=== PATIENT | male | born 1950 | race Caucasian/White ===

== ENCOUNTER → 2020-01-30 10:18 | Outpatient (BNVA) | payer OTHER, SELFPAY | PROVIDERS: Family Provider Emergency Medicine Emergency Medical Services; PCP Emergency Medicine Emergency Medical Services; Referring Provider Emergency Medicine Emergency Medical Services; Visit Provider Specialist | DX: G56.03 Carpal tunnel syndrome, bilateral upper limbs (principal); Z87.891 Personal history of nicotine dependence | CPT/HCPCS: 99204 ==

== ENCOUNTER → 2020-02-13 10:13 | Outpatient (BNVA) | payer OTHER, SELFPAY | PROVIDERS: Family Provider Emergency Medicine Emergency Medical Services; PCP Emergency Medicine Emergency Medical Services; Referring Provider Specialist; Visit Provider Psychiatry & Neurology Neurology | DX: G62.89 Other specified polyneuropathies (principal); Z87.891 Personal history of nicotine dependence | CPT/HCPCS: 95886; 95910 ==

== ENCOUNTER → 2020-02-15 11:01 | Outpatient (BNVA) | payer OTHER, SELFPAY | PROVIDERS: Family Provider Emergency Medicine Emergency Medical Services; PCP Emergency Medicine Emergency Medical Services; Referring Provider Specialist; Visit Provider Psychiatry & Neurology Neurology | DX: G56.03 Carpal tunnel syndrome, bilateral upper limbs (principal); Z87.891 Personal history of nicotine dependence | CPT/HCPCS: 95886; 95911 ==

== ENCOUNTER 2020-05-06 10:08 | Emergency (ER) | payer OTHER, MEDICARE, SELFPAY ==
[2020-05-06] VITALS (7 sets, daily range): BP systolic 141–149; BP diastolic 60–86; PULSE 55–78; RESP 14–26; TEMP 36.8; O2SAT 87–98; BMI 44.4
--- NOTE | 2020-05-06 10:57 | ED_ITS ---
HPI - General Adult General: Chief complaint: General Medical Stated complaint: confusion/weakness Time Seen by Provider: 05/06/20 10:57 History of Present Illness: HPI narrative: 70-year-old male comes in with nausea and vomiting and some mild confusion. He and his both admit that he has some altered mental status and diarrhea for the last 10 days sometimes been dark is not noticed any bright red blood per stool he is also had a productive cough however he states that that really has not changed intermittently has a productive cough has some purulent aspect to it but it has not really changed from what he considers his baseline recently. He does admit his breathing is been a little bit more difficult he denies any chest pain. He can have reports of various abdominal pains including admit him mid abdomen left lower quadrant in the epigastric area the area that seems to bother him the most in talking to him his left lower quadrant. He is denying any hematochezia. Onset (ago): day(s) (10) Location: abdomen Radiation: non-radiation Severity: severe Quality: aching Pain Consistency: intermittent Relieving factors: none Exacerbating factors: eating Associated symptoms: Reports confusion, cough, dyspnea, short of breath and vomiting; Deny chest pain, malaise or rash Treatments prior to arrival: none Review of Systems Const: Reports: fever(s); Denies: chills, body aches, change in appetite, fatigue or malaise ENMT: Denies: throat pain, ear or mastoid pain, nasal discharge or nasal congestion Card: Reports: dyspnea on exertion; Denies: chest pain, edema or orthopnea Resp: Reports: dyspnea GI: Reports: vomiting : Denies: flank pain, dysuria, urinary frequency or urinary urgency Skin/Breast: Denies: rash or pruritus Neuro: Reports: confusion PFSH ED PFSH: Medical History Bilateral carpal tunnel syndrome Cervical disc disorder with myelopathy of mid-cervical region Diabetes mellitus Diverticulitis Dyslipidemia Esophagitis Gastritis Hypertension, benign Morbid obesity Peripheral neuropathy Surgical History Hx of cholecystectomy S/P hemilaminotomy (05/01/03) Left L4-L5 hemilaminotomy with microdiscectomy ;[place], [place] Family History Father Cancer Mother Diabetes CAD (coronary artery disease) Stroke Other Hypertension Social History Smoking and tobacco status: former smoker Alcohol intake: former Year of sobriety/quit date alcohol: 1977 Lives independently: Yes Household members: spouse Marital status: Current occupational status: retired History of recent travel: No Physical Exam Const: COMMON NORMALS: no acute distress GENERAL APPEARANCE: cooperative and comfortable ORIENTATION/CONSCIOUSNESS: Yes awake, Yes oriented to person, Yes oriented to place and Yes oriented to time HENMT: COMMON NORMALS: normocephalic, atraumatic, hearing grossly normal bilaterally, external ears normal, EAC's normal, TM's normal bilaterally, Normal nasal mucous membranes and turbinates present, moist oral mucous membranes and oropharynx normal HEAD & SCALP: normocephalic and atraumatic NOSE: Normal nasal mucous membranes and turbinates present EXTERNAL EAR: Yes external ears normal EXTERNAL AUDITORY CANAL: EAC's normal TYMPANIC MEMBRANE: TM's normal bilaterally Eye: COMMON NORMALS: Equal, round and reactive pupils present, EOMs intact bilaterally, conjunctivae normal and no scleral icterus CONJUNCTIVA: Yes conjunctivae normal PUPIL: Yes Equal, round and reactive pupils present Neck/C-Spine: COMMON NORMALS: full ROM, no lymphadenopathy, supple and no JVD Lymph: LYMPHATIC: no lymphadenopathy noted and no lymphedema noted Resp: COMMON NORMALS: normal respiratory effort, No retractions, No use of accessory muscles and clear to auscultation bilaterally AUSCULTATION: clear to auscultation bilaterally Cardio: COMMON NORMALS: no JVD, regular rate, regular rhythm and No murmurs present (Cardio) RATE: regular rate RHYTHM: regular rhythm GI: COMMON NORMALS: Soft to palpation and No hepatosplenomegaly present AUSCULTATION: Yes normoactive bowel sounds PALPATION: Yes Soft to palpation, Yes Tenderness to palpation present (GI) Details: LLQ, No Guarding due to palpation present (GI) and Yes No hepatosplenomegaly present PERCUSSION: Other (Abdominal pain moderate distention obvious large umbilical hernia partially reducible) Extremity: COMMON NORMALS: normal to inspection, capillary refill normal, no clubbing, cyanosis or edema, no calf tenderness and no pedal edema Neuro: SENSORIUM/ORIENTATION: Yes oriented to person, Yes oriented to place and Yes oriented to time Skin: COMMON NORMALS: no rashes or lesions noted GENERAL SKIN EXAM: no rashes or lesions noted Course Vital Signs: Vital signs: Vital Signs Temperature 98.3 F 05/06/20 10:21 Pulse Rate 70 05/06/20 15:49 Respiratory Rate 18 05/06/20 15:49 Blood Pressure 141/60 05/06/20 15:49 Pulse Oximetry 90 05/06/20 15:49 MDM - General Adult MDM Narrative: Medical decision making narrative: Recommend further evaluation and probable admission for chronic respiratory failure on BiPAP patient refuses and is quite adamant decides to leave AMA I did advise him that he could worsen and even he expresses understanding this does not wish to stay and decided to leave AMA Lab Data: Labs: Lab Results 05/06/20 05/06/20 05/06/20 Range/Units 11:08 11:08 13:10 WBC 7.7 (4.0-10.0) 10^3/ uL RBC 4.31 (4.1-5.3) 10^6/u L Hgb 12.3 (11.7-16.6) g/dL Hct 39.4 L (42.0-52.0) % MCV 91.4 (80-94) fL MCH 28.5 (28.0-34.0) pg MCHC 31.2 (30.0-36.0) g/dL RDW 11.9 L (12.1-15.1) % Plt Count 242 (130-400) 10^3/c mm MPV 10.6 H (7.4-10.4) fL Neut % (Auto) 71.0 % Lymph % (Auto) 19.1 % Burke % (Auto) 6.8 % Eos % (Auto) 2.3 % Baso % (Auto) 0.5 % Neut # (Auto) 5.5 (1.8-7.7) 10^3/u L Lymph # (Auto) 1.5 (0.8-4.8) 10^3/u L Burke # (Auto) 0.5 (0.2-0.9) 10^3/u L Eos # (Auto) 0.2 (0.0-0.8) 10^3/u L Baso # (Auto) 0.0 (0.0-0.1) 10^3/u L Nucleated RBC % (a uto) 0 % Nucleated RBCs # 0.0 /100WBC Specimen Type Arterial Sample Site Radial, left ABG pH 7.33 L (7.35-7.45) ABG pCO2 77.4 H* (35-45) mmHg ABG pO2 121.0 H (80.0-100.0) mmH g ABG HCO3 41.0 H (22-26) mmol/L ABG O2 Saturation 98.4 ABG Base Excess 11.9 H (-2.0-2.0) mmol/ L Mike Test Pos A-a O2 Gradient 68.2 H (5-10) mmHg Hematocrit 38.2 L (42-52) % Hgb O2 Saturation 96.6 (95-100) % Carboxyhemoglobin 0.8 (0.4-20.1) %THgb Methemoglobin 1.0 (0.4-1.5) % Total Hemoglobin 12.4 L (14-18) g/dL Ionized Calcium 1.2 (1.1-1.4) mmol/L O2 Delivery Device Nc O2 Liters/Min 5.0 % FiO2 40.0 % Senior Software Quality Engineer ID [id number] Sodium 142 141.0 (136-145) mmol/L Potassium 3.2 L 4.0 (3.5-5.1) mmol/L Chloride 91 L (98-107) mmol/L Carbon Dioxide 41 H (22-29) mmol/L Anion Gap 13.2 (5-19) BUN 15 (8-23) mg/dL Creatinine 0.8 (0.7-1.2) mg/dL Glucose 97 119.0 H (65-115) mg/dL Calculated Osmolal ity 290 (285-295) mOsm/k g Calcium 9.6 (8.5-10.5) mg/dL Total Bilirubin 0.4 (0.15-1.2) mg/dL AST 24 (0-40) U/L ALT 11 (0-41) U/L Alkaline Phosphata se 63 (40-130) IU/L Total Protein 7.1 (6.6-8.7) g/dL Albumin 4.0 (3.5-5.2) g/dL Globulin 3.1 (1.3-4.6) g/dL Urine Color (Yellow) Urine Appearance (CLEAR) Urine pH (5-7) Ur Specific Gravit y (1.005-1.030) Urine Protein (Negative) Urine Glucose (UA) (Normal) Urine Ketones (Negative) Urine Blood (Negative) Urine Nitrate (Negative) Urine Bilirubin (NEGATIVE) Urine Urobilinogen (Negative) mg/dL Ur Leukocyte Allie ase (Negative) 05/06/20 05/06/20 Range/Units 14:09 14:54 WBC (4.0-10.0) 10^3/ uL RBC (4.1-5.3) 10^6/u L Hgb (11.7-16.6) g/dL Hct (42.0-52.0) % MCV (80-94) fL MCH (28.0-34.0) pg MCHC (30.0-36.0) g/dL RDW (12.1-15.1) % Plt Count (130-400) 10^3/c mm MPV (7.4-10.4) fL Neut % (Auto) % Lymph % (Auto) % Burke % (Auto) % Eos % (Auto) % Baso % (Auto) % Neut # (Auto) (1.8-7.7) 10^3/u L Lymph # (Auto) (0.8-4.8) 10^3/u L Burke # (Auto) (0.2-0.9) 10^3/u L Eos # (Auto) (0.0-0.8) 10^3/u L Baso # (Auto) (0.0-0.1) 10^3/u L Nucleated RBC % (a uto) % Nucleated RBCs # /100WBC Specimen Type Arterial Sample Site Radial, right ABG pH 7.39 (7.35-7.45) ABG pCO2 70.0 H* (35-45) mmHg ABG pO2 92.8 (80.0-100.0) mmH g ABG HCO3 41.9 H (22-26) mmol/L ABG O2 Saturation 97.5 ABG Base Excess 13.9 H (-2.0-2.0) mmol/ L Mike Test Pos A-a O2 Gradient 69.6 H (5-10) mmHg Hematocrit 36.8 L (42-52) % Hgb O2 Saturation 95.7 (95-100) % Carboxyhemoglobin 0.9 (0.4-20.1) %THgb Methemoglobin 1.0 (0.4-1.5) % Total Hemoglobin 12.0 L (14-18) g/dL Ionized Calcium 1.2 (1.1-1.4) mmol/L O2 Delivery Device Bipap O2 Liters/Min 2.0 % FiO2 35.0 % Senior Software Quality Engineer ID [email or web address] Sodium 142.0 (136-145) mmol/L Potassium 3.8 (3.5-5.1) mmol/L Chloride (98-107) mmol/L Carbon Dioxide (22-29) mmol/L Anion Gap (5-19) BUN (8-23) mg/dL Creatinine (0.7-1.2) mg/dL Glucose 108.0 (65-115) mg/dL Calculated Osmolal ity (285-295) mOsm/k g Calcium (8.5-10.5) mg/dL Total Bilirubin (0.15-1.2) mg/dL AST (0-40) U/L ALT (0-41) U/L Alkaline Phosphata se (40-130) IU/L Total Protein (6.6-8.7) g/dL Albumin (3.5-5.2) g/dL Globulin (1.3-4.6) g/dL Urine Color Yellow (Yellow) Urine Appearance Clear (CLEAR) Urine pH 9 H (5-7) Ur Specific Gravit y 1.010 (1.005-1.030) Urine Protein Neg (Negative) Urine Glucose (UA) Norm (Normal) Urine Ketones Negative (Negative) Urine Blood Neg (Negative) Urine Nitrate Negative (Negative) Urine Bilirubin Neg (NEGATIVE) Urine Urobilinogen Norm (Negative) mg/dL Ur Leukocyte Allie ase Negative (Negative) Discharge Plan Discharge Patient Disposition: Left Against Medical Advice Clinical Impression: Acute and chronic respiratory failure with hypercapnia, COPD with acute exacerbation Condition: Stable Prescriptions: No Action sertraline 100 mg tablet 100 mg PO DAILY RF: 0 acetaminophen [Tylenol Extra Strength] 500 mg tablet 500 mg PO QID PRN (Reason: Pain) RF: 0 ferrous sulfate 325 mg (65 mg iron) tablet,delayed release (DR/EC) 325 mg PO DAILY RF: 0 aspirin [Adult Aspirin Regimen] 81 mg tablet,delayed release (DR/EC) 81 mg PO DAILY RF: 0 Complete Multivitamin Tablet 1 tab PO DAILY RF: 0 losartan 100 mg tablet 100 mg PO DAILY RF: 0 omeprazole 20 mg capsule,delayed release(DR/EC) 20 mg PO DAILY RF: 0 hydrochlorothiazide 25 mg tablet 50 mg PO DAILY RF: 0 gabapentin 600 mg tablet 600 mg PO TID RF: 0 simvastatin 40 mg tablet 40 mg PO DAILY RF: 0 metformin 500 mg tablet 500 mg PO BID RF: 0 sildenafil 100 mg tablet 100 mg PO DAILY PRN (Reason: Sexual Activity) RF: 0 prazosin 1 mg capsule 4 mg PO DAILY RF: 0 nadolol 40 mg tablet 40 mg PO DAILY RF: 0 Referrals: Ag Kong DO [Primary Care Provider] - Discharge Diet: Usual diet Discharge Activity: Limit activity as instructed Activity Restrictions/Additional Instructions: We recommend that you stay here in the hospital on BiPAP overnight to correct your respiratory issues. You have elected to leave AGAINST MEDICAL ADVICE. We also recommended to observe you since you reported rectal bleeding. Continue to use her CPAP regularly at home follow-up with her primary care doctor as soon as you are able. Have any worsening problems you are certainly welcome to return. Please note that the risks of leaving AGAINST MEDICAL ADVICE including becoming much sicker up to and including the possibility of dying due to your chronic illnesses that are exacerbated at this time. We have discussed this and you have elected to leave in spite of this advice. Discharge Date/Time: 05/06/20 15:53 Coding Level of Care Code ED Company Accountant for Nia Fwd Exam Comprehensive
--- NOTE | 2020-05-06 10:59 | ECG_ITS ---
[facility] Test Date: 2020-05-06 Pat Name: Khoa Fallon Department: Room: Gender: Male Sheriff: : 1950 Requested By: Timur Nolen Order Number: [id number] Laura MD: Herrera Fenton M.D. Measurements Intervals [place] Rate: 49 P: 128 NV: 179 QRS: -14 QRSD: 72 T: 18 QT: 418 QTc: 380 Interpretive Statements SINUS BRADYCARDIA LOW QRS VOLTAGE IN PRECORDIAL LEADS [QRS DEFLECTION < 1.0 mV IN CHEST LEADS] PROBABLE INFERIOR MYOCARDIAL INFARCTION , PROBABLY OLD [35 ms Q WAVE IN II/aVF] ANTEROSEPTAL MYOCARDIAL INFARCTION , OF INDETERMINATE AGE [40+ ms Q WAVE IN V1-V4] Compared to ECG 11/16/2018 11:38:00 Sinus rhythm no longer present Myocardial infarct finding still present Electronically Signed On 05-06-2020 16:54:03 CDT by Herrera Fenton M.D. [id number]
--- NOTE | 2020-05-06 11:12 | CT_ITS ---
WS: [id number] CT HEAD TECHNIQUE: Noncontrast CT of the head obtained from the skullbase to the vertex. CLINICAL INFORMATION: AMS COMPARISON: None. DLP: 1318.[address] scans at [facility] use at least one of these dose optimization techniques: automat ed exposure control; mA and/or kV adjustment per patient size (includes targeted exams where dose is matched to clinical indication); or iterative reconstruction. FINDINGS: No evidence of intracranial hemorrhage or mass effect. Ventricular system and basal cisterns are baker nt. Mild small vessel changes with moderate parenchymal volume loss. No extra-axial fluid collections . No evidence of mass or mass effect. Normal ferrer-white differentiation. Paranasal sinuses and mastoid air cells are well aerated. .Normal visualized soft tissues. Notified Timur Alvarado DO at 05/06/2020 1:[address]/CT head wo con* [id number] IMPRESSION: 1. No evidence of intracranial hemorrhage or mass effect. 2. Mild small vessel changes with mild parenchymal volume loss. 3. Mild mucosal thickening in the ethmoid air cells. 4. No acute intracranial findings.
--- NOTE | 2020-05-06 11:12 | CT_ITS ---
WS: [id number] CT ABDOMEN PELVIS TECHNIQUE: Contrast-enhanced CT of the abdomen and pelvis with coronal and sagittal reformatted image s. CLINICAL INFORMATION: abd pain COMPARISON: CT DLP: 1450.[address] scans at [facility] use at least one of these dose optimization techniques: automat ed exposure control; mA and/or kV adjustment per patient size (includes targeted exams where dose is matched to clinical indication); or iterative reconstruction. FINDINGS: Noncontrast liver is normal. Prior cholecystectomy. Normal GE junction. 5 mm noncalcified nodule righ t lower lobe is unchanged. Small right pleural effusion. Fatty atrophy of the pancreas. Spleen is normal. No hydronephrosis in either kidney. Small left renal cysts. Right adrenal low-attenuation nodule measuring 3.0x3.5 cm appears unchanged since 2017. Sigmoid colon is normal. Diverticulosis. No evidence of acute diverticulitis. Normal appendix. Fat-co ntaining umbilical hernia is unchanged. No herniated bowel. Slightly aneurysmal distal abdominal aorta measuring 2.7 x 2.9 cm distally. AP by transverse. Chronic anterior wedging in the lower thoracic spine. Disc space narrowing worse L4-L5 and L5-S1. Attempted notification Timur Alvarado DO at 05/06/2020 12:[address]/CT abdomen pelvis w con* [id number] IMPRESSION: 1. No acute abdominal findings. No significant changes from . 2. Prior cholecystectomy. 3. Low-attenuation right adrenal mass measuring 3.5 x 3.0 cm unchanged since . This can be followed up with CT adrenal protocol. Differential considerati ons are unchanged including benign and malignant adrenal lesions. 4. No hydronephrosis in either kidney. 5. Small right pleural effusion. 6. Stable 5 mm noncalcified nodule right lower lobe. 7. Fat-containing umbilical hernia unchanged.
[2020-05-06 11:26] LABS: Basophils % 0.5 %; Eosinophils # 0.2 10^3/uL (0.0-0.8); Eosinophils % 2.3 %; Hematocrit 39.4 % (42.0-52.0); Hemoglobin 12.3 g/dL (11.7-16.6); Lymphocytes # 1.5 10^3/uL (0.8-4.8); Lymphocytes % 19.1 %; Mean Corpuscular HGB Conc 31.2 g/dL (30.0-36.0); Mean Corpuscular Hemoglobin 28.5 pg (28.0-34.0); Mean Corpuscular Volume 91.4 fL (80-94); Mean Platelet Volume 10.6 fL (7.4-10.4); Monocytes # 0.5 10^3/uL (0.2-0.9); Monocytes % 6.8 %; Neutrophils # 5.5 10^3/uL (1.8-7.7); Nucleated Red Blood Cells % 0 %; Platelet Count 242 10^3/cmm (130-400); Red Blood Count 4.31 10^6/uL (4.1-5.3); Red Cell Distribution Width 11.9 % (12.1-15.1); White Blood Count 7.7 10^3/uL (4.0-10.0)
--- NOTE | 2020-05-06 11:30 | PC.NURSE ---
Read and agree with assessment.
[2020-05-06 11:40] LABS: Alanine Aminotransferase 11 U/L (0-41); Alkaline Phosphatase 63 IU/L (40-130); Anion Gap 13.2 (5-19); Aspartate Amino Transferase 24 U/L (0-40); Blood Urea Nitrogen 15 mg/dL (8-23); Calcium 9.6 mg/dL (8.5-10.5); Chloride 91 mmol/L (98-107); Globulin 3.1 g/dL (1.3-4.6); Glucose 97 mg/dL (65-115); Osmolality Calculated 290 mOsm/kg (285-295); Potassium 3.2 mmol/L (3.5-5.1); Sodium 142 mmol/L (136-145); Total Bilirubin 0.4 mg/dL (0.15-1.2); Total Protein 7.1 g/dL (6.6-8.7)
[2020-05-06 11:50] LABS: Carbon Dioxide 41 mmol/L (22-29)
[2020-05-06] MEDS: iohexol 300 mg/mL 100 mL Btl IV (12:08)
[2020-05-06] MEDS: potassium chloride oral liq 20 mEq/15 mL UDC 40 MEQ PO ×2 (12:35→14:37)
[2020-05-06] MEDS: sodium chloride 0.9% 1,000 ML 999 ML IV (12:35)
[2020-05-06 13:24] LABS: ABG PCO2 77.4 mmHg (35-45); ABG PH Result 7.33 (7.35-7.45); Alveolar-Arterial Oxygen Gradi 68.2 mmHg (5-10); Arterial Blood Gas Hematocrit 38.2 % (42-52); Base Excess ABG 11.9 mmol/L (-2.0-2.0); Blood Gas Allen Test Pos; Blood Gas Operator Identificat amh; Blood Gas Sample Site Radial, left; Blood Gas Sample Type Arterial; Carboxyhemoglobin 0.8 %THgb (0.4-20.1); HGB O2 Sat 96.6 % (95-100); Ionized Calcium Level - ABG 1.2 mmol/L (1.1-1.4); Oxygen Device NC; Oxygen Saturation ABG 98.4; Total Hemoglobin 12.4 g/dL (14-18)
--- NOTE | 2020-05-06 13:26 | XRR_ITS ---
PROCEDURE INFORMATION: Exam: XR Chest, 1 View Exam date and time: 05/06/2020 1:39 PM Age: 70 years old Clinical indication: Pain; Other: Chest discomfort; Additional info: Dyspnea/cough TECHNIQUE: Imaging protocol: XR of the chest Views: 1 view. COMPARISON: No relevant prior studies available. FINDINGS: Lungs: Unremarkable. No consolidation. Pleural space: Unremarkable. No pleural effusion. No pneumothorax. Heart/Mediastinum: Cardiomegaly is identified. Bones/joints: Unremarkable. XR/XR chest 1V portable [id number] IMPRESSION: There are no acute concerning abnormalities.
[2020-05-06 14:18] LABS: Add Urine Microscopic? NO
[2020-05-06 14:33] LABS: Bilirubin Urine Neg (NEGATIVE); Blood Urine Neg (Negative); Glucose Urine UA Norm (Normal); Ketones Urine Negative (Negative); Leukocyte Esterase Urine Negative (Negative); Nitrate Urine Negative (Negative); Protein Urine Neg (Negative); Urine Appearance Clear (CLEAR); Urine Color Yellow (Yellow); Urobilinogen Urine Norm (Negative); pH Urine 9 (5-7)
[2020-05-06] MEDS: sodium chlor 0.9% + KCl 20 mEq 20 MEQ/1,000 ML BAG 125 MEQ IV (14:53)
[2020-05-06 15:08] LABS: ABG PH Result 7.39 (7.35-7.45); Alveolar-Arterial Oxygen Gradi 69.6 mmHg (5-10); Arterial Blood Gas Hematocrit 36.8 % (42-52); Base Excess ABG 13.9 mmol/L (-2.0-2.0); Blood Gas Allen Test Pos; Blood Gas Sample Site Radial, right; Blood Gas Sample Type Arterial; Carboxyhemoglobin 0.9 %THgb (0.4-20.1); HCO3 ABG 41.9 mmol/L (22-26); HGB O2 Sat 95.7 % (95-100); Ionized Calcium Level - ABG 1.2 mmol/L (1.1-1.4); Oxygen Device BIPAP; Oxygen Saturation ABG 97.5; PO2 ABG 92.8 mmHg (80.0-100.0); Potassium Level - ABG 3.8 mmol/L (3.5-5.0)
== END 2020-05-06 15:53 | disposition left against medical advice (07) ==
PROVIDERS: Emergency Provider Family Medicine; PCP Emergency Medicine Emergency Medical Services
DX: J44.1 Chronic obstructive pulmonary disease with (acute) exacerbation (principal); J96.22 Acute and chronic respiratory failure with hypercapnia; Z79.82 Long term (current) use of aspirin; Z53.21 Procedure and treatment not carried out due to patient leaving prior to being seen by health care provider; E11.9 Type 2 diabetes mellitus without complications; E78.5 Hyperlipidemia, unspecified; I10 Essential (primary) hypertension; Z87.891 Personal history of nicotine dependence
CPT/HCPCS: 12345; 36600; 70450; 71045; 74177; 80051; 80053; 81003; 82810; 83986; 85025; 87070; 87205; 93005; 94660; 96365; 96366; 96375; 99283; 99284; J7030; Q9967

== ENCOUNTER → 2020-07-02 11:16 | Outpatient (BNVA) | payer OTHER, SELFPAY | PROVIDERS: PCP Emergency Medicine Emergency Medical Services; Visit Provider Specialist | DX: G56.22 Lesion of ulnar nerve, left upper limb (principal); E11.40 Type 2 diabetes mellitus with diabetic neuropathy, unspecified; M50.020 Cervical disc disorder with myelopathy, mid-cervical region, unspecified level; Z87.891 Personal history of nicotine dependence | CPT/HCPCS: 99214 ==

== ENCOUNTER → 2021-03-26 15:03 | Outpatient (BNVA) | payer OTHER, SELFPAY | PROVIDERS: PCP Emergency Medicine Emergency Medical Services; Visit Provider Internal Medicine | DX: Z01.812 Encounter for preprocedural laboratory examination (principal); K63.5 Polyp of colon; Z20.822 Contact with and (suspected) exposure to COVID-19 | CPT/HCPCS: 87635 ==

== ENCOUNTER 2021-03-31 07:36 | Day surgery (SDC) | payer OTHER, SELFPAY ==
--- NOTE | 2021-03-31 07:45 | ANES.PREANE2 ---
Pre-Anesthetic Assessment Pre-Anesthetic Assessment: Height/Weight: Height 1.78 m Weight 132.449 kg Preop Diagnosis: polyps Proposed Procedure: Operation Date: 03/31/21 09:15 Proposed Procedures p Colonoscopy g0105 k63.5(Not Applicable) - Mark Gandara MD Familial anesthetic complications: None Was Beta Darshan taken within 24 hours: Yes Was Clonidine taken within 24 hours: N/A Last intake: > 8 hrs Social: Social History: No alcohol and No tobacco Comment: forme smoker Exam: Pre-Anes Outpt Exam: alert, oriented x 3, clear to auscultation bilaterally and regular rate & rhythm Additional Exam Findings (including area of procedure): diminished b/l Airway: Cervical ROM: WNL (2 ruptured discs) MP: 3 Dentition: Chipped Additional comments: large tongue, has black tongue. States he had chewing tobacco at 0530. Upon being told he needs to wait 6 hrs, he says he lied to me and did it last night at 6 pm. Will need to wait six hrs from 0530 Pulmonary: Pulmonary: COPD and Sleep apnea Comments: 2 L NC continously CV/HEM: CV/HEM: HTN Comments: CONCLUSIONS Possibly normal LV size and ejection fraction of around 55%. Normal aortic annulus size. Possibly normal left atrial size Possibly normal RV size and ejection fraction Trivial pericardial effusion. Technically difficult study because of poor ultrasonic window. GI: GI: GERD Metabolic: Metabolic: DM, Hyperlipidemia and Morbid obesity Neuropsych: Neuropsych: Neuropathy Anesthetic Plan: ASA status: 4 Anesthesia: MAC Risk of > 500 ml blood loss (7ml/kg in children): No PFSH Anesthesia PFSH: Medical History (Updated 03/26/21 @ 14:57 by Mark Gandara MD) Bilateral carpal tunnel syndrome Cervical disc disorder with myelopathy of mid-cervical region Diabetes mellitus Diverticulitis Dyslipidemia Esophagitis Gastritis Hypertension, benign Morbid obesity Peripheral neuropathy Surgical History Hx of cholecystectomy S/P hemilaminotomy (05/01/03) Left L4-L5 hemilaminotomy with microdiscectomy ;[place], [place] Family History Father Cancer Mother Diabetes CAD (coronary artery disease) Stroke Other Hypertension Social History Smoking and tobacco status: former smoker Alcohol intake: former Year of sobriety/quit date alcohol: 1976 Lives independently: Yes Household members: spouse Marital status: Current occupational status: retired History of recent travel: No Data Anesthesia Cardiac Studies: No Data to Display
[2021-03-31 08:33] VITALS: BP 116/59; PULSE 48; RESP 18; TEMP 36.1; O2SAT 98
[2021-03-31 08:34] LABS: Glucose Point of Care 117 mg/dL (70-110)
[2021-03-31] MEDS: sodium chloride 0.9% 1,000 ML 30 ML IV (08:44)
--- NOTE | 2021-03-31 09:59 | P.HP_ITS ---
Same Day Surgery H&P Indication for Procedure/HPI DATE OF PROCEDURE: March 31, 2021 CHIEF COMPLAINT/INDICATIONFOR SURGICAL PROCEDURE: History of colon polyp PREOP DIAGNOSIS: polyps PLANNED PROCEDRUE: Operation Date: 03/31/21 09:15 Proposed Procedures p Colonoscopy g0105 k63.5(Not Applicable) - Mark Gandara MD Medications/Allergies* Home Medications Medication Instructions Recorded Confirmed Type acetaminophen 500 mg tablet 500 mg PO QID PRN 01/09/20 03/31/21 History aspirin 81 mg tablet,delayed 81 mg PO DAILY 01/09/20 03/31/21 History release ferrous sulfate 325 mg (65 mg 325 mg PO DAILY 01/09/20 03/31/21 History iron) tablet,delayed release gabapentin 600 mg tablet 600 mg PO TID 01/09/20 03/31/21 History hydrochlorothiazide 25 mg tablet 50 mg PO DAILY tab 01/09/20 03/31/21 History losartan 100 mg tablet 100 mg PO DAILY 01/09/20 03/31/21 History metformin 500 mg tablet 500 mg PO BID 01/09/20 03/31/21 History omeprazole 20 mg capsule,delayed 20 mg PO DAILY 01/09/20 03/31/21 History release sertraline 100 mg tablet 100 mg PO DAILY 01/09/20 03/31/21 History simvastatin 40 mg tablet 40 mg PO DAILY 01/09/20 03/31/21 History nadolol 40 mg tablet 40 mg PO DAILY 01/30/20 03/31/21 History prazosin 1 mg capsule 4 mg PO DAILY cap 01/30/20 03/31/21 History tamsulosin 0.4 mg PO DAILY 03/28/21 03/31/21 History Allergies/Adverse Reactions Allergy/AdvReac Type Severity Reaction Status Date / Time Sulfa (Sulfonamide Allergy Intermediate Unknown Verified 03/26/21 14:34 Antibiotics) pregabalin Allergy unknown Verified 03/26/21 14:34 Current Medications: Generic Name Dose Route Start Last Admin Trade Name Freq PRN Reason Stop Dose Admin Sodium Chloride 1,000 mls @ 30 mls/hr 03/31/21 08:15 03/31/21 08:44 Sodium Chloride 0.9% IV 04/01/21 08:14 30 mls/hr .Q24H LUKAS Administration Pertinent History/Comorbid Conditions* Medical History (Updated 03/26/21 @ 14:57 by Mark Gandara MD) Bilateral carpal tunnel syndrome Cervical disc disorder with myelopathy of mid-cervical region Diabetes mellitus Diverticulitis Dyslipidemia Esophagitis Gastritis Hypertension, benign Morbid obesity Peripheral neuropathy Surgical History (Updated 01/10/20 @ 10:36 by Jose Winters MD) Hx of cholecystectomy S/P hemilaminotomy (05/01/03) Left L4-L5 hemilaminotomy with microdiscectomy ;[place], [place] Family History (Updated 01/30/20 @ 11:05 by Kyara Herzog LPN) Diabetes Mother CAD (coronary artery disease) Mother Cancer Father Hypertension Stroke Mother Social History Smoking and tobacco status: former smoker Alcohol intake: former Year of sobriety/quit date alcohol: 1976 Lives independently: Yes Household members: spouse Marital status: Current occupational status: retired History of recent travel: No Pertinent Exam Findings alert, oriented x 3, clear to auscultation bilaterally, regular rate & rhythm, operative site marked and procedure specific exam findings Recommendations Surgery/Procedure today Coding Level of Care Code Acute Android Framework Developer for Nia Pinedo
[2021-03-31 11:56] VITALS: BP 104/57; PULSE 47; RESP 18; TEMP 36.4; O2SAT 99
[2021-03-31 12:20] VITALS: BP 114/56; PULSE 51; RESP 18; O2SAT 99
--- NOTE | 2021-03-31 17:50 | ANE.PACU2 ---
Inpatient post-anesthesia follow up: Airway intact: Yes Vital signs: Temperature 97.5 F Pulse Rate 51 Respiratory Rate 18 Blood Pressure 114/56 Pulse Oximetry 99 Oxygen Delivery Me thod Nasal Cannula Oxygen Flow Rate 2 Fraction of Inspir ed Oxygen Hydration adequate: Yes Nausea and vomiting: No Pain level: 3 Mental status: Baseline
== END 2021-03-31 12:35 | disposition home or self-care (01) ==
PROVIDERS: PCP Emergency Medicine Emergency Medical Services; Visit Provider Internal Medicine
PROC: 0DJD8ZZ Inspection of Lower Intestinal Tract, Via Natural or Artificial Opening Endoscopic (ICD-10-PCS; CPT 45378; principal; 2021-03-31 09:15)
DX: Z86.010 Personal history of colon polyps (principal); Z79.82 Long term (current) use of aspirin; Z79.84 Long term (current) use of oral hypoglycemic drugs; E78.5 Hyperlipidemia, unspecified; I10 Essential (primary) hypertension; E66.01 Morbid (severe) obesity due to excess calories; Z68.41 Body mass index [BMI] 40.0-44.9, adult; E11.42 Type 2 diabetes mellitus with diabetic polyneuropathy; Z82.49 Family history of ischemic heart disease and other diseases of the circulatory system; Z83.3 Family history of diabetes mellitus; F17.220 Nicotine dependence, chewing tobacco, uncomplicated; J44.9 Chronic obstructive pulmonary disease, unspecified; G47.30 Sleep apnea, unspecified; E11.9 Type 2 diabetes mellitus without complications
CPT/HCPCS: 36416; 45378; 82962; 96360; 96361; J2704; J7030

== ENCOUNTER 2021-08-25 08:14 | Outpatient (CLI) | payer OTHER, SELFPAY ==
--- NOTE | 2021-08-25 08:30 | XR_ITS ---
WS: [id number] LATERAL CERVICAL SPINE: 3 view. Lateral radiographs are performed in upright neutral, flexion and extension to the patient's toleranc e. HISTORY: NECK PAIN COMPARISON: 09/29/2019 Limited evaluation of the entire cervical spine due to patient's shoulders and body habitus. C6 and C 7 vertebral bodies are not visualized. 2 mm retrolisthesis on neutral imaging of C2. Does not change significantly with flexion or extension . Mild degenerative disc space narrowing at C5-6. XR/XR cervical spine fl/ex [id number] Impression: 1. Limited evaluation of the entire cervical spine due to body habitus. 2. 2 mm retrolisthesis of C2 without instability. Similar to the prior study o f 09/29/2019
--- NOTE | 2021-08-25 08:30 | MR_ITS ---
WS: [id number] MRI CERVICAL SPINE NONCONTRAST HISTORY: NECK PAIN COMPARISON: 05/10/2019 Technique: Multiplanar, multisequence noncontrast imaging of the cervical spine. Mild increase in the cervical lordosis. Less than 2 mm retrolisthesis of C3 and C5. No marrow edema o r fracture. Signal within the cord is normal. Moderate disc space narrowing and desiccation throughout the cervic al spine most significant at C5-6. Craniocervical junction, C1 and C2 relationship, odontoid process and soft tissues are normal. C2-C3: Normal. C3-C4: Moderate osteophytic ridging and annular disc bulging. Larger osteophyte extending into the RI GHT foramen with mild to moderate RIGHT foraminal stenosis. Mild progression since the prior study. C4-C5: Diffuse osteophytic ridging and annular disc bulging. Disc osteophyte complexes extend into th e foramen. Mild central with moderate bilateral foraminal stenosis. Central disc protrusion is small and unchanged. C5-C6: Moderate osteophytic ridging. Asymmetric osteophytosis and disc osteophyte complex in the LEFT foramen. Moderate central and bilateral foraminal stenosis. Slightly greater stenosis and encroachme nt on the LEFT. C6-C7: Diffuse osteophytic ridging and annular disc bulging. Moderate facet joint arthritis. Moderate central with moderate to severe foraminal stenosis. C7-T1: Mild foraminal stenosis due to osteophyte and facet disease. Mild progression since the prior study. Paraspinal soft tissue are normal. MR/MR cervical spin wo con* [id number] IMPRESSION: 1. Mild progression of degenerative spondylosis and facet arthritis since the prior study from 05/10/2019. 2. Moderate central with moderate to severe bilateral foraminal stenosis at C6 -7. 3. Moderate central and bilateral foraminal stenosis, LEFT greater than RIGHT at C5-6. 4. Mild central and moderate foraminal stenosis at C4-5. 5. RIGHT foraminal stenosis mild to moderate at C3-4.
== END 2021-08-25 08:15 | disposition home or self-care (01) ==
PROVIDERS: PCP Emergency Medicine Emergency Medical Services; Visit Provider Anesthesiology Pain Medicine
DX: M48.02 Spinal stenosis, cervical region (principal)
CPT/HCPCS: 72040; 72141

== ENCOUNTER → 2021-11-05 08:27 | Outpatient (BNVA) | payer OTHER, SELFPAY | PROVIDERS: PCP Emergency Medicine Emergency Medical Services; Referring Provider Emergency Medicine Emergency Medical Services; Visit Provider Specialist | DX: M25.512 Pain in left shoulder (principal); M19.012 Primary osteoarthritis, left shoulder | CPT/HCPCS: 73030 ==

== ENCOUNTER 2021-11-09 17:55 | Inpatient (IN) | payer OTHER, MEDICARE, SELFPAY ==
[2021-11-09] VITALS (7 sets, daily range): BP systolic 122–166; BP diastolic 74–90; PULSE 51–58; RESP 18–21; TEMP 36.2; O2SAT 94–97; BMI 43.7
--- NOTE | 2021-11-09 18:11 | ED_ITS ---
HPI - Abdominal Pain General: Chief Complaint: Abdominal Pain Stated Complaint: stomach ache Time Seen by Provider: 11/09/21 18:10 History of Present Illness: HPI narrative: Mr. Fallon is a 71-year-old gentleman with history of diabetes and obesity who presents to the emergency department due to abdominal pain. Symptom onset was acute approximately 3 to 4 hours ago. He does not recall specific inciting event. He has had episodic severe aching generalized abdominal pain. He has mild associated nausea and does report one episode of somewhat bilious emesis. He has had bowel movements since symptom onset though reports that they were harder and required more straining. He has a history of cholecystectomy and also has known hernias. His periumbilical hernia has not significantly changed per patient. Overall the intensity symptoms is severe when present. Course has been worsening. No other specific changes in health, signs of systemic illness, exacerbating, or alleviating factors identified. Review of Systems General: Reports: 10 or more systems reviewed and unremarkable except in HPI and below PFSH ED PFSH: Medical History Anemia Bilateral carpal tunnel syndrome Cervical disc disorder with myelopathy of mid-cervical region Diabetes mellitus Diverticulitis Dyslipidemia Esophagitis Gastritis Hiatal hernia Hypertension, benign Hypoxia, sleep related Morbid obesity Peripheral neuropathy Surgical History Hx of cholecystectomy S/P hemilaminotomy (05/01/03) Left L4-L5 hemilaminotomy with microdiscectomy ;[place], [place] Family History Father Cancer Mother Diabetes CAD (coronary artery disease) Stroke Other Hypertension Social History Smoking and tobacco status: former smoker Alcohol intake: former Year of sobriety/quit date alcohol: 1977 Lives independently: Yes Household members: spouse Marital status: Current occupational status: retired History of recent travel: No Physical Exam Narrative: EXAM NARRATIVE: GENERAL/CONSTITUTIONAL - uncomfortable appearing, distress due to pain. Eyes -no scleral icterus, no conjunctival injection ENMT - Atraumatic external nose and ears. NECK - supple. trachea midline CARDIOVASCULAR - regular rate and rhythm. Normal peripheral perfusion RESPIRATORY -clear to auscultation bilaterally. ABDOMEN/GI - distention with generalized tenderness palpation. Periumbilical hernia noted without specific worse pain to palpation, no overlying skin changes. MSK - Extremities without obvious deformity or tenderness to palpation SKIN - Warm, Dry NEURO - alert and appropriately oriented. Moves all extremities equally. Course ED course: - Patient was seen and evaluated by me at bedside - Patient placed on cardiac monitors, IV access obtained - Initial evaluation notable for exam as above - Analgesia given - Labs notable for leukocytosis. Metabolic panel with likely mild evidence of dehydration. Lactate normal. No evidence of UTI. - Imaging notable for bowel obstruction - Upon serial reexamination after treatment the patient was mildly improved with analgesia though patient requires repeat dosage. - Based on patient history, evaluation, labs, and imaging as interpreted the most likely cause of the patient's condition is small bowel obstruction - The results of ED evaluation were discussed with the patient including plan for admission due to requirement for NG tube, n.p.o. status, IV hydration, and IV analgesia. - General surgery contacted and will consult given medical comorbidities including hypertension with multiple oral agents as well as diabetes in the context of n.p.o. status. Hospitalist service contacted to admit the patient. - Patient was admitted without further deterioration or significant events. Vital Signs: Vital signs: Vital Signs Temperature 97.4 F L 11/10/21 12:00 Pulse Rate 71 11/10/21 12:00 Respiratory Rate 18 11/10/21 12:00 Blood Pressure 133/68 11/10/21 12:00 Pulse Oximetry 90 11/10/21 12:00 MDM - Abdominal Pain Medical Records: Attestation: I reviewed the patient's medical records. Lab Data: Attestation: I reviewed the patient's lab results. Labs: Lab Results 11/09/21 11/09/21 11/09/21 18:21 18:21 18:21 WBC 13.3 10^3/uL H 10 ^3/uL (4.0-10.0) RBC 5.13 10^6/uL 10^6 /uL (4.1-5.3) Hgb 14.8 g/dL g/dL (11.7-16.6) Hct 44.7 % % (42.0-52.0) MCV 87.1 fl fl (80-94) MCH 28.8 pg pg (28.0-34.0) MCHC 33.1 g/dL g/dL (30.0-36.0) RDW 13.2 % % (12.1-15.1) Plt Count 256 10^3/cmm 10^3 /cmm (130-400) MPV 11.1 fL H fL (7.4-10.4) Neut % (Auto) 79.1 % % Lymph % (Auto) 13.0 % % [place] % (Auto) 4.7 % % Eos % (Auto) 2.0 % % Baso % (Auto) 0.8 % % Neut # (Auto) 10.52 10^3/uL H 1 0^3/uL (1.8-7.7) Lymph # (Auto) 1.7 10^3/uL 10^3/ uL (0.8-4.8) [place] # (Auto) 0.6 10^3/uL 10^3/ uL (0.2-0.9) Eos # (Auto) 0.3 10^3/uL 10^3/ uL (0.0-0.8) Baso # (Auto) 0.1 10^3/uL 10^3/ uL (0.0-0.1) Nucleated RBC % (a uto) 0 % % Nucleated RBCs # 0.0 /100WBC /100W BC Sodium Cancelled Potassium Cancelled Chloride Cancelled Carbon Dioxide Cancelled Anion Gap Cancelled BUN Cancelled Creatinine Cancelled GFR Calculation Cancelled Glucose Cancelled Calculated Osmolal ity Cancelled Lactic Acid Calcium Cancelled Total Bilirubin Cancelled AST Cancelled ALT Cancelled Alkaline Phosphata se Cancelled Total Protein Cancelled Albumin Cancelled Globulin Cancelled Lipase Cancelled Urine Color Yellow (Yellow) Urine Appearance Clear (CLEAR) Urine pH 6 (5-7) Ur Specific [place]it [place] 1.015 (1.005-1.030) Urine Protein Neg (Negative) Urine Glucose (UA) Norm (Normal) Urine Ketones Negative (Negative) Urine Blood Neg (Negative) Urine Nitrate Negative (Negative) Urine Bilirubin Neg (Negative) Urine Urobilinogen Norm mg/dL mg/dL (Negative) Ur Leukocyte Allie ase Negative (Negative) 11/09/21 11/09/21 18:36 19:20 WBC RBC Hgb Hct MCV MCH MCHC RDW Plt Count MPV Neut % (Auto) Lymph % (Auto) [place] % (Auto) Eos % (Auto) Baso % (Auto) Neut # (Auto) Lymph # (Auto) [place] # (Auto) Eos # (Auto) Baso # (Auto) Nucleated RBC % (a uto) Nucleated RBCs # Sodium 143 mmol/L mmol/L (136-145) Potassium 3.8 mmol/L mmol/L (3.5-5.1) Chloride 100 mmol/L mmol/L (98-107) Carbon Dioxide 27 mmol/L mmol/L (22-29) Anion Gap 19.8 H (5-19) BUN 21 mg/dL mg/dL (8-23) Creatinine 0.9 mg/dL mg/dL (0.7-1.2) GFR Calculation Not Reportable Glucose 161 mg/dL H mg/dL (65-115) Calculated Osmolal ity 302 mOsm/kg H mOs m/kg (285-295) Lactic Acid 1.7 mmol/L mmol/L (0.5-2.2) Calcium 9.2 mg/dL mg/dL (8.5-10.5) Total Bilirubin 0.3 mg/dL mg/dL (0.15-1.2) AST 19 U/L U/L (0-40) ALT 17 U/L U/L (0-41) Alkaline Phosphata se 75 IU/L IU/L (40-130) Total Protein 6.8 g/dL g/dL (6.6-8.7) Albumin 4.1 g/dL g/dL (3.5-5.2) Globulin 2.7 g/dL g/dL (1.3-4.6) Lipase 22 U/L U/L (13-60) Urine Color Urine Appearance Urine pH Ur Specific Gravit y Urine Protein Urine Glucose (UA) Urine Ketones Urine Blood Urine Nitrate Urine Bilirubin Urine Urobilinogen Ur Leukocyte Allie ase EKG Data ^: EKG 1: Attestation: I personally reviewed and interpreted this EKG as follows: EKG interpretation date: 11/09/21 EKG interpretation time: 20:27 Interpretation: Twelve-lead EKG shows a regular rhythm at a rate of 49. MS interval 185, QRS duration 77, QTc 365. Left axis deviation. Interpretation: Sinus rhythm. Nonspecific ST segment abnormalities. Discharge Plan Discharge Admit Provider: Sergei Ball Condition: Stable Coding Level of Care Code ED Food Or Baggage Handling [place] for g Khris
--- NOTE | 2021-11-09 18:25 | CTR_ITS ---
PROCEDURE INFORMATION: Exam: CT Abdomen And Pelvis With Contrast Exam date and time: 11/09/2021 6:25 PM Age: 71 years old Clinical indication: Abdominal pain; Generalized; Prior surgery; Surgery type: Gb. L4-l5 laminotomy. ; Patient HX: Diffuse abd pain with nausea. History of gastritis, hiatal, and umbilical hernia. ; Additional info: Severe abd pain, ? obstruction TECHNIQUE: Imaging protocol: Computed tomography of the abdomen and pelvis with contrast. Radiation optimization: All CT scans at this facility use at least one of these dose optimization techniques: automated exposure control; mA and/or kV adjustment per patient size (includes targeted exams where dose is matched to clinical indication); or iterative reconstruction. Contrast material: VISI 320; Contrast volume: 95 ml; Contrast route: INTRAVENOUS (IV); COMPARISON: CT abdomen pelvis w con* [id number] 05/06/2020 11:57 AM RADIATION DOSE METRICS: Total DLP (mGy-cm): 1928.3 FINDINGS: Lungs: The lung bases appear unremarkable. Heart: Small pericardial effusion. Heart size is normal. Diaphragm: Moderate-sized hiatal hernia containing mostly fat. Liver: Unremarkable. No mass. Gallbladder and bile ducts: The gallbladder is surgically absent. Pancreas: Unremarkable. No ductal dilation. Spleen: The spleen is normal in size and appearance. Adrenal glands: Stable 3.3 cm right adrenal adenoma. No left adrenal mass. Kidneys and ureters: Less than 10 mm simple cyst left kidney. Nonobstructing 2 mm left renal calculus. Right kidney is unremarkable. No hydronephrosis on either side. Ureters appear normal. No obstructive uropathy. Stomach and bowel: Proximal small bowel demonstrates multiple dilated loops with air-fluid levels. Distal small bowel has a an empty, decompressed appearance. Findings are consistent with small bowel obstruction. Change in caliber of small bowel is seen in the left mid abdomen, series 2, images 50 through 74. There is no mass seen in this area. Appendix: No evidence of appendicitis. Normal appendix identified. Intraperitoneal space: No pneumoperitoneum. No significant fluid collection. Vasculature: Atherosclerosis of the abdominal aorta. Infrarenal aneurysm measuring 3.2 cm in diameter. Lymph nodes: No pathologically enlarged lymph nodes are demonstrated. Urinary bladder: The urinary bladder is unremarkable in appearance. Reproductive: Unremarkable as visualized. Bones/joints: Degenerative spine changes are present. No acute osseous abnormality. Soft tissues: The abdominal wall demonstrates a 5 cm umbilical hernia, containing only fat. CT/CT abdomen pelvis w con* [id number] IMPRESSION: 1. Findings consistent with small bowel obstruction noted. No ischemic change or perforation. 2. Atherosclerosis of the abdominal aorta. Infrarenal aneurysm measuring 3.2 cm in diameter. No leak or rupture. 3. Moderate-sized hiatal hernia containing mostly fat. 4. The abdominal wall demonstrates a 5 cm umbilical hernia, containing only fat. 5. Small pericardial effusion. Heart size is normal. 6. Stable 3.3 cm right adrenal adenoma. COMMENTS: Consistent with the [employer]'s Incidental Findings Committee white paper (J Am Ranjana Radiol 2018): Any incidental renal lesion less than 1 cm or classified as too small to characterize, or any incidental cystic renal lesion characterized as simple-appearing, is likely benign. No follow-up imaging is recommended for these lesions per consensus recommendations based on imaging criteria.
[2021-11-09 18:28] LABS: Basophils # 0.1 10^3/uL (0.0-0.1); Basophils % 0.8 %; Eosinophils # 0.3 10^3/uL (0.0-0.8); Hematocrit 44.7 % (42.0-52.0); Hemoglobin 14.8 g/dL (11.7-16.6); Lymphocytes # 1.7 10^3/uL (0.8-4.8); Mean Corpuscular HGB Conc 33.1 g/dL (30.0-36.0); Mean Corpuscular Hemoglobin 28.8 pg (28.0-34.0); Mean Corpuscular Volume 87.1 fl (80-94); Mean Platelet Volume 11.1 fL (7.4-10.4); Monocytes # 0.6 10^3/uL (0.2-0.9); Monocytes % 4.7 %; Neutrophils # 10.52 10^3/uL (1.8-7.7); Neutrophils % 79.1 %; Nucleated Red Blood Cells % 0 %; Platelet Count 256 10^3/cmm (130-400); Red Blood Count 5.13 10^6/uL (4.1-5.3); Red Cell Distribution Width 13.2 % (12.1-15.1); White Blood Count 13.3 10^3/uL (4.0-10.0)
[2021-11-09] MEDS: ondansetron 2 mg/ML SDV 2 mL 4 MG IVP ×2 (18:37→23:13)
[2021-11-09] MEDS: morphine 4 mg/mL SDV 1 mL IVP ×3 (18:37→22:53)
[2021-11-09 18:42] LABS: Add Urine Microscopic? NO; Charge for UA Resulting for Rev
--- NOTE | 2021-11-09 18:52 | ECG_ITS ---
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 Measurements Intervals [place] Rate: 49 P: 112 SC: 185 QRS: -39 QRSD: 77 T: 60 QT: 394 QTc: 358 Interpretive Statements SINUS BRADYCARDIA LOW QRS VOLTAGE IN PRECORDIAL LEADS [QRS DEFLECTION < 1.0 mV IN CHEST LEADS] POSSIBLE ANTERIOR MYOCARDIAL INFARCTION , PROBABLY OLD [30 ms Q WAVE IN V3/V4, OR R < 0.2 mV IN V4] INFERIOR MYOCARDIAL INFARCTION , PROBABLY OLD [40+ ms Q WAVE AND/OR ST/T ABNORMALITY IN II/aVF] Compared to ECG 05/06/2020 11:16:07 No significant changes Electronically Signed On 11-09-2021 20:25:49 RESIDENTIAL PEST CONTROL TECHNICIAN by Timothy Kirk M.D. [email or web address]
[2021-11-09 18:58] LABS: Bilirubin Urine Neg (Negative); Blood Urine Neg (Negative); Glucose Urine UA Norm (Normal); Ketones Urine Negative (Negative); Leukocyte Esterase Urine Negative (Negative); Nitrate Urine Negative (Negative); Protein Urine Neg (Negative); Specific Gravity, Urine 1.015 (1.005-1.030); Urine Appearance Clear (CLEAR); Urine Color Yellow (Yellow); Urobilinogen Urine Norm (Negative); pH Urine 6 (5-7)
[2021-11-09 19:15] LABS: Lactic Sepsis W/Reflex 1.7 mmol/L (0.5-2.2)
[2021-11-09 19:43] LABS: Alanine Aminotransferase 17 U/L (0-41); Albumin Level 4.1 g/dL (3.5-5.2); Alkaline Phosphatase 75 IU/L (40-130); Anion Gap 19.8 (5-19); Aspartate Amino Transferase 19 U/L (0-40); Blood Urea Nitrogen 21 mg/dL (8-23); Calcium 9.2 mg/dL (8.5-10.5); Carbon Dioxide 27 mmol/L (22-29); Chloride 100 mmol/L (98-107); Globulin 2.7 g/dL (1.3-4.6); Glucose 161 mg/dL (65-115); Lipase 22 U/L (13-60); Osmolality Calculated 302 mOsm/kg (285-295); Potassium 3.8 mmol/L (3.5-5.1); Sodium 143 mmol/L (136-145); Total Bilirubin 0.3 mg/dL (0.15-1.2); Total Protein 6.8 g/dL (6.6-8.7)
[2021-11-09] MEDS: iodixanol 320 mg/mL 100mL Btl IV (19:44)
[2021-11-09] MEDS: LORazepam 2 mg/mL INJ 1 mL 0.5 MG IVP (22:53)
[2021-11-09] MEDS: lidocaine 2% Urojet 20 mL TOPICAL (22:54)
--- NOTE | 2021-11-09 23:06 | PM.HP ---
Providers/Chief Complaint Admitting Physician: Sergei Ball MD Primary Care Provider: Ag Kong DO Chief Complaint: stomach ache History of Present Illness Khoa Fallon is a 71 year old male with history of diabetes mellitus, peripheral neuropathy, who presented to ER with c/o abdominal pain that started a few hrs prior to presentation. Reports diffuse generalized dull pain followed by nausea and one episode of vomiting. Reports being constipated over past few days. CT abdomen in the ER today shows SBO. No h/o recent illness otherwise. No fever. NGT placed. Review of Systems General: Reports: 10 or more systems reviewed and unremarkable except in HPI and below Const: Denies: fever(s), chills or body aches Eyes: Denies: change in vision, blurry vision or photophobia ENMT: Reports: hoarseness; Denies: throat pain, enlarged tonsils, odynophagia or nasal congestion Card: Denies: chest pain, palpitations, irregular heart rhythm, edema, swelling of feet/ankles, lightheadedness, pre-syncope, dyspnea on exertion or orthopnea Resp: Denies: dyspnea, productive cough, non-productive cough, wheezing, stridor, pain on inspiration, change in phlegm color, hemoptysis or chest congestion GI: Denies: abdominal pain, nausea, vomiting, hematemesis, coffee ground emesis, dysphagia, heartburn, diarrhea, constipation, GI cramping, change in stool character, hematochezia or melena : Denies: flank pain, dysuria, urinary frequency, urinary urgency, urinary hesitancy or hematuria Musc: Denies: neck pain, back pain, extremity pain, joint swelling, joint warmth or deformity Neuro: Denies: headache(s), numbness in extremities, weakness in extremities, sensory changes, difficulty walking, frequent falls, dizziness, vertigo, behavioral changes, Slurred speech present or seizure-like activity Psych: Denies: anxiety, depression, suicidal ideation or homicidal ideation Endo: Denies: polyuria, polydipsia, tired all the time, cold intolerance or hot flashes Marty/Lymph: Denies: easy bruising or easy bleeding Medications/Allergies Home Medications Medication Instructions Recorded Confirmed Last Taken Type acetaminophen 500 mg tablet 500 mg PO QID PRN 01/09/20 11/06/21 03/30/21 History aspirin 81 mg tablet,delayed 81 mg PO DAILY 01/09/20 11/06/21 03/28/21 History release ferrous sulfate 325 mg (65 mg 325 mg PO DAILY 01/09/20 11/06/21 03/30/21 History iron) tablet,delayed release gabapentin 600 mg tablet 600 mg PO TID 01/09/20 11/06/21 03/30/21 History hydrochlorothiazide 25 mg tablet 50 mg PO DAILY tab 01/09/20 11/06/21 03/30/21 History losartan 100 mg tablet 100 mg PO DAILY 01/09/20 11/06/21 03/31/21 History metformin 500 mg tablet 500 mg PO BID 01/09/20 11/06/21 03/30/21 History omeprazole 20 mg capsule,delayed 20 mg PO DAILY 01/09/20 11/06/21 03/31/21 History release sertraline 100 mg tablet 100 mg PO DAILY 01/09/20 11/06/21 03/31/21 History simvastatin 40 mg tablet 40 mg PO DAILY 01/09/20 11/06/21 03/30/21 History nadolol 40 mg tablet 40 mg PO DAILY 01/30/20 11/06/21 03/31/21 History prazosin 1 mg capsule 4 mg PO DAILY cap 01/30/20 11/06/21 03/30/21 History tamsulosin 0.4 mg PO DAILY 03/28/21 11/06/21 03/30/21 History dibucaine 1 % rectal ointment 1 applic MO TID PRN #56 g 04/08/21 11/06/21 Unknown Rx hydrocortisone 2.5 % topical cream 1 applic MO DAILY PRN #30 g 04/08/21 11/06/21 Unknown Rx with perineal applicator Allergies Allergy/AdvReac Type Severity Reaction Status Date / Time Sulfa (Sulfonamide Allergy Intermediate Unknown Verified 11/10/21 01:10 Antibiotics) pregabalin Allergy unknown Verified 11/10/21 01:10 PFSH Acute PFSH: Medical History (Updated 11/10/21 @ 06:35 by Marly Sanchez MD) Anemia Bilateral carpal tunnel syndrome Cervical disc disorder with myelopathy of mid-cervical region Diabetes mellitus Diverticulitis Dyslipidemia Esophagitis Gastritis Hiatal hernia Hypertension, benign Hypoxia, sleep related Morbid obesity Peripheral neuropathy Surgical History Hx of cholecystectomy S/P hemilaminotomy (05/01/03) Left L4-L5 hemilaminotomy with microdiscectomy ;[place] Family History Father Cancer Mother Diabetes CAD (coronary artery disease) Stroke Other Hypertension Social History Smoking and tobacco status: former smoker Alcohol intake: former Year of sobriety/quit date alcohol: 1976 Lives independently: Yes Household members: spouse Marital status: Current occupational status: retired History of recent travel: No Vitals/I&O/Wt Last Vital Signs Temp 97.2 F L 11/09/21 17:57 Pulse 51 L 11/09/21 21:01 Resp 21 H 11/09/21 22:53 BP 146/74 11/09/21 21:01 Pulse Ox 94 11/09/21 22:53 Weight last 48 hrs Weight 138.346 kg Physical Exam Narrative: EXAM NARRATIVE: General: No acute distress, AO x3 HEENT: PERRLA, pupils bilaterally equal and reactive, pallors not present Chest: Normal vesicular breath sounds, no added sounds, equal good air entry bilaterally CVS: S1-S2 regular, no murmurs, no tachycardia, no gallops, no rubs Abdomen: Soft, mild distension, disocmfort to palpation Neuro: No focal deficits, no facial deformity, AO x3, power 5/5 in all limbs Data : 11/09/21 18:21 11/09/21 19:20 Other Labs: Laboratory Results WBC 12.7 10^3/uL (4.0-10.0) H 11/10/21 05:28 RBC 4.92 10^6/uL (4.1-5.3) 11/10/21 05:28 Hgb 13.9 g/dL (11.7-16.6) 11/10/21 05:28 Hct 45.1 % (42.0-52.0) 11/10/21 05:28 MCV 91.7 fl (80-94) D 11/10/21 05:28 MCH 28.3 pg (28.0-34.0) 11/10/21 05:28 MCHC 30.8 g/dL (30.0-36.0) D 11/10/21 05:28 RDW 12.9 % (12.1-15.1) 11/10/21 05:28 Plt Count 235 10^3/cmm (130-400) 11/10/21 05:28 MPV 11.6 fL (7.4-10.4) H 11/10/21 05:28 Neut % (Auto) 86.3 % 11/10/21 05:28 Lymph % (Auto) 6.7 % 11/10/21 05:28 [place] % (Auto) 5.0 % 11/10/21 05:28 Eos % (Auto) 1.3 % 11/10/21 05:28 Baso % (Auto) 0.4 % 11/10/21 05:28 Neut # (Auto) 10.95 10^3/uL (1.8-7.7) H 11/10/21 05:28 Lymph # (Auto) 0.9 10^3/uL (0.8-4.8) 11/10/21 05:28 [place] # (Auto) 0.6 10^3/uL (0.2-0.9) 11/10/21 05:28 Eos # (Auto) 0.2 10^3/uL (0.0-0.8) 11/10/21 05:28 Baso # (Auto) 0.1 10^3/uL (0.0-0.1) 11/10/21 05:28 Nucleated RBC % (auto) 0 % 11/10/21 05:28 Nucleated RBCs # 0.0 /100WBC 11/10/21 05:28 Sodium 143 mmol/L (136-145) 11/09/21 19:20 Potassium 3.8 mmol/L (3.5-5.1) 11/09/21 19:20 Chloride 100 mmol/L (98-107) 11/09/21 19:20 Carbon Dioxide 27 mmol/L (22-29) 11/09/21 19:20 Anion Gap 19.8 (5-19) H 11/09/21 19:20 BUN 21 mg/dL (8-23) 11/09/21 19:20 Creatinine 0.9 mg/dL (0.7-1.2) 11/09/21 19:20 GFR Calculation Not Reportable 11/09/21 19:20 Glucose 161 mg/dL (65-115) H 11/09/21 19:20 Calculated Osmolality 302 mOsm/kg (285-295) H 11/09/21 19:20 Lactic Acid 1.7 mmol/L (0.5-2.2) 11/09/21 18:36 Calcium 9.2 mg/dL (8.5-10.5) 11/09/21 19:20 Total Bilirubin 0.3 mg/dL (0.15-1.2) 11/09/21 19:20 AST 19 U/L (0-40) 11/09/21 19:20 ALT 17 U/L (0-41) 11/09/21 19:20 Alkaline Phosphatase 75 IU/L (40-130) 11/09/21 19:20 Total Protein 6.8 g/dL (6.6-8.7) 11/09/21 19:20 Albumin 4.1 g/dL (3.5-5.2) 11/09/21 19:20 Globulin 2.7 g/dL (1.3-4.6) 11/09/21 19:20 Lipase 22 U/L (13-60) 11/09/21 19:20 Urine Color Yellow (Yellow) 11/09/21 18:21 Urine Appearance Clear (CLEAR) 11/09/21 18:21 Urine pH 6 (5-7) 11/09/21 18:21 Ur Specific [place] 1.015 (1.005-1.030) 11/09/21 18:21 Urine Protein Neg (Negative) 11/09/21 18:21 Urine Glucose (UA) Norm (Normal) 11/09/21 18:21 Urine Ketones Negative (Negative) 11/09/21 18:21 Urine Blood Neg (Negative) 11/09/21 18:21 Urine Nitrate Negative (Negative) 11/09/21 18:21 Urine Bilirubin Neg (Negative) 11/09/21 18:21 Urine Urobilinogen Norm mg/dL (Negative) 11/09/21 18:21 Ur Leukocyte Esterase Negative (Negative) 11/09/21 18:21 Impressions Abdomen/Pelvis CT 11/09/21 18:25 IMPRESSION: 1. Findings consistent with small bowel obstruction noted. No ischemic change or perforation. 2. Atherosclerosis of the abdominal aorta. Infrarenal aneurysm measuring 3.2 cm in diameter. No leak or rupture. 3. Moderate-sized hiatal hernia containing mostly fat. 4. The abdominal wall demonstrates a 5 cm umbilical hernia, containing only fat. 5. Small pericardial effusion. Heart size is normal. 6. Stable 3.3 cm right adrenal adenoma. COMMENTS: Consistent with the [employer]'s Incidental Findings Committee white paper (J Am Ranjana Radiol 2018): Any incidental renal lesion less than 1 cm or classified as too small to characterize, or any incidental cystic renal lesion characterized as simple-appearing, is likely benign. No follow-up imaging is recommended for these lesions per consensus recommendations based on imaging criteria. A&P Assessment and plan (1) Small bowel obstruction: NPO, bowel rest NGT inserted in ER- currently to low intermittent suction Gentle IVF hydration with NS prn morphine for pain control , zofran for nausea Gen/surg consulted from ER Home medication list needs to be verified Status: Acute Additional A&P Information Incidentally noted pericardial effusion on CT abdomen, echocardiogram to evalute same. Currently denies any c/o chest pain, dyspnea, hemidynamically stable Attestations Medical Necessity Statement*: Anticipate >2 midnight admission for management of SBO, NGT management, iv hydration Coding Level of Care Code Acute Telecommunications Administrator for Nia Pinedo Diagnoses Small bowel obstruction K56.609
[2021-11-09] MEDS: famotidine 20 mg/2 mL INJ IVP (23:15)
[2021-11-09] MEDS: enoxaparin 40 mg/0.4 mL Syringe SUBCUT (23:22)
--- NOTE | 2021-11-09 23:52 | XRR_ITS ---
PROCEDURE INFORMATION: Exam: XR Chest Exam date and time: 11/09/2021 11:52 PM Age: 71 years old Clinical indication: Device placement; Ng tube; Patient HX: Ng placement TECHNIQUE: Imaging protocol: XR of the chest. Views: 1 view. COMPARISON: CR XR chest 1V portable [id number] 05/06/2020 1:26 PM FINDINGS: Tubes, catheters and devices: There is an enteric tube present with distal tip in the stomach. Lungs: Mild atelectasis at the lung bases. No consolidative infiltrates. Pleural spaces: No pleural effusion. No pneumothorax. Heart/Mediastinum: No cardiomegaly. Diaphragm: Mild elevation of the left hemidiaphragm. Bones/joints: Unremarkable. XR/XR chest 1V portable [id number] IMPRESSION: 1. There is an enteric tube present with distal tip in the stomach. 2. Mild atelectasis at the lung bases. No consolidative infiltrates.
[2021-11-10] VITALS: BP 135/77; PULSE 56; RESP 17; TEMP 36.7; O2SAT 97
[2021-11-10] MEDS: sodium chloride 0.9% 1,000 ML 50 ML IV (01:03)
[2021-11-10 01:06] VITALS: BMI 43.7
[2021-11-10 04:00] VITALS: BP 119/76; PULSE 65; RESP 16; TEMP 36.4; O2SAT 92
[2021-11-10 04:28] VITALS: RESP 18
[2021-11-10] MEDS: morphine 4 mg/mL SDV 1 mL 2 MG IVP (04:28)
--- NOTE | 2021-11-10 04:43 | XRR_ITS ---
PROCEDURE INFORMATION: Exam: XR Chest Exam date and time: 11/10/2021 4:43 AM Age: 71 years old Clinical indication: Device placement; Patient HX: Patient accidentally pulled out ng tube. Check for placement of new ng tube. ; Additional info: Check ng placement TECHNIQUE: Imaging protocol: XR of the chest. Views: 1 view. COMPARISON: CR XR chest 1V portable [id number] 11/09/2021 11:47 PM FINDINGS: Tubes, catheters and devices: Endotracheal tube is in good position. Side port of the NG tube is in the distal esophagus and should be advanced approximately 8 cm. Lungs: There are low lung volumes. Otherwise, the lungs are clear. Pleural spaces: Unremarkable. No pleural effusion. No pneumothorax. Heart/Mediastinum: There is mild cardiomegaly. Bones/joints: Unremarkable. XR/XR chest 1V portable [id number] IMPRESSION: 1. Side port of the NG tube is in the distal esophagus and should be advanced approximately 8 cm. 2. Endotracheal tube is in good position. 3. There are low lung volumes. Otherwise, the lungs are clear. 4. Mild cardiomegaly.
[2021-11-10 06:25] LABS: Basophils # 0.1 10^3/uL (0.0-0.1); Basophils % 0.4 %; Eosinophils # 0.2 10^3/uL (0.0-0.8); Eosinophils % 1.3 %; Hematocrit 45.1 % (42.0-52.0); Hemoglobin 13.9 g/dL (11.7-16.6); Lymphocytes # 0.9 10^3/uL (0.8-4.8); Lymphocytes % 6.7 %; Mean Corpuscular HGB Conc 30.8 g/dL (30.0-36.0); Mean Corpuscular Hemoglobin 28.3 pg (28.0-34.0); Mean Corpuscular Volume 91.7 fl (80-94); Mean Platelet Volume 11.6 fL (7.4-10.4); Monocytes # 0.6 10^3/uL (0.2-0.9); Neutrophils # 10.95 10^3/uL (1.8-7.7); Neutrophils % 86.3 %; Nucleated Red Blood Cells % 0 %; Platelet Count 235 10^3/cmm (130-400); Red Blood Count 4.92 10^6/uL (4.1-5.3); Red Cell Distribution Width 12.9 % (12.1-15.1); White Blood Count 12.7 10^3/uL (4.0-10.0)
--- NOTE | 2021-11-10 06:36 | PC.NURSE ---
While making safety rounds at 415 found pt standing at side of bed with NG in hand. Pt stated It was hurting my nose so I took it out. Informed pt that tube was needed and I would have to replace it. He agreed. Tube was replaced. Pt tolerated well.
--- NOTE | 2021-11-10 06:39 | USCV_ITS ---
Khoa Fallon Age: 71 Gender: M : 1950 Exam Date: 11/10/2021 08:28 Ordering Phys: Marly Sanchez MD Technologist: GERARDO Exam Location: [facility] – [place] Indication: Pericardial effusion seen at CT. BP: 119 / 76 HR: 63 Rhythm: Sinus Technical Quality: Adequate MEASUREMENTS (Male / Female) Normal Values 2D ECHO LV Diastolic Diameter PLAX 4.9 cm 4.2 - 5.9 / 3.9 - 5.3 cm LV Systolic Diameter PLAX 3.2 cm IVS Diastolic Thickness 1.5 cm 0.6 - 1.0 / 0.6 - 0.9 cm IVS Systolic Thickness 1.9 cm LVPW Diastolic Thickness 2.1 cm 0.6 - 1.0 / 0.6 - 0.9 cm LVPW Systolic Thickness 2.0 cm LVOT Diameter 2.1 cm LV Ejection Fraction 2D Teich 63.2 % LV Ejection Fraction MOD 2C 47.2 % LV Ejection Fraction 2C AL 47.9 % LA Diameter 5.2 cm LA Width 5.3 cm LA Height 7.0 cm RA Width 4.8 cm RA Height 4.9 cm Aorta at Sinotubular Diameter 3.3 cm IVC Diameter 1.4 cm M-MODE Aortic Annulus Diameter 3.1 cm LA Ao Ratio MM 1.7 MV E Point Septal Separation 0.5 cm DOPPLER AV Peak Velocity 131.0 cm/s LVOT Peak Velocity 98.0 cm/s AV Area Cont Eq vti 3.1 cm squared AV Area Cont Eq pk 2.7 cm squared MV Peak Velocity 120.0 cm/s MV Area PHT 3.0 cm squared Mitral E to A Ratio 0.7 MV E' Velocity 40.0 cm/s Mitral E to MV E' Ratio 7.5 Mitral E to LV E' Lateral Ratio 7.4 Mitral E to LV E' Septal Ratio 7.8 TR Peak Velocity 255.0 cm/s TR Peak Gradient 26.0 mmHg Right Atrial Pressure 10.0 mmHg Pulmonary Artery Systolic Pressu 36.0 mmHg PV Peak Velocity 92.0 cm/s RV Acceleration Time 0.1 s RV Ejection Time 0.4 s RV AcT/ET 0.3 FINDINGS Left Ventricle Normal left ventricular size, systolic function with no diagnostic regional wall motion abnormalities. Left ventricular ejection fraction is estimated at 60 %. Grade I diastolic dysfunction (abnormal relaxation filling pattern), normal to mildly elevated filling pressures. Abnormal septal motion. Right Ventricle Normal right ventricular size and systolic function. Right ventricular systolic pressure 34 mmHg. Right Atrium Normal right atrial size. Left Atrium Mildly increased left atrial size. Mitral Valve Mild mitral annular calcification. Structurally normal mitral valve. No mitral valve stenosis. Trace mitral valve regurgitation. Aortic Valve Mildly thickened trileaflet aortic valve. Tricuspid Valve Structurally normal tricuspid valve. Trace tricuspid valve regurgitation. Pulmonic Valve Pulmonic valve not well visualized. No pulmonary valve stenosis. Trace pulmonary valve regurgitation. Pericardium Trivial pericardial effusion. Prominent epicardial fat. Aorta Normal size aortic root and proximal ascending aorta. IVC Inferior vena cava not visualized. CONCLUSIONS 1. This is a technically difficult study. 2. Normal left ventricular size and systolic function with no diagnostic regional wall motion abnormalities. Left ventricular ejection fraction is estimated at 60 %. Grade I diastolic dysfunction (abnormal relaxation filling pattern), normal to mildly elevated filling pressures. Abnormal septal motion. 3. Trivial pericardial effusion. Prominent epicardial fat. 4. When compared to previous echocardiogram report dated 02/06/2019, there may not have been any significant change. Sola Winter MD (Electronically Signed) Final Date: 10 November 2021 18:36 Amended: 26 Mar 2022 18:28 C
[2021-11-10 06:41] LABS: Glucose Point of Care 109 mg/dL (70-110)
[2021-11-10 06:47] LABS: Alanine Aminotransferase 29 U/L (0-41); Albumin Level 3.9 g/dL (3.5-5.2); Alkaline Phosphatase 78 IU/L (40-130); Anion Gap 15.8 (5-19); Aspartate Amino Transferase 53 U/L (0-40); Blood Urea Nitrogen 21 mg/dL (8-23); Calcium 8.9 mg/dL (8.5-10.5); Carbon Dioxide 32 mmol/L (22-29); Chloride 102 mmol/L (98-107); Globulin 2.6 g/dL (1.3-4.6); Glucose 125 mg/dL (65-115); Osmolality Calculated 306 mOsm/kg (285-295); Potassium 3.8 mmol/L (3.5-5.1); Sodium 146 mmol/L (136-145); Total Bilirubin 0.5 mg/dL (0.15-1.2); Total Protein 6.5 g/dL (6.6-8.7)
[2021-11-10 07:47] VITALS: BP 135/77; PULSE 64; RESP 18; TEMP 37; O2SAT 91
--- NOTE | 2021-11-10 08:29 | PC.PHAR ---
pt states he takes care of his own medications-pt states he takes flomax 0.4mg hs and prazosin 4mg hs [facility]- pt states he has only been taking losartan 50mg daily ext med history shows last filled 09/12/21 90d/s for 50mg bid pt states it was changed to 50mg daily and hasnt gotten a new rx -notes are made in the pharmacy comments-
--- NOTE | 2021-11-10 10:43 | PC.CHAP ---
Pastoral Care Encounter/Spiritual Assessment Type of Contact [] Declined calendar control clerk blood bank visit [] Patient/Family/Request visit [] Outpatient visit [] Follow-up visit [] Physician referral [] Code/Alert [x] Routine visit [] Staff referral [] Actively dying [] Patient sleeping [] Family support [] [] Out of room [] Palliative care [] [x] Receiving care in room [] Pre-surgical visit [] Trauma [] Long length of stay [] ICU visit [] Other: Relational/Emotional Strength [] Patient feels connected with others/family/visitors/staff [] Distress [] Loneliness/isolation [] Abandonment Spirituality of Patient [] Person of Carina [] Attends Anglican of their Carina [] Believes in Prayer [] Reads Bible or Roman Catholic materials [] There are Spiritual issues to be addressed Change Management Manager Interventions [] Prayer [] Active listening [] Non-anxious presence [] Spiritual/emotional support [] Crisis/trauma care [] Spiritual counseling [] Bereavement support [] Provided bereavement packet [] Provided Bible/devotional materials [] Provided toy/stuffed animal, coloring book to patient or family member [] Provided Communion [] Anointing/[place] [] Salvation [] Completed spiritual assessment [] Other: Impact on Illness or Injury [] Angry [] Fearful [] Anxious [] Often cries [] Exhaustion [] Unable to work [] Unable to attend zoroastrian [] Unable to walk/stand [] Unable to read [] Unable to drive [] Unable to eat/drink [] Unable to sleep [] Unable to be with family [] Patient intubated [] Other: Summary Time spent with patient
[2021-11-10] MEDS: simethicone 80 mg Chew PO (11:06)
[2021-11-10] MEDS: famotidine 20 mg/2 mL INJ IVP (11:06)
[2021-11-10] MEDS: acetaminophen 325 mg Tablet 650 MG PO (11:06)
[2021-11-10 11:13] LABS: Glucose Point of Care 109 mg/dL (70-110)
[2021-11-10 12:00] VITALS: BP 133/68; PULSE 71; RESP 18; TEMP 36.3; O2SAT 90
--- NOTE | 2021-11-10 14:37 | PC.NURSE ---
Patient ambulated to the nurses station desk and stated, I want that paper that says I am leaving because I am. I just can't do it. I do not want to be here. Patient pulled his IV out at the nurses station and refused to allow this nurse to place a bandage on it. Patient grabbed his things off the counter an walked to the elevator. This nurse tried to talk to patient about his risks of leaving against medical advice and patient would not allow this nurse to speak to him. Cathi FIELD called and notified Dr. Burden that patient left AMA.
--- NOTE | 2021-11-10 15:00 | PC.NURSE ---
THIS MORNING DURING ROUNDS AROUND 0900 PT STATED HE WAS TIRED OF THE NG TUBE. THIS NURSE EXPLAINED THE IMPORTANCE OF THE TUBE TO THE PT AND I WAS TALKING TO HIM HE SAID HOW ABOUT NO AND PULLED THE TUBE OUT. NOTIFIED.
--- NOTE | 2021-11-10 15:03 | PM.DCS ---
Discharge Providers Date of Admission: 11/09/21 21:21 Date of Discharge: November 10, 2021 Attending Provider at Admission: Sergei Ball MD Attending Provider at Discharge: Gee Torres Primary Care Provider: Ag Kong DO Diagnoses at Discharge Discharge Diagnosis (1) Small bowel obstruction: Status: Acute Reason for Visit Reason for Visit: stomach ache Hospital Course Hospital Course [id number] gentleman admitted overnight due to abdominal pain, generalized, dull, nausea, 1 episode of vomiting, not passing flatus, with CT abdomen pelvis noting small bowel obstruction, no ischemic change or perforation on contrast study, with noted atherosclerosis of abdominal aorta, infrarenal aneurysm measuring 3.2 cm in diameter, no leak or rupture, moderate size hiatal hernia containing mostly fat, abdominal wall with 5 cm umbilical hernia containing only fat, small pericardial effusion, stable 3.3 cm right adrenal adenoma. He was initiated on conservative measures, n.p.o., NGT was placed, but initially displaced several times, expressed by patient, subsequently also while receiving ultrasound. We had a long discussion regarding his condition with small bowel obstruction which so far has not been relieved, he has not been passing flatus, he has been having drainage from NGT, with 400 drain this morning, and subsequently additionally similar amount. Discussed with him given the condition persistent SBO is suspected, discussed utility of decompression, discussed concern for recurrence of vomiting, worsening of symptoms, possibly complications including dehydration, malnutrition, worsening bowel obstruction, discussed concern for life-threatening or disabling condition with premature discharge as she had requested that he wants to go home. Discussed with him discharge as soon as we are seeing signs of bowel transit. He verbalized understanding, and agreement to stay and continue treatment, continue NGT as long as the x-ray technicians would not be upset with him to image again for confirmation of NGT positioning. Discussed pending surgical consultation, discussed consideration of need for surgery in case of lack of resolution of symptoms. He verbalized understanding and agreement. Shortly after I left the room I was notified he pulled out the NG tube. We continued with conservative management, however, not long after that I was notified that he had left the hospital AMA. Please follow-up with him for resolution of bowel obstruction, as well as the incidental findings on CT. Discharge Data Data Completed and Pending: Completed Studies During Hospitalization Category Date Time Status CT abdomen pelvis w con* [id number] Stat Cat Scan 11/09/21 18:25 Completed XR chest 1V christopher ble [id number] Routine Exams 11/09/21 23:52 Completed XR chest 1V christopher ble [id number] Stat Exams 11/10/21 04:43 Completed Pending at discharge Category Date Time Status XR abdomen min 2V [id number] Routine Exams 11/11/21 06:00 Ordered XR chest 1V christopher ble [id number] Urgent Exams 11/10/21 09:26 Ordered CV. echo complete * [id number] Routine Ultrasound 11/10/21 06:39 Taken Labs from last 24 hours 11/10/21 11/10/21 11/10/21 10:59 06:32 05:28 WBC RBC Hgb Hct MCV MCH MCHC RDW Plt Count MPV Neut % (Auto) Lymph % (Auto) [place] % (Auto) Eos % (Auto) Baso % (Auto) Neut # (Auto) Lymph # (Auto) [place] # (Auto) Eos # (Auto) Baso # (Auto) Nucleated RBC % (a uto) Nucleated RBCs # Sodium 146 H Potassium 3.8 Chloride 102 Carbon Dioxide 32 H Anion Gap 15.8 BUN 21 Creatinine 1.0 GFR Calculation Not Reportable Glucose 125 H POC Glucose 109 109 Calculated Osmolal ity 306 H Lactic Acid Calcium 8.9 Total Bilirubin 0.5 AST 53 H ALT 29 Alkaline Phosphata se 78 Total Protein 6.5 L Albumin 3.9 Globulin 2.6 Lipase Urine Color Urine Appearance Urine pH Ur Specific Gravit y Urine Protein Urine Glucose (UA) Urine Ketones Urine Blood Urine Nitrate Urine Bilirubin Urine Urobilinogen Ur Leukocyte Allie ase 11/10/21 11/09/21 11/09/21 05:28 19:20 18:36 WBC 12.7 H RBC 4.92 Hgb 13.9 Hct 45.1 MCV 91.7 D MCH 28.3 MCHC 30.8 D RDW 12.9 Plt Count 235 MPV 11.6 H Neut % (Auto) 86.3 Lymph % (Auto) 6.7 [place] % (Auto) 5.0 Eos % (Auto) 1.3 Baso % (Auto) 0.4 Neut # (Auto) 10.95 H Lymph # (Auto) 0.9 [place] # (Auto) 0.6 Eos # (Auto) 0.2 Baso # (Auto) 0.1 Nucleated RBC % (a uto) 0 Nucleated RBCs # 0.0 Sodium 143 Potassium 3.8 Chloride 100 Carbon Dioxide 27 Anion Gap 19.8 H BUN 21 Creatinine 0.9 GFR Calculation Not Reportable Glucose 161 H POC Glucose Calculated Osmolal ity 302 H Lactic Acid 1.7 Calcium 9.2 Total Bilirubin 0.3 AST 19 ALT 17 Alkaline Phosphata se 75 Total Protein 6.8 Albumin 4.1 Globulin 2.7 Lipase 22 Urine Color Urine Appearance Urine pH Ur Specific Gravit y Urine Protein Urine Glucose (UA) Urine Ketones Urine Blood Urine Nitrate Urine Bilirubin Urine Urobilinogen Ur Leukocyte Allie ase 11/09/21 11/09/21 11/09/21 18:21 18:21 18:21 WBC 13.3 H RBC 5.13 Hgb 14.8 Hct 44.7 MCV 87.1 MCH 28.8 MCHC 33.1 RDW 13.2 Plt Count 256 MPV 11.1 H Neut % (Auto) 79.1 Lymph % (Auto) 13.0 [place] % (Auto) 4.7 Eos % (Auto) 2.0 Baso % (Auto) 0.8 Neut # (Auto) 10.52 H Lymph # (Auto) 1.7 [place] # (Auto) 0.6 Eos # (Auto) 0.3 Baso # (Auto) 0.1 Nucleated RBC % (a uto) 0 Nucleated RBCs # 0.0 Sodium Cancelled Potassium Cancelled Chloride Cancelled Carbon Dioxide Cancelled Anion Gap Cancelled BUN Cancelled Creatinine Cancelled GFR Calculation Cancelled Glucose Cancelled POC Glucose Calculated Osmolal ity Cancelled Lactic Acid Calcium Cancelled Total Bilirubin Cancelled AST Cancelled ALT Cancelled Alkaline Phosphata se Cancelled Total Protein Cancelled Albumin Cancelled Globulin Cancelled Lipase Cancelled Urine Color Yellow Urine Appearance Clear Urine pH 6 Ur Specific Gravit y 1.015 Urine Protein Neg Urine Glucose (UA) Norm Urine Ketones Negative Urine Blood Neg Urine Nitrate Negative Urine Bilirubin Neg Urine Urobilinogen Norm Ur Leukocyte Allie ase Negative Vitals: Last Vital Signs Temp 97.4 F L 11/10/21 12:00 Pulse 71 11/10/21 12:00 Resp 18 11/10/21 12:00 BP 133/68 11/10/21 12:00 Pulse Ox 90 11/10/21 12:00 Discharge Plan Discharge Patient Disposition: Left Against Medical Advice Condition: Stable Prescriptions: No Action sertraline 100 mg tablet 100 mg PO QAM RF: 0 acetaminophen [Tylenol Extra Strength] 500 mg tablet 500 - 1,000 mg PO QID PRN (Reason: Pain) RF: 0 ferrous sulfate 325 mg (65 mg iron) tablet,delayed release (DR/EC) 325 mg PO QAM RF: 0 aspirin [Adult Aspirin Regimen] 81 mg tablet,delayed release (DR/EC) 81 mg PO QAM RF: 0 omeprazole 20 mg capsule,delayed release(DR/EC) 20 mg PO QAM RF: 0 hydrochlorothiazide 25 mg tablet 50 mg PO QAM RF: 0 gabapentin 600 mg tablet 600 mg PO TID RF: 0 simvastatin 40 mg tablet 40 mg PO BEDTIME RF: 0 metformin 500 mg tablet 500 mg PO BID RF: 0 prazosin 1 mg capsule 4 mg PO BEDTIME RF: 0 dibucaine 1 % ointment 1 applic [place] TID PRN (Reason: rectal discomfort) Qty: 56 RF: 0 hydrocortisone 2.5 % cream with perineal applicator 1 applic [place] DAILY PRN (Reason: hemorrhoids) Qty: 30 RF: 0 nadolol 40 mg tablet 40 mg PO QAM RF: 0 multivitamin Tablet 1 tab PO QAM RF: 0 losartan 50 mg tablet 50 mg PO QAM RF: 0 alprazolam 0.5 mg tablet 0.25 - 0.5 mg PO TID PRN (Reason: Anxiety) RF: 0 tamsulosin 0.4 mg Capsule 0.4 mg PO BEDTIME RF: 0 ProAir HFA 90 mcg/actuation Hfa Aerosol Inhaler 2 puff INHALATION QID PRN (Reason: Shortness Of Breath) RF: 0 Vitamin D3 125 mcg (5,000 unit) Tablet 125 mcg PO QAM RF: 0 Referrals: Ag Kong DO [Primary Care Provider] - 1-3 days (Left AMA with SBO) Discharge Attestations Time Spent in Discharge Care*: less than 30 min Quality Metrics Clinical Quality Measures During this hospital stay, did patient experience: None Coding Level of Care Code Acute Chg FW DC note Diagnoses Small bowel obstruction K56.609
== END 2021-11-10 14:30 | disposition left against medical advice (07) | DRG 389 ==
LOC: ER 22:15 → MEDSURG 22:28
PROVIDERS: Emergency Medicine; Student in an Organized Health Care Education/Training Program; Admitting Provider Surgery; Emergency Provider Emergency Medicine; PCP Emergency Medicine Emergency Medical Services; Visit Provider Internal Medicine
DX: K56.609 Unspecified intestinal obstruction, unspecified as to partial versus complete obstruction (principal); Z68.41 Body mass index [BMI] 40.0-44.9, adult; E11.42 Type 2 diabetes mellitus with diabetic polyneuropathy; E78.5 Hyperlipidemia, unspecified; I10 Essential (primary) hypertension; E66.01 Morbid (severe) obesity due to excess calories; K42.9 Umbilical hernia without obstruction or gangrene; Z79.82 Long term (current) use of aspirin; Z79.84 Long term (current) use of oral hypoglycemic drugs; Z87.891 Personal history of nicotine dependence; Z90.49 Acquired absence of other specified parts of digestive tract; Z53.29 Procedure and treatment not carried out because of patient's decision for other reasons
CPT/HCPCS: 36415; 36416; 71045; 74177; 80053; 81003; 82962; 83605; 83690; 85025; 93005; 93306; 96361; 96372; 96374; 96375; 96376; 99285; J1650; J2060; J2270; J2405; J3490; J7030; Q9967

== ENCOUNTER 2021-11-12 15:36 | Emergency (ER) | payer OTHER, MEDICARE, SELFPAY ==
--- NOTE | 2021-11-12 15:56 | CTR_ITS ---
PROCEDURE INFORMATION: Exam: CT Abdomen And Pelvis With Contrast Exam date and time: 11/12/2021 3:56 PM Age: 71 years old Clinical indication: Bloating; Abdominal pain; Generalized; Prior surgery; Additional info: Recent sbo; Left hospital ama TECHNIQUE: Imaging protocol: Computed tomography of the abdomen and pelvis with contrast. Radiation optimization: All CT scans at this facility use at least one of these dose optimization techniques: automated exposure control; mA and/or kV adjustment per patient size (includes targeted exams where dose is matched to clinical indication); or iterative reconstruction. Contrast material: OMNI 300; Contrast volume: 95 ml; Contrast route: INTRAVENOUS (IV); COMPARISON: CT abdomen pelvis w con* [id number] 11/09/2021 7:28 PM RADIATION DOSE METRICS: Total DLP (mGy-cm): 1945.99 FINDINGS: Lungs: Two right lower lobe pulmonary nodules, similar to prior exam dating back to 05/06/2020 measuring up to approximately 6.1 mm. Heart: Small pericardial effusion measuring 15.5 mm. Liver: Normal. No mass. Gallbladder and bile ducts: Cholecystectomy. Pancreas: Normal. No ductal dilation. Spleen: Normal. No splenomegaly. Adrenal glands: Right adrenal 2.9 cm stable nodule appears somewhat low-density in may reflect a chronic benign adenoma. Kidneys and ureters: Normal. No hydronephrosis. Stomach and bowel: Minimal diverticulosis without diverticulitis. Appendix: No evidence of appendicitis. Intraperitoneal space: Unremarkable. No free air. No significant fluid collection. Vasculature: Unremarkable. No abdominal aortic aneurysm. Lymph nodes: Unremarkable. No enlarged lymph nodes. Urinary bladder: Unremarkable as visualized. Reproductive: Unremarkable as visualized. Bones/joints: Unremarkable. No acute fracture. Soft tissues: Moderate umbilical hernia containing omentum without bowel. CT/CT abdomen pelvis w con* [id number] IMPRESSION: 1. Negative for focal acute inflammatory process in the abdomen or pelvis. 2. Small pericardial effusion measuring 15.5 mm. 3. Two right lower lobe pulmonary nodules, similar to prior exam dating back to 05/06/2020 measuring up to approximately 6.1 mm. Consider follow-up 18-[address] 4. Cholecystectomy. 5. Right adrenal 2.9 cm stable nodule appears somewhat low-density in may reflect a chronic benign adenoma. 6. Minimal diverticulosis without diverticulitis. 7. Moderate umbilical hernia containing omentum without bowel.
[2021-11-12 16:21] VITALS: BP 144/80; PULSE 57; RESP 18; TEMP 37.4; O2SAT 94; BMI 43.7
[2021-11-12 16:36] LABS: Basophils % 0.5 %; Eosinophils # 0.2 10^3/uL (0.0-0.8); Eosinophils % 2.7 %; Hematocrit 39.1 % (42.0-52.0); Hemoglobin 12.7 g/dL (11.7-16.6); Lymphocytes # 1.5 10^3/uL (0.8-4.8); Mean Corpuscular HGB Conc 32.5 g/dL (30.0-36.0); Mean Corpuscular Hemoglobin 29.3 pg (28.0-34.0); Mean Corpuscular Volume 90.1 fl (80-94); Mean Platelet Volume 10.8 fL (7.4-10.4); Monocytes # 0.5 10^3/uL (0.2-0.9); Monocytes % 6.1 %; Neutrophils # 5.85 10^3/uL (1.8-7.7); Neutrophils % 72.5 %; Nucleated Red Blood Cells % 0 %; Platelet Count 213 10^3/cmm (130-400); Red Blood Count 4.34 10^6/uL (4.1-5.3); Red Cell Distribution Width 12.5 % (12.1-15.1); White Blood Count 8.1 10^3/uL (4.0-10.0)
[2021-11-12 17:04] LABS: Alanine Aminotransferase 16 U/L (0-41); Albumin Level 3.7 g/dL (3.5-5.2); Alkaline Phosphatase 68 IU/L (40-130); Anion Gap 17.4 (5-19); Aspartate Amino Transferase 15 U/L (0-40); Blood Urea Nitrogen 25 mg/dL (8-23); Calcium 9.2 mg/dL (8.5-10.5); Carbon Dioxide 28 mmol/L (22-29); Chloride 100 mmol/L (98-107); Globulin 2.7 g/dL (1.3-4.6); Glucose 127 mg/dL (65-115); Osmolality Calculated 300 mOsm/kg (285-295); Potassium 3.4 mmol/L (3.5-5.1); Sodium 142 mmol/L (136-145); Total Bilirubin 0.3 mg/dL (0.15-1.2); Total Protein 6.4 g/dL (6.6-8.7)
--- NOTE | 2021-11-12 20:04 | W.ED.ABDPA2 ---
HPI - Abdominal Pain General: Chief Complaint: Abdominal Pain Stated Complaint: abd pain Time Seen by Provider: 11/12/21 19:50 Source: patient Mode of arrival: ambulatory Limitations: no limitations History of Present Illness: HPI narrative: 71-year-old male who has a history of recent small bowel obstruction. He was admitted here on the second and became anxious on the floor and left AGAINST MEDICAL ADVICE. He states that since being home he is having some slight pain but states he is actually been improving and had a bowel movement today. States that he talk to [facility] Associated Symptoms: Denies chills, dysuria and fever(s) Review of Systems Const: Denies: fever(s), chills, body aches or change in appetite Eyes: Denies: blurry vision or eye discomfort ENMT: Denies: throat pain or dental pain Card: Denies: chest pain Resp: Denies: dyspnea GI: Reports: abdominal pain : Denies: dysuria Musc: Denies: neck pain or back pain Skin/Breast: Denies: rash Neuro: Denies: headache(s) Psych: Denies: depression Marty/Lymph: Denies: easy bruising All/Imm: Denies: urticaria PFSH ED PFSH: Medical History Anemia Bilateral carpal tunnel syndrome Cervical disc disorder with myelopathy of mid-cervical region Diabetes mellitus Diverticulitis Dyslipidemia Esophagitis Gastritis Hiatal hernia Hypertension, benign Hypoxia, sleep related Morbid obesity Peripheral neuropathy Surgical History Hx of cholecystectomy S/P hemilaminotomy (05/01/03) Left L4-L5 hemilaminotomy with microdiscectomy ;[place], [place] Family History Father Cancer Mother Diabetes CAD (coronary artery disease) Stroke Other Hypertension Social History Smoking and tobacco status: former smoker Alcohol intake: former Year of sobriety/quit date alcohol: 1977 Lives independently: Yes Household members: spouse Marital status: Current occupational status: retired History of recent travel: No Physical Exam Const: COMMON NORMALS: no acute distress, patient oriented x3 and healthy appearing HENMT: COMMON NORMALS: normocephalic and atraumatic HEAD & SCALP: normocephalic and atraumatic Eye: COMMON NORMALS: Equal, round and reactive pupils present and EOMs intact bilaterally PUPIL: Yes Equal, round and reactive pupils present Neck/C-Spine: COMMON NORMALS: full ROM and supple Chest: COMMONS NORMALS: normal inspection of the chest and normal palpation of entire chest wall Resp: COMMON NORMALS: normal respiratory effort, No retractions, No use of accessory muscles and clear to auscultation bilaterally AUSCULTATION: clear to auscultation bilaterally Cardio: COMMON NORMALS: regular rate, regular rhythm and No murmurs present (Cardio) RATE: regular rate RHYTHM: regular rhythm GI: COMMON NORMALS: Normal to inspection, nondistended, normoactive bowel sounds present, Soft to palpation, non-tender and no masses PALPATION: Yes Soft to palpation Extremity: COMMON NORMALS: normal to inspection and full ROM Neuro: COMMON NORMALS: patient oriented x3, moves all extremities and no focal motor deficits Psych: COMMON NORMALS: mental status grossly normal, Normal thought process present and cooperative THOUGHT PROCESS: Normal thought process present Skin: COMMON NORMALS: no rashes or lesions noted and no wounds GENERAL SKIN EXAM: no rashes or lesions noted Course Vital Signs: Vital signs: Vital Signs Temperature 99.4 F 11/12/21 16:21 Pulse Rate 57 L 11/12/21 16:21 Respiratory Rate 18 11/12/21 16:21 Blood Pressure 144/80 11/12/21 16:21 Pulse Oximetry 94 11/12/21 16:21 MDM - Abdominal Pain MDM Narrative: Medical decision making narrative: Patient presents here with abdominal pain CT today shows no small bowel obstruction CT is negative blood work here is normal as well he has been having bowel movements informed him to stay on a liquid diet he is stable for discharge he is to follow-up with PCP and return if worsening he understands agrees to plan. Lab Data: Labs: Lab Results 11/12/21 11/12/21 11/12/21 16:29 16:29 16:29 WBC 8.1 10^3/uL 10^3/ uL (4.0-10.0) RBC 4.34 10^6/uL 10^6 /uL (4.1-5.3) Hgb 12.7 g/dL g/dL (11.7-16.6) Hct 39.1 % L % (42.0-52.0) MCV 90.1 fl fl (80-94) MCH 29.3 pg pg (28.0-34.0) MCHC 32.5 g/dL g/dL (30.0-36.0) RDW 12.5 % % (12.1-15.1) Plt Count 213 10^3/cmm 10^3 /cmm (130-400) MPV 10.8 fL H fL (7.4-10.4) Neut % (Auto) 72.5 % % Lymph % (Auto) 18.0 % % [place] % (Auto) 6.1 % % Eos % (Auto) 2.7 % % Baso % (Auto) 0.5 % % Neut # (Auto) 5.85 10^3/uL 10^3 /uL (1.8-7.7) Lymph # (Auto) 1.5 10^3/uL 10^3/ uL (0.8-4.8) [place] # (Auto) 0.5 10^3/uL 10^3/ uL (0.2-0.9) Eos # (Auto) 0.2 10^3/uL 10^3/ uL (0.0-0.8) Baso # (Auto) 0.0 10^3/uL 10^3/ uL (0.0-0.1) Nucleated RBC % (a uto) 0 % % Nucleated RBCs # 0.0 /100WBC /100W BC Sodium 142 mmol/L mmol/L (136-145) Potassium 3.4 mmol/L L mmol /L (3.5-5.1) Chloride 100 mmol/L mmol/L (98-107) Carbon Dioxide 28 mmol/L mmol/L (22-29) Anion Gap 17.4 (5-19) BUN 25 mg/dL H mg/dL (8-23) Creatinine 0.8 mg/dL mg/dL (0.7-1.2) GFR Calculation Not Reportable Glucose 127 mg/dL H mg/dL (65-115) Calculated Osmolal ity 300 mOsm/kg H mOs m/kg (285-295) Lactic Acid 1.0 mmol/L mmol/L (0.5-2.2) Calcium 9.2 mg/dL mg/dL (8.5-10.5) Total Bilirubin 0.3 mg/dL mg/dL (0.15-1.2) AST 15 U/L U/L (0-40) ALT 16 U/L U/L (0-41) Alkaline Phosphata se 68 IU/L IU/L (40-130) Total Protein 6.4 g/dL L g/dL (6.6-8.7) Albumin 3.7 g/dL g/dL (3.5-5.2) Globulin 2.7 g/dL g/dL (1.3-4.6) Lipase 11/12/21 16:29 WBC RBC Hgb Hct MCV MCH MCHC RDW Plt Count MPV Neut % (Auto) Lymph % (Auto) [place] % (Auto) Eos % (Auto) Baso % (Auto) Neut # (Auto) Lymph # (Auto) [place] # (Auto) Eos # (Auto) Baso # (Auto) Nucleated RBC % (a uto) Nucleated RBCs # Sodium Potassium Chloride Carbon Dioxide Anion Gap BUN Creatinine GFR Calculation Glucose Calculated Osmolal ity Lactic Acid Calcium Total Bilirubin AST ALT Alkaline Phosphata se Total Protein Albumin Globulin Lipase 23 U/L U/L (13-60) Imaging Data ^: CT Abd/Pel: Attestation: I personally reviewed and interpreted this imaging study as follows: Radiologist's impression: recent SBO; left hospital AMA Impression: 1. Negative for focal acute inflammatory process in the abdomen or pelvis. 2. Small pericardial effusion measuring 15.5 mm. 3. Two right lower lobe pulmonary nodules, similar to prior exam dating back to 05/06/2020 measuring up to approximately 6.1 mm. Consider follow-up 18-[address] 4. Cholecystectomy. 5. Right adrenal 2.9 cm stable nodule appears somewhat low-density in may reflect a chronic benign adenoma. 6. Minimal diverticulosis without diverticulitis. 7. Moderate umbilical hernia containing omentum without bowel. Dictated By: Sascha Camarillo MD Signed By: Sascha Camarillo MD Signed Discharge Plan Discharge Patient Disposition: Home Clinical Impression: Abdominal pain Qualifiers: Abdominal location: generalized Qualified Code(s): R10.84 - Generalized abdominal pain Condition: Stable Prescriptions: No Action sertraline 100 mg tablet 100 mg PO QAM RF: 0 acetaminophen [Tylenol Extra Strength] 500 mg tablet 500 - 1,000 mg PO QID PRN (Reason: Pain) RF: 0 ferrous sulfate 325 mg (65 mg iron) tablet,delayed release (DR/EC) 325 mg PO QAM RF: 0 aspirin [Adult Aspirin Regimen] 81 mg tablet,delayed release (DR/EC) 81 mg PO QAM RF: 0 omeprazole 20 mg capsule,delayed release(DR/EC) 20 mg PO QAM RF: 0 hydrochlorothiazide 25 mg tablet 50 mg PO QAM RF: 0 gabapentin 600 mg tablet 600 mg PO TID RF: 0 simvastatin 40 mg tablet 40 mg PO BEDTIME RF: 0 metformin 500 mg tablet 500 mg PO BID RF: 0 prazosin 1 mg capsule 4 mg PO BEDTIME RF: 0 dibucaine 1 % ointment 1 applic AL TID PRN (Reason: rectal discomfort) Qty: 56 RF: 0 hydrocortisone 2.5 % cream with perineal applicator 1 applic AL DAILY PRN (Reason: hemorrhoids) Qty: 30 RF: 0 nadolol 40 mg tablet 40 mg PO QAM RF: 0 multivitamin Tablet 1 tab PO QAM RF: 0 losartan 50 mg tablet 50 mg PO QAM RF: 0 alprazolam 0.5 mg tablet 0.25 - 0.5 mg PO TID PRN (Reason: Anxiety) RF: 0 tamsulosin 0.4 mg Capsule 0.4 mg PO BEDTIME RF: 0 ProAir HFA 90 mcg/actuation Hfa Aerosol Inhaler 2 puff INHALATION QID PRN (Reason: Shortness Of Breath) RF: 0 Vitamin D3 125 mcg (5,000 unit) Tablet 125 mcg PO QAM RF: 0 Discharge Orders: Discharge ED (Routine); Ordered 11/12/21 Ordered By: Eunice Thornton Referrals: Ag Kong DO [Primary Care Provider] - Discharge Diet: Advance as tolerated Discharge Activity: Resume usual activity Patient Instructions: Abdominal Pain (ED) Coding Level of Care Code ED Inside Outside Sales Representative for Chg Fwd Exam Comprehensive
[2021-11-12] MEDS: ondansetron 2 mg/ML SDV 2 mL 4 MG IVP (20:30)
[2021-11-12 20:35] LABS: Lipase 23 U/L (13-60)
[2021-11-12] MEDS: iohexol 300 mg/mL 100 mL Btl IV (20:35)
[2021-11-12 20:55] VITALS: BP 145/79; O2SAT 98
[2021-11-12 21:00] VITALS: BP 125/73; O2SAT 100
[2021-11-12 21:41] VITALS: RESP 20; O2SAT 98
[2021-11-12] MEDS: morphine 4 mg/mL SDV 1 mL IVP (21:41)
[2021-11-12 21:45] VITALS: BP 135/78; PULSE 61; RESP 20; TEMP 36.6; O2SAT 96
[2021-11-12 21:46] VITALS: BP 135/78; PULSE 61; RESP 20; TEMP 36.6; O2SAT 96
== END 2021-11-12 21:52 | disposition home or self-care (01) ==
PROVIDERS: Physician Assistant; Emergency Provider Emergency Medicine; PCP Emergency Medicine Emergency Medical Services
DX: R10.84 Generalized abdominal pain (principal); Z87.891 Personal history of nicotine dependence; E11.9 Type 2 diabetes mellitus without complications; Z79.84 Long term (current) use of oral hypoglycemic drugs; E78.5 Hyperlipidemia, unspecified; I10 Essential (primary) hypertension; K29.70 Gastritis, unspecified, without bleeding; D64.9 Anemia, unspecified; K57.92 Diverticulitis of intestine, part unspecified, without perforation or abscess without bleeding
CPT/HCPCS: 74177; 80053; 83605; 83690; 85025; 96374; 96375; 99283; J2270; J2405; Q9967

== ENCOUNTER → 2022-01-07 08:42 | Outpatient (BNVA) | payer OTHER, SELFPAY | PROVIDERS: PCP Emergency Medicine Emergency Medical Services; Referring Provider Orthopaedic Surgery; Visit Provider Anesthesiology Pain Medicine | DX: G89.29 Other chronic pain (principal); M48.02 Spinal stenosis, cervical region; M79.601 Pain in right arm; M79.602 Pain in left arm; Z87.891 Personal history of nicotine dependence | CPT/HCPCS: 99204 ==

== ENCOUNTER → 2022-01-27 12:09 | Outpatient (BNVA) | payer OTHER, SELFPAY | PROVIDERS: PCP Emergency Medicine Emergency Medical Services; Visit Provider Anesthesiology Pain Medicine | DX: E11.40 Type 2 diabetes mellitus with diabetic neuropathy, unspecified (principal); Z79.84 Long term (current) use of oral hypoglycemic drugs; Z87.891 Personal history of nicotine dependence; G89.29 Other chronic pain; M54.12 Radiculopathy, cervical region | CPT/HCPCS: 36416; 62321; 82962; J1100 ==

== ENCOUNTER 2022-01-31 18:30 | Emergency (ER) | payer OTHER, MEDICARE, SELFPAY ==
[2022-01-31 19:09] VITALS: BP 172/100; PULSE 86; RESP 22; TEMP 37.9; O2SAT 93; BMI 43.0
--- NOTE | 2022-01-31 20:29 | XRR_ITS ---
PROCEDURE INFORMATION: Exam: XR Chest Exam date and time: 01/31/2022 8:53 PM Age: 71 years old Clinical indication: Dyspnea TECHNIQUE: Imaging protocol: XR of the chest. Views: 1 view. COMPARISON: CR (CHEST, ) 11/10/2021 4:53 AM FINDINGS: Lungs: Bilateral mid to lower lung field atelectasis versus minimal infiltrate. Pleural spaces: Small left pleural effusion suspected. Heart/Mediastinum: Cardiomegaly. Bones/joints: Unremarkable. XR/XR chest 1V portable [id number] IMPRESSION: 1. Small left pleural effusion suspected. 2. Bilateral mid to lower lung field atelectasis versus minimal infiltrate. 3. Cardiomegaly.
--- NOTE | 2022-01-31 20:29 | CTR_ITS ---
PROCEDURE INFORMATION: Exam: CT Abdomen And Pelvis With Contrast Exam date and time: 01/31/2022 9:21 PM Age: 71 years old Clinical indication: Constipation and nausea and vomiting; Prior surgery; Surgery date: 6+ months; Surgery type: Back/gb; Patient HX: C/O constipation w n/v; Additional info: Abd pain TECHNIQUE: Imaging protocol: Computed tomography of the abdomen and pelvis with contrast. Radiation optimization: All CT scans at this facility use at least one of these dose optimization techniques: automated exposure control; mA and/or kV adjustment per patient size (includes targeted exams where dose is matched to clinical indication); or iterative reconstruction. Contrast material: OMNI 300; Contrast volume: 95 ml; Contrast route: INTRAVENOUS (IV); COMPARISON: CT abdomen pelvis w con* [id number] 11/12/2021 8:32 PM RADIATION DOSE METRICS: Total DLP (mGy-cm): 1786.72 FINDINGS: Lungs: Two somewhat adjacent pulmonary nodules measuring up to 6.1 mm, similar to prior exam dating back to 05/06/2020. Heart: Small pericardial effusion measuring up to 16 mm in thickness. Liver: Normal. No mass. Gallbladder and bile ducts: Cholecystectomy. Pancreas: Normal. No ductal dilation. Spleen: Normal. No splenomegaly. Adrenal glands: Right adrenal 3.4 cm low-density nodule similar prior exam suggestive of a benign adenoma. Kidneys and ureters: Left kidney cyst, negative for follow-up advised Stomach and bowel: Mildly prominent fluid throughout the small bowel may reflect an enteritis, negative for bowel dilation to indicate obstruction. Diverticulosis without diverticulitis. Appendix: Appendiceal tip mildly prominent measuring up to 10 mm without surrounding fluid or inflammation, somewhat more prominent compared to prior exam, findings are not definitive for appendicitis by CT alone, please correlate clinically Intraperitoneal space: Unremarkable. No free air. No significant fluid collection. Vasculature: Small infrarenal fusiform abdominal aortic aneurysm measuring up to 2.9 cm without rupture. Lymph nodes: Unremarkable. No enlarged lymph nodes. Urinary bladder: Unremarkable as visualized. Reproductive: Unremarkable as visualized. Bones/joints: Unremarkable. No acute fracture. Soft tissues: Moderate umbilical hernia containing omentum without bowel. CT/CT abdomen pelvis w con* [id number] IMPRESSION: 1. Mildly prominent fluid throughout the small bowel may reflect an enteritis, negative for bowel dilation to indicate obstruction 2. Small pericardial effusion measuring up to 16 mm in thickness. 3. Right adrenal 3.4 cm low-density nodule similar prior exam suggestive of a benign adenoma. 4. Cholecystectomy. 5. Diverticulosis without diverticulitis. 6. Moderate umbilical hernia containing omentum without bowel. 7. Small infrarenal fusiform abdominal aortic aneurysm measuring up to 2.9 cm without rupture. 8. Two somewhat adjacent pulmonary nodules measuring up to 6.1 mm, similar to prior exam dating back to 05/06/2020. Consider follow-up exam in 18-24 months. 9. Left kidney cyst, negative for follow-up advised. 10. Appendiceal tip mildly prominent measuring up to 10 mm without surrounding fluid or inflammation, somewhat more prominent compared to prior exam, findings are not definitive for appendicitis by CT alone, please correlate clinically
--- NOTE | 2022-01-31 20:36 | ED_ITS ---
Documented by User: Jak Martinez MD 02/01/22 11:13 HPI - General Adult General: Chief complaint: General Medical Stated complaint: N/V Time Seen by Provider: 01/31/22 20:21 History of Present Illness: Patient is a 71-year-old male with a history of anemia, diverticulitis, esophagitis, hiatal hernia, diabetes who presents the emergency room with generalized abdominal pain x1 day and fever. Patient tells me that he thinks that he ate an sauce. However patient's daughter tells me that patient's family recently bought the sauce and is not . Patient tells me that today, he has had decreased stooling. Patient always has constipation but or significant pain in the abdomen since eating today. Patient denies any melena or hematochezia, or any urinary complaints. Reports subjective fever and chills, denies cough, sore throat, runny nose. Patient is chronically on 2 L of oxygen as needed for emphysema. Patient also reports 1 episodes of vomiting earlier today with his abdominal pain. Onset: earlier today Duration:ongoing Location:home Severity:moderate Associated symptoms: Reports nausea and vomiting; Deny chest pain, dyspnea, rash or palpitations Review of Systems Const: Reports: fever(s) and chills Eyes: Denies: change in vision ENMT: Denies: mouth pain Card: Denies: chest pain or palpitations Resp: Denies: dyspnea or non-productive cough GI: Reports: abdominal pain, nausea and vomiting; Denies: diarrhea : Denies: dysuria Musc: Denies: extremity pain Skin/Breast: Denies: rash or new lesions Neuro: Denies: weakness in extremities Psych: Reports: other (Normal mood) Marty/Lymph: Denies: easy bruising PFS ED PFSH: Medical History Anemia Bilateral carpal tunnel syndrome Cervical disc disorder with myelopathy of mid-cervical region Diabetes mellitus Diverticulitis Dyslipidemia Esophagitis Gastritis Hiatal hernia Hypertension, benign Hypoxia, sleep related Morbid obesity Peripheral neuropathy Surgical History Hx of cholecystectomy S/P hemilaminotomy (05/01/03) Left L4-L5 hemilaminotomy with microdiscectomy ;[place], [place] Family History Father Cancer Mother Diabetes CAD (coronary artery disease) Stroke Other Hypertension Social History Smoking and tobacco status: former smoker Alcohol intake: former Year of sobriety/quit date alcohol: 1976 Lives independently: Yes Household members: spouse Marital status: Current occupational status: retired History of recent travel: No Physical Exam Const: COMMON NORMALS: alert HENMT: COMMON NORMALS: atraumatic HEAD & SCALP: atraumatic MOUTH: moist mucous membranes not abnormal Eye: COMMON NORMALS: EOMs intact bilaterally and conjunctivae normal CONJUNCTIVA: Yes conjunctivae normal Neck/C-Spine: COMMON NORMALS: full ROM and supple Resp: COMMON NORMALS: normal respiratory effort and clear to auscultation bilaterally AUSCULTATION: clear to auscultation bilaterally Cardio: COMMON NORMALS: regular rate RATE: regular rate GI: COMMON NORMALS: Soft to palpation PALPATION: Yes Soft to palpation OTHER: +abdominal distension and generalized abd tenderness to palaption. NO guarding rebound, guarding, rigidity. No CVA tenderness to percussion. Neg Thomas/Neg McBurney's point tenderness, no suprabupic tenderness to palpation. Extremity: COMMON NORMALS: full ROM Neuro: SENSORIUM/ORIENTATION: Yes alert MOTOR EXAM: No Abnormal motor strength present and Other motor observations present (no focal motor deficits) Psych: COMMON NORMALS: speech normal SPEECH: Yes normal speech MOOD & AFFECT: Yes euthymic mood Course Vital Signs: Vital signs: Vital Signs Temperature 100.2 F H 01/31/22 19:09 Pulse Rate 77 01/31/22 22:04 Respiratory Rate 19 H 01/31/22 22:04 Blood Pressure 157/76 01/31/22 22:04 Pulse Oximetry 99 01/31/22 22:04 [facility] - General Adult Medical Decision Making 71-year-old male with history of diverticulitis, anemia, hyperlipidemia anemia, esophagitis presenting to the emergency room for evaluation of abdominal pain and subjective fever. On arrival, patient is febrile to 100.2. Patient is satting well on room air without any oxygen requirement. Patient has mild d iffuse abdominal tenderness worse in the upper quadrants. No guarding no rebound tenderness. Lab work-up showed a white count 9.5. UA is negative for UTI. CT abdomen pelvis showed enteritis with enlarged appendiceal tip. There is no surrounding inflammation/abscess or infection. Findings of new enlarged appendix in the setting of fever, have discussed case with Dr. Delaney at 10:25pm. Patient clinically does not have right lower quadrant abdominal tenderness. Dr. Delaney does not think the source of fever or today's presentation of abdominal pain is related to the enlarged appendiceal tip in the RLQ and is unlikely to be appendecitis. His chest showed bilateral small pleural effusion with ca rdiomegaly. Patient received Pepcid and Tylenol with improvement of fever. No suspicion for other acute intra-abdominal pathology including SBO, biliary pathology, appendicitis, diverticulitis, or other emergent condition requiring surgery. Trop x 2 delta < 5, EKG is non ischemic. I do not suspect that today source of abdominal pain nausea or vomiting is secondary to ACS or unstable angina since patient had no exertional chest pain/dyspnea, chest pain at rest, diaphoresis, back pain/arm pain/ or jaw pain. Patient is able to tolerate p.o. without any difficulty after trial GI cocktail. Fever improved with Tylenol. In addition, I have discussed the findings of pericardial effusion with the patient. Patient has a recent echo from 11/2021 which showed that he had mild to moderate pericardial effusion. On the CT scan performed patient was noted to have a 16mm small pericardial effusion. I discussed case with Dr. Sanchez who recommended close serial follow-up with cardiology. Patient does not exhibit any signs of cardiac tamponade currently. Given the fact that the pericardial effusion has been stable over the last 3-month, decision was made for close follow-up with cardiology. Incidental findings of pericardial effusion/pulmonary nodules/kidney cyst/small AAA/adrenal nodules discussed extensively with patient. Patient received a copy of the CT report with the documented findings. Patient is instructed to follow up urgently with specialists. I have given patient follow up with our client service manager to be seen by our outpatient general surgery for enlarged appendiceal tip. Patient aware of a call from our client service manager to schedule for appointment(s) and verbalizes under standing of the importance of following up. I have given patient follow up with our client service manager to be seen by our outpatient Cardiology for stable pericardial effusion. Patient aware of a call from our client service manager to schedule for appointment(s) and verbalizes understanding of the importance of following up. Rx tylenol PRN abd pain, maalox/pepcid PRN dyspepsia, and zofran PRN nausea/vomiting Disposition: Discharge. Patient counseled regarding diagnostic impression, treatment plan. Patient given ED strict return precautions to return for continuation, worsening, or development of new symptoms. Instructed to f/u w/ PCP regarding symptoms today. Patient verbalized understanding. Considered appendicitis however unlikely at this time given lack of signs and sx's to suggest appendicitis as etiology. Pt counseled that appendicitis may later develop and given appendicitis precautions and instructed to return if any development of RLQ tenderness, worsening or continued abdominal pain, or any fevers, chills, nausea, vomiting, or any other concerning signs or symptoms. 71-year-old male checked out to me by the previous physician at shift change. I was asked as checked the results of a second troponin, which is stable from the first. No significant change in delta. Discharge will proceed as previous physician planned. Patient and family were counseled by the previous physician. Lab Data : 01/31/22 20:45 01/31/22 20:45 Radiology Impressions Abdomen/Pelvis CT 01/31/22 20:29 IMPRESSION: 1. Mildly prominent fluid throughout the small bowel may reflect an enteritis, negative for bowel dilation to indicate obstruction 2. Small pericardial effusion measuring up to 16 mm in thickness. 3. Right adrenal 3.4 cm low-density nodule similar prior exam suggestive of a benign adenoma. 4. Cholecystectomy. 5. Diverticulosis without diverticulitis. 6. Moderate umbilical hernia containing omentum without bowel. 7. Small infrarenal fusiform abdominal aortic aneurysm measuring up to 2.9 cm without rupture. 8. Two somewhat adjacent pulmonary nodules measuring up to 6.1 mm, similar to prior exam dating back to 05/06/2020. Consider follow-up exam in 18-24 months. 9. Left kidney cyst, negative for follow-up advised. 10. Appendiceal tip mildly prominent measuring up to 10 mm without surrounding fluid or inflammation, somewhat more prominent compared to prior exam, findings are not definitive for appendicitis by CT alone, please correlate clinically Chest X-Ray 01/31/22 20:29 IMPRESSION: 1. Small left pleural effusion suspected. 2. Bilateral mid to lower lung field atelectasis versus minimal infiltrate. 3. Cardiomegaly. Laboratory Results WBC 9.5 10^3/uL (4.0-10.0) 01/31/22 20:45 RBC 5.26 10^6/uL (4.1-5.3) 01/31/22 20:45 Hgb 15.0 g/dL (11.7-16.6) 01/31/22 20:45 Hct 46.2 % (42.0-52.0) 01/31/22 20:45 MCV 87.8 fl (80-94) 01/31/22 20:45 MCH 28.5 pg (28.0-34.0) 01/31/22 20:45 MCHC 32.5 g/dL (30.0-36.0) 01/31/22:45 RDW 13.1 % (12.1-15.1) 01/31/22 20:45 Plt Count 230 10^3/cmm (130-400) 01/31/22 20:45 MPV 10.3 fL (7.4-10.4) 01/31/22 20:45 Neut % (Auto) 91.0 % 01/31/22 20:45 Lymph % (Auto) 3.4 % 01/31/22 20:45 [place] % (Auto) 2.6 % 01/31/22 20:45 Eos % (Auto) 2.4 % 01/31/22 20:45 Baso % (Auto) 0.3 % 01/31/22:45 Neut # (Auto) 8.66 10^3/uL (1.8-7.7) H 01/31/22 20:45 Lymph # (Auto) 0.3 10^3/uL (0.8-4.8) L 01/31/22 20:45 [place] # (Auto) 0.3 10^3/uL (0.2-0.9) 01/31/22 20:45 Eos # (Auto) 0.2 10^3/uL (0.0-0.8) 01/31/22 20:45 Baso # (Auto) 0.0 10^3/uL (0.0-0.1) 01/31/22 20:45 Nucleated RBC % (auto) 0 % 01/31/22:45 Nucleated RBCs # 0.0 /100WBC 01/31/22 20:45 Sodium 143 mmol/L (136-145) 01/31/22 20:45 Potassium 3.3 mmol/L (3.5-5.1) L 01/31/22 20:45 Chloride 101 mmol/L (98-107) 01/31/22 20:45 Carbon Dioxide 32 mmol/L (22-29) H 01/31/22 20:45 Anion Gap 13.3 (5-19) 01/31/22 20:45 BUN 17 mg/dL (8-23) 01/31/22 20:45 Creatinine 0.9 mg/dL (0.7-1.2) 01/31/22 20:45 GFR Calculation Not Reportable 01/31/22 20:45 Glucose 178 mg/dL (65-115) H 01/31/22 20:45 Calculated Osmolality 302 mOsm/kg (285-295) H 01/31/22 20:45 Lactate 2.0 mmol/L (0.5-2.2) 01/31/22 20:45 Calcium 9.2 mg/dL (8.5-10.5) 01/31/22 20:45 Total Bilirubin 0.3 mg/dL (0.15-1.2) 01/31/22 20:45 AST 16 U/L (0-40) 01/31/22 20:45 ALT 10 U/L (0-41) 01/31/22 20:45 Alkaline Phosphatase 87 IU/L (40-130) 01/31/22 20:45 Troponin T Baseline 16 ng/L (0-15) H 01/31/22 20:45 Troponin T 120 Minute 14.68 ng/L (0-15) 01/31/22 22:36 Delta Troponin T Not Reportable 01/31/22 22:36 Total Protein 7.4 g/dL (6.6-8.7) 01/31/22 20:45 Albumin 3.9 g/dL (3.5-5.2) 01/31/22 20:45 Globulin 3.5 g/dL (1.3-4.6) 01/31/22 20:45 Lipase 26 U/L (13-60) 01/31/22 20:45 Urine Color Yellow (Yellow) 01/31/22 20:45 Urine Appearance Clear (CLEAR) 01/31/22 20:45 Urine pH 5 (5-7) 01/31/22 20:45 Ur Specific [place] 1.015 (1.005-1.030) 01/31/22 20:45 Urine Protein Neg (Negative) 01/31/22 20:45 Urine Glucose (UA) Norm (Normal) 01/31/22 20:45 Urine Ketones Negative (Negative) 01/31/22 20:45 Urine Blood Neg (Negative) 01/31/22 20:45 Urine Nitrate Negative (Negative) 01/31/22 20:45 Urine Bilirubin Neg (Negative) 01/31/22 20:45 Urine Urobilinogen Norm mg/dL (Negative) 01/31/22 20:45 Ur Leukocyte Esterase Negative (Negative) 01/31/22 20:45 Imaging Data Other Imaging: Radiologist's impression: [place] [address] [address] Scan Report Signed Patient: Khoa Fallon Unit #: [id number] : 1950 Age/Sex: 71 / M ADM Date: 01/31/22 Loc: ER Room/Bed: Attending Dr: Ordering Provider/Ordering MD: Jak Martinez MD Date of Service: 01/31/22 Procedure(s): CT abdomen pelvis w con* [id number] Accession Number(s): [id number] Report Number: [id number] PROCEDURE INFORMATION: Exam: CT Abdomen And Pelvis With Contrast Exam date and time: 01/31/2022 9:21 PM Age: 71 years old Clinical indication: Constipation and nausea and vomiting; Prior surgery; Surgery date: 6+ months; Surgery type: Back/gb; Patient HX: C/O constipation w n/v; Additional info: Abd pain TECHNIQUE: Imaging protocol: Computed tomography of the abdomen and pelvis with contrast. Radiation optimization: All CT scans at this facility use at least one of these dose optimization techniques: automated exposure control; mA and/or kV adjustment per patient size (includes targeted exams where dose is matched to clinical indication); or iterative reconstruction. Contrast material: OMNI 300; Contrast volume: 95 ml; Contrast route: INTRAVENOUS (IV);? COMPARISON: CT abdomen pelvis w con* [id number] 11/12/2021 8:32 PM RADIATION DOSE METRICS: Total DLP (mGy-cm): 1786.72 FINDINGS: Lungs: Two somewhat adjacent pulmonary nodules measuring up to 6.1 mm, similar to prior exam dating back to 05/06/2020. Heart: Small pericardial effusion measuring up to 16 mm in thickness. Liver: Normal. No mass. Gallbladder and bile ducts: Cholecystectomy. Pancreas: Normal. No ductal dilation. Spleen: Normal. No splenomegaly. Adrenal glands: Right adrenal 3.4 cm low-density nodule similar prior exam suggestive of a benign adenoma. Kidneys and ureters: Left kidney cyst, negative for follow-up advised Stomach and bowel: Mildly prominent fluid throughout the small bowel may reflect an enteritis, negative for bowel dilation to indicate obstruction. Diverticulosis without diverticulitis. Appendix:? Appendiceal tip mildly prominent measuring up to 10 mm without surrounding fluid or inflammation, somewhat more prominent compared to prior exam, findings are not definitive for appendicitis by CT alone, please correlate clinically Intraperitoneal space: Unremarkable. No free air. No significant fluid collection. Vasculature: Small infrarenal fusiform abdominal aortic aneurysm measuring up to 2.9 cm without rupture. Lymph nodes: Unremarkable. No enlarged lymph nodes. Urinary bladder: Unremarkable as visualized. Reproductive: Unremarkable as visualized. Bones/joints: Unremarkable. No acute fracture. Soft tissues: Moderate umbilical hernia containing omentum without bowel. CT/CT abdomen pelvis w con* [id number] IMPRESSION: 1. Mildly prominent fluid throughout the small bowel may reflect an enteritis, negative for bowel dilation to indicate obstruction 2. Small pericardial effusion measuring up to 16 mm in thickness. 3. Right adrenal 3.4 cm low-density nodule similar prior exam suggestive of a benign adenoma. 4. Cholecystectomy. 5. Diverticulosis without diverticulitis. 6. Moderate umbilical hernia containing omentum without bowel. 7. Small infrarenal fusiform abdominal aortic aneurysm measuring up to 2.9 cm without rupture. 8. Two somewhat adjacent pulmonary nodules measuring up to 6.1 mm, similar to prior exam dating back to 05/06/2020.? Consider follow-up exam in 18-24 months. 9. Left kidney cyst, negative for follow-up advised. 10. Appendiceal tip mildly prominent measuring up to 10 mm without surrounding fluid or inflammation, somewhat more prominent compared to prior exam, findings are not definitive for appendicitis by CT alone, please correlate clinically ? Dictated By: Sascha Camarillo MD Signed By: Sascha Camarillo MD Signed Date/Time: 01/31/222217 DD/ 20 Discharge Plan Discharge Patient Disposition: Home Clinical Impression: Enteritis, Nausea & vomiting Condition: Stable Prescriptions: New Zofran 4 mg tablet 4 mg PO TID PRN (Reason: nausea and vomiting) 4 Days Qty: 12 0RF Pepcid 20 mg tablet 20 mg PO BID PRN (Reason: abdominal pain) 10 Days Qty: 20 0RF Maalox Advanced 1,000-60 mg tablet,chewable 1 tab PO TID PRN (Reason: abdominal pain) 7 Days Qty: 21 0RF No Action sertraline 100 mg tablet 100 mg PO QAM 0RF acetaminophen [Tylenol Extra Strength] 500 mg tablet 500 - 1,000 mg PO QID PRN (Reason: Pain) 0RF ferrous sulfate 325 mg (65 mg iron) tablet,delayed release (DR/EC) 325 mg PO QAM 0RF aspirin [Adult Aspirin Regimen] 81 mg tablet,delayed release (DR/EC) 81 mg PO QAM 0RF omeprazole 20 mg capsule,delayed release(DR/EC) 20 mg PO QAM 0RF hydrochlorothiazide 25 mg tablet 50 mg PO QAM 0RF gabapentin 600 mg tablet 600 mg PO TID 0RF simvastatin 40 mg tablet 40 mg PO BEDTIME 0RF metformin 500 mg tablet 500 mg PO BID 0RF prazosin 1 mg capsule 4 mg PO BEDTIME 0RF Rx Instructions: pt states he takes this medication-this medication was on a previous entered med list-[facility]ing [facility] dibucaine 1 % ointment 1 applic NC TID PRN (Reason: rectal discomfort) Qty: 56 0RF hydrocortisone 2.5 % cream with perineal applicator 1 applic NC DAILY PRN (Reason: hemorrhoids) Qty: 30 0RF nadolol 40 mg tablet 40 mg PO QAM 0RF multivitamin Tablet 1 tab PO QAM 0RF losartan 50 mg tablet 50 mg PO QAM 0RF alprazolam 0.5 mg tablet 0.25 - 0.5 mg PO TID PRN (Reason: Anxiety) 0RF tamsulosin 0.4 mg Capsule 0.4 mg PO BEDTIME 0RF Rx Instructions: pt states he takes this medication-this medication was on a previous entered med list-[facility] ProAir HFA 90 mcg/actuation Hfa Aerosol Inhaler 2 puff INHALATION QID PRN (Reason: Shortness Of Breath) 0RF Vitamin D3 125 mcg (5,000 unit) Tablet 125 mcg PO QAM 0RF Discharge Orders: Discharge ED (Routine); Ordered 01/31/22 Ordered By: Rodney Lua Referrals: Ag Kong, [Primary Care Provider] - 1-3 days Patient Instructions: Opioid Safety Activity Restrictions/Additional Instructions: Please return if you develop continued nausea, vomiting, or develop fevers, chills, abdominal pain, abdominal pain that is in the lower right side of your abdomen, or any other concerning signs or symptoms. Please come back if you have any worsening abdominal pain, fever or chills, nausea or vomiting, diarrhea, blood in the stool, inability hold down liquid or solids, or any new concerning complaints. Here's your CT report, please follow up for evaluation of your symptoms Our client service manager will have you follow-up with general surgery in the next few days for evaluation fo appendix enlargement. You would be expected to have a phone call with our client service manager who will put you on the schedule. You can expect a call from us in the next 2-3 days. If you don't hear from us, call us back in the emergency room at [phone]. [address] [place] [address] CT Scan Report Signed Patient: Khoa Fallon Unit #: [id number] : 1950 Age/Sex: 71 / M ADM Date: 01/31/22 Loc: ER Room/Bed: Attending Dr: Ordering Provider/Ordering MD: Jak Martinez MD Date of Service: 01/31/22 Procedure(s): CT abdomen pelvis w con* [id number] Accession Number(s): [id number] Report Number: [id number] PROCEDURE INFORMATION: Exam: CT Abdomen And Pelvis With Contrast Exam date and time: 01/31/2022 9:21 PM Age: 71 years old Clinical indication: Constipation and nausea and vomiting; Prior surgery; Surgery date: 6+ months; Surgery type: Back/gb; Patient HX: C/O constipation w n/v; Additional info: Abd pain TECHNIQUE: Imaging protocol: Computed tomography of the abdomen and pelvis with contrast. Radiation optimization: All CT scans at this facility use at least one of these dose optimization techniques: automated exposure control; mA and/or kV adjustment per patient size (includes targeted exams where dose is matched to clinical indication); or iterative reconstruction. Contrast material: OMNI 300; Contrast volume: 95 ml; Contrast route: INTRAVENOUS (IV);? COMPARISON: CT abdomen pelvis w con* [id number] 11/12/2021 8:32 PM RADIATION DOSE METRICS: Total DLP (mGy-cm): 1786.72 FINDINGS: Lungs: Two somewhat adjacent pulmonary nodules measuring up to 6.1 mm, similar to prior exam dating back to 05/06/2020. Heart: Small pericardial effusion measuring up to 16 mm in thickness. Liver: Normal. No mass. Gallbladder and bile ducts: Cholecystectomy. Pancreas: Normal. No ductal dilation. Spleen: Normal. No splenomegaly. Adrenal glands: Right adrenal 3.4 cm low-density nodule similar prior exam suggestive of a benign adenoma. Kidneys and ureters: Left kidney cyst, negative for follow-up advised Stomach and bowel: Mildly prominent fluid throughout the small bowel may reflect an enteritis, negative for bowel dilation to indicate obstruction. Diverticulosis without diverticulitis. Appendix:? Appendiceal tip mildly prominent measuring up to 10 mm without surrounding fluid or inflammation, somewhat more prominent compared to prior exam, findings are not definitive for appendicitis by CT alone, please correlate clinically Intraperitoneal space: Unremarkable. No free air. No significant fluid collection. Vasculature: Small infrarenal fusiform abdominal aortic aneurysm measuring up to 2.9 cm without rupture. Lymph nodes: Unremarkable. No enlarged lymph nodes. Urinary bladder: Unremarkable as visualized. Reproductive: Unremarkable as visualized. Bones/joints: Unremarkable. No acute fracture. Soft tissues: Moderate umbilical hernia containing omentum without bowel. CT/CT abdomen pelvis w con* [id number] IMPRESSION: 1. Mildly prominent fluid throughout the small bowel may reflect an enteritis, negative for bowel dilation to indicate obstruction 2. Small pericardial effusion measuring up to 16 mm in thickness. 3. Right adrenal 3.4 cm low-density nodule similar prior exam suggestive of a benign adenoma. 4. Cholecystectomy. 5. Diverticulosis without diverticulitis. 6. Moderate umbilical hernia containing omentum without bowel. 7. Small infrarenal fusiform abdominal aortic aneurysm measuring up to 2.9 cm without rupture. 8. Two somewhat adjacent pulmonary nodules measuring up to 6.1 mm, similar to prior exam dating back to 05/06/2020.? Consider follow-up exam in 18-24 months. 9. Left kidney cyst, negative for follow-up advised. 10. Appendiceal tip mildly prominent measuring up to 10 mm without surrounding fluid or inflammation, somewhat more prominent compared to prior exam, findings are not definitive for appendicitis by CT alone, please correlate clinically ? Dictated By: Sascha Camarillo MD Signed By: Sascha Camarillo MD Signed Date/Time: 01/31/222217 DD/ 20 Coding Level of Care Code ED Scouts for Chg Fwd Exam Comprehensive Documented by User: Rodney Lua DO 01/31/22 23:23 HPI - General Adult General: Chief complaint: General Medical Stated complaint: N/V Time Seen by Provider: 01/31/22 20:21 PFSH ED PFSH: Medical History Anemia Bilateral carpal tunnel syndrome Cervical disc disorder with myelopathy of mid-cervical region Diabetes mellitus Diverticulitis Dyslipidemia Esophagitis Gastritis Hiatal hernia Hypertension, benign Hypoxia, sleep related Morbid obesity Peripheral neuropathy Surgical History Hx of cholecystectomy S/P hemilaminotomy (05/01/03) Left L4-L5 hemilaminotomy with microdiscectomy ;[place], [place] Family History Father Cancer Mother Diabetes CAD (coronary artery disease) Stroke Other Hypertension Social History Smoking and tobacco status: former smoker Alcohol intake: former Year of sobriety/quit date alcohol: 1977 Lives independently: Yes Household members: spouse Marital status: Current occupational status: retired History of recent travel: No Course Vital Signs: Vital signs: Vital Signs Temperature 100.2 F H 01/31/22 19:09 Pulse Rate 77 01/31/22 22:04 Respiratory Rate 19 H 01/31/22 22:04 Blood Pressure 157/76 01/31/22 22:04 Pulse Oximetry 99 01/31/22 22:04 [facility] - General Adult Medical Decision Making 71-year-old male with history of diverticulitis, anemia, hyperlipidemia anemia, esophagitis presenting to the emergency room for evaluation of abdominal pain and subjective fever. On arrival, patient is febrile to 100.2. Patient is satting well on room air without any oxygen requirement. Patient has mild diffuse abdominal tenderness worse in the upper quadrants. No guarding no rebound tenderness. Lab work-up showed a white count 9.5. UA is negative for UTI. CT abdomen pelvis showed enteritis with enlarged appendiceal tip. There is no surrounding inflammation/abscess or infection. Findings of new enlarged appendix in the setting of fever, have discussed case with Dr. Delaney at 10:25pm. Patient clinically does not have right lower quadrant abdominal tenderness. Dr. Delaney does not think the source of fever or today's presentation of abdominal pain is related to the enlarged appendiceal tip in the RLQ and is unlikely to be appendecitis. His chest showed bilateral small pleural effusion with cardiomegaly. Patient received Pepcid and Tylenol with improvement of fever. No suspicion for other acute intra-abdominal pathology including SBO, biliary pathology, appendicitis, diverticulitis, or other emergent condition requiring surgery. Trop x 2 delta < 5, EKG is non ischemic. I do not suspect that today source of abdominal pain nausea or vomiting is secondary to ACS or unstable angina. Patient is able to tolerate p.o. without any difficulty after trial GI cocktail. Fever improved with Tylenol. In addition, I have discussed the findings of pericardial effusion with the patient. Patient has a recent echo from 11/2021 which showed that he had mild to moderate pericardial effusion. On the CT scan performed patient was noted to have a 16mm small pericardial effusion. I discussed case with Dr. Sanchez who recommended close serial follow-up with cardiology. Patient does not exhibit any signs of cardiac tamponade currently. Given the fact that the pericardial effusion has been stable over the last 3-month, decision was made for close follow-up with cardiology. Incidental findings of pericardial effusion/pulmonary nodules/kidney cyst/small AAA/adrenal nodules discussed extensively with patient. Patient received a copy of the CT report with the documented findings. Patient is instructed to follow up urgently with specialists. I have given patient follow up with our client service manager to be seen by our outpatient general surgery for enlarged appendiceal tip. Patient aware of a call from our client service manager to schedule for appointment(s) and verbalizes understanding of the importance of following up. I have given patient follow up with our client service manager to be seen by our outpatient Cardiology for stable pericardial effusion. Patient aware of a call from our client service manager to schedule for appointment(s) and verbalizes understanding of the importance of following up. Rx tylenol PRN abd pain, maalox/pepcid PRN dyspepsia, and zofran PRN nausea/vomiting Disposition: Discharge. Patient counseled regarding diagnostic impression, tr eatment plan. Patient given ED strict return precautions to return for continuation, worsening, or development of new symptoms. Instructed to f/u w/ PCP regarding symptoms today. Patient verbalized understanding. Considered appendicitis however unlikely at this time given lack of signs and sx's to s uggest appendicitis as etiology. Pt counseled that appendicitis may later develop and given appendicitis precautions and instructed to return if any development of RLQ tenderness, worsening or continued abdominal pain, or any fevers, chills, nausea, vomiting, or any other concerning signs or symptoms. 71-year-old male checked out to me by the previous physician at shift change. I was asked as checked the results of a second troponin, which is stable from the first. No significant change in delta. Discharge will proceed as previous physician planned. Patient and family were counseled by the previous physician. Lab Data : 01/31/22 20:45 01/31/22 20:45 Radiology Impressions Abdomen/Pelvis CT 01/31/22 20:29 IMPRESSION: 1. Mildly prominent fluid throughout the small bowel may reflect an enteritis, negative for bowel dilation to indicate obstruction 2. Small pericardial effusion measuring up to 16 mm in thickness. 3. Right adrenal 3.4 cm low-density nodule similar prior exam suggestive of a benign adenoma. 4. Cholecystectomy. 5. Diverticulosis without diverticulitis. 6. Moderate umbilical hernia containing omentum without bowel. 7. Small infrarenal fusiform abdominal aortic aneurysm measuring up to 2.9 cm without rupture. 8. Two somewhat adjacent pulmonary nodules measuring up to 6.1 mm, similar to prior exam dating back to 05/06/2020. Consider follow-up exam in 18-24 months. 9. Left kidney cyst, negative for follow-up advised. 10. Appendiceal tip mildly prominent measuring up to 10 mm without surrounding fluid or inflammation, somewhat more prominent compared to prior exam, findings are not definitive for appendicitis by CT alone, please correlate clinically Chest X-Ray 01/31/22 20:29 IMPRESSION: 1. Small left pleural effusion suspected. 2. Bilateral mid to lower lung field atelectasis versus minimal infiltrate. 3. Cardiomegaly. Laboratory Results WBC 9.5 10^3/uL (4.0-10.0) 01/31/22 20:45 RBC 5.26 10^6/uL (4.1-5.3) 01/31/22 20:45 Hgb 15.0 g/dL (11.7-16.6) 01/31/22 20:45 Hct 46.2 % (42.0-52.0) 01/31/22 20:45 MCV 87.8 fl (80-94) 01/31/22 20:45 MCH 28.5 pg (28.0-34.0) 01/31/22 20:45 MCHC 32.5 g/dL (30.0-36.0) 01/31/22 20:45 RDW 13.1 % (12.1-15.1) 01/31/22 20:45 Plt Count 230 10^3/cmm (130-400) 01/31/22 20:45 MPV 10.3 fL (7.4-10.4) 01/31/22 20:45 Neut % (Auto) 91.0 % 01/31/22 20:45 Lymph % (Auto) 3.4 % 01/31/22 20:45 [place] % (Auto) 2.6 % 01/31/22 20:45 Eos % (Auto) 2.4 % 01/31/22 20:45 Baso % (Auto) 0.3 % 01/31/22 20:45 Neut # (Auto) 8.66 10^3/uL (1.8-7.7) H 01/31/22 20:45 Lymph # (Auto) 0.3 10^3/uL (0.8-4.8) L 01/31/22 20:45 [place] # (Auto) 0.3 10^3/uL (0.2-0.9) 01/31/22 20:45 Eos # (Auto) 0.2 10^3/uL (0.0-0.8) 01/31/22 20:45 Baso # (Auto) 0.0 10^3/uL (0.0-0.1) 01/31/22 20:45 Nucleated RBC % (auto) 0 % 01/31/22 20:45 Nucleated RBCs # 0.0 /100WBC 01/31/22 20:45 Sodium 143 mmol/L (136-145) 01/31/22 20:45 Potassium 3.3 mmol/L (3.5-5.1) L 01/31/22 20:45 Chloride 101 mmol/L (98-107) 01/31/22 20:45 Carbon Dioxide 32 mmol/L (22-29) H 01/31/22 20:45 Anion Gap 13.3 (5-19) 01/31/22 20:45 BUN 17 mg/dL (8-23) 01/31/22 20:45 Creatinine 0.9 mg/dL (0.7-1.2) 01/31/22 20:45 GFR Calculation Not Reportable 01/31/22 20:45 Glucose 178 mg/dL (65-115) H 01/31/22 20:45 Calculated Osmolality 302 mOsm/kg (285-295) H 01/31/22 20:45 Lactate 2.0 mmol/L (0.5-2.2) 01/31/22 20:45 Calcium 9.2 mg/dL (8.5-10.5) 01/31/22 20:45 Total Bilirubin 0.3 mg/dL (0.15-1.2) 01/31/22 20:45 AST 16 U/L (0-40) 01/31/22 20:45 ALT 10 U/L (0-41) 01/31/22 20:45 Alkaline Phosphatase 87 IU/L (40-130) 01/31/22 20:45 Troponin T Baseline 16 ng/L (0-15) H 01/31/22 20:45 Troponin T 120 Minute 14.68 ng/L (0-15) 01/31/22 22:36 Delta Troponin T Not Reportable 01/31/22 22:36 Total Protein 7.4 g/dL (6.6-8.7) 01/31/22 20:45 Albumin 3.9 g/dL (3.5-5.2) 01/31/22 20:45 Globulin 3.5 g/dL (1.3-4.6) 01/31/22 20:45 Lipase 26 U/L (13-60) 01/31/22 20:45 Urine Color Yellow (Yellow) 01/31/22 20:45 Urine Appearance Clear (CLEAR) 01/31/22 20:45 Urine pH 5 (5-7) 01/31/22 20:45 Ur Specific [place] 1.015 (1.005-1.030) 01/31/22 20:45 Urine Protein Neg (Negative) 01/31/22 20:45 Urine Glucose (UA) Norm (Normal) 01/31/22 20:45 Urine Ketones Negative (Negative) 01/31/22 20:45 Urine Blood Neg (Negative) 01/31/22 20:45 Urine Nitrate Negative (Negative) 01/31/22 20:45 Urine Bilirubin Neg (Negative) 01/31/22 20:45 Urine Urobilinogen Norm mg/dL (Negative) 01/31/22 20:45 Ur Leukocyte Esterase Negative (Negative) 01/31/22 20:45 Discharge Plan Discharge Patient Disposition: Home Clinical Impression: Enteritis, Nausea & vomiting Condition: Stable Prescriptions: New Zofran 4 mg tablet 4 mg PO TID PRN (Reason: nausea and vomiting) 4 Days Qty: 12 0RF Pepcid 20 mg tablet 20 mg PO BID PRN (Reason: abdominal pain) 10 Days Qty: 20 0RF Maalox Advanced 1,000-60 mg tablet,chewable 1 tab PO TID PRN (Reason: abdominal pain) 7 Days Qty: 21 0RF No Action sertraline 100 mg tablet 100 mg PO QAM 0RF acetaminophen [Tylenol Extra Strength] 500 mg tablet 500 - 1,000 mg PO QID PRN (Reason: Pain) 0RF ferrous sulfate 325 mg (65 mg iron) tablet,delayed release (DR/EC) 325 mg PO QAM 0RF aspirin [Adult Aspirin Regimen] 81 mg tablet,delayed release (DR/EC) 81 mg PO QAM 0RF omeprazole 20 mg capsule,delayed release(DR/EC) 20 mg PO QAM 0RF hydrochlorothiazide 25 mg tablet 50 mg PO QAM 0RF gabapentin 600 mg tablet 600 mg PO TID 0RF simvastatin 40 mg tablet 40 mg PO BEDTIME 0RF metformin 500 mg tablet 500 mg PO BID 0RF prazosin 1 mg capsule 4 mg PO BEDTIME 0RF Rx Instructions: pt states he takes this medication-this medication was on a previous entered med list-[facility] dibucaine 1 % ointment 1 applic NC TID PRN (Reason: rectal discomfort) Qty: 56 0RF hydrocortisone 2.5 % cream with perineal applicator 1 applic NC DAILY PRN (Reason: hemorrhoids) Qty: 30 0RF nadolol 40 mg tablet 40 mg PO QAM 0RF multivitamin Tablet 1 tab PO QAM 0RF losartan 50 mg tablet 50 mg PO QAM 0RF alprazolam 0.5 mg tablet 0.25 - 0.5 mg PO TID PRN (Reason: Anxiety) 0RF tamsulosin 0.4 mg Capsule 0.4 mg PO BEDTIME 0RF Rx Instructions: pt states he takes this medication-this medication was on a previous entered med list-[facility] ProAir HFA 90 mcg/actuation Hfa Aerosol Inhaler 2 puff INHALATION QID PRN (Reason: Shortness Of Breath) 0RF Vitamin D3 125 mcg (5,000 unit) Tablet 125 mcg PO QAM 0RF Discharge Orders: Discharge ED (Routine); Ordered 01/31/22 Ordered By: Rodney Lua Referrals: Ag Kong, [Primary Care Provider] - 1-3 days Patient Instructions: Opioid Safety Activity Restrictions/Additional Instructions: Please return if you develop continued nausea, vomiting, or develop fevers, chills, abdominal pain, abdominal pain that is in the lower right side of your abdomen, or any other concerning signs or symptoms. Please come back if you have any worsening abdominal pain, fever or chills, n ausea or vomiting, diarrhea, blood in the stool, inability hold down liquid or solids, or any new concerning complaints. Here's your CT report, please follow up for evaluation of your symptoms Our client service manager will have you follow-up with general surgery in the next few days for evaluation fo appendix enlargement. You would be expected to have a phone call with our client service manager who will put you on the schedule. You can expect a call from us in the next 2-3 days. If you don't hear from us, call us back in the emergency room at [phone]. [address] [place] [address] CT Scan Report Signed Patient: Khoa Fallon Unit #: [id number] : 1950 Age/Sex: 71 / M ADM Date: 01/31/22 Loc: ER Room/Bed: Attending Dr: Ordering Provider/Ordering MD: Jak Martinez MD Date of Service: 01/31/22 Procedure(s): CT abdomen pelvis w con* [id number] Accession Number(s): [id number] Report Number: [id number] PROCEDURE INFORMATION: Exam: CT Abdomen And Pelvis With Contrast Exam date and time: 01/31/2022 9:21 PM Age: 71 years old Clinical indication: Constipation and nausea and vomiting; Prior surgery; Surgery date: 6+ months; Surgery type: Back/gb; Patient HX: C/O constipation w n/v; Additional info: Abd pain TECHNIQUE: Imaging protocol: Computed tomography of the abdomen and pelvis with contrast. Radiation optimization: All CT scans at this facility use at least one of these dose optimization techniques: automated exposure control; mA and/or kV adjustment per patient size (includes targeted exams where dose is matched to clinical indication); or iterative reconstruction. Contrast material: OMNI 300; Contrast volume: 95 ml; Contrast route: INTRAVENOUS (IV);? COMPARISON: CT abdomen pelvis w con* [id number] 11/12/2021 8:32 PM RADIATION DOSE METRICS: Total DLP (mGy-cm): 1786.72 FINDINGS: Lungs: Two somewhat adjacent pulmonary nodules measuring up to 6.1 mm, similar to prior exam dating back to 05/06/2020. Heart: Small pericardial effusion measuring up to 16 mm in thickness. Liver: Normal. No mass. Gallbladder and bile ducts: Cholecystectomy. Pancreas: Normal. No ductal dilation. Spleen: Normal. No splenomegaly. Adrenal glands: Right adrenal 3.4 cm low-density nodule similar prior exam suggestive of a benign adenoma. Kidneys and ureters: Left kidney cyst, negative for follow-up advised Stomach and bowel: Mildly prominent fluid throughout the small bowel may reflect an enteritis, negative for bowel dilation to indicate obstruction. Diverticulosis without diverticulitis. Appendix:? Appendiceal tip mildly prominent measuring up to 10 mm without surrounding fluid or inflammation, somewhat more prominent compared to prior exam, findings are not definitive for appendicitis by CT alone, please correlate clinically Intraperitoneal space: Unremarkable. No free air. No significant fluid collection. Vasculature: Small infrarenal fusiform abdominal aortic aneurysm measuring up to 2.9 cm without rupture. Lymph nodes: Unremarkable. No enlarged lymph nodes. Urinary bladder: Unremarkable as visualized. Reproductive: Unremarkable as visualized. Bones/joints: Unremarkable. No acute fracture. Soft tissues: Moderate umbilical hernia containing omentum without bowel. CT/CT abdomen pelvis w con* [id number]
[2022-01-31 20:52] LABS: Basophils % 0.3 %; Eosinophils # 0.2 10^3/uL (0.0-0.8); Eosinophils % 2.4 %; Hematocrit 46.2 % (42.0-52.0); Lymphocytes # 0.3 10^3/uL (0.8-4.8); Lymphocytes % 3.4 %; Mean Corpuscular HGB Conc 32.5 g/dL (30.0-36.0); Mean Corpuscular Hemoglobin 28.5 pg (28.0-34.0); Mean Corpuscular Volume 87.8 fl (80-94); Mean Platelet Volume 10.3 fL (7.4-10.4); Monocytes # 0.3 10^3/uL (0.2-0.9); Monocytes % 2.6 %; Neutrophils # 8.66 10^3/uL (1.8-7.7); Nucleated Red Blood Cells % 0 %; Platelet Count 230 10^3/cmm (130-400); Red Blood Count 5.26 10^6/uL (4.1-5.3); Red Cell Distribution Width 13.1 % (12.1-15.1); White Blood Count 9.5 10^3/uL (4.0-10.0)
[2022-01-31 20:56] VITALS: BP 147/81; PULSE 79; RESP 22; O2SAT 95
[2022-01-31] MEDS: acetaminophen 500 mg Tablet PO ×2 (21:01→22:32)
[2022-01-31 21:02] VITALS: RESP 22
[2022-01-31] MEDS: morphine 4 mg/mL SDV 1 mL 2 MG IVP (21:02)
[2022-01-31] MEDS: famotidine 20 mg/2 mL INJ IVP (21:02)
[2022-01-31 21:07] LABS: Alanine Aminotransferase 10 U/L (0-41); Albumin Level 3.9 g/dL (3.5-5.2); Alkaline Phosphatase 87 IU/L (40-130); Anion Gap 13.3 (5-19); Aspartate Amino Transferase 16 U/L (0-40); Blood Urea Nitrogen 17 mg/dL (8-23); Calcium 9.2 mg/dL (8.5-10.5); Carbon Dioxide 32 mmol/L (22-29); Chloride 101 mmol/L (98-107); Globulin 3.5 g/dL (1.3-4.6); Glucose 178 mg/dL (65-115); Lipase 26 U/L (13-60); Osmolality Calculated 302 mOsm/kg (285-295); Potassium 3.3 mmol/L (3.5-5.1); Sodium 143 mmol/L (136-145); Total Bilirubin 0.3 mg/dL (0.15-1.2); Total Protein 7.4 g/dL (6.6-8.7)
[2022-01-31] MEDS: iohexol 300 mg/mL 100 mL Btl IV (21:21)
[2022-01-31 21:27] LABS: Add Urine Microscopic? NO; Charge for UA Resulting for Rev
[2022-01-31 21:35] LABS: Bilirubin Urine Neg (Negative); Blood Urine Neg (Negative); Glucose Urine UA Norm (Normal); Ketones Urine Negative (Negative); Leukocyte Esterase Urine Negative (Negative); Nitrate Urine Negative (Negative); Protein Urine Neg (Negative); Specific Gravity, Urine 1.015 (1.005-1.030); Urine Appearance Clear (CLEAR); Urine Color Yellow (Yellow); Urobilinogen Urine Norm (Negative); pH Urine 5 (5-7)
[2022-01-31 22:04] VITALS: BP 157/76; PULSE 77; RESP 19; O2SAT 99
--- NOTE | 2022-01-31 22:26 | ECG_ITS ---
[facility] Test Date: 2022-01-31 Pat Name: Khoa Fallon Department: Room: Gender: Male Powder Operator: : 1950 Requested By: Jak Martinez Order Number: [id number] Laura MD: Juice Garcia M.D. Measurements Intervals [place] Rate: 72 P: 16 RI: 177 QRS: -37 QRSD: 77 T: 33 QT: 349 QTc: 382 Interpretive Statements SINUS RHYTHM LOW QRS VOLTAGE IN PRECORDIAL LEADS [QRS DEFLECTION < 1.0 mV IN CHEST LEADS] ANTERIOR MYOCARDIAL INFARCTION , PROBABLY OLD [40+ ms Q WAVE AND/OR ST/T ABNORMALITY IN V3/V4] INFERIOR MYOCARDIAL INFARCTION , PROBABLY OLD [40+ ms Q WAVE AND/OR ST/T ABNORMALITY IN II/aVF] Compared to ECG 11/09/2021 20:23:53 Sinus bradycardia no longer present Myocardial infarct finding still present Electronically Signed On 02-02-2022 9:01:33 CDT by Juice Garcia M.D. [id number]
[2022-01-31 22:47] LABS: Troponin(5th) Baseline 16 ng/L (0-15)
[2022-01-31] MEDS: lidocaine 2% viscous 15 ML, aluminum-mag hydrox-simethicon 30 ML, sucralfate oral liq 1 GM PO (23:02)
[2022-01-31 23:11] LABS: Troponin 5 2HR 14.68 ng/L (0-15)
--- NOTE | 2022-02-02 10:07 | DCPLANNER ---
Addendum entered by Corine Voss 02/03/22 14:38: Patient has a follow up appointment scheduled for Thursday, March 24, 2022 at 10:[address] Winter. affiliate marketing manager called and gave patient the appointment information. Original Note: affiliate marketing manager had message to schedule a follow up appointment for patient with [facility]. affiliate marketing manager sent patients information to [facility] front staff, [facility] task[facility]message system. Patients information will be printed and reviewed. Clinic will notify caser in of patients appointment information.
--- NOTE | 2022-02-02 13:43 | DCPLANNER ---
train operations manager had message to schedule a follow up appointment for patient with general surgery. train operations manager sent patients information to the front staff at [facility] General Surgery thru [employer] task/message system. Patients information will be printed and reviewed. Clinic will call patient with appointment information.
--- NOTE | 2022-02-02 13:50 | DCPLANNER ---
Addendum entered by Corine Voss 03/26/22 10:18: Patient had a follow up appointment scheduled for 03.24.22 with [facility] - patient did attend appointment. Addendum entered by Corine Voss 02/25/22 15:43: Patient had a follow up appointment scheduled for 02.13.22 with general surgery - patient did attend appointment. Addendum entered by Corine Voss 02/05/22 07:19: Patient has a follow up appointment scheduled for Sunday, February 13, 2022 at 10:[address] Ball at General Surgery. Clinic will call patient with appointment information. Original Note: cardroom manager had message to schedule a followup appointment for patient with [facility] General Surgery. cardroom manager sent patients information to the front staff at [facility] General Surgery. Patients information will be printed and reviewed. Clinic will call patient with appointment information. Patient has [facility] insurance, case resource manager emailed patients information to Sarah with [facility], so that the authorization process could be started.
== END 2022-02-01 00:37 | disposition home or self-care (01) ==
PROVIDERS: Emergency Provider Emergency Medicine; PCP Emergency Medicine Emergency Medical Services
DX: K52.9 Noninfective gastroenteritis and colitis, unspecified (principal); Z79.82 Long term (current) use of aspirin; Z79.84 Long term (current) use of oral hypoglycemic drugs; E11.9 Type 2 diabetes mellitus without complications; E78.5 Hyperlipidemia, unspecified; I10 Essential (primary) hypertension; Z87.891 Personal history of nicotine dependence
CPT/HCPCS: 71045; 74177; 80053; 81003; 83605; 83690; 84484; 85025; 87040; 93005; 96374; 96375; 99284; J2270; J3490; Q9967

== ENCOUNTER 2022-02-09 13:51 | Emergency (ER) | payer OTHER, MEDICARE, SELFPAY ==
[2022-02-09 14:06] VITALS: BP 133/77; PULSE 61; RESP 16; TEMP 36.8; O2SAT 97; BMI 43.0
--- NOTE | 2022-02-09 14:25 | CT_ITS ---
WS: [id number] CT ABDOMEN PELVIS TECHNIQUE: Contrast-enhanced CT of the abdomen and pelvis with coronal and sagittal reformatted image s. CLINICAL INFORMATION: abd pain COMPARISON: January 31, 2022 DLP: 1857.[address] scans at [facility] use at least one of these dose optimization techniques: automated e xposure control; mA and/or kV adjustment per patient size (includes targeted exams where dose is matc hed to clinical indication); or iterative reconstruction. FINDINGS:Mild thickening with enhancement involving the cecum suspicious for mild colitis. This also involves the ascending colon and hepatic flexure. Remainder of the colon is normal and decompressed. Mild diffuse fatty infiltration of the liver. Prior cholecystectomy. Small noncalcified pulmonary nod ules RIGHT lower lobe measuring 4 to 5 mm. Normal GE junction. Normal spleen. Normal pancreas. Normal portal vein and splenic vein. Normal LEFT adrenal gland. RIGHT adrenal lesion likely adenoma is unch anged. Slightly aneurysmal infrarenal abdominal aorta. Celiac and SMA are patent. No hydronephrosis in either kidney. Normal renal parenchymal enhancement. Normal sigmoid colon. Colon is decompressed. Normal appendix in the RIGHT lower quadrant. No evidence of acute appendicitis. Disc space narrowing worse L4-L5 and L5-S1. Fat-containing umbilical hernia. CT/CT abdomen pelvis w con* [id number] IMPRESSION: 1. Normal appendix in the RIGHT lower quadrant. No evidence of acute appendici tis. 2. Mild thickening with enhancement involving the cecum suspicious for mild co litis. This also involves the ascending colon and hepatic flexure. Remainder of the colon is normal and decompressed. 3. No other acute findings and no other significant changes compared to previo us. 4. Fat-containing umbilical hernia. 5. Stable RIGHT adrenal lesion. 6. Stable slightly aneurysmal infrarenal abdominal aorta measuring 2.6 x 2.9 c m AP by transverse. Attempted notification Timur Alvarado DO at 02/09/2022 3:40 PM.
--- NOTE | 2022-02-09 14:25 | XR_ITS ---
WS: [id number] XR chest 1V portable [id number] REASON FOR EXAM: dyspnea/cough FINDINGS: The heart and mediastinum are within normal limits. Degenerative spondylosis in the mid and lower thoracic spine. Degenerative arthropathy in the right g lenohumeral joint. Increased opacity in the left lower hemithorax with obscuration of the left heart border. This is unc hanged compared to 01/31/2022. The abnormality appears more significant than on the previous examinati on of 11/10/2021. No acute pulmonary parenchymal or pleural abnormality is is identified however the abnormality in the left chest is not completely evaluated by the portable chest exam. XR/XR chest 1V portable [id number] IMPRESSION: Stable abnormal chest. Appearance of the left hemithorax is least in part due to herniation of abdomin al fat through an anterolateral defect in the left hemidiaphragm adjacent to th e apex of the left ventricle as was shown on CT scan of the abdomen and pelvis 11/12/2021 and 01/31/2022. A small amount of left pleural fluid had developed betw een the 2 CT scans. Patient is scheduled for CT scan of the abdomen and pelvis later today. May need to consider a CT scan of the chest as clinically warrante d.
[2022-02-09 14:31] VITALS: BP 124/81; PULSE 56; RESP 18; TEMP 37.4; O2SAT 95
[2022-02-09 14:42] LABS: Basophils # 0.1 10^3/uL (0.0-0.1); Basophils % 0.7 %; Eosinophils # 0.3 10^3/uL (0.0-0.8); Eosinophils % 3.4 %; Hematocrit 40.4 % (42.0-52.0); Hemoglobin 13.2 g/dL (11.7-16.6); Lymphocytes # 1.6 10^3/uL (0.8-4.8); Lymphocytes % 17.5 %; Mean Corpuscular HGB Conc 32.7 g/dL (30.0-36.0); Mean Corpuscular Hemoglobin 28.9 pg (28.0-34.0); Mean Corpuscular Volume 88.6 fl (80-94); Mean Platelet Volume 11.2 fL (7.4-10.4); Monocytes # 0.6 10^3/uL (0.2-0.9); Monocytes % 6.6 %; Neutrophils # 6.51 10^3/uL (1.8-7.7); Neutrophils % 71.5 %; Nucleated Red Blood Cells % 0 %; Platelet Count 297 10^3/cmm (130-400); Red Blood Count 4.56 10^6/uL (4.1-5.3); Red Cell Distribution Width 12.7 % (12.1-15.1); White Blood Count 9.1 10^3/uL (4.0-10.0)
[2022-02-09] MEDS: ondansetron 2 mg/ML SDV 2 mL 4 MG IVP (14:45)
--- NOTE | 2022-02-09 14:50 | ED_ITS ---
HPI - Abdominal Pain General: Chief Complaint: Abdominal Pain Stated Complaint: severe abdominal pain Time Seen by Provider: 02/09/22 14:06 Source: patient Mode of arrival: ambulatory Limitations: no limitations History of Present Illness: 71-year-old male who presents to the emergency room with complaint of right lower quadrant abdominal pain.Seen here on [address] of his abdomen done. Since the beginning of the year he has had 3 CTs abdomen done for abdominal pain. He had been referred to general surgery.He is complaining of increased discomfort in the right lower quadrant. The previous CT the appendix was enlarged there is no sign of acute appendicitis. On November 09 CT of the abdomen showed bowel obstruction. Patient states he has been able to eat today without difficulty had 4 cookies this morning without throwing up he still feels like he could eat but he states he does not have much of an appetite he has been passing gas and having bowel movements regularly. He denies any medication on hematemesis or coffee-ground emesis denies any dysuria urgency or frequency. MD elicited complaint: abdominal pain Pertinent past history: none Onset (ago): minute(s) Pain Consistency: constant Location: None Severity: moderate Quality: cramping Radiation: none Exacerbating factors: nothing Relieving factors: nothing Associated Symptoms: Denies anorexia, belching, bloating, change in bowel habits, change in stool character, chills, coffee ground emesis, constipation, GI cramping, diarrhea, dyspepsia, dysuria, excessive flatus, fever(s), heartburn, hematochezia, hematuria, hematemesis, fecal incontinence, loose stools, melena, nausea, poor appetite, syncope and vomiting Review of Systems Const: Denies: fever(s) or chills ENMT: Denies: throat pain, ear or mastoid pain, nasal discharge or nasal congestion Card: Denies: syncope Resp: Denies: dyspnea, productive cough or non-productive cough GI: Denies: nausea, vomiting, hematemesis, coffee ground emesis, heartburn, diarrhea, constipation, bloating, GI cramping, belching, excessive flatus, fecal incontinence, change in bowel habits, change in stool character, hematochezia or melena : Denies: dysuria or hematuria Skin/Breast: Denies: rash or pruritus PFS ED PFSH: Medical History Anemia Bilateral carpal tunnel syndrome Cervical disc disorder with myelopathy of mid-cervical region Diabetes mellitus Diverticulitis Dyslipidemia Esophagitis Gastritis Hiatal hernia Hypertension, benign Hypoxia, sleep related Morbid obesity Peripheral neuropathy Surgical History Hx of cholecystectomy S/P hemilaminotomy (05/01/03) Left L4-L5 hemilaminotomy with microdiscectomy ;[place], [place] Family History Father Cancer Mother Diabetes CAD (coronary artery disease) Stroke Other Hypertension Social History Smoking and tobacco status: former smoker Alcohol intake: former Year of sobriety/quit date alcohol: 1976 Lives independently: Yes Household members: spouse Marital status: Current occupational status: retired History of recent travel: No Course Vital Signs: Vital signs: Vital Signs Temperature 99.4 F 02/09/22 14:31 Pulse Rate 55 L 02/09/22 16:31 Respiratory Rate 16 02/09/22 16:31 Blood Pressure 139/84 02/09/22 16:31 Pulse Oximetry 96 02/09/22 16:31 MDM - Abdominal Pain Medical Decision Making CT shows colitis appendix normal discharged home on Cipro and Flagyl. Reviewing the records patient has had 4 CTs of the abdomen for abdominal pain since the beginning of the year he has referral to Dr. Ball for further evaluation possible endoscopy encouraged him to keep that appointment Medical Records I reviewed the patient's medical records. Lab Data I reviewed the patient's lab results. : 02/09/22 14:30 02/09/22 14:30 Labs/Radiology: Radiology Impressions Abdomen/Pelvis CT 02/09/22 14:25 IMPRESSION: 1. Normal appendix in the RIGHT lower quadrant. No evidence of acute appendicitis. 2. Mild thickening with enhancement involving the cecum suspicious for mild colitis. This also involves the ascending colon and hepatic flexure. Remainder of the colon is normal and decompressed. 3. No other acute findings and no other significant changes compared to previous. 4. Fat-containing umbilical hernia. 5. Stable RIGHT adrenal lesion. 6. Stable slightly aneurysmal infrarenal abdominal aorta measuring 2.6 x 2.9 cm AP by transverse. Attempted notification Timur L JoshuarashaadDO michael at 02/09/2022 3:40 PM. Chest X-Ray 02/09/22 14:25 IMPRESSION: Stable abnormal chest. Appearance of the left hemithorax is least in part due to herniation of abdominal fat through an anterolateral defect in the left hemidiaphragm adjacent to the apex of the left ventricle as was shown on CT scan of the abdomen and pelvis 11/12/2021 and 01/31/2022. A small amount of left pleural fluid had developed between the 2 CT scans. Patient is scheduled for CT scan of the abdomen and pelvis later today. May need to consider a CT scan of the chest as clinically warranted. Laboratory Results WBC 9.1 10^3/uL (4.0-10.0) 02/09/22 14:30 RBC 4.56 10^6/uL (4.1-5.3) 02/09/22 14:30 Hgb 13.2 g/dL (11.7-16.6) 02/09/22 14:30 Hct 40.4 % (42.0-52.0) L 02/09/22 14:30 MCV 88.6 fl (80-94) 02/09/22 14:30 MCH 28.9 pg (28.0-34.0) 02/09/22 14:30 MCHC 32.7 g/dL (30.0-36.0) 02/09/22 14:30 RDW 12.7 % (12.1-15.1) 02/09/22 14:30 Plt Count 297 10^3/cmm (130-400) 02/09/22 14:30 MPV 11.2 fL (7.4-10.4) H 02/09/22 14:30 Neut % (Auto) 71.5 % 02/09/22 14:30 Lymph % (Auto) 17.5 % 02/09/22 14:30 [place] % (Auto) 6.6 % 02/09/22 14:30 Eos % (Auto) 3.4 % 02/09/22 14:30 Baso % (Auto) 0.7 % 02/09/22 14:30 Neut # (Auto) 6.51 10^3/uL (1.8-7.7) 02/09/22 14:30 Lymph # (Auto) 1.6 10^3/uL (0.8-4.8) 02/09/22 14:30 [place] # (Auto) 0.6 10^3/uL (0.2-0.9) 02/09/22 14:30 Eos # (Auto) 0.3 10^3/uL (0.0-0.8) 02/09/22 14:30 Baso # (Auto) 0.1 10^3/uL (0.0-0.1) 02/09/22 14:30 Nucleated RBC % (auto) 0 % 02/09/22 14:30 Nucleated RBCs # 0.0 /100WBC 02/09/22 14:30 Sodium 141 mmol/L (136-145) 02/09/22 14:30 Potassium 3.5 mmol/L (3.5-5.1) 02/09/22 14:30 Chloride 100 mmol/L (98-107) 02/09/22 14:30 Carbon Dioxide 29 mmol/L (22-29) 02/09/22 14:30 Anion Gap 15.5 (5-19) 02/09/22 14:30 BUN 13 mg/dL (8-23) 02/09/22 14:30 Creatinine 1.1 mg/dL (0.7-1.2) 02/09/22 14:30 GFR Calculation Not Reportable 02/09/22 14:30 Glucose 108 mg/dL (65-115) 02/09/22 14:30 Calculated Osmolality 293 mOsm/kg (285-295) 02/09/22 14:30 Lactic Acid 1.5 mmol/L (0.5-2.2) 02/09/22 14:30 Calcium 9.2 mg/dL (8.5-10.5) 02/09/22 14:30 Total Bilirubin 0.3 mg/dL (0.15-1.2) 02/09/22 14:30 AST 15 U/L (0-40) 02/09/22 14:30 ALT 10 U/L (0-41) 02/09/22 14:30 Alkaline Phosphatase 76 IU/L (40-130) 02/09/22 14:30 Creatine Kinase 48 U/L (39-308) 02/09/22 14:30 Total Protein 6.2 g/dL (6.6-8.7) L 02/09/22 14:30 Albumin 4.0 g/dL (3.5-5.2) 02/09/22 14:30 Globulin 2.2 g/dL (1.3-4.6) 02/09/22 14:30 Lipase 23 U/L (13-60) 02/09/22 14:30 Discharge Plan Discharge Patient Disposition: Home Clinical Impression: Colitis, Chronic abdominal pain Condition: Stable Prescriptions: New Cipro 500 mg tablet 500 mg PO BID Qty: 14 0RF metronidazole 500 mg tablet 500 mg PO Q8H 7 Days Qty: 21 0RF ondansetron HCl 4 mg tablet 4 mg PO Q6H PRN (Reason: nausea and vomiting) Qty: 20 0RF No Action sertraline 100 mg tablet 100 mg PO QAM 0RF acetaminophen [Tylenol Extra Strength] 500 mg tablet 500 - 1,000 mg PO QID PRN (Reason: Pain) 0RF ferrous sulfate 325 mg (65 mg iron) tablet,delayed release (DR/EC) 325 mg PO QAM 0RF aspirin [Adult Aspirin Regimen] 81 mg tablet,delayed release (DR/EC) 81 mg PO QAM 0RF omeprazole 20 mg capsule,delayed release(DR/EC) 20 mg PO QAM 0RF hydrochlorothiazide 25 mg tablet 50 mg PO QAM 0RF gabapentin 600 mg tablet 900 mg PO BID 0RF simvastatin 40 mg tablet 40 mg PO BEDTIME 0RF metformin 500 mg tablet 500 mg PO BID 0RF dibucaine 1 % ointment 1 applic NC TID PRN (Reason: rectal discomfort) Qty: 56 0RF hydrocortisone 2.5 % cream with perineal applicator 1 applic NC DAILY PRN (Reason: hemorrhoids) Qty: 30 0RF nadolol 40 mg tablet 40 mg PO QAM 0RF multivitamin Tablet 1 tab PO QAM 0RF losartan 50 mg tablet 50 mg PO QAM 0RF alprazolam 0.5 mg tablet 0.25 - 0.5 mg PO TID PRN (Reason: Anxiety) 0RF tamsulosin 0.4 mg Capsule 0.4 mg PO BEDTIME 0RF albuterol sulfate [ProAir HFA] 90 mcg/actuation Hfa Aerosol Inhaler 2 puff INHALATION QID PRN (Reason: Shortness Of Breath) 0RF cholecalciferol (vitamin D3) [Vitamin D3] 125 mcg (5,000 unit) Tablet 125 mcg PO QAM 0RF albuterol sulfate 2.5 mg /3 mL (0.083 %) Solution For Nebulization 2.5 mg INHALATION QID PRN (Reason: Shortness Of Breath) 0RF ondansetron HCl 4 mg tablet 4 mg PO TID PRN (Reason: Nausea And Vomiting) 0RF sildenafil 100 mg Tablet 50 mg PO DAILY PRN (Reason: Erectile Dysfunction) 0RF prazosin 2 mg Capsule 4 mg PO BEDTIME 0RF Maalox Advanced 1,000-60 mg Tablet,Chewable 1 tab PO TID PRN (Reason: unknown) 0RF lidocaine 5 % Ointment See Rx Instructions .ROUTE .COMPLEX 0RF Rx Instructions: apply to feet and legs at bedtime Pepcid 20 mg tablet 20 mg PO BID 0RF Discharge Orders: Discharge ED (Routine); Ordered 02/09/22 Ordered By: Timur Alvarado Referrals: Ag Kong, DO [Primary Care Provider] - Discharge Diet: Clear Liquid Discharge Activity: Increase activity as tolerated Patient Instructions: Opioid Safety Activity Restrictions/Additional Instructions: Follow-up with Dr. Ball is currently planned. Coding Level of Care Code ED Senior Customer Service Representative for Nia Pinedo
[2022-02-09 15:02] LABS: Lactic Sepsis W/Reflex 1.5 mmol/L (0.5-2.2)
[2022-02-09] MEDS: iohexol 350 mg/mL 100 mL Btl IV (15:16)
[2022-02-09 15:20] LABS: Alanine Aminotransferase 10 U/L (0-41); Alkaline Phosphatase 76 IU/L (40-130); Anion Gap 15.5 (5-19); Aspartate Amino Transferase 15 U/L (0-40); Blood Urea Nitrogen 13 mg/dL (8-23); Calcium 9.2 mg/dL (8.5-10.5); Carbon Dioxide 29 mmol/L (22-29); Chloride 100 mmol/L (98-107); Creatine Phosphokinase 48 U/L (39-308); Globulin 2.2 g/dL (1.3-4.6); Glucose 108 mg/dL (65-115); Lipase 23 U/L (13-60); Osmolality Calculated 293 mOsm/kg (285-295); Potassium 3.5 mmol/L (3.5-5.1); Sodium 141 mmol/L (136-145); Total Bilirubin 0.3 mg/dL (0.15-1.2); Total Protein 6.2 g/dL (6.6-8.7)
[2022-02-09 16:31] VITALS: BP 139/84; PULSE 55; RESP 16; O2SAT 96
== END 2022-02-09 16:33 | disposition home or self-care (01) ==
PROVIDERS: Emergency Provider Family Medicine; PCP Emergency Medicine Emergency Medical Services
DX: K52.9 Noninfective gastroenteritis and colitis, unspecified (principal); Z87.891 Personal history of nicotine dependence; F10.21 Alcohol dependence, in remission
CPT/HCPCS: 71045; 74177; 80053; 82550; 83605; 83690; 85025; 87040; 96374; 99283; J2405; Q9967

== ENCOUNTER → 2022-02-13 09:47 | Outpatient (BNVA) | payer OTHER, SELFPAY | PROVIDERS: PCP Emergency Medicine Emergency Medical Services; Visit Provider Surgery | DX: R10.9 Unspecified abdominal pain (principal); G89.29 Other chronic pain | CPT/HCPCS: 99204 ==

== ENCOUNTER → 2022-02-17 12:56 | Outpatient (BNVA) | payer OTHER, SELFPAY | PROVIDERS: PCP Emergency Medicine Emergency Medical Services; Visit Provider Anesthesiology Pain Medicine | DX: M54.12 Radiculopathy, cervical region (principal) | CPT/HCPCS: 62321 ==

== ENCOUNTER → 2022-03-02 08:24 | Outpatient (BNVA) | payer OTHER, SELFPAY | PROVIDERS: PCP Emergency Medicine Emergency Medical Services; Visit Provider Anesthesiology Pain Medicine | DX: M54.12 Radiculopathy, cervical region (principal); Z87.891 Personal history of nicotine dependence | CPT/HCPCS: 62321; J1100 ==

== ENCOUNTER → 2022-03-05 08:18 | Outpatient (BNVA) | payer OTHER, SELFPAY | PROVIDERS: PCP Emergency Medicine Emergency Medical Services; Visit Provider Specialist | DX: M19.012 Primary osteoarthritis, left shoulder (principal); M75.82 Other shoulder lesions, left shoulder; Z87.891 Personal history of nicotine dependence | CPT/HCPCS: 20610; J1100; J2795; J3301 ==

== ENCOUNTER → 2022-03-17 09:09 | Outpatient (BNVA) | payer OTHER, SELFPAY | PROVIDERS: PCP Emergency Medicine Emergency Medical Services; Visit Provider Anesthesiology Pain Medicine | DX: M54.2 Cervicalgia (principal); M79.601 Pain in right arm; M79.602 Pain in left arm; Z87.891 Personal history of nicotine dependence | CPT/HCPCS: 99213 ==

== ENCOUNTER → 2022-03-24 09:40 | Outpatient (BNVA) | payer OTHER, SELFPAY | PROVIDERS: PCP Emergency Medicine Emergency Medical Services; Visit Provider Internal Medicine Cardiovascular Disease | DX: Z01.810 Encounter for preprocedural cardiovascular examination (principal); I31.3 Pericardial effusion (noninflammatory); I10 Essential (primary) hypertension; E78.5 Hyperlipidemia, unspecified; E11.9 Type 2 diabetes mellitus without complications; G62.9 Polyneuropathy, unspecified; Z87.891 Personal history of nicotine dependence; Z79.84 Long term (current) use of oral hypoglycemic drugs | CPT/HCPCS: 99204 ==

== ENCOUNTER 2022-03-25 05:38 | Day surgery (SDC) | payer OTHER, SELFPAY ==
[2022-03-23 09:24] VITALS: BMI 40.6
[2022-03-25 06:29] VITALS: BP 125/91; PULSE 47; RESP 20; TEMP 36.5; O2SAT 95
[2022-03-25] MEDS: sodium chloride 0.9% 1,000 ML 30 ML IV (06:39)
--- NOTE | 2022-03-25 06:56 | ANES.PREANE2 ---
Pre-Anesthetic Assessment Height/Weight: Height 1.78 m Weight 128.367 kg Temp Pulse Resp BP Pulse Ox 97.7 F 47 L 20 H 125/91 95 03/25/22 06:29 03/25/22 06:29 03/25/22 06:29 03/25/22 06:29 03/25/22 06:29 Preop Diagnosis: diagnostic Operation Date: 03/25/22 07:30 Proposed Procedures p Colonoscopy [id number](Not Applicable) - Sergei Ball MD s EGD(Not Applicable) - Sergei Ball MD Familial anesthetic complications: none Was Beta Darshan taken within 24 hours: Yes Was Clonidine taken within 24 hours: N/A Last intake: Intake Last Liquid Date 03/24/22 Last Liquid Time 20:00 Last Solid Date 03/23/22 Last Solid Time 18:30 Last Intake: 20:00 Social Tobacco (chew) and No alcohol Exam alert, oriented x 3, clear to auscultation bilaterally and regular rate & rhythm Airway Submandibular: within normal limits Cervical ROM: within normal limits Mallampati: Class II Dentition: full (poor) Pulmonary Asthma, Chronic Obstructive Pulmonary Disease (o2 PRN), Sleep Apnea and Shortness of Breath CV/HEM Hypertension None reported Hepatic None reported GI Gastroesophageal Reflux Disease Metabolic Diabetes Mellitus and Morbid Obesity Musc/skel Lower Back Pain and Osteoarthritis/DJD Neuropsych Anxiety and Depression Anesthetic Plan ASA status: 3 Anesthesia: MAC Medications/Allergies Home Medications Medication Instructions Recorded Confirmed Last Taken Type acetaminophen 500 mg tablet 500 - 1,000 mg PO QID PRN 01/09/20 03/24/22 03/23/22 History (Tylenol Extra Strength) aspirin 81 mg tablet,delayed 81 mg PO QAM 01/09/20 03/24/22 03/23/22 History release (Adult Aspirin Regimen) ferrous sulfate 325 mg (65 mg 325 mg PO QAM 01/09/20 03/24/22 03/23/22 History iron) tablet,delayed release gabapentin 600 mg tablet 600 mg PO TID 01/09/20 03/24/22 03/23/22 History hydrochlorothiazide 25 mg tablet 50 mg PO QAM tab 01/09/20 03/24/22 03/25/22 History metformin 500 mg tablet 500 mg PO BID 01/09/20 03/24/22 03/23/22 History omeprazole 20 mg capsule,delayed 20 mg PO QAM 01/09/20 03/24/22 03/23/22 History release sertraline 100 mg tablet 100 mg PO QAM 01/09/20 03/24/22 03/23/22 History simvastatin 40 mg tablet 40 mg PO BEDTIME 01/09/20 03/24/22 03/23/22 History nadolol 40 mg tablet 40 mg PO QAM 01/30/20 03/24/22 03/25/22 History albuterol sulfate 90 mcg/actuation 2 puff INHALATION QID PRN 11/10/21 03/24/22 Unknown History aerosol inhaler (ProAir HFA) alprazolam 0.5 mg tablet (Xanax) 0.25 - 0.5 mg PO TID PRN 11/10/21 03/24/22 03/23/22 History cholecalciferol (vitamin D3) 125 125 mcg PO QAM 11/10/21 03/24/22 03/23/22 History mcg (5,000 unit) tablet (Vitamin D3) losartan 50 mg tablet 50 mg PO QAM 11/10/21 03/24/22 03/23/22 History multivitamin 1 tab PO QAM 11/10/21 03/24/22 03/23/22 History tamsulosin 0.4 mg capsule 0.4 mg PO BEDTIME 11/10/21 03/24/22 03/23/22 History albuterol sulfate 2.5 mg INHALATION QID PRN 02/09/22 03/24/22 Unknown History calcium carbonate 1,000 1 tab PO TID PRN 02/09/22 03/24/22 03/23/22 History mg-simethicone 60 mg chewable tablet (Maalox Advanced) lidocaine 5 % topical ointment 1 applic TOPICAL BEDTIME 02/09/22 03/25/22 03/24/22 History prazosin 2 mg capsule 4 mg PO BEDTIME 02/09/22 03/24/22 03/23/22 History sildenafil 100 mg tablet 50 mg PO DAILY PRN 02/09/22 03/24/22 Unknown History Allergies Allergy/AdvReac Type Severity Reaction Status Date / Time Sulfa (Sulfonamide Allergy Intermediate Unknown Verified 03/23/22 09:18 Antibiotics) pregabalin Allergy unknown Verified 03/23/22 09:18 Current Medications Generic Name Dose Route Start Last Admin Trade Name Erikq PRN Reason Stop Dose Admin Sodium Chloride 1,000 mls @ 30 mls/hr 03/25/22 06:00 03/25/22 06:39 Sodium Chloride 0.9% IV 03/26/22 05:59 30 mls/hr .Q24H LUKAS Administration PFSH Anesthesia Medical History Anemia Bilateral carpal tunnel syndrome Cervical disc disorder with myelopathy of mid-cervical region Diabetes mellitus Diverticulitis Dyslipidemia Esophagitis Gastritis Hiatal hernia Hypertension, benign Hypoxia, sleep related Peripheral neuropathy Surgical History H/O esophagogastroduodenoscopy Hx of cholecystectomy S/P hemilaminotomy (05/01/03) Left L4-L5 hemilaminotomy with microdiscectomy ;[place] Status post colonoscopy Status post laparoscopic cholecystectomy Family History Father Cancer Mother Diabetes CAD (coronary artery disease) Stroke CHF (congestive heart failure) Other Hypertension Social History Smoking and tobacco status: former smoker Alcohol intake: former Year of sobriety/quit date alcohol: 1976 Lives independently: Yes Household members: spouse Marital status: Current occupational status: retired History of recent travel: No Data Anesthesia Cardiac Studies: Echocardiogram 11/10/21
--- NOTE | 2022-03-25 07:02 | W.PM.OPSFHP ---
Same Day Surgery H&P Indication for Procedure/HPI DATE OF PROCEDURE: March 25, 2022 CHIEF COMPLAINT/INDICATIONFOR SURGICAL PROCEDURE: egd/colon PREOP DIAGNOSIS: diagnostic PLANNED PROCEDURE: Operation Date: 03/25/22 07:30 Proposed Procedures p Colonoscopy [id number](Not Applicable) - Sergei Ball MD s EGD(Not Applicable) - Sergei Ball MD Medications/Allergies* Home Medications Medication Instructions Recorded Confirmed Type acetaminophen 500 mg tablet 500 - 1,000 mg PO QID PRN 01/09/20 03/24/22 History (Tylenol Extra Strength) aspirin 81 mg tablet,delayed 81 mg PO QAM 01/09/20 03/24/22 History release (Adult Aspirin Regimen) ferrous sulfate 325 mg (65 mg 325 mg PO QAM 01/09/20 03/24/22 History iron) tablet,delayed release gabapentin 600 mg tablet 600 mg PO TID 01/09/20 03/24/22 History hydrochlorothiazide 25 mg tablet 50 mg PO QAM tab 01/09/20 03/24/22 History metformin 500 mg tablet 500 mg PO BID 01/09/20 03/24/22 History omeprazole 20 mg capsule,delayed 20 mg PO QAM 01/09/20 03/24/22 History release sertraline 100 mg tablet 100 mg PO QAM 01/09/20 03/24/22 History simvastatin 40 mg tablet 40 mg PO BEDTIME 01/09/20 03/24/22 History nadolol 40 mg tablet 40 mg PO QAM 01/30/20 03/24/22 History albuterol sulfate 90 mcg/actuation 2 puff INHALATION QID PRN 11/10/21 03/24/22 History aerosol inhaler (ProAir HFA) alprazolam 0.5 mg tablet (Xanax) 0.25 - 0.5 mg PO TID PRN 11/10/21 03/24/22 History cholecalciferol (vitamin D3) 125 125 mcg PO QAM 11/10/21 03/24/22 History mcg (5,000 unit) tablet (Vitamin D3) losartan 50 mg tablet 50 mg PO QAM 11/10/21 03/24/22 History multivitamin 1 tab PO QAM 11/10/21 03/24/22 History tamsulosin 0.4 mg capsule 0.4 mg PO BEDTIME 11/10/21 03/24/22 History albuterol sulfate 2.5 mg INHALATION QID PRN 02/09/22 03/24/22 History calcium carbonate 1,000 1 tab PO TID PRN 02/09/22 03/24/22 History mg-simethicone 60 mg chewable tablet (Maalox Advanced) lidocaine 5 % topical ointment 1 applic TOPICAL BEDTIME 02/09/22 03/25/22 History prazosin 2 mg capsule 4 mg PO BEDTIME 02/09/22 03/24/22 History sildenafil 100 mg tablet 50 mg PO DAILY PRN 02/09/22 03/24/22 History Allergies/Adverse Reactions Allergy/AdvReac Type Severity Reaction Status Date / Time Sulfa (Sulfonamide Allergy Intermediate Unknown Verified 03/23/22 09:18 Antibiotics) pregabalin Allergy unknown Verified 03/23/22 09:18 Current Medications: Generic Name Dose Route Start Last Admin Trade Name Freq PRN Reason Stop Dose Admin Sodium Chloride 1,000 mls @ 30 mls/hr 03/25/22 06:00 03/25/22 06:39 Sodium Chloride 0.9% IV 03/26/22 05:59 30 mls/hr .Q24H LUKAS Administration Pertinent History/Comorbid Conditions* Medical History (Updated 02/17/22 @ 00:00 by ) Anemia Bilateral carpal tunnel syndrome Cervical disc disorder with myelopathy of mid-cervical region Diabetes mellitus Diverticulitis Dyslipidemia Esophagitis Gastritis Hiatal hernia Hypertension, benign Hypoxia, sleep related Peripheral neuropathy Surgical History (Updated 02/13/22 @ 10:21 by Sergei Ball MD) H/O esophagogastroduodenoscopy Hx of cholecystectomy S/P hemilaminotomy (05/01/03) Left L4-L5 hemilaminotomy with microdiscectomy ;[place], [place] Status post colonoscopy Status post laparoscopic cholecystectomy Family History (Updated 03/24/22 @ 10:01 by Caroline Smith RN) Diabetes Mother CAD (coronary artery disease) Mother CHF (congestive heart failure) Mother Cancer Father Hypertension Stroke Mother Social History Smoking and tobacco status: former smoker Alcohol intake: former Year of sobriety/quit date alcohol: 1976 Lives independently: Yes Household members: spouse Marital status: Current occupational status: retired History of recent travel: No Pertinent Exam Findings alert, oriented x 3 and regular rate & rhythm Recommendations Surgery/Procedure today Coding Level of Care Code Acute Block And Case Maker for g Khris
[2022-03-25 08:19] VITALS: BP 106/85; PULSE 51; RESP 16; TEMP 36.4; O2SAT 94
[2022-03-25 08:31] VITALS: BP 141/88; PULSE 49; RESP 18; O2SAT 97
--- NOTE | 2022-03-25 09:25 | ANE.PACU2 ---
Inpatient post-anesthesia follow up: Airway intact: Yes Vital signs: Temperature 97.6 F Pulse Rate 49 Respiratory Rate 18 Blood Pressure 141/88 Pulse Oximetry 97 Oxygen Delivery Me thod Room Air Oxygen Flow Rate 3 Fraction of Inspir ed Oxygen Hydration adequate: No Nausea and vomiting: No Pain level: 1 Mental status: Baseline
== END 2022-03-25 08:48 | disposition home or self-care (01) ==
PROVIDERS: PCP Emergency Medicine Emergency Medical Services; Visit Provider Surgery
PROC: 0DJD8ZZ Inspection of Lower Intestinal Tract, Via Natural or Artificial Opening Endoscopic (ICD-10-PCS; CPT 45378; principal; 2022-03-25 07:30)
PROC: 0DJ08ZZ Inspection of Upper Intestinal Tract, Via Natural or Artificial Opening Endoscopic (ICD-10-PCS; CPT 43235; 2022-03-25 07:30)
DX: R10.9 Unspecified abdominal pain (principal); E11.42 Type 2 diabetes mellitus with diabetic polyneuropathy; Z79.84 Long term (current) use of oral hypoglycemic drugs; E78.5 Hyperlipidemia, unspecified; I10 Essential (primary) hypertension; Z82.49 Family history of ischemic heart disease and other diseases of the circulatory system; Z83.3 Family history of diabetes mellitus; K29.70 Gastritis, unspecified, without bleeding; D12.2 Benign neoplasm of ascending colon; K57.30 Diverticulosis of large intestine without perforation or abscess without bleeding; K64.8 Other hemorrhoids; F17.220 Nicotine dependence, chewing tobacco, uncomplicated; K21.9 Gastro-esophageal reflux disease without esophagitis
CPT/HCPCS: 43235; 45380; 88305; J2704; J7030

== ENCOUNTER → 2022-04-02 08:10 | Outpatient (BNVA) | payer OTHER, SELFPAY | PROVIDERS: PCP Emergency Medicine Emergency Medical Services; Visit Provider Orthopaedic Surgery | DX: M47.12 Other spondylosis with myelopathy, cervical region (principal) | CPT/HCPCS: 99214 ==

== ENCOUNTER → 2022-04-07 10:13 | Outpatient (BNVA) | payer OTHER, SELFPAY | PROVIDERS: PCP Emergency Medicine Emergency Medical Services; Visit Provider Surgery | DX: Z09 Encounter for follow-up examination after completed treatment for conditions other than malignant neoplasm (principal) | CPT/HCPCS: 99212 ==

== ENCOUNTER 2022-04-13 06:33 | Day surgery (SDC) | payer OTHER, SELFPAY ==
[2022-04-09 09:53] VITALS: BMI 40.7
[2022-04-09 10:50] LABS: Basophils # 0.1 10^3/uL (0.0-0.1); Basophils % 0.8 %; Eosinophils # 0.1 10^3/uL (0.0-0.8); Eosinophils % 1.8 %; Hematocrit 41.7 % (42.0-52.0); Hemoglobin 13.1 g/dL (11.7-16.6); Lymphocytes # 1.5 10^3/uL (0.8-4.8); Lymphocytes % 19.8 %; Mean Corpuscular HGB Conc 31.4 g/dL (30.0-36.0); Mean Corpuscular Hemoglobin 28.4 pg (28.0-34.0); Mean Corpuscular Volume 90.5 fl (80-94); Mean Platelet Volume 11.4 fL (7.4-10.4); Monocytes # 0.4 10^3/uL (0.2-0.9); Monocytes % 5.9 %; Neutrophils # 5.23 10^3/uL (1.8-7.7); Neutrophils % 71.4 %; Nucleated Red Blood Cells % 0 %; Platelet Count 217 10^3/cmm (130-400); Red Blood Count 4.61 10^6/uL (4.1-5.3); Red Cell Distribution Width 13.7 % (12.1-15.1); White Blood Count 7.3 10^3/uL (4.0-10.0)
[2022-04-09 11:02] LABS: Anion Gap 13.9 (5-19); Blood Urea Nitrogen 15 mg/dL (8-23); Calcium 8.9 mg/dL (8.5-10.5); Carbon Dioxide 29 mmol/L (22-29); Chloride 104 mmol/L (98-107); Glucose 97 mg/dL (65-115); Osmolality Calculated 297 mOsm/kg (285-295); Potassium 3.9 mmol/L (3.5-5.1); Sodium 143 mmol/L (136-145)
--- NOTE | 2022-04-09 11:14 | ANES.PREANE2 ---
Pre-Anesthetic Assessment Height/Weight: Height 1.78 m Weight 128.82 kg Preop Diagnosis: diagnostic Operation Date: 04/13/22 08:30 Proposed Procedures p Anterior Cervical Discectomy & Fusion C5/6 6/7 [id number](Not Applicable) - Daniel Rojas DO Familial anesthetic complications: None Was Beta Darshan taken within 24 hours: N/A Was Clonidine taken within 24 hours: N/A Social No alcohol and No tobacco Exam alert, oriented x 3 and regular rate & rhythm Airway Submandibular: within normal limits Cervical ROM: within normal limits Mallampati: Class II Dentition: chipped Pulmonary Chronic Obstructive Pulmonary Disease Home O2 2L prn CV/HEM Hypertension CONCLUSIONS ?1. This is a technically difficult study. ?2. Normal left ventricular size and systolic function with no ?diagnostic regional wall motion abnormalities. Left ventricular ?ejection fraction is estimated at 60 %. Grade I diastolic ?dysfunction (abnormal relaxation filling pattern), normal to ?mildly elevated filling pressures. Abnormal septal motion. ?3. Trivial pericardial effusion.? Prominent epicardial fat.? ?4. When compared to previous echocardiogram report dated ?02/06/2019, there may not have been any significant change. Chronic Renal Insufficiency Metabolic Diabetes Mellitus, Hyperlipidemia and Morbid Obesity [facility] [place] Lower Back Pain chronic pain Neuropsych Neuropathy Anesthetic Plan ASA status: 3 Anesthesia: General Medications/Allergies Home Medications Medication Instructions Recorded Confirmed Last Taken Type acetaminophen 500 mg tablet 500 - 1,000 mg PO QID PRN 01/09/20 04/09/22 03/23/22 History (Tylenol Extra Strength) aspirin 81 mg tablet,delayed 81 mg PO QAM 01/09/20 04/09/22 03/23/22 History release (Adult Aspirin Regimen) ferrous sulfate 325 mg (65 mg 325 mg PO QAM 01/09/20 04/09/22 03/23/22 History iron) tablet,delayed release gabapentin 600 mg tablet 600 mg PO TID 01/09/20 04/09/22 03/23/22 History hydrochlorothiazide 25 mg tablet 50 mg PO QAM tab 01/09/20 04/09/22 03/25/22 History metformin 500 mg tablet 500 mg PO BID 01/09/20 04/09/22 03/23/22 History omeprazole 20 mg capsule,delayed 20 mg PO QAM 01/09/20 04/09/22 03/23/22 History release sertraline 100 mg tablet 100 mg PO QAM 01/09/20 04/09/22 03/23/22 History simvastatin 40 mg tablet 40 mg PO BEDTIME 01/09/20 04/09/22 03/23/22 History nadolol 40 mg tablet 40 mg PO QAM 01/30/20 04/09/22 03/25/22 History albuterol sulfate 90 mcg/actuation 2 puff INHALATION QID PRN 11/10/21 04/09/22 Unknown History aerosol inhaler (ProAir HFA) alprazolam 0.5 mg tablet (Xanax) 0.25 - 0.5 mg PO TID PRN 11/10/21 04/09/22 03/23/22 History cholecalciferol (vitamin D3) 125 125 mcg PO QAM 11/10/21 04/09/22 03/23/22 History mcg (5,000 unit) tablet (Vitamin D3) losartan 50 mg tablet 50 mg PO QAM 11/10/21 04/09/22 03/23/22 History multivitamin 1 tab PO QAM 11/10/21 04/09/22 03/23/22 History tamsulosin 0.4 mg capsule 0.4 mg PO BEDTIME 11/10/21 04/09/22 03/23/22 History albuterol sulfate 2.5 mg INHALATION QID PRN 02/09/22 04/09/22 Unknown History calcium carbonate 1,000 1 tab PO TID PRN 02/09/22 04/09/22 03/23/22 History mg-simethicone 60 mg chewable tablet (Maalox Advanced) lidocaine 5 % topical ointment 1 applic TOPICAL BEDTIME 02/09/22 04/09/22 03/24/22 History prazosin 2 mg capsule 4 mg PO BEDTIME 02/09/22 04/09/22 03/23/22 History sildenafil 100 mg tablet 50 mg PO DAILY PRN 02/09/22 04/09/22 Unknown History Allergies Allergy/AdvReac Type Severity Reaction Status Date / Time Sulfa (Sulfonamide Allergy Intermediate Unknown Verified 04/09/22 09:46 Antibiotics) pregabalin Allergy unknown Verified 04/09/22 09:46 [facility] Anesthesia Medical History Anemia Bilateral carpal tunnel syndrome Cervical disc disorder with myelopathy of mid-cervical region Diabetes mellitus Diverticulitis Dyslipidemia Esophagitis Gastritis Hiatal hernia Hypertension, benign Hypoxia, sleep related Peripheral neuropathy Surgical History H/O esophagogastroduodenoscopy H/O esophagogastroduodenoscopy (03/25/22) Hx of cholecystectomy S/P hemilaminotomy (05/01/03) Left L4-L5 hemilaminotomy with microdiscectomy ;[place], [place] Status post colonoscopy (03/25/22) Status post laparoscopic cholecystectomy Family History Father Cancer Mother Diabetes CAD (coronary artery disease) Stroke CHF (congestive heart failure) Other Hypertension Social History Smoking and tobacco status: former smoker Alcohol intake: former Year of sobriety/quit date alcohol: 1976 Lives independently: Yes Household members: spouse Marital status: Current occupational status: retired History of recent travel: No Data Anesthesia : 04/09/22 10:11 04/09/22 10:11 Short CBC 04/09/22 Range/Units 10:11 WBC 7.3 (4.0-10.0) 10^3/uL Hgb 13.1 (11.7-16.6) g/dL Hct 41.7 L (42.0-52.0) % MCV 90.5 (80-94) fl Plt Count 217 (130-400) 10^3/cmm Neut % (Auto) 71.4 % Neut # (Auto) 5.23 (1.8-7.7) 10^3/uL BMP 04/09/22 10:11 Sodium 143 Potassium 3.9 Chloride 104 Carbon Dioxide 29 BUN 15 Creatinine 0.8 Glucose 97 Calcium 8.9 Cardiac Studies: Echocardiogram 11/10/21
[2022-04-13] VITALS (13 sets, daily range): BP systolic 124–148; BP diastolic 72–91; PULSE 46–71; RESP 16–18; TEMP 36.1–36.8; O2SAT 92–100
--- NOTE | 2022-04-13 | SCC_ITS ---
Procedure done: 1. Anterior diskectomy C5/6 2. Anterior discectomy C6/7 3. Insertion of cage C5/6 4. Insertion of Cage C6/7 5. Instrumentation with anterior plate from C5-C7 6. Use of allograft 16.2 seconds of fluoroscopic guidance, for a cumulative dose of 2.70 mGy, was provided to Dr. Fallon by the radiology department. C-arm images of the cervical spine were saved for the patient's permanent record. DEIRDRED
--- NOTE | 2022-04-13 | XR_ITS ---
WS: [id number] INTRAOPERATIVE TECHNIQUE: 6 Spot fluoroscopic images for intraoperative purposes. FLUOROSCOPY TIME: 16.2 seconds CLINICAL INFORMATION: acdf COMPARISON: None. FINDINGS: Intraoperative changes ACDF C5-C7 with interbody fusion grafts. Hardware appears in good position. En dotracheal tube. XR/XR cervical spine 3V* [id number] IMPRESSION: Images obtained for intraoperative purposes.
--- NOTE | 2022-04-13 06:50 | PC.NURSE ---
Small abrasion noted to R lower leg. Pt stated he hit his leg on something earlier last week and it hasnt been healing. Area covered with bandaids. No bleeding noted.
--- NOTE | 2022-04-13 07:14 | P.ANESUD_ITS ---
Pre-Anesthetic Update Pre-Anesthetic Assessment: Date of Surgery/Procedure: 04/13/22 Preop Ashly gnosis: cervical spondylosis with radiculopathy Proposed Procedure: Operation Date: 04/13/22 08:30 Proposed Procedures p Anterior Cervical Discectomy & Fusion C5/6 6/7 [id number]/M47.12(Not Applicable) - Daniel Rojas, DO Any changes to Pre-Anesthetic Assessment?: No Last Intake: > 8 hrs Exam: Pre-Anes Outpt Exam: alert, oriented x 3, clear to auscultation bilaterally and regular rate & rhythm Cardiac Studies: Echocardiogram 11/10/21
[2022-04-13 07:32] LABS: Glucose Point of Care 114 mg/dL (70-110)
[2022-04-13] MEDS: sodium chloride 0.9% 1,000 ML 30 ML IV (07:38)
--- NOTE | 2022-04-13 07:55 | W.PM.OPSUD ---
Surgery/Procedure H&P Update DATE OF PROCEDURE: April 13, 2022 DATE H&P PERFORMED: 04/02/22 H&P UPDATE INFORMATION: I have reviewed H&P completed within last 30 days, I have examined patient prior to procedure and No changes to prior documentation PREOP DIAGNOSIS: cervical spondylosis with radiculopathy PLANNED PROCEDURE: Operation Date: 04/13/22 08:30 Proposed Procedures p Anterior Cervical Discectomy & Fusion C5/6 6/7 [id number](Not Applicable) - Daniel Rojas DO
[2022-04-13] MEDS: ceFAZolin 3,000 MG in sodium chloride 0.9% (plus) 50 ML 100 MG IV (08:32)
[2022-04-13 10:50] LABS: Glucose Point of Care 111 mg/dL (70-110)
[2022-04-13] MEDS: fentaNYL 50 mcg/mL INJ 2mL IVP ×2 (10:56→11:07)
--- NOTE | 2022-04-13 11:07 | P.OP_ITS ---
Operative Report Date of procedure: April 13, 2022 Pre-op diagnosis: Preop Diagnosis cervical spondylosis with radiculopathy Post-op diagnosis: same Procedure done: 1. Anterior diskectomy C5/6 2. Anterior discectomy C6/7 3. Insertion of cage C5/6 4. Insertion of Cage C6/7 5. Instrumentation with anterior plate from C5-C7 6. Use of allograft Surgeon: Daniel Rojas Reformatory Attendant: Jeff Pisano Reformatory Attendant: The neurosurgical physician assistant, Jeff Pisano, ADEEL was needed for his expertise under the microscope. He was important and necessary throughout the procedure to complete in a safe and timely manner. He assisted with patient positioning prepping and draping tissue retraction suctioning of the operative field protection of the dural sac and tissue closure Estimated blood loss (mL): 10 Procedure: 1. Anterior diskectomy C5/6 2. Anterior discectomy C6/7 3. Insertion of cage C5/6 4. Insertion of Cage C6/7 5. Instrumentation with anterior plate from C5-C7 6. Use of allograft The patient was taken to the operating room, where he underwent general endotracheal anesthesia without complications. He was then positioned supine on the operating table, and all areas of impingement were well padded. The arms were carefully padded and tucked at his sides. A roll was placed between the shoulder blades.. An x-ray was done to determine the appropriate level for the skin incision. The entire neck was then sterilely prepped and draped in the usual fashion. Neuromonitoring was attached prior to prepping. A transverse skin incision was made and carried down to the platysma muscle. This was then split in line with its fibers. Blunt dissection was carried down medial to the carotid sheath and lateral to the trachea and esophagus until the anterior cervical spine was visualized. A needle was placed into a disc and an x-ray was done to determine its location. The longus colli muscles were then elevated bilaterally with the electrocautery unit. Self-retaining retractors were placed deep to the longus colli muscle. Attention was brought to the C5-6 level that was confirmed on x-ray. A caspar pin was placed into the C 5 vertebrae and the C 6 vertebrae. The disk space was then distracted. The microscope was then brought in. A radical anterior discectomies were performed at C 5/6. This included complete removal of the anterior annulus, nucleus, and posterior annulus. The posterior longitudinal ligament was removed as were the posterior osteophytes. Foraminotomies were then accomplished bilaterally. This was done using a high speed sylvia, kerrison rongeurs and curretes Once all of this was accomplished, the curved currette was used to check for any residual compression. The central canal was wide open as were the foramen. A high-speed bur was used to remove the cartilaginous endplates above and below the interspace. Bleeding cancellous bone was exposed. The disc space were measured and appropriate size cage were placed sterilely onto the field. Allograft graft was packed into the cages. The cage was then placed and there was good juxtaposition against the bleeding decorticated surfaces and good distraction of each interspace. Attention was brought to the next interspace. The [place] pins were removed. Bone wax was used to prevent any bleeding from occurring at the pin sites. Attention was brought to the C6/7 level that was confirmed on x-ray. A caspar pin was placed into the C6 vertebrae and the C7 vertebrae. The disk space was then distracted. The microscope was then brought in. A radical anterior discectomies were performed at C6/7. This included complete removal of the anterior annulus, nucleus, and posterior annulus. The posterior longitudinal ligament was removed as were the posterior osteophytes. Foraminotomies were then accomplished bilaterally. This was done using a high speed sylvia, kerrison rongeurs and curretes Once all of this was accomplished, the curved currette was used to check for any residual compression. The central canal was wide open as were the foramen. A high-speed bur was used to remove the cartilaginous endplates above and below the interspace. Bleeding cancellous bone was exposed. The disc space were measured and appropriate size cage were placed sterilely onto the field. Allograft graft was packed into the cages. The cage was then placed and there was good juxtaposition against the bleeding decorticated surfaces and good distraction of each interspace. Attention was brought to the next interspace. The [place] pins were removed. Bone wax was used to prevent any bleeding from occurring at the pin sites. The appropriate size anterior cervical locking plate was chosen and bent into gentle lordosis. Two screws were then placed into each of the vertebral bodies at C, C6, and C7. There was excellent purchase. A final x-ray was done confirming good position of the hardware and Cages. The locking screws were then applied, also with excellent purchase. Following a final copious irrigation, there was good hemostasis and no dural leaks. The carotid pulse was strong. The wounds were then closed in layers using 2-0 Vicryl suture for the platysma muscle, 2-0 Vicryl suture for the subcutaneous tissue, and 4-0 monocryl suture in a subcuticular skin closure. Glue was placed followed by application of a sterile dressing. The drain was hooked to bulb suction. A soft collar was applied. The patient was then carefully returned to the supine position on his hospital bed where he was reversed and extubated and taken to the recovery room having tolerated the procedure well.
[2022-04-13] MEDS: HYDROcodone-acetaminophen 5-325 mg Tablet 2 TAB PO (11:56)
--- NOTE | 2022-04-13 13:22 | PC.NURSE ---
1310-Pt still having pain. Instructed him and daughter for him to take pain meds every 4 hours for the next 24 hours to get the meds in his system. If they still aren't helping, call Dr Rojas's office.
--- NOTE | 2022-04-13 14:10 | ANE.PACU2 ---
Inpatient post-anesthesia follow up: Airway intact: Yes Vital signs: Temperature 97.0 F Pulse Rate 53 Respiratory Rate 18 Blood Pressure 135/79 Pulse Oximetry 96 Oxygen Delivery Me thod Nasal Cannula Oxygen Flow Rate 2 Fraction of Inspir ed Oxygen Hydration adequate: Yes Nausea and vomiting: No Pain level: 2 Mental status: Baseline
== END 2022-04-13 13:10 | disposition home or self-care (01) ==
PROVIDERS: Anesthesiology; PCP Emergency Medicine Emergency Medical Services; Visit Provider Orthopaedic Surgery
PROC: 0RB30ZZ Excision of Cervical Vertebral Disc, Open Approach (ICD-10-PCS; CPT 22551; principal; 2022-04-13 08:20)
DX: M54.12 Radiculopathy, cervical region (principal); J44.9 Chronic obstructive pulmonary disease, unspecified; Z99.81 Dependence on supplemental oxygen; E78.5 Hyperlipidemia, unspecified; E66.01 Morbid (severe) obesity due to excess calories; Z68.41 Body mass index [BMI] 40.0-44.9, adult; E11.40 Type 2 diabetes mellitus with diabetic neuropathy, unspecified; Z79.82 Long term (current) use of aspirin; E11.42 Type 2 diabetes mellitus with diabetic polyneuropathy; Z87.891 Personal history of nicotine dependence; Z79.84 Long term (current) use of oral hypoglycemic drugs
CPT/HCPCS: 20930; 22551; 22552; 22845; 22853 ×2; 36416; 72040; 76000; 80048; 82962; 85025; C1713; C9359; J0690; J1100; J1170; J1200; J2370; J2405; J2704; J2710; J3010; J3490; J7030

== ENCOUNTER → 2022-04-21 08:49 | Outpatient (BNVA) | payer OTHER, MEDICARE, SELFPAY | PROVIDERS: PCP Emergency Medicine Emergency Medical Services; Visit Provider Orthopaedic Surgery | DX: Z47.89 Encounter for other orthopedic aftercare (principal); Z98.1 Arthrodesis status | CPT/HCPCS: 99024 ==

== ENCOUNTER → 2022-04-28 08:29 | Outpatient (BNVA) | payer OTHER, MEDICARE, SELFPAY | PROVIDERS: PCP Emergency Medicine Emergency Medical Services; Visit Provider Orthopaedic Surgery | DX: Z47.89 Encounter for other orthopedic aftercare (principal); Z98.890 Other specified postprocedural states; Z98.1 Arthrodesis status | CPT/HCPCS: 99024 ==

== ENCOUNTER → 2022-05-26 08:41 | Outpatient (BNVA) | payer OTHER, MEDICARE, SELFPAY | PROVIDERS: PCP Emergency Medicine Emergency Medical Services; Visit Provider Orthopaedic Surgery | DX: Z47.89 Encounter for other orthopedic aftercare (principal); Z98.890 Other specified postprocedural states; Z98.1 Arthrodesis status | CPT/HCPCS: 72040; 99024 ==

== ENCOUNTER → 2022-07-07 07:50 | Outpatient (BNVA) | payer OTHER, MEDICARE, SELFPAY | PROVIDERS: PCP Emergency Medicine Emergency Medical Services; Visit Provider Orthopaedic Surgery | DX: Z47.89 Encounter for other orthopedic aftercare (principal); Z98.1 Arthrodesis status | CPT/HCPCS: 72040; 99024 ==

== ENCOUNTER → 2022-10-08 08:08 | Outpatient (BNVA) | payer OTHER, SELFPAY | PROVIDERS: PCP Emergency Medicine Emergency Medical Services; Visit Provider Orthopaedic Surgery | DX: Z47.89 Encounter for other orthopedic aftercare (principal); Z98.1 Arthrodesis status | CPT/HCPCS: 72040; 99213 ==

== ENCOUNTER → 2022-10-28 09:19 | Outpatient (BNVA) | payer OTHER, SELFPAY | PROVIDERS: PCP Emergency Medicine Emergency Medical Services; Referring Provider Emergency Medicine Emergency Medical Services; Visit Provider Specialist | DX: M75.82 Other shoulder lesions, left shoulder (principal); M19.012 Primary osteoarthritis, left shoulder | CPT/HCPCS: 20610; 73030; 99213; J1100; J2795; J3301 ==

== ENCOUNTER 2023-03-10 07:56 | Emergency (ER) | payer OTHER, SELFPAY ==
[2023-03-10 08:32] VITALS: BP 116/69; PULSE 55; RESP 15; O2SAT 96
--- NOTE | 2023-03-10 08:49 | CTR_ITS ---
PROCEDURE INFORMATION: Exam: CT Abdomen And Pelvis With Contrast Exam date and time: 03/10/2023 9:58 AM Age: 72 years old Clinical indication: Abdominal pain; Prior surgery; Surgery type: Gb, back; Additional info: Abdominal pain/trauma/fall TECHNIQUE: Imaging protocol: Computed tomography of the abdomen and pelvis with contrast. Radiation optimization: All CT scans at this facility use at least one of these dose optimization techniques: automated exposure control; mA and/or kV adjustment per patient size (includes targeted exams where dose is matched to clinical indication); or iterative reconstruction. Contrast material: OMNI 350; Contrast volume: 100 ml; Contrast route: INTRAVENOUS (IV); REPORTING DATA: Count of CT and Cardiac NM exams in prior 12 months: This patient has received 0 known CTs and 0 known cardiac nuclear medicine studies in the 12 months prior to the current study. COMPARISON: 1. CT abdomen pelvis w con* [id number] 02/09/2022 3:[address] abdomen pelvis w con* [id number] 11/09/2021 7:28 PM RADIATION DOSE METRICS: Total DLP (mGy-cm): 1241.59 FINDINGS: Lungs: Stable 5-6 mm noncalcified right lower lobe pulmonary nodule since 01/31/2022. Liver: The liver is normal. Gallbladder and bile ducts: The gallbladder is absent. There is no intrahepatic or extrahepatic bile duct dilation. Pancreas: The pancreas is unremarkable. Spleen: The spleen is unremarkable. Adrenal glands: 15 x 10 mm intermediate density left adrenal nodule. 3.8 x 3.5 cm 5.5 x 3.6 x 2.5 cm intermediate density right adrenal mass. The adrenal lesions are unchanged since 11/09/2021. Kidneys and ureters: The kidneys are unremarkable. No hydronephrosis or stones. No ureteral dilation. Stomach and bowel: The stomach is decompressed, preventing meaningful evaluation of wall thickness. The small bowel is nondilated. There is mild submucosal fat infiltration in the ascending colon. The lumen is decompressed, limiting assessment of wall thickness. There is no pericolonic edema. The colon is unremarkable more distally. Appendix: The appendix is mildly enlarged measuring 9 mm diameter. There is no sign of appendiceal inflammation. This finding is stable since 11/09/2021. Acute appendicitis is not suspected. Intraperitoneal space: There is no free air or significant intraperitoneal free fluid. Vasculature: There is moderate aortic atherosclerotic disease. The IVC and renal veins are unremarkable. The portal, splenic and superior mesenteric veins are patent. Lymph nodes: There is no lymphadenopathy in the retroperitoneum, mesentery, pelvis or inguinal regions. Urinary bladder: The urinary bladder is unremarkable. Reproductive: The prostate and seminal vesicles are unremarkable. Bones/joints: There is moderate degenerative disease in the lumbar spine. The pelvis and hips are unremarkable. No acute fracture. Soft tissues: There is a moderate-sized fat containing umbilical hernia. CT/CT abdomen pelvis w con* [id number] IMPRESSION: 1. No sign of significant traumatic injury in the abdomen or pelvis. 2. 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 In a patient with no cancer history, consider resection. In a patient with cancer history, consider biopsy or PET-CT. (Reference: Moira) 3. Stable 1.5 cm left adrenal nodule since 11/09/2021. No follow-up of this lesion is necessary. (Reference: Moira) 4. Stable 5-6 mm noncalcified right lower lobe pulmonary nodules since 11/09/2021. No further follow-up is recommended. (Reference: Nya) 5. Incidental findings above. REFERENCES: 1. MacMahon H, et al. Guidelines for Management of Incidental Pulmonary Nodules Detected on CT Images: From the Fleischner Society 2017. Radiology. 2017;284(1):228-243. 2. Moira RUEDA et al. Management of Incidental Adrenal Masses: A White Paper of the ACR Incidental Findings Committee. J Am Ranjana Radiol. 2017;14(8):3975-0873.
--- NOTE | 2023-03-10 08:53 | W.ED.FALL ---
HPI - Fall General: Chief Complaint: Abdominal Pain Stated Complaint: Fall, Lower abd pain Time Seen by Provider: 03/10/23 08:35 Source: patient Mode of arrival: wheelchair Limitations: no limitations History of Present Illness: Patient is a 72-year-old male who presents to ED today with a complaint of abdominal pain. Patient states yesterday he was mowing the lawn on a riding lawnmower when it bucked him off . He states he landed directly onto his abdomen and states since then has had discomfort. He states sitting he rates his discomfort at a 5/10 but states when he gets up to walk it elevates to a 7/10. He states he is urinating and defecating normally. He reports chronic urinary dribbling secondary to BPH. Has not noticed any hematuria. He denies penile or scrotal/testicular pain or swelling. Denies any other injuries at this time. Has no complaints of neck pain, back pain, or pain to his extremities. 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) Fall witnessed: no Place fall occurred: home Loss of consciousness: None Prolonged down time: no Symptoms prior to fall: none Context: other (fell from electronic funds transfer coordinator) Location of injury: abdomen Associated symptoms-after fall: Reports abdominal pain; Denies chest pain, headache(s), hematuria or neck pain Review of Systems Card: Denies: chest pain Resp: Denies: dyspnea GI: Reports: abdominal pain; Denies: nausea, vomiting, hematemesis, change in bowel habits, rectal pain or hematochezia : Denies: flank pain, dysuria, hematuria, genital pain, testicular pain or scrotal swelling Musc: Denies: neck pain, back pain, extremity pain or joint pain Neuro: Denies: headache(s) or dizziness PFS ED PFSH: Medical History Anemia Bilateral carpal tunnel syndrome Cervical disc disorder with myelopathy of mid-cervical region Diabetes mellitus Diverticulitis Dyslipidemia Esophagitis Gastritis Hiatal hernia Hypertension, benign Hypoxia, sleep related Peripheral neuropathy Surgical History H/O esophagogastroduodenoscopy H/O esophagogastroduodenoscopy (03/25/22) Hx of cholecystectomy S/P hemilaminotomy (05/01/03) Left L4-L5 hemilaminotomy with microdiscectomy ;[place], [place] Status post colonoscopy (03/25/22) Status post laparoscopic cholecystectomy Family History Father Cancer Mother Diabetes CAD (coronary artery disease) Stroke CHF (congestive heart failure) Other Hypertension Social History Smoking and tobacco status: former smoker Alcohol intake: former Year of sobriety/quit date alcohol: 1976 Substance/Drug Use: never Lives independently: Yes Household members: spouse Marital status: Current occupational status: retired Physical Exam Const: COMMON NORMALS: no acute distress, patient oriented x3, no limitations and alert GENERAL APPEARANCE: cooperative NUTRITIONAL APPEARANCE: obese morbidly obese ORIENTATION/CONSCIOUSNESS: Yes awake, Yes oriented to person, Yes oriented to place and Yes oriented to time HENMT: COMMON NORMALS: normocephalic and atraumatic HEAD & SCALP: normal to inspection, normocephalic and atraumatic Eye: GENERAL EYE: appearance normal, both eyes and all related structures Neck/C-Spine: COMMON NORMALS: full ROM GENERAL: Yes normal visual inspection CERVICAL SPINE: No pain with cervical ROM and No Cervical spine tenderness Chest: COMMONS NORMALS: normal inspection of the chest and normal palpation of entire chest wall Resp: COMMON NORMALS: normal respiratory effort and clear to auscultation bilaterally AUSCULTATION: clear to auscultation bilaterally Cardio: COMMON NORMALS: regular rate and regular rhythm RATE: regular rate RHYTHM: regular rhythm GI: COMMON NORMALS: Soft to palpation INSPECTION: Yes central obesity and Yes other (ventral hernia-chronic; not incarcerated/strangulated) AUSCULTATION: Yes normoactive bowel sounds PALPATION: Yes Soft to palpation, Yes Tenderness to palpation present (GI) (across lower abdomen), No Guarding due to palpation present (GI) and No Rigid due to palpation OTHER: exam somewhat limited secondary to morbid obesity : COMMON NORMALS: Yes no CVA tenderness, Yes normal external exam, Yes Testes normal, Yes scrotum normal and Yes no scrotal swelling BLADDER/KIDNEY EXAM: Yes no CVA tenderness MALE GROIN/PERINEUM EXAM: No ecchymosis and No edema TESTES: Yes testicular lie normal Back/Pelvis: COMMON NORMALS: no CVA tenderness, thoracic and lumbar spine normal to inspection, no thoracic nor lumbar tenderness and thoraco-lumbar ROM normal Extremity: COMMON NORMALS: normal to inspection and full ROM GENERAL: Yes normal exam except as noted Neuro: NAT COMA SCALE: document GCS findings Nat coma scale eye opening: Spontaneous [place] coma scale verbal response: Orientated Nat coma scale motor response: Obey commands Nat coma scale total score: 15 COMMON NORMALS: patient oriented x3, moves all extremities, no focal motor deficits, no sensory deficits noted and gait normal SENSORIUM/ORIENTATION: Yes alert, Yes oriented to person, Yes oriented to place and Yes oriented to time Skin: TRAUMA: no lacerations or abrasions Course Vital Signs: Vital signs: Vital Signs Pulse Rate 55 L 03/10/23 08:32 Respiratory Rate 15 03/10/23 08:32 Blood Pressure 116/69 03/10/23 08:32 Pulse Oximetry 96 03/10/23 08:32 Oxygen Delivery Me thod Nasal Cannula 03/10/23 08:32 Oxygen Flow Rate 2 03/10/23 08:32 MDM - Fall Medical Decision Making Patient here with abdominal pain following a fall to his abdomen. CT scan showing no significant traumatic injury in his abdomen or pelvis. No signs are stable. Blood work is unremarkable. Patient recently urinated and unfortunately sample was not collected. He states he is not going to be able to give us another sample. Return to ED precautions were verbally discussed with patient who voiced understanding. Lab Data 03/10/23 09:09 03/10/23 09:09 Radiology Impressions Abdomen/Pelvis CT 03/10/23 08:49 IMPRESSION: 1. No sign of significant traumatic injury in the abdomen or pelvis. 2. 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 In a patient with no cancer history, consider resection. In a patient with cancer history, consider biopsy or PET-CT. (Reference: Moira) 3. Stable 1.5 cm left adrenal nodule since 11/09/2021. No follow-up of this lesion is necessary. (Reference: Moira) 4. Stable 5-6 mm noncalcified right lower lobe pulmonary nodules since 11/09/2021. No further follow-up is recommended. (Reference: Nya) 5. Incidental findings above. REFERENCES: 1. Nya Mazariegos, et al. Guidelines for Management of Incidental Pulmonary Nodules Detected on CT Images: From the Fleischner Society 2017. Radiology. 2017;284(1):228-243. 2. oMira RUEDA, et al. Management of Incidental Adrenal Masses: A White Paper of the ACR Incidental Findings Committee. J Am Ranjana Radiol. 2017;14(8):3405-2875. Laboratory Results WBC 7.0 10^3/uL (4.0-10.0) 03/10/23 09:09 RBC 4.33 10^6/uL (4.1-5.3) 03/10/23 09:09 Hgb 12.7 g/dL (11.7-16.6) 03/10/23 09:09 Hct 38.5 % (42.0-52.0) L 03/10/23 09:09 MCV 88.9 fl (80-94) 03/10/23 09:09 MCH 29.3 pg (28.0-34.0) 03/10/23 09:09 MCHC 33.0 g/dL (30.0-36.0) 03/10/23 09:09 RDW 12.4 % (12.1-15.1) 03/10/23 09:09 Plt Count 213 10^3/cmm (130-400) 03/10/23 09:09 MPV 10.4 fL (7.4-10.4) 03/10/23 09:09 Neut % (Auto) 72.8 % 03/10/23 09:09 Lymph % (Auto) 15.1 % 03/10/23 09:09 [place]ie % (Auto) 8.5 % 03/10/23 09:09 Eos % (Auto) 2.8 % 03/10/23 09:09 Baso % (Auto) 0.7 % 03/10/23 09:09 Neut # (Auto) 5.10 10^3/uL (1.8-7.7) 03/10/23 09:09 Lymph # (Auto) 1.1 10^3/uL (0.8-4.8) 03/10/23 09:09 Davie # (Auto) 0.6 10^3/uL (0.2-0.9) 03/10/23 09:09 Eos # (Auto) 0.2 10^3/uL (0.0-0.8) 03/10/23 09:09 Baso # (Auto) 0.1 10^3/uL (0.0-0.1) 03/10/23 09:09 Nucleated RBC % (auto) 0 % 03/10/23 09:09 Nucleated RBCs # 0.0 /100WBC 03/10/23 09:09 Sodium 139 mmol/L (136-145) 03/10/23 09:09 Potassium 3.2 mmol/L (3.5-5.1) L 03/10/23 09:09 Chloride 101 mmol/L (98-107) 03/10/23 09:09 Carbon Dioxide 28 mmol/L (22-29) 03/10/23 09:09 Anion Gap 13.2 (5-19) 03/10/23 09:09 BUN 20 mg/dL (8-23) 03/10/23 09:09 Creatinine 1.0 mg/dL (0.7-1.2) 03/10/23 09:09 GFR Calculation Not Reportable 03/10/23 09:09 Glucose 121 mg/dL (65-115) H 03/10/23 09:09 Calculated Osmolality 292 mOsm/kg (285-295) 03/10/23 09:09 Calcium 8.7 mg/dL (8.5-10.5) 03/10/23 09:09 Total Bilirubin 0.3 mg/dL (0.15-1.2) 03/10/23 09:09 AST 37 U/L (0-40) 03/10/23 09:09 ALT 16 U/L (0-41) 03/10/23 09:09 Alkaline Phosphatase 75 U/L (40-130) 03/10/23 09:09 Total Protein 6.5 g/dL (6.6-8.7) L 03/10/23 09:09 Albumin 3.9 g/dL (3.5-5.2) 03/10/23 09:09 Globulin 2.6 g/dL (1.3-4.6) 03/10/23 09:09 Discharge Plan Discharge Patient Disposition: Home Clinical Impression: Abdominal contusion Qualifiers: Encounter type: initial encounter Qualified Code(s): S30.1XXA - Contusion of abdominal wall, initial encounter Condition: Stable Prescriptions: No Action sertraline 100 mg tablet 100 mg PO QAM acetaminophen [Tylenol Extra Strength] 500 mg tablet 500 - 1,000 mg PO QID PRN (Reason: Pain) ferrous sulfate 325 mg (65 mg iron) tablet,delayed release (DR/EC) 325 mg PO QAM aspirin [Adult Aspirin Regimen] 81 mg tablet,delayed release (DR/EC) 81 mg PO QAM omeprazole 20 mg capsule,delayed release(DR/EC) 20 mg PO QAM hydrochlorothiazide 25 mg tablet 50 mg PO QAM gabapentin 600 mg tablet 600 mg PO TID simvastatin 40 mg tablet 40 mg PO BEDTIME metformin 500 mg tablet 500 mg PO BID nadolol 40 mg tablet 40 mg PO QAM hydrocodone-acetaminophen 7.5-325 mg/15 mL solution 15 ml PO Q4H PRN (Reason: pain) 7 Days Qty: 250 0RF dicyclomine 10 mg capsule 20 mg PO TID hydrocodone-acetaminophen 5-325 mg tablet 1 - 2 tab PO .Q4-6H 5 Days Qty: 40 0RF multivitamin Tablet 1 tab PO QAM losartan 50 mg tablet 50 mg PO QAM alprazolam [Xanax] 0.5 mg tablet 0.25 - 0.5 mg PO TID PRN (Reason: Anxiety) tamsulosin 0.4 mg Capsule 0.4 mg PO BEDTIME cholecalciferol (vitamin D3) [Vitamin D3] 125 mcg (5,000 unit) Tablet 125 mcg PO QAM prazosin 2 mg Capsule 4 mg PO BEDTIME Maalox Advanced 1,000-60 mg Tablet,Chewable 1 tab PO TID PRN (Reason: unknown) lidocaine 5 % Ointment 1 applic topical BEDTIME Rx Instructions: apply to feet and legs at bedtime Discharge Orders: Discharge ED (Routine); Ordered 03/10/23 Ordered By: Dara May Referrals: Ag Kong DO [Primary Care Provider] - Coding Level of Care Code ED Hospice Home Care Coordinator for Nia Pinedo
[2023-03-10 09:20] LABS: Basophils # 0.1 10^3/uL (0.0-0.1); Basophils % 0.7 %; Eosinophils # 0.2 10^3/uL (0.0-0.8); Eosinophils % 2.8 %; Hematocrit 38.5 % (42.0-52.0); Hemoglobin 12.7 g/dL (11.7-16.6); Lymphocytes # 1.1 10^3/uL (0.8-4.8); Lymphocytes % 15.1 %; Mean Corpuscular Hemoglobin 29.3 pg (28.0-34.0); Mean Corpuscular Volume 88.9 fl (80-94); Mean Platelet Volume 10.4 fL (7.4-10.4); Monocytes # 0.6 10^3/uL (0.2-0.9); Monocytes % 8.5 %; Neutrophils % 72.8 %; Nucleated Red Blood Cells % 0 %; Platelet Count 213 10^3/cmm (130-400); Red Blood Count 4.33 10^6/uL (4.1-5.3); Red Cell Distribution Width 12.4 % (12.1-15.1)
[2023-03-10 09:46] LABS: Alanine Aminotransferase 16 U/L (0-41); Albumin Level 3.9 g/dL (3.5-5.2); Alkaline Phosphatase 75 U/L (40-130); Anion Gap 13.2 (5-19); Aspartate Amino Transferase 37 U/L (0-40); Blood Urea Nitrogen 20 mg/dL (8-23); Calcium 8.7 mg/dL (8.5-10.5); Carbon Dioxide 28 mmol/L (22-29); Chloride 101 mmol/L (98-107); Globulin 2.6 g/dL (1.3-4.6); Glucose 121 mg/dL (65-115); Osmolality Calculated 292 mOsm/kg (285-295); Potassium 3.2 mmol/L (3.5-5.1); Sodium 139 mmol/L (136-145); Total Bilirubin 0.3 mg/dL (0.15-1.2); Total Protein 6.5 g/dL (6.6-8.7)
== END 2023-03-10 11:18 | disposition home or self-care (01) ==
PROVIDERS: Emergency Provider Physician Assistant; PCP Emergency Medicine Emergency Medical Services
DX: S30.1XXA Contusion of abdominal wall, initial encounter (principal); Z79.82 Long term (current) use of aspirin; Z87.891 Personal history of nicotine dependence; E11.9 Type 2 diabetes mellitus without complications; E78.5 Hyperlipidemia, unspecified; I10 Essential (primary) hypertension; V84.5XXA Driver of special agricultural vehicle injured in nontraffic accident, initial encounter
CPT/HCPCS: 74177; 80053; 85025; 99285; Q9967

== ENCOUNTER → 2023-04-07 08:53 | Outpatient (BNVA) | payer OTHER, SELFPAY | PROVIDERS: PCP Emergency Medicine Emergency Medical Services; Referring Provider Emergency Medicine Emergency Medical Services; Visit Provider Specialist | DX: G56.02 Carpal tunnel syndrome, left upper limb (principal); G56.22 Lesion of ulnar nerve, left upper limb; M25.522 Pain in left elbow | CPT/HCPCS: 20605; 73080; 99214; J1100; J2795; J3301 ==

== ENCOUNTER 2023-04-14 06:03 | Outpatient (CLI) | payer OTHER, SELFPAY ==
--- NOTE | 2023-04-14 | USCV_ITS ---
Khoa Fallon Age: 73 Gender: M : 1950 Exam Date: 04/14/2023 06:24 Ordering Phys: Ag Kong DO Technologist: KATRINA Exam Location: [facility] [place] Indication: Possible AAA seen on Xray HISTORY: Diameter (cm) AP x Transverse x Length Velocity (cm/s) Waveform Prox Aorta: 2.42 x 2.72 x 26.40 Biphasic Mid Aorta: 2.35 x 2.52 x 52.10 Biphasic Distal Aorta: 2.92 x 2.97 x 61.80 Biphasic Right Iliac Prox: 1.12 x 1.64 x 77.70 Biphasic Left Iliac Prox: 1.60 x 1.60 x 83.50 Biphasic Stent Prox Landing x x Aneurysmal Sac Max x x Lt Lat Sac Dim Rt Lat Sac Dim Stent Dist Landing x x Right Iliac Stent x x Left Iliac Stent x x Right Renal Art Left Renal Art FINDINGS: CONCLUSIONS Slightly aneurysmal Distal abdominal aorta measures 2.9 x 2.9cm AP x trans Ectatic Left iliac artery Normal Right iliac artery Maximilian De Oliveira MD (Electronically Signed) Final Date: 14 April 2023 10:23 S
--- NOTE | 2023-04-14 06:52 | MR_ITS ---
WS: [id number] MRI THORACIC SPINE noncontrast. HISTORY: CHRONIC PAIN, COMPRESSION FRACTURES COMPARISON: None available. TECHNIQUE: Multiplanar sequences are performed in sagittal and axial planes. Prior anterior cervical fusion C5-C7. Moderate increase in thoracic kyphosis. Disc spaces are narrowed. Endplate osteophytes. Mild anterior wedging of T8. T1-2: RIGHT paracentral disc protrusion contacts the thecal sac and deforms the cord. T2-3: Annular disc bulging flattening the ventral thecal sac with effacement of CSF. Mild central an d foraminal stenosis. T3-4: Osteophytic ridging and annular disc bulging. Mild facet arthritis. T4-5: Diffuse annular disc bulging contacting the ventral thecal sac. Mild facet arthritis. T5-6: Mild facet arthritis. T6-7: Mild annular disc bulging and osteophytic ridging. T7-8: Diffuse annular disc bulging and facet arthritis. T8-9: Diffuse annular disc bulging and shallow central disc protrusion contacts the thoracic cord wi th slight deformity and displacement. Mild central and moderate foraminal stenosis. Moderate facet ar thritis. T9-10: Diffuse annular disc bulging with ligamentum flavum and facet arthritis. Mild central and radha ateral foraminal stenosis. T10-11: Diffuse annular disc bulging with moderate ligamentum flavum and facet arthritis. Mild to mo derate central with bilateral foraminal stenosis. T11-12: Severe RIGHT and mild LEFT facet arthritis. Moderate RIGHT foraminal stenosis. RIGHT adrenal well-circumscribed mass 2.6 x 2.6 cm. Previously described on prior imaging studies. MR/MR thoracic spin wo con* [id number] IMPRESSION: 1. Advanced degenerative spondylitic changes throughout the thoracic spine wit h increase in kyphosis. 2. RIGHT paracentral disc protrusion at T1-2 contacting the thecal sac. 3. Mild central with moderate bilateral foraminal stenosis at T8-9. Moderate f acet joint arthritis and a central disc protrusion. 4. Mild central and bilateral foraminal stenosis at T9-10. 5. Mild to moderate central with bilateral foraminal stenosis at T10-11. 6. Severe RIGHT facet joint arthritis at T11-12 encroaching upon the foramina and causing a moderate RIGHT foraminal stenosis. 7. Additional multi levels of foraminal stenoses and degenerative facet diseas e as above.
--- NOTE | 2023-04-14 06:52 | MR_ITS ---
WS: [id number] MRI LUMBAR SPINE NONCONTRAST HISTORY: CHRONIC LOW BACK PAIN COMPARISON: None available. TECHNIQUE: Sagittal and axial multisequence imaging is submitted. Normal posterior lumbar alignment. Benign hemangioma at L1. Severe disc space narrowing at L4-5 and L 5-S1. No marrow edema or acute fracture. Conus terminates normally at L1-2 disc level. L1-L2: Mild bilateral facet arthritis. No stenosis. There is very mild narrowing of the RIGHT subarti cular recess. L2-L3: Diffuse annular disc bulging with moderate ligamentum flavum and facet arthritis. Moderate asa tral, bilateral subarticular recess and mild foraminal stenosis. Most significant encroachment upon t he traversing L3 nerve roots. L3-L4: Mild annular disc bulging with mild ligamentum flavum and facet arthritis. Mild central, bilat eral subarticular recess and foraminal stenosis. L4-L5: Moderate annular disc bulging. LEFT subarticular recess disc protrusion contacts the traversin g LEFT L5 nerve root. Marked ligamentum flavum and facet arthritis. There does appear to be a small L EFT hemilaminectomy defect at this level also. Complete effacement of fat in the LEFT foramen. Mild R IGHT foraminal stenosis. L5-S1: Osteophytic ridging and annular disc bulging. Moderate to severe bilateral facet joint arthrit is encroaching upon the foramina. Severe LEFT and moderate RIGHT foraminal stenosis. There is mild co ntact on the S1 nerve roots, slightly greater on the RIGHT than the LEFT. MR/MR lumbar spine wo con* [id number] IMPRESSION: 1. Moderate central, bilateral subarticular recess and mild foraminal stenosis at L2-3. Significant encroachment upon the traversing L3 nerve roots. 2. Mild central, bilateral subarticular recess and foraminal stenosis at L3-4. 3. LEFT subarticular recess disc protrusion at L4-5 contacting and displacing the traversing LEFT L5 nerve root. Additional facet joint arthritis. Severe LEF T foraminal stenosis. 4. Moderate to severe bilateral facet joint arthritis at L5-S1. 5. Severe LEFT and moderate RIGHT foraminal stenosis at L5-S1. There is also v dipika mild disc contact on the RIGHT S1 nerve root. 6. Small LEFT hemilaminectomy defect at L4-5.
== END 2023-04-14 06:04 | disposition home or self-care (01) ==
LOC: RAD 06:04
PROVIDERS: PCP Emergency Medicine Emergency Medical Services; Visit Provider Emergency Medicine Emergency Medical Services
DX: G89.29 Other chronic pain (principal); M54.50 Low back pain, unspecified; M48.04 Spinal stenosis, thoracic region; M51.26 Other intervertebral disc displacement, lumbar region; M48.061 Spinal stenosis, lumbar region without neurogenic claudication; M47.817 Spondylosis without myelopathy or radiculopathy, lumbosacral region; I71.40 Abdominal aortic aneurysm, without rupture, unspecified
CPT/HCPCS: 72146; 72148; 76706

== ENCOUNTER → 2023-05-04 08:03 | Outpatient (BNVA) | payer OTHER, SELFPAY | PROVIDERS: PCP Emergency Medicine Emergency Medical Services; Referring Provider Emergency Medicine Emergency Medical Services; Visit Provider Orthopaedic Surgery | DX: M48.062 Spinal stenosis, lumbar region with neurogenic claudication (principal); M54.9 Dorsalgia, unspecified | CPT/HCPCS: 72110; 99214 ==

== ENCOUNTER → 2023-05-05 08:48 | Outpatient (BNVA) | payer OTHER, SELFPAY | PROVIDERS: PCP Emergency Medicine Emergency Medical Services; Referring Provider Emergency Medicine Emergency Medical Services; Visit Provider Internal Medicine | DX: E27.9 Disorder of adrenal gland, unspecified (principal); E27.8 Other specified disorders of adrenal gland; I10 Essential (primary) hypertension; Z79.84 Long term (current) use of oral hypoglycemic drugs | CPT/HCPCS: 99204 ==

== ENCOUNTER → 2023-05-27 08:30 | Outpatient (BNVA) | payer OTHER, SELFPAY | PROVIDERS: PCP Emergency Medicine Emergency Medical Services; Visit Provider Anesthesiology Pain Medicine | DX: M48.062 Spinal stenosis, lumbar region with neurogenic claudication (principal); M47.816 Spondylosis without myelopathy or radiculopathy, lumbar region; M50.020 Cervical disc disorder with myelopathy, mid-cervical region, unspecified level; M48.02 Spinal stenosis, cervical region | CPT/HCPCS: 99215 ==

== ENCOUNTER 2023-05-31 07:51 | Outpatient (CLI) | payer OTHER, SELFPAY ==
--- NOTE | 2023-05-31 08:30 | CT_ITS ---
WS: [id number] CT ABDOMEN NON-CONTRAST PLUS CONTRAST TECHNIQUE: Noncontrast CT of the abdomen and contrast-enhanced CT of the abdomen with coronal and sag ittal reformatted images. CLINICAL INFORMATION: adrenal nodule COMPARISON: CT March 10, 2023 DLP: 2350.[address] scans at [facility] use at least one of these dose optimization techniques: automated e xposure control; mA and/or kV adjustment per patient size (includes targeted exams where dose is matc hed to clinical indication); or iterative reconstruction. FINDINGS: Adrenal CT protocol. RIGHT adrenal lesion compatible with adenoma on the precontrast imaging. RIGHT a drenal lesion measures 3.6 cm. Small LEFT adrenal nodule measures 1.4 cm also with imaging characteristics compatible with adenoma. Diffuse fatty infiltration liver. Moderate fat-containing esophageal hiatal hernia. Portal vein and s plenic vein are patent. Cholecystectomy clips. Normal spleen. Fatty atrophy of the pancreas. Celiac a nd SMA are patent. Slightly aneurysmal infrarenal abdominal aorta measuring 2.8 x 2.8 cm AP by transv erse. Mild bilateral cortical atrophy. Normal renal parenchymal enhancement. Small RIGHT renal cyst.A few s mall noncalcified nodules RIGHT lower lobe laterally. These are unchanged in appearance the largest m easuring [address]/CT abdomen wo/w con [id number] IMPRESSION: 1. Stable RIGHT adrenal lesion with imaging characteristics compatible with ad renal adenoma. 2. Small LEFT adrenal nodule compatible with adrenal adenoma. 3. Moderate fat-containing esophageal hiatal hernia 4. Diffuse fatty infiltration liver. 5. Prior cholecystectomy. 6. A few small noncalcified nodules RIGHT lower lobe laterally. These are unch anged in appearance the largest measuring 5 mm.
[2023-05-31] MEDS: iohexol 350 mg/mL 500 mL Btl (per mL) IV (09:09)
== END 2023-05-31 07:52 | disposition home or self-care (01) ==
PROVIDERS: PCP Emergency Medicine Emergency Medical Services; Visit Provider Internal Medicine
DX: E27.8 Other specified disorders of adrenal gland (principal); K44.9 Diaphragmatic hernia without obstruction or gangrene; K76.0 Fatty (change of) liver, not elsewhere classified; Z90.49 Acquired absence of other specified parts of digestive tract; R91.8 Other nonspecific abnormal finding of lung field
CPT/HCPCS: 74170; Q9967

== ENCOUNTER → 2023-06-21 14:22 | Outpatient (BNVA) | payer OTHER, SELFPAY | PROVIDERS: PCP Emergency Medicine Emergency Medical Services; Visit Provider Anesthesiology Pain Medicine | DX: M47.816 Spondylosis without myelopathy or radiculopathy, lumbar region (principal); M48.062 Spinal stenosis, lumbar region with neurogenic claudication | CPT/HCPCS: 64493; 64494; 64495; J3490 ==

== ENCOUNTER → 2023-07-05 12:27 | Outpatient (BNVA) | payer OTHER, SELFPAY | PROVIDERS: PCP Emergency Medicine Emergency Medical Services; Visit Provider Anesthesiology Pain Medicine | DX: M47.816 Spondylosis without myelopathy or radiculopathy, lumbar region (principal); M48.062 Spinal stenosis, lumbar region with neurogenic claudication | CPT/HCPCS: 64493; 64494; 64495; J3490 ==

== ENCOUNTER → 2023-07-19 09:04 | Outpatient (BNVA) | payer OTHER, SELFPAY | PROVIDERS: PCP Emergency Medicine Emergency Medical Services; Visit Provider Anesthesiology Pain Medicine | DX: M48.062 Spinal stenosis, lumbar region with neurogenic claudication (principal); M54.2 Cervicalgia; M47.816 Spondylosis without myelopathy or radiculopathy, lumbar region | CPT/HCPCS: 99214 ==

== ENCOUNTER → 2023-08-06 08:47 | Outpatient (BNVA) | payer OTHER, SELFPAY | PROVIDERS: PCP Emergency Medicine Emergency Medical Services; Referring Provider Internal Medicine; Visit Provider Internal Medicine | DX: E27.8 Other specified disorders of adrenal gland (principal); I10 Essential (primary) hypertension | CPT/HCPCS: 99214 ==

== ENCOUNTER 2023-09-13 09:31 | Emergency (ER) | payer OTHER, SELFPAY ==
[2023-09-13 09:40] VITALS: BP 133/80; PULSE 56; RESP 18; TEMP 36.9; O2SAT 91; BMI 43.4
[2023-09-13 10:12] LABS: Basophils # 0.1 10^3/uL (0.0-0.1); Eosinophils # 0.4 10^3/uL (0.0-0.8); Eosinophils % 4.4 %; Hematocrit 41.9 % (37-53); Lymphocytes # 1.7 10^3/uL (0.8-4.8); Mean Corpuscular HGB Conc 32.7 g/dL (30-55); Mean Corpuscular Hemoglobin 29.1 pg (27-33); Mean Corpuscular Volume 89.1 fl (82-101); Mean Platelet Volume 10.8 fL (7.4-10.4); Monocytes # 0.5 10^3/uL (0.2-0.9); Monocytes % 5.7 %; Neutrophils # 5.47 10^3/uL (1.8-7.7); Neutrophils % 67.5 %; Nucleated Red Blood Cells % 0 %; Platelet Count 223 10^3/cmm (157-399); Red Cell Distribution Width 12.5 % (12.1-15.1)
[2023-09-13 10:21] LABS: INR 0.96 (0.8-1.2)
[2023-09-13 10:22] LABS: Partial Thromboplastin Time 29.1 SECONDS (23.9-36.7)
[2023-09-13 10:29] LABS: Alanine Aminotransferase 9 U/L (0-41); Albumin Level 4.4 g/dL (3.5-5.2); Alkaline Phosphatase 65 U/L (40-130); Anion Gap 15.9 (5-19); Aspartate Amino Transferase 17 U/L (0-40); Blood Urea Nitrogen 19 mg/dL (8-23); Carbon Dioxide 31 mmol/L (22-29); Chloride 101 mmol/L (98-107); Globulin 2.5 g/dL (1.3-4.6); Glucose 128 mg/dL (65-115); Osmolality Calculated 302 mOsm/kg (285-295); Potassium 3.9 mmol/L (3.5-5.1); Sodium 144 mmol/L (136-145); Total Bilirubin 0.4 mg/dL (0.15-1.2); Total Protein 6.9 g/dL (6.6-8.7)
--- NOTE | 2023-09-13 11:14 | CT_ITS ---
WS: [id number] CT ABDOMEN AND PELVIS WITH CONTRAST HISTORY: abd pain, RIGHT sided pain. TECHNIQUE: Imaging performed of the abdomen and pelvis with IV contrast. Single phase imaging of the abdomen. Coronal and sagittal reformats are submitted. All CT scans at [facility] use at [facility] st one of these dose optimization techniques: automated exposure control; mA and/or kV adjustment per patient size (includes targeted exams where dose is matched to clinical indication); or iterative re construction. IV CONTRAST: Omnipaque 350; 100 mL IV. Oral contrast: No DLP: 1257.57 mGy.cm COMPARISON: 05/31/2023 Lower thorax: Subcentimeter nodules are reidentified at the RIGHT lung base. Stable since 05/06/2020. Heart is normal size. Small hiatal hernia. Liver/biliary system: Normal size liver. No mass. Area of decreased attenuation in the inferior RIGHT lobe the liver may be hepatic steatosis. No bile duct dilatation. Gallbladder: Prior cholecystectomy. Pancreas: Normal size pancreas and pancreatic duct. No adjacent inflammation. Spleen: Normal size spleen. No mass or infarct. Adrenal glands: Long-term stability of a solid mass RIGHT adrenal gland measuring 3.4 x 3.2 cm. Cora l RIGHT adrenal gland. Right kidney: Mild diffuse cortical atrophy. Very mild perinephric stranding. Left kidney: Mild atrophy and perinephric stranding. No obstruction. Aorta: Mild atherosclerosis with no aneurysm. Mild ectasia thoracic aorta. Lymphadenopathy: None. Free fluid: None. GI tract: No GI tract obstruction. No evidence for colitis. The appendix is visualized and normal. Abdominal wall: Fat containing umbilical hernia. Pelvis: No free fluid or adenopathy within the pelvis. Bones: Degenerative disc disease and spondylitic changes in the lumbar spine. No destructive bone les ions. IMPRESSION: 1. No renal obstruction or hydronephrosis. 2. Normal appendix. 3. Prior cholecystectomy. 4. No ascites or adenopathy. 5. Moderate umbilical abdominal wall hernia containing fat only.
--- NOTE | 2023-09-13 11:15 | ED_ITS ---
HPI - Abdominal Pain General: Chief Complaint: Abdominal Pain Stated Complaint: abd pain, tar stool Time Seen by Provider: 09/13/23 09:38 Source: patient Mode of arrival: ambulatory Limitations: no limitations History of Present Illness: 73-year-old male states he been having right lower quadrant pain over the last week. He states its been a sharp pain and rates the pain a 4 out of 10 he denies any vomiting or diarrhea he states he is stools have been darker in nature. Denies any weakness denies any lightheadedness. He denies any worsening improving factors. Associated Symptoms: Reports melena; Denies chills, diarrhea, dysuria, fever(s), nausea and vomiting Review of Systems Const: Denies: fever(s), chills, body aches or change in appetite ENMT: Denies: throat pain or dental pain Card: Denies: chest pain Resp: Denies: dyspnea GI: Reports: abdominal pain and melena; Denies: nausea, vomiting or diarrhea : Denies: dysuria Musc: Denies: neck pain or back pain Skin/Breast: Denies: rash Neuro: Denies: headache(s) PFSH ED PFSH: Medical History Anemia Bilateral carpal tunnel syndrome Cervical disc disorder with myelopathy of mid-cervical region Diabetes mellitus Diverticulitis Dyslipidemia Esophagitis Gastritis Hiatal hernia Hypertension, benign Hypoxia, sleep related Peripheral neuropathy Surgical History H/O esophagogastroduodenoscopy H/O esophagogastroduodenoscopy (03/25/22) Hx of cholecystectomy S/P hemilaminotomy (05/01/03) Left L4-L5 hemilaminotomy with microdiscectomy ;[place], [place] Status post colonoscopy (03/25/22) Status post laparoscopic cholecystectomy Family History Father Cancer Mother Diabetes CAD (coronary artery disease) Stroke CHF (congestive heart failure) Other Hypertension Social History Smoking and tobacco/nicotine status: former use of tobacco/nicotine Alcohol intake: former Year of sobriety/quit date alcohol: 1976 Substance/Drug Use: never Lives independently: Yes Household members: spouse Marital status: Current occupational status: retired Physical Exam Const: COMMON NORMALS: no acute distress, patient oriented x3 and healthy appearing HENMT: COMMON NORMALS: normocephalic and atraumatic HEAD & SCALP: normocephalic and atraumatic Neck/C-Spine: COMMON NORMALS: full ROM and supple Chest: COMMONS NORMALS: normal inspection of the chest Resp: COMMON NORMALS: normal respiratory effort Cardio: COMMON NORMALS: regular rate RATE: regular rate GI: COMMON NORMALS: Normal to inspection, nondistended, normoactive bowel sounds present, Soft to palpation and no masses PALPATION: Yes Soft to palpation OTHER: rlq tenderness Extremity: COMMON NORMALS: normal to inspection and full ROM Neuro: COMMON NORMALS: patient oriented x3, moves all extremities and no focal motor deficits Psych: COMMON NORMALS: mental status grossly normal, Normal thought process present and cooperative THOUGHT PROCESS: Normal thought process present Skin: COMMON NORMALS: no rashes or lesions noted and no wounds GENERAL SKIN EXAM: no rashes or lesions noted Course Vital Signs: Vital signs: Vital Signs Temperature 98.5 F 09/13/23 12:25 Pulse Rate 52 L 09/13/23 12:25 Respiratory Rate 16 09/13/23 12:25 Blood Pressure 120/83 09/13/23 12:25 Pulse Oximetry 95 09/13/23 12:25 Oxygen Delivery Me thod Nasal Cannula 09/13/23 09:40 Oxygen Flow Rate 2 09/13/23 09:40 MDM - Abdominal Pain Medical Decision Making Patient presents here with abdominal pain CT blood work here is normal I did a rectal exam on him as well his stool is brown Hemoccult negative. Patient stable for discharge we will get him follow-up with surgery he is return if worsening. Medical Records I reviewed the patient's medical records. Lab Data I reviewed the patient's lab results. 09/13/23 09:57 09/13/23 09:57 Labs/Radiology: Laboratory Results WBC 8.10 10^3/uL (3.29-11.43) 09/13/23 09:57 RBC 4.70 10^6/uL (3.85-5.65) 09/13/23 09:57 Hgb 13.70 g/dL (11.27-16.99) 09/13/23 09:57 Hct 41.9 % (37-53) 09/13/23 09:57 MCV 89.1 fl (82-101) 09/13/23 09:57 MCH 29.1 pg (27-33) 09/13/23 09:57 MCHC 32.7 g/dL (30-55) 09/13/23 09:57 RDW 12.5 % (12.1-15.1) 09/13/23 09:57 Plt Count 223 10^3/cmm (157-399) 09/13/23 09:57 MPV 10.8 fL (7.4-10.4) H 09/13/23 09:57 Neut % (Auto) 67.5 % 09/13/23 09:57 Lymph % (Auto) 21.0 % 09/13/23 09:57 [place] % (Auto) 5.7 % 09/13/23 09:57 Eos % (Auto) 4.4 % 09/13/23 09:57 Baso % (Auto) 1.0 % 09/13/23 09:57 Neut # (Auto) 5.47 10^3/uL (1.8-7.7) 09/13/23 09:57 Lymph # (Auto) 1.7 10^3/uL (0.8-4.8) 09/13/23 09:57 [place] # (Auto) 0.5 10^3/uL (0.2-0.9) 09/13/23 09:57 Eos # (Auto) 0.4 10^3/uL (0.0-0.8) 09/13/23 09:57 Baso # (Auto) 0.1 10^3/uL (0.0-0.1) 09/13/23 09:57 Nucleated RBC % (auto) 0 % 09/13/23 09:57 Nucleated RBCs # 0.0 /100WBC 09/13/23 09:57 PT 13.10 SECONDS (12.1-14.9) 09/13/23 09:57 INR 0.96 (0.8-1.2) 09/13/23 09:57 APTT 29.1 SECONDS (23.9-36.7) 09/13/23 09:57 Sodium 144 mmol/L (136-145) 09/13/23 09:57 Potassium 3.9 mmol/L (3.5-5.1) 09/13/23 09:57 Chloride 101 mmol/L (98-107) 09/13/23 09:57 Carbon Dioxide 31 mmol/L (22-29) H 09/13/23 09:57 Anion Gap 15.9 (5-19) 09/13/23 09:57 BUN 19 mg/dL (8-23) 09/13/23 09:57 Creatinine 1.2 mg/dL (0.7-1.2) 11 09:57 GFR Calculation Not Reportable 09/13/23 09:57 Glucose 128 mg/dL (65-115) H 09/13/23 09:57 Calculated Osmolality 302 mOsm/kg (285-295) H 09/13/23 09:57 Calcium 10.0 mg/dL (8.5-10.5) 09/13/23 09:57 Total Bilirubin 0.4 mg/dL (0.15-1.2) 09/13/23 09:57 AST 17 U/L (0-40) 09/13/23 09:57 ALT 9 U/L (0-41) 09/13/23 09:57 Alkaline Phosphatase 65 U/L (40-130) 09/13/23 09:57 Total Protein 6.9 g/dL (6.6-8.7) 09/13/23 09:57 Albumin 4.4 g/dL (3.5-5.2) 09/13/23 09:57 Globulin 2.5 g/dL (1.3-4.6) 09/13/23 09:57 All radiology interpretation(s) finalized by discharge Discharge Plan Discharge Patient Disposition: Home Clinical Impression: Abdominal pain Condition: Stable Prescriptions: New hydrocodone-acetaminophen 5-325 mg tablet 1 tab PO Q6H PRN (Reason: pain) Qty: 14 0RF ondansetron 4 mg tablet,disintegrating 4 mg PO Q6H PRN (Reason: nausea and vomiting) Qty: 14 0RF No Action sertraline 100 mg tablet 100 mg PO QAM acetaminophen [Tylenol Extra Strength] 500 mg tablet 500 - 1,000 mg PO QID PRN (Reason: Pain) ferrous sulfate 325 mg (65 mg iron) tablet,delayed release (DR/EC) 325 mg PO QAM aspirin [Adult Aspirin Regimen] 81 mg tablet,delayed release (DR/EC) 81 mg PO QAM omeprazole 20 mg capsule,delayed release(DR/EC) 20 mg PO QAM hydrochlorothiazide 25 mg tablet 50 mg PO QAM gabapentin 600 mg tablet 600 mg PO TID simvastatin 40 mg tablet 40 mg PO BEDTIME metformin 500 mg tablet 500 mg PO BID nadolol 40 mg tablet 40 mg PO QAM dicyclomine 10 mg capsule 20 mg PO TID methylprednisolone 4 mg tablets,dose pack See Rx Instructions PO PER PKG DIR Qty: 21 0RF Rx Instructions: PO PER PKG DIR dexamethasone 1 mg tablet 1 mg PO DAILY Qty: 1 0RF multivitamin Tablet 1 tab PO QAM losartan 50 mg tablet 50 mg PO QAM alprazolam [Xanax] 0.5 mg tablet 0.25 - 0.5 mg PO TID PRN (Reason: Anxiety) cholecalciferol (vitamin D3) [Vitamin D3] 125 mcg (5,000 unit) Tablet 125 mcg PO QAM prazosin 2 mg Capsule 4 mg PO BEDTIME Maalox Advanced 1,000-60 mg Tablet,Chewable 1 tab PO TID PRN (Reason: unknown) lidocaine 5 % Ointment 1 applic topical BEDTIME Rx Instructions: apply to feet and legs at bedtime Discharge Orders: Discharge ED (Routine); Ordered 09/13/23 Ordered By: Eunice Thornton Referrals: Alex Conley DO [Physician] - 1-3 days Ag Kong DO [Primary Care Provider] - Discharge Diet: Advance as tolerated Discharge Activity: Resume usual activity Patient Instructions: Abdominal Pain (ED), Opioid Safety Coding Level of Care Code ED Senior Sourcing Manager for Nia Pinedo
[2023-09-13] MEDS: iohexol 350 mg/mL 500 mL Btl (per mL) IV (11:37)
[2023-09-13 12:24] VITALS: BP 120/83; PULSE 52; RESP 16; O2SAT 95
[2023-09-13 12:25] VITALS: BP 120/83; PULSE 52; RESP 16; TEMP 36.9; O2SAT 95
--- NOTE | 2023-09-13 15:02 | DCPLANNER ---
Referral was sent to general surgery on 09/13/23 at 1504. Clinic to contact patient.
--- NOTE | 2023-09-15 09:00 | PC.SOCIAL ---
RFS Records sent to [place] for general surgery f/u.
== END 2023-09-13 12:26 | disposition home or self-care (01) ==
PROVIDERS: Physician Assistant; Emergency Provider Emergency Medicine; PCP Emergency Medicine Emergency Medical Services
DX: R10.31 Right lower quadrant pain (principal); Z79.82 Long term (current) use of aspirin; Z79.84 Long term (current) use of oral hypoglycemic drugs; Z87.891 Personal history of nicotine dependence; E78.5 Hyperlipidemia, unspecified; I10 Essential (primary) hypertension; E11.42 Type 2 diabetes mellitus with diabetic polyneuropathy
CPT/HCPCS: 36415; 74177; 80053; 85025; 85610; 85730; 99285; Q9967

== ENCOUNTER → 2023-09-20 10:09 | Outpatient (BNVA) | payer OTHER, SELFPAY | PROVIDERS: PCP Emergency Medicine Emergency Medical Services; Referring Provider Emergency Medicine; Visit Provider Surgery | DX: R10.9 Unspecified abdominal pain (principal); K42.9 Umbilical hernia without obstruction or gangrene | CPT/HCPCS: 99203; 99213 ==

== ENCOUNTER → 2023-10-18 07:51 | Outpatient (BNVA) | payer MEDICARE, SELFPAY | PROVIDERS: PCP Emergency Medicine Emergency Medical Services; Visit Provider Internal Medicine | DX: I10 Essential (primary) hypertension (principal); E27.8 Other specified disorders of adrenal gland; C61 Malignant neoplasm of prostate; M48.062 Spinal stenosis, lumbar region with neurogenic claudication; M47.816 Spondylosis without myelopathy or radiculopathy, lumbar region; M54.2 Cervicalgia | CPT/HCPCS: 99214 ==

== ENCOUNTER 2023-11-03 08:05 | Oncology outpatient (recurring) (ONCR) | payer OTHER, SELFPAY ==
--- OUTSIDE RECORDS SUMMARY | 2023-10-27 09:03 | XMS_ITS | Patient Health Record ---
Author Name Unknown Organization [facility] Address [address] [place], [place] [id number] Care Team Providers Care Hat Sizer Name Role Phone Graham RAT TRAPPER, Eleanor Primary Care Provider Hailee Wray MD, Ag Unavailable [phone] [place], [place] Unavailable Unavailable ALLERGIES Allergen (clinical drug ingredient) Drug/Non Drug Allergy documented on EMR Reaction Allergy Type Onset Date Status sulfa drugs (uncoded) Unknown Allergy Active REASON FOR REFERRAL No Information MEDICATIONS Medication SIG (Take, Route, Frequency, Duration) Notes Start Date End Date Status metFORMIN 500 mg 1 tab orally 2 times a day Active losartan 100 mg 1 tab orally once a day Active aspirin 81 mg 1 tab orally once a day Active omeprazole 20 mg 1 cap orally once a day Active ALPRAZolam 0.5 mg 1 tab orally as directed Active nadolol 40 mg 1 tab orally once a day Active lidocaine topical 5% 1 rehan applied topically 3 times a day for 14 day(s) Active hydroCHLOROthiazide 25 mg 1 tab orally o nce a day Active gabapentin 600 mg 1 tab po orally TID Active Vitamin D3 2000 intl units as directed o rally once a day Active cephalexin 500 mg 1 tab orally 4 times a day 03/25/2021 Active sertraline 100 mg 1 tab orally once a day Active Centrum Silver Men's as directed Active prazosin 2 mg orally as directed Active fluticasone nasal 50 mcg/inh 1 spray int ranasally 2 times a day Active Tylenol Extra Strength 500 mg 2 tabs ora lly every 6 hours Active ferrous sulfate 325 mg orally as directed Active simvastatin 40 mg 1 tab orally once a day (at bedtime) Active SOCIAL HISTORY Tobacco Use: Social History Observation Description Date Details (start date - stop date) Former Smoker NA - NA Sex Assigned At : Social History Observation Description Sex Assigned At Unknown alcohol Question Answer Notes Did you have a drink containing alcohol in the p ast year? No Points 0 Interpretation Negative Tobacco use: Question Answer Notes Additional Findings: Tobacco User Chews tobacco 1 can per day : former smoker How long has it been since you last smoked? 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) Active confirmed Anxiety disorde r (440443845) Problem Obstructive sleep apnea (adult) (pediatric) (G47.33) Active confirmed Obstructive sle ep apnea syndrome (30336070) Problem Spinal stenosis, cervical region (M48.02) Active confirmed Spinal stenosis in cervical region (28046279) Problem Cervical disc disorder with radiculopathy, 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) Active confirmed Cervical radiculopathy (63540727) Problem Cervicalgia (M54.2) Active confirmed Cervicalgia (61949623) Problem Other senior care (current) drug therapy (Z79.899) Active confirmed Long-term curre nt use of drug therapy (087950841) PLAN OF TREATMENT No Information Insurance Providers Payer Name Payer Address Payer Phone Subscriber Number Group Number Insured Name Patient Relationship to Insured Coverage Start Date Coverage End Date [employer] [address] [place] [address] [id number] Khoa Fallon Self - patient is the insured MEDICAL (GENERAL) HISTORY Medical History History ICD Code Neck pain Cervical disc disorder Paralysis of median nerve as per medical records review Adrenal mass Chronic obstructive pulmonary disease CVA Dizziness and giddiness GERD Hyperlipidemia Post traumatic stress disorder Social phobia Solitary pulmonary nodule 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
--- OUTSIDE RECORDS SUMMARY | 2023-10-28 08:33 | XMS_ITS | Patient Health Record ---
Author Name Unknown Organization [facility] Address [address] [place] [address] Care Team Providers Care All Around Presser Name Role Phone [facility] gA MCFADDEN Primary Care Provider Un available Paul Razo Unavailable [phone] [place], [place] Unavailable Unavailable ALLERGIES Allergen (clinical drug ingredient) Drug/Non Drug Allergy documented on EMR Reaction Allergy Type Onset Date Status Substance with sulfonamide structure and antibacterial mechanism of action (substance) Sulfa Antibiotics Unknown Drug Allergy Active REASON FOR REFERRAL Reason Unspecified Abdomina l Pain/Eval for IBS Appointment on 01/12/2023 Referring Provider First Name Alon Mayau Referring Provider Last Name [place] Referring Provider [facility] Referred Organization [facility] Referred Provider Paul Razo Referred Address [address] [facility] [place],[address] Referred Provider Specialty Gastroentero logy Referral Priority Routine MEDICATIONS Medication SIG (Take, Route, Frequency, Duration) Notes Start Date End Date Status Losartan Potassium 50 MG 1 tablet Orally Once a day Active ALPRAZolam 0.5 MG 1 tablet Orally Thre e times a day Active Multi Complete - as directed Orally KEVIN Active Nadolol 40 MG 1 tablet Orally Once a day Active metFORMIN HCl 500 MG 1 tablet with a consuelo l Orally Twice a day Active Lidocaine 5 % 1 application as nee ded Externally Twice a day Active Gabapentin 300 MG 1 capsule Orally Thr ee times a day Active Docusate Sodium 100 MG 1 capsule as need ed Orally Three times a day Active Simvastatin 40 MG 1 tablet in the even ing Orally Once a day Active Tamsulosin HCl 0.4 MG 1 capsule Orally O nce a day Active Prazosin HCl 2 MG 2 capsules at bedtim e Orally Once a day Active Dicyclomine HCl 10 MG 2 capsules Orally Four times a day Active Aspir-81 Active Omeprazole 20 MG 1 capsule 30 minutes before morning meal Orally Once a day Active Calcium Polycarbophil 625 MG 2 tablets a s needed Orally PRN Active hydroCHLOROthiazide 25 MG 1 tablet in th e morning Orally Twice a day Active Iron 325 (65 Fe) MG 1 tablet Orally Once a day Active Sertraline HCl 100 MG 1 tablet Orally On a day Active SOCIAL HISTORY Sex Assigned At : Social History Observation Description Sex Assigned At Unknown PROBLEMS Problem Type ICD Code Onset Dates Problem Status W/U Status Risk SNOMED Code Notes Problem Constipation, unspecified constipation type (K59.00) Active confirmed 83636810 Problem Chronic obstructive pulmonary disease, unspecified COPD type (J44.9) Active confirmed 09394727 Problem Obesity, Class III, BMI 40-49.9 (morbid obesity) (E66.01) Active confirmed 795150522 VITAL SIGNS Heart Rate 61 /min 01/12/2023 Temperature 97.1 degrees Fahrenheit 01/12/2023 Respiratory Rate 18 /min 01/12/2023 Height-cm 177.8 cm 01/12/2023 Oximetry 94 % 01/12/2023 Blood pressure diastolic 80 mm Hg 01/12/2023 Weight-kg 134.26 kg 01/12/2023 Height 70 in 01/12/2023 Blood pressure systolic 142 mm Hg 01/12/2023 Weight 296 lbs 01/12/2023 BMI 42.47 kg/m2 01/12/2023 Encounters Encounter Location Date Provider Diagnosis [facility] [address], [place] [address] 02/10/2023 Paul Razo [facility] [address], [place] [address] 02/22/2023 Paul Razo [facility] [address] [place] [address] 01/12/2023 Paul Razo Abdominal pain, LLQ R10.32 ; Constipation, unspecified constipation type K59.00 ; History of small bowel obstruction Z87.19 ; Obesity, Class III, BMI 40-49.9 (morbid obesity) E66.01 ; BMI 40.0-44.9, adult Z68.41 and Chronic obstructive pulmonary disease, unspecified COPD type J44.9 ASSESSMENTS Encounter Date Diagnosis Assessment Notes Treatment Notes Treatment Clinical Notes 01/12/2023 Constipation, unspecified constipation type (ICD-10 - K59.00) 01/12/2023 Abdominal pain, LLQ (ICD-10 - R10.32) 01/12/2023 History of small bowel obstruction (ICD-10 - Z87.19) 01/12/2023 Obesity, Class III, BMI 40-49.9 (morbid obesity) (ICD-10 - E66.01) 01/12/2023 BMI 40.0-44.9, adult (ICD-10 - Z68.41) 01/12/2023 Chronic obstructive pulmonary disease, unspecified COPD type (ICD-10 - J44.9) PLAN OF TREATMENT No Information Insurance Providers Payer Name Payer Address Payer Phone Subscriber Number Group Number Insured Name Patient Relationship to Insured Coverage Start Date Coverage End Date [employer] [address] [place] [address] [id number] Khoa Fallon Self - patient is the insured MEDICAL (GENERAL) HISTORY Medical History History ICD Code diabetes mellitus hernia hypertension hypotension hemorrhoids anxiety colonic polyps COPD GERD chronic pancreatitis sleep apnea depression Adrenal mass Small bowel obstruction Surgical History Surgery Date(Month/Year) neck fusion back surgery cholecystectomy Hospitalization History Reason Date(Month/Year) Constricted bowel [facility] [place]
--- OUTSIDE RECORDS SUMMARY | 2023-10-28 08:33 | XMS_ITS | Patient Health Record ---
Author Name Unknown Organization [facility] Address [address] [place], [place] [id number] Care Team Providers Care Hyperbaric Technologist Name Role Phone Graham BOAT PATCHER PLASTIC, Eleanor Primary Care Provider Hailee Wray MD, Ag Unavailable [phone] [place], [place] Unavailable Unavailable ALLERGIES Allergen (clinical drug ingredient) [...] disorders (F41.8) Active confirmed Anxiety disorde r (747020726) Problem Obstructive sleep apnea (adult) (pediatric) (G47.33) Active confirmed Obstructive sle ep apnea syndrome (51765541) Problem Spinal stenosis, cervical region (M48.02) Active confirmed Spinal stenosis in cervical region (86912784) Problem Cervical disc disorder with radiculopathy, 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) Active confirmed Cervical radiculopathy (91144419) Problem Cervicalgia (M54.2) Active confirmed Cervicalgia (37195797) Problem Other correction (current) drug therapy (Z79.899) Active confirmed Long-term curre nt use of drug therapy (621541835) PLAN OF TREATMENT No Information Insurance Providers Payer Name Payer Address Payer Phone Subscriber Number Group Number Insured Name Patient Relationship to Insured Coverage Start Date Coverage End Date [employer] [address] [place] [address] [id number] Khoa Fallon Self - patient is the [...] Surgical History Surgery Date(Month/Year) Cholecystectomy, performed at [facility], 1999 Lumbar surgery, performed at [facility] in [place], [place], 2002 Removal of right 1st toenail, performed by ANDRIY Ayala, 03/14/21
--- NOTE | 2023-10-28 13:32 | N.ONRAD NP_ITS ---
Radiation Oncology New Patient Visit Patient: Khoa Fallon MR#: [id number] : 1950> Age: 73> Sex: Male> Dictated by: Ron Ocampo Date of Service: 10/28/2023 Referring Physician(s) : Ricky Krishnan MD Diagnosis: C61 - malignant neoplasm of prostate, Diagnosed 09/21/2023 (active). St IIC (T1c, N0 M0) G 3 G.S. 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 PSA at dx 6.1. Radiotherapy to date: Summary > No prior radiation therapy. Chief Complaint / History of Present Illness: He noted that he had a PSA a year ago which was elevated to 7. He had a course of antibiotics and PSA did decline to 6.8 by his report. Repeat PSA this year as 6.1. At his request he was then seen by urology and underwent TRNBx by Dr. Krishnan on 09/21/2023. 6 biopsies obtained. Rt apex G.S. 3 + 4, Rt mid G.S. 4 + 3, Lt apex G.S. 3 + 4 other bxs benign thus 3 of 6 biopsy regions were involved. Staging bone scan 10/07/2023 revealed no metastatic disease. CT abd-pelvis 10/07/2023 1.5 cm right adrenal mass diffusely fatty and thus likely benign. No adenopathy noted. Imaging not year for independent review. He is vary sedentary at home. He has an excessively good appetite and has gained weight. He has chronic urinary frequency, urgency and straining. He has 1 x nocturia. I=PSS score is 25. He was on a flow medication in the past with no symptomatic improvement and has stopped this medication. He lives independently with his . He is not interested in any additional interventions outside of just pursuing radiation treatment. LABS 05/12/2023 Hb 13.8, WBC 7.2, Plat 243,000, Chem 08/04/2023 Cr 1.13. Current Medications: acetaminophen (Tylenol Extra Strength) 500 - 1,000 mg PO QID PRN alprazolam (Xanax) 0.25 - 0.5 mg PO TID PRN aspirin (Adult Aspirin Regimen) 81 mg PO QAM calcium carbonate-simethicone 1,000-60 mg (Maalox Advanced) 1 tab PO TID PRN cholecalciferol (vitamin D3) (Vitamin D3) 125 mcg PO QAM dexamethasone 1 mg PO DAILY dicyclomine 20 mg PO TID ferrous sulfate 325 mg PO QAM gabapentin 600 mg PO TID hydrochlorothiazide 50 mg PO QAM hydrocodone-acetaminophen 5-325 mg 1 tab PO Q6H PRN lidocaine 5% 1 applic topical BEDTIME losartan 50 mg PO QAM metformin 500 mg PO BID methylprednisolone PO PER PKG DIR multivitamin 1 tab PO QAM nadolol 40 mg PO QAM omeprazole 20 mg PO QAM ondansetron 4 mg PO Q6H PRN prazosin 4 mg PO BEDTIME sertraline 100 mg PO QAM simvastatin 40 mg PO BEDTIME Allergies: Sulfa (Sulfonamide Antibiotics) Allergy pregabalin Allergy Medical History: No history of collagen vascular disease. No previous radiation therapy. He has HTN, COPD, morbid obesity, GERD, sleep apnea, depression, DM with neuropathy, hyperlipidemia. Surgical History: H/O esophagogastroduodenoscopy (03/25/22) Status post laparoscopic cholecystectomy Status post colonoscopy (03/25/22) Hx of cholecystectomy S/P hemilaminotomy (05/01/03) Left L4-L5 hemilaminotomy with microdiscectomy ;[place], [place] Family History: Father Cancer Mother Diabetes CAD (coronary artery disease) Stroke CHF (congestive heart failure) Other Hypertension Social History: x 49 years. 49 and 46 yo daughters. 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 Distant smoker quit 10 years ago. Smoking and tobacco/nicotine status: current every day tobacco/nicotine user smokeless tobacco Smokeless tobacco user: chewing tobacco Alcohol intake: former Year of sobriety/quit date alcohol: 1976 Substance/Drug Use: never Lives independently: Yes Household members: spouse Marital status: Current occupational status: retired Current Complaints / Review of Systems: . Vital Signs: Performed on 10/28/2023 8:42 AM BMI - 45.767 kg/m2 (high), Height - 68 in, Weight - 301 lbs, Temperature - 97.1 f, Pulse - 46 /min (low), Respiration - 18 /min, O2 Sat - 93 % (low), Pain - 6, Fatigue - 0 and BP - 129/ 71 mm(hg). Physical Exam: Pleasant in NAD. Morbidly obese. No palpable adenopathy. No pedal edema. Rectal exam smooth firm symmetric no nodularity, granularity or ridging. Performance Status: 1 Pathology: See HPI. Lab: See HPI Imaging: See HPI Impression: STIIC (T1C, N0, M0) G 3 G.S. 4 + 3 intermediate risk prostate cancer. PSA level is favorable and unchanged at 6. Only one of three involved biopsies had G.S. 4 + 3, the rest had 3 + 4. He has significant co-morbidities and is not interested in adding further interventions that may add to side effects. Therefore it is reasonable to omit adjuvant ADT. As we have cone beam CT daily localization verification on the accelerator, there is no need to add fiducials in the prostate for IGRT localization. He is also not interested in Space OAR placement which has some benefit in reducing acute and chronic treatment related rectal toxicity. We will schedule simulation for treatment. Plan on 70 Gy to prostate and proximal seminal vesicles in 28 treatment fractions. Signed by: 10/28/2023 1:31:48 PM <<Signature on File>> Time spent with patient: CPT Code: CPT Code:
== END 2023-11-07 23:59 | disposition home or self-care (01) ==
PROVIDERS: PCP Emergency Medicine Emergency Medical Services; Visit Provider Radiology Radiation Oncology
DX: Z51.0 Encounter for antineoplastic radiation therapy (principal); C61 Malignant neoplasm of prostate
CPT/HCPCS: 77300; 77301; 77334; 77338; 99205

== ENCOUNTER 2023-11-26 07:42 | Oncology outpatient (recurring) (ONCR) | payer OTHER, SELFPAY ==
--- OUTSIDE RECORDS SUMMARY | 2023-11-09 08:14 | XMS_ITS | Patient Health Record ---
Author Name Unknown Organization [facility] Address [address] [place] [address] Care Team Providers Care Splunk Dashboard Developer Name Role Phone [facility] Ag MCFADDEN Primary Care Provider Un available Paul Razo Unavailable [phone] [place], [place] Unavailable Unavailable ALLERGIES Allergen (clinical drug ingredient) Drug/Non Drug Allergy documented on EMR Reaction Allergy Type Onset Date Status Substance with sulfonamide structure and antibacterial mechanism of action (substance) Sulfa Antibiotics Unknown Drug Allergy Active REASON FOR REFERRAL Reason Unspecified Abdomina l Pain/Eval for IBS Appointment on 01/12/2023 Referring Provider First Name Alon Mayau Referring Provider Last Name [place] Referring Provider [facility]ity [facility] Referred Organization [facility] Referred Provider Paul Razo Referred Address [address] [facility] [place],[address] Referred Provider Specialty Gastroentero logy Referral Priority [...] W/U Status Risk SNOMED Code Notes Problem Obesity, Class III, BMI 40-49.9 (morbid obesity) (E66.01) Active confirmed 271385814 Problem Chronic obstructive pulmonary disease, unspecified COPD type (J44.9) Active confirmed 56475451 Problem Constipation, unspecified constipation type (K59.00) Active confirmed 27962391 VITAL SIGNS Heart Rate 61 /min 01/12/2023 Temperature 97.1 degrees Fahrenheit 01/12/2023 Respiratory Rate 18 /min 01/12/2023 Height-cm 177.8 cm 01/12/2023 Oximetry 94 % 01/12/2023 Blood pressure diastolic 80 mm Hg 01/12/2023 Weight-kg 134.26 kg 01/12/2023 Height 70 in 01/12/2023 Blood pressure systolic 142 mm Hg 01/12/2023 Weight 296 lbs 01/12/2023 BMI 42.47 kg/m2 01/12/2023 Encounters Encounter Location Date Provider Diagnosis [facility] [address], [place] [address] 02/10/2023 Paul Razo [facility] [address] [place] [address] 02/22/2023 Paul Razo [facility] [address] [place] [address] 01/12/2023 Paul Razo Abdominal pain, LLQ R10.32 [...] End Date [employer] [address] [place] [address] [id number] Khoa Fallon Self - patient is the insured MEDICAL (GENERAL) HISTORY Medical History History ICD Code diabetes mellitus hernia hypertension hypotension hemorrhoids anxiety colonic polyps COPD GERD chronic pancreatitis sleep apnea depression Adrenal mass Small bowel obstruction Surgical History Surgery Date(Month/Year) cholecystectomy back surgery neck fusion Hospitalization History Reason Date(Month/Year) Constricted bowel [facility] [place]
--- OUTSIDE RECORDS SUMMARY | 2023-11-09 08:14 | XMS_ITS | Patient Health Record ---
Author Name Unknown Organization [facility] Address [address] [place], [place] [address] Care Team Providers Care Physics Technical Officer Name Role Phone Graham DORR OPERATOR, Eleanor Primary Care Provider Hailee Wray MD, Ag Unavailable [phone] [place], [place] Unavailable Unavailable ALLERGIES Allergen (clinical drug ingredient) [...] disorders (F41.8) Active confirmed Anxiety disorde r (308925923) Problem Obstructive sleep apnea (adult) (pediatric) (G47.33) Active confirmed Obstructive sle ep apnea syndrome (83536784) Problem Spinal stenosis, cervical region (M48.02) Active confirmed Spinal stenosis in cervical region (83974506) Problem Cervical disc disorder with radiculopathy, 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) Active confirmed Cervical radiculopathy (81600679) Problem Cervicalgia (M54.2) Active confirmed Cervicalgia (03355268) Problem Other nursing home (current) drug therapy (Z79.899) Active confirmed Long-term curre nt use of drug therapy (138511913) PLAN OF TREATMENT No Information Insurance Providers Payer Name Payer Address Payer Phone Subscriber Number Group Number Insured Name Patient Relationship to Insured Coverage Start Date Coverage End Date [employer] [address] [place] [address] [id number] Khoa Fallon Self - patient is the [...] Surgical History Surgery Date(Month/Year) Cholecystectomy, performed at [facility], 1999 Lumbar surgery, performed at [facility] in [place], [place], 2002 Removal of right 1st toenail, performed by ANDRIY Ayala, 03/14/21
--- NOTE | 2023-11-09 12:30 | ONCRAD TMN_ITS ---
Radiation Oncology Weekly Treatment Management Patient: Vasyl Meeks MR#: [id number] : 1950> Attending Physician: Ron Ocampo Date of Service: 11/09/2023 Referring Physician(s) : Diagnosis: C61 - Malignant neoplasm of prostate, Diagnosed 09/21/2023 (Active) Radiotherapy to date: Course: Prostate 23n24, Treatment Site: Prostate 70Gy, Ref. ID: [id number], Energy: 15X, Dose/Fx (cGy): 250, #Fx: , Dose Correction (cGy): 0, Total Dose (cGy): 250, Start Date: 11/09/2023, End Date: 11/09/2023, Elapsed Days: 0 Reason for visit: The patient is being seen today as part of their regularly scheduled weekly on treatment visits to assess for acute toxicities from radiotherapy. Review of Systems: He had zero nocturia last PM. He feels bloated from eating over last week. No other sxs. Vital Signs: Performed on 11/09/2023 8:30 AM BMI - 46.74 kg/m2 (high), Height - 68 in, Weight - 307.4 lbs, Temperature - 97.8 f, Pulse - 50 /min (low), Respiration - 18 /min, O2 Sat - 95 % (low), Pain - 10, Fatigue - 0 and BP - 145/ 88 mm(hg)(high/). Physical Exam: omitted Imaging: Radiation therapy imaging related to accurate target localization (i.e. KV, MV and CBCT) was reviewed. Appropriate changes, if any, were made to ensure treatment accuracy. Plan: Good tolerance of treatment. Continue as planned. Signed by: Ron Ocampo 11/09/2023 1:18:09 PM Telemedicine Consent Patient seen today via Telemedicine by agreement and consent of patient. Telemedicine technology used during the visit include audio and, as available, review of images. This patient encounter is appropriate and reasonable under the circumstances given the patient???s particular presentation at this time. The patient has been advised of the potential risks and limitations of this mode of treatment (including but not limited to the absence of in-person examination) and has agreed to be treated in a remote fashion in spite of them. Any and all of the patient???s/patient???s family???s questions on this issue have been answered and I have made no promises or guarantees to the patient. The patient has also been advised to contact this office for worsening conditions or problems, and seek emergency medical treatment and/or call 911 if the patient deems either necessary.
--- NOTE | 2023-11-16 09:19 | ONCRAD TMN_ITS ---
Radiation Oncology Weekly Treatment Management Patient: Khoa Fallon MR#: [id number] : 1950 Attending Physician: Dr. Alberta Garcia Date of Service: 11/16/2023 Fractions: 6 out of 28 Referring Physician(s) : Diagnosis: C61 - Malignant neoplasm of prostate, Diagnosed 09/21/2023 (Active) Radiotherapy to date: Course: Prostate 23n24, Treatment Site: Prostate 70Gy, Ref. ID: [id number], Energy: 15X, Dose/Fx (cGy): 250, #Fx: , Dose Correction (cGy): 0, Total Dose (cGy): 1,500, Start Date: 11/09/2023, Elapsed Days: 7 Reason for visit: The patient is being seen today as part of their regularly scheduled weekly on treatment visits to assess for acute toxicities from radiotherapy. Review of Systems: Patient has chronic long-term back pain Vital Signs: Performed on 11/16/2023 8:34 AM BMI - 46.223 kg/m2 (high), Height - 68 in, Weight - 304 lbs, Temperature - 97.2 f, Pulse - 55 /min (low), Respiration - 16 /min, O2 Sat - 97 %, Pain - 0, Fatigue - 6 and BP - 124/ 66 mm(hg). Physical Exam: No changes on examination, no skin changes noted Imaging: Radiation therapy imaging related to accurate target localization (i.e. KV, MV and CBCT) was reviewed. Appropriate changes, if any, were made to ensure treatment accuracy. Plan: His back pain is a little worse since he is having to lay on the table. He did get injections in the low back prior to starting treatment. He asked today whether he can get injections in the upper back and I told him to definitely get those done. He will call his doctor's office to get that scheduled. He otherwise will continue the Flomax that he started on Wednesday as he noticed that his stream had decreased last week. Will otherwise continue with his treatments as planned Signed by: Dr. Alberta Garcia 11/16/2023 9:18:02 AM
--- NOTE | 2023-11-23 09:21 | ONCRAD TMN_ITS ---
Radiation Oncology Weekly Treatment Management Patient: Vasyl Couch MR#: [id number] : 1950 Attending Physician: Dr. Alberta Garcia Date of Service: 11/23/2023 Fractions: 10/05 Referring Physician(s) : Diagnosis: C61 - Malignant neoplasm of prostate, Diagnosed 09/21/2023 (Active) Radiotherapy to date: Course: Prostate 23n24, Treatment Site: Prostate 70Gy, Ref. ID: [id number], Energy: 15X, Dose/Fx (cGy): 250, #Fx: , Dose Correction (cGy): 0, Total Dose (cGy): 2,750, Start Date: 11/09/2023, Elapsed Days: 14 Reason for visit: The patient is being seen today as part of their regularly scheduled weekly on treatment visits to assess for acute toxicities from radiotherapy. Review of Systems: Fatigue, mild dysuria, mild hesitancy, chronic fatigue from long-term sleep issues Vital Signs: Performed on 11/23/2023 8:40 AM BMI - 46.071 kg/m2 (high), Height - 68 in, Weight - 303 lbs, Temperature - 97.3 f, Pulse - 50 /min (low), Respiration - 16 /min, O2 Sat - 96 %, Pain - 5, Fatigue - 7 and BP - 138/ 78 mm(hg). Physical Exam: No skin changes noted Imaging: Radiation therapy imaging related to accurate target localization (i.e. KV, MV and CBCT) was reviewed. Appropriate changes, if any, were made to ensure treatment accuracy. Plan: At this time we talked about maybe restarting his Flomax on a regular basis. He was somewhat concerned about when he is on the Flomax he has issues with not being able to hold his urine at night. I encouraged him to maybe try taking it in the morning and see if it can help him urinate during the day. I also encouraged him to drink more water. He declined any UA evaluation. Signed by: Dr. Alberta Garcia 11/23/2023 9:20:21 AM
== END 2023-11-26 23:59 | disposition home or self-care (01) ==
PROVIDERS: PCP Emergency Medicine Emergency Medical Services; Visit Provider Radiology Radiation Oncology
DX: Z51.0 Encounter for antineoplastic radiation therapy (principal); C61 Malignant neoplasm of prostate
CPT/HCPCS: 77336; 77385; 99024

== ENCOUNTER 2023-12-08 07:41 | Oncology outpatient (recurring) (ONCR) | payer OTHER, SELFPAY ==
--- OUTSIDE RECORDS SUMMARY | 2023-12-01 08:11 | XMS_ITS | Patient Health Record ---
Author Name Unknown Organization [facility] Address [address] [place], [place] [address] Care Team Providers Care Lumber Chain Offbearer Name Role Phone Graham SUPERVISOR SMOKE CONTROL, Eleanor Primary Care Provider Hailee Wray MD, Ag Unavailable [phone] [place], [place] Unavailable Unavailable ALLERGIES Allergen (clinical drug ingredient) [...] disorders (F41.8) Active confirmed Anxiety disorde r (039813038) Problem Obstructive sleep apnea (adult) (pediatric) (G47.33) Active confirmed Obstructive sle ep apnea syndrome (79566909) Problem Spinal stenosis, cervical region (M48.02) Active confirmed Spinal stenosis in cervical region (77953081) Problem Cervical disc disorder with radiculopathy, 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) Active confirmed Cervical radiculopathy (55762508) Problem Cervicalgia (M54.2) Active confirmed Cervicalgia (03121774) Problem Other terminal worker (current) drug therapy (Z79.899) Active confirmed Long-term curre nt use of drug therapy (162625733) PLAN OF TREATMENT No Information Insurance Providers Payer Name Payer Address Payer Phone Subscriber Number Group Number Insured Name Patient Relationship to Insured Coverage Start Date Coverage End Date [employer] [address] [place] [address] [id number] Khoa Fallon Self - patient is the [...] Surgical History Surgery Date(Month/Year) Cholecystectomy, performed at [facility], 1999 Lumbar surgery, performed at [facility] in [place], [place], 2002 Removal of right 1st toenail, performed by ANDRIY Ayala, 03/14/21
--- OUTSIDE RECORDS SUMMARY | 2023-12-01 08:11 | XMS_ITS | Patient Health Record ---
Author Name Unknown Organization [facility] Address [address] [place] [address] Care Team Providers Care Hunting And Fishing Guide Name Role Phone [facility] Ag MCFADDEN Primary Care Provider Un available Paul Razo Unavailable [phone] [place], [place] Unavailable Unavailable ALLERGIES Allergen (clinical drug ingredient) Drug/Non Drug Allergy documented on EMR Reaction Allergy Type Onset Date Status Substance with sulfonamide structure and antibacterial mechanism of action (substance) Sulfa Antibiotics Unknown Drug Allergy Active REASON FOR REFERRAL Reason Unspecified Abdomina l Pain/Eval for IBS Appointment on 01/12/2023 Referring Provider First Name Alon Mayau Referring Provider Last Name [place] Referring Provider [facility] Referred Organization [facility] Referred Provider Paul Razo Referred Address [address] [facility] [place],[address] Referred Provider Specialty Gastroentero logy Referral Priority [...] Constipation, unspecified constipation type (K59.00) Active confirmed 92289031 Problem Chronic obstructive pulmonary disease, unspecified COPD type (J44.9) Active confirmed 55232012 Problem Obesity, Class III, BMI 40-49.9 (morbid obesity) (E66.01) Active confirmed [id number] VITAL SIGNS Heart Rate 61 /min 01/12/2023 Temperature 97.1 degrees Fahrenheit 01/12/2023 Respiratory Rate 18 /min 01/12/2023 Height-cm 177.8 cm 01/12/2023 Oximetry 94 % 01/12/2023 Blood pressure diastolic 80 mm Hg 01/12/2023 Weight-kg 134.26 kg 01/12/2023 Height 70 in 01/12/2023 Blood pressure systolic 142 mm Hg 01/12/2023 Weight 296 lbs 01/12/2023 BMI 42.47 kg/m2 01/12/2023 Encounters Encounter Location Date Provider Diagnosis [facility] [address] [place] [address] 01/12/2023 Paul Razo Abdominal pain, LLQ R10.32 ; Constipation, unspecified constipation type K59.00 ; History of small bowel obstruction Z87.19 ; Obesity, Class III, BMI 40-49.9 (morbid obesity) E66.01 ; BMI 40.0-44.9, adult Z68.41 and Chronic obstructive pulmonary disease, unspecified COPD type J44.9 [facility] [address] [place] [address] 02/10/2023 Paul Razo [facility] [address] [place] [address] 02/22/2023 Paul Razo ASSESSMENTS Encounter Date Diagnosis Assessment Notes Treatment [...] End Date [employer] [address] [place] [address] [id number] Khoa Fallon Self - patient is the insured MEDICAL (GENERAL) HISTORY Medical History History ICD Code diabetes mellitus hernia hypertension hypotension hemorrhoids anxiety colonic polyps COPD GERD chronic pancreatitis sleep apnea depression Adrenal mass Small bowel obstruction Surgical History Surgery Date(Month/Year) cholecystectomy back surgery neck fusion Hospitalization History Reason Date(Month/Year) Constricted [place] [facility] [place]
--- NOTE | 2023-12-01 09:01 | ONCRAD TMN_ITS ---
Radiation Oncology Weekly Treatment Management Patient: Vasyl Meeks MR#: [id number] : 1950> Attending Physician: Dr. Alberta Garcia Date of Service: 12/01/2023 Fractions: 15 out of 28 Referring Physician(s) : Diagnosis: C61 - Malignant neoplasm of prostate, Diagnosed 09/21/2023 (Active) Radiotherapy to date: Course: Prostate 23n24, Treatment Site: Prostate 70Gy, Ref. ID: [id number], Energy: 15X, Dose/Fx (cGy): 250, #Fx: 15 / , Dose Correction (cGy): 0, Total Dose (cGy): 3,750, Start Date: 11/09/2023, Elapsed Days: 22 Reason for visit: The patient is being seen today as part of their regularly scheduled weekly on treatment visits to assess for acute toxicities from radiotherapy. Review of Systems: Patient is having dysuria prior to starting his stream. This is in the shaft of the penis. He has not been taking his Flomax. Vital Signs: Performed on 12/01/2023 8:19 AM BMI - 45.615 kg/m2 (high), Height - 68 in, Weight - 300 lbs, Temperature - 97.4 f, Pulse - 54 /min (low), Respiration - 18 /min, O2 Sat - 93 % (low), Pain - 4, Fatigue - 0 and BP - 134/ 76 mm(hg). Physical Exam: No changes on exam Imaging: Radiation therapy imaging related to accurate target localization (i.e. KV, MV and CBCT) was reviewed. Appropriate changes, if any, were made to ensure treatment accuracy. Plan: We talked today about going ahead and getting a UA with C&S if needed. He was in agreement with this. I also asked him to try starting his Flomax again. His daughter will give him some Azo once he is given his UA sample to help with the dysuria Signed by: Dr. Alberta Garcia 12/01/2023 9:00:30 AM
[2023-12-01 09:24] LABS: Add Urine Microscopic? NO; Charge for UA Resulting for Rev
[2023-12-01 09:42] LABS: Bilirubin Urine Neg (Negative); Blood Urine Neg (Negative); Glucose Urine UA Norm (Normal); Ketones Urine Negative (Negative); Leukocyte Esterase Urine Negative (Negative); Nitrate Urine Negative (Negative); Protein Urine Neg (Negative); Specific Gravity, Urine 1.015 (1.005-1.030); Urine Appearance Clear (CLEAR); Urine Color Yellow (Yellow); Urobilinogen Urine Norm (Negative); pH Urine 5 (5-7)
--- NOTE | 2023-12-07 08:42 | ONCRAD TMN_ITS ---
Radiation Oncology Weekly Treatment Management Patient: Khoa Fallon MR#: [id number] : 1950 Attending Physician: Gopal Henderson Date of Service: 12/07/2023 Referring Physician(s) : Diagnosis: C61 - Malignant neoplasm of prostate, Diagnosed 09/21/2023 (Active) Radiotherapy to date: Course: Prostate 23n24, Treatment Site: Prostate 70Gy, Ref. ID: [id number], Energy: 15X, Dose/Fx (cGy): 250, #Fx: , Dose Correction (cGy): 0, Total Dose (cGy): 4,750, Start Date: 11/09/2023, Elapsed Days: 28 Reason for visit: The patient is being seen today as part of their regularly scheduled weekly on treatment visits to assess for acute toxicities from radiotherapy. Review of Systems: Patient complains only of slight burning on urination. He reports that the burning is improved with the use of Azo. He notes mild fatigue and is on continuous oxygen by nasal cannula. Patient and his celebrated their 50th wedding anniversary last Wednesday. 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 Vital Signs: Performed on 12/07/2023 8:07 AM BMI - 45.706 kg/m2 (high), Height - 68 in, Weight - 300.6 lbs, Temperature - 97.7 f, Pulse - 62 /min, Respiration - 16 /min, O2 Sat - 92 % (low), Pain - 4, Fatigue - 6 and BP - 142/ 70 mm(hg)(high/). Physical Exam: Alert and oriented male. He is grossly obese. Patient is on continuous oxygen by nasal cannula. Patient ambulatory without assistance. Imaging: Radiation therapy imaging related to accurate target localization (i.e. KV, MV and CBCT) was reviewed. Appropriate changes, if any, were made to ensure treatment accuracy. Plan: Patient is tolerating radiation therapy well. Plan to continue prescribed treatment. I have recommended that he continue with the use of Azo and report any changes to our staff. Signed by: Gopal Henderson 12/07/2023 8:40:12 AM
== END 2023-12-08 23:59 | disposition home or self-care (01) ==
PROVIDERS: Radiology Radiation Oncology; PCP Emergency Medicine Emergency Medical Services; Visit Provider Radiology Radiation Oncology
DX: Z51.0 Encounter for antineoplastic radiation therapy (principal); C61 Malignant neoplasm of prostate
CPT/HCPCS: 77336; 77385; 81003; 99024

== ENCOUNTER 2023-12-20 07:35 | Oncology outpatient (recurring) (ONCR) | payer OTHER, SELFPAY ==
--- OUTSIDE RECORDS SUMMARY | 2023-12-09 07:37 | XMS_ITS | Patient Health Record ---
Author Name Unknown Organization [facility] Address [address] [place], [place] [id number] Care Team Providers Care Manager Bakery Name Role Phone Graham WAGON PERSON, Eleanor Primary Care Provider Hailee Wray MD, Ag Unavailable [phone] [place], [place] Unavailable Unavailable ALLERGIES Allergen (clinical drug ingredient) [...] disorders (F41.8) Active confirmed Anxiety disorde r ([id number]) Problem Obstructive sleep apnea (adult) (pediatric) (G47.33) Active confirmed Obstructive sle ep apnea syndrome (34428277) Problem Spinal stenosis, cervical region (M48.02) Active confirmed Spinal stenosis in cervical region (70257401) Problem Cervical disc disorder with radiculopathy, 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) Active confirmed Cervical radiculopathy (66975352) Problem Cervicalgia (M54.2) Active confirmed Cervicalgia (40849505) Problem 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) Active confirmed Long-term curre nt use of drug therapy (742151070) PLAN OF TREATMENT No Information Insurance Providers Payer Name Payer Address Payer Phone Subscriber Number Group Number Insured Name Patient Relationship to Insured Coverage Start Date Coverage End Date [employer] [address] [place] [address] [id number] Khoa Fallon Self - patient is the [...] Surgical History Surgery Date(Month/Year) Cholecystectomy, performed at [facility], 1999 Lumbar surgery, performed at [facility] in [place], [place], 2002 Removal of right 1st toenail, performed by ANDRIY Ayala, 03/14/21
--- OUTSIDE RECORDS SUMMARY | 2023-12-09 07:37 | XMS_ITS | Patient Health Record ---
Author Name Unknown Organization [facility] Address [address] [place] [address] Care Team Providers Care Brake Repairer Bus Name Role Phone [facility] Ag MCFADDEN Primary Care Provider Un available Paul Razo Unavailable [phone] [place], [place] Unavailable Unavailable ALLERGIES Allergen (clinical drug ingredient) Drug/Non Drug Allergy documented on EMR Reaction Allergy Type Onset Date Status Substance with sulfonamide structure and antibacterial mechanism of action (substance) Sulfa Antibiotics Unknown Drug Allergy Active REASON FOR REFERRAL Reason Unspecified Abdomina l Pain/Eval for IBS Appointment on 01/12/2023 Referring Provider First Name Alon Mayau Referring Provider Last Name AL Referring Provider [facility] Referred Organization [facility] Referred Provider Paul Razo Referred Address [address] [facility] [place],[address] Referred Provider Specialty Gastroentero logy Referral Priority [...] Constipation, unspecified constipation type (K59.00) Active confirmed 30299035 Problem Chronic obstructive pulmonary disease, unspecified COPD type (J44.9) Active confirmed 82768320 Problem Obesity, Class III, BMI 40-49.9 (morbid obesity) (E66.01) Active confirmed 000532195 VITAL SIGNS Heart Rate 61 /min 01/12/2023 Temperature 97.1 degrees Fahrenheit 01/12/2023 Respiratory Rate 18 /min 01/12/2023 Blood pressure diastolic 80 mm Hg 01/12/2023 Oximetry 94 % 01/12/2023 Height-cm 177.8 cm 01/12/2023 Weight-kg 134.26 kg 01/12/2023 Height 70 in 01/12/2023 Blood pressure systolic 142 mm Hg 01/12/2023 Weight 296 lbs 01/12/2023 BMI 42.47 kg/m2 01/12/2023 Encounters Encounter Location Date Provider Diagnosis [facility] [address] [place], [place] [address] 02/10/2023 Paul Razo [facility] [address] [place], [place] [address] 02/22/2023 Paul Razo [facility] [address] [place] [address] 01/12/2023 Paul Razo Abdominal pain, LLQ R10.32 [...] End Date [employer] [address] [place] [address] [id number] Khoa Fallon Self - patient is the insured MEDICAL (GENERAL) HISTORY Medical History History ICD Code diabetes mellitus hernia hypertension hypotension hemorrhoids anxiety colonic polyps COPD GERD chronic pancreatitis sleep apnea depression Adrenal mass Small bowel obstruction Surgical History Surgery Date(Month/Year) cholecystectomy back surgery neck fusion Hospitalization History Reason Date(Month/Year) Constricted bowel [facility] [place]
--- NOTE | 2023-12-14 08:44 | ONCRAD TMN_ITS ---
Radiation Oncology Weekly Treatment Management Patient: Khoa Fallon MR#: [id number] : 1950 Attending Physician: Dr. Alberta Garcia Date of Service: 12/14/2023 Fractions: 24 out of 28 to the prostate Referring Physician(s) : Dr. Ricky Krishnan Diagnosis: C61 - Malignant neoplasm of prostate, Diagnosed 09/21/2023 (Active) Radiotherapy to date: Course: Prostate 23n24, Treatment Site: Prostate 70Gy, Ref. ID: [id number], Energy: 15X, Dose/Fx (cGy): 250, #Fx: , Dose Correction (cGy): 0, Total Dose (cGy): 6,000, Start Date: 11/09/2023, Elapsed Days: 35 Reason for visit: The patient is being seen today as part of their regularly scheduled weekly on treatment visits to assess for acute toxicities from radiotherapy. Review of Systems: He continues to have some mild burning with urination and is using Azo for this. His stools continue to be soft. He is only getting up once per night Vital Signs: Performed on 12/14/2023 8:16 AM BMI - 45.615 kg/m2 (high), Height - 68 in, Weight - 300.0 lbs, Temperature - 97.5 f, Pulse - 48 /min (low), Respiration - 18 /min, O2 Sat - 96 %, Pain - 0, Fatigue - 5 and BP - 159/ 86 mm(hg)(high/). Physical Exam: Patient is in no apparent distress. He is sitting comfortably in his wheelchair. Imaging: Radiation therapy imaging related to accurate target localization (i.e. KV, MV and CBCT) was reviewed. Appropriate changes, if any, were made to ensure treatment accuracy. Plan: Will continue with his treatments as planned. He has 4 treatments remaining. We did talk about a follow-up in a month with his PSA. I also reviewed with him that his PSA will take up to 1 to 2 years to reach its new normal. Signed by: Dr. Alberta Garcia 12/14/2023 8:43:28 AM
--- NOTE | 2023-12-20 10:30 | N.ONRD TS_ITS ---
Radiation Oncology Treatment Summary Patient: Vasyl>Khoa> MR#: [id number] : 1950> Age: 73> Sex: Male Dictated by: Dr. Alberta Garcia Date of Service: 12/20/2023 Referring Physician(s) : Diagnosis: C61 - Malignant neoplasm of prostate, Diagnosed 09/21/2023 (Active) Radiotherapy to Date: Course: Prostate 23n24, Treatment Site: Prostate 70Gy, Ref. ID: [id number], Energy: 15X, Dose/Fx (cGy): 250, #Fx: , Dose Correction (cGy): 0, Total Dose Delivered (cGy): 7,000, Start Date: 11/09/2023, End Date: 12/20/2023, Elapsed Days: 41 Clinical Summary: The patient tolerated RT well. He had mild dysuria and frequency Plan: End of treatment today. Continue on the above medication until the skin reaction resolves. Follow up in one month. Signed by: Dr. Alberta Garcia>12/20/2023 10:28:54 AM <<Signature on File>>
== END 2024-01-06 23:59 | disposition home or self-care (01) ==
PROVIDERS: PCP Emergency Medicine Emergency Medical Services; Visit Provider Radiology Radiation Oncology
DX: Z51.0 Encounter for antineoplastic radiation therapy (principal); C61 Malignant neoplasm of prostate; R30.0 Dysuria; R35.0 Frequency of micturition
CPT/HCPCS: 77014; 77336; 77385; 99024

== ENCOUNTER 2024-01-17 08:54 | Oncology outpatient (recurring) (ONCR) | payer OTHER, SELFPAY ==
--- NOTE | 2024-01-17 10:54 | ONCRAD EPV_ITS ---
Radiation Oncology Established Patient Visit Patient: Vasyl Couch [id number] : 1950> Age: 73> Sex: Male> Account #: Dictated by: Gopal Henderson Date of Service: 01/17/2024 Referring Physician(s) : Diagnosis: C61 - Malignant neoplasm of prostate, Diagnosed 09/21/2023 (Active) Radiotherapy to Date: Course: Prostate 23n24, Treatment Site: Prostate 70Gy, Ref. ID: [id number], Energy: 15X, Dose/Fx (cGy): 250, #Fx: , Dose Correction (cGy): 0, Total Dose Delivered (cGy): 7,000, Start Date: 11/09/2023, End Date: 12/20/2023, Elapsed Days: 41 Current History: Patient is seen in follow-up today approximately 1 month after completion of radiation therapy for prostate carcinoma. Patient indicates he has started tamsulosin for his urinary symptoms. He notes slight burning prior to urination but denies dysuria urgency, or frequency. He has nocturia several times per night but indicates he is usually able to get back to sleep without difficulty. His primary complaint today is of fatigue. He utilizes a BiPAP machine nightly and is on oxygen by nasal cannula. 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 Current Medications: Allergies: Current Complaints / Review of Systems: . Vital Signs: Performed on 01/17/2024 9:07 AM BMI - 47.212 kg/m2 (high), Height - 68 in, Weight - 310.5 lbs, Temperature - 97.4 f, Pulse - 50 /min (low), Respiration - 16 /min, O2 Sat - 96 %, Pain - 4, Fatigue - 0 and BP - 157/ 88 mm(hg)(high/). Physical Exam: General: Alert and oriented x 3. No acute distress. HEENT: Normocephalic, atraumatic. Extraocular Movements Intact: Pupils Equal, Round, Reactive to Light and Accommodation: Sclerae anicteric. Oral cavity is clear without lesions, masses or ulcers. NECK: Supple without supraclavicular or jugular lymphadenopathy. LUNGS: Clear to auscultation bilaterally without rales, rhonchi or wheeze. Oxygen by nasal cannula. HEART: Regular rate and rhythm, normal S1 and S2 without murmur, gallop or rub. MUSCULOSKELETAL: No tenderness or percussion pain over the axial skeleton, scapulae or pelvis. ABDOMEN: Soft, nontender, nondistended without masses or organomegaly. Bowell sounds are present. EXTREMITIES: No peripheral edema is identified. Limited motor and sensory examination are grossly intact and symmetric bilaterally. NEUROLOGIC: Cranial nerves II ???XII are grossly intact. Normal sensation, strength 5/5 in all extremities, normal gait, no ataxia. Performance Status: ECOG 2 Lab: None pending. Pathology: Primary, c61 - malignant neoplasm of prostate, Diagnosed 09/21/2023 (active) . Imaging: See HPI Impression: Khoa Fallon is recovering from the acute effects of his external beam radiation therapy. He has the usual and expected treatment related side effects. He will be undergoing PSA today and will be notified of the results by phone. He has been instructed to continue follow-up with his urologist and primary care physician. He has also been instructed to contact our office if he has questions or concerns regarding his radiation therapy. Signed by: 01/17/2024 10:52:34 AM <<Signature on File>> Time spent with patient: 30 minutes CPT Code: CPT Code:
== END 2024-02-06 23:59 | disposition home or self-care (01) ==
PROVIDERS: Radiology Radiation Oncology; PCP Emergency Medicine Emergency Medical Services; Visit Provider Radiology Radiation Oncology
DX: C61 Malignant neoplasm of prostate (principal); Z08 Encounter for follow-up examination after completed treatment for malignant neoplasm; Z92.3 Personal history of irradiation
CPT/HCPCS: 36415; 84153; 99024

== ENCOUNTER 2024-03-22 07:37 | Outpatient (CLI) | payer OTHER, SELFPAY ==
[2024-03-22 08:42] LABS: Cortisol Random 3.58 ug/dL (2.47-19.5)
== END 2024-03-22 07:38 | disposition home or self-care (01) ==
LOC: LAB 07:37
PROVIDERS: PCP Emergency Medicine Emergency Medical Services; Visit Provider Internal Medicine
DX: E11.40 Type 2 diabetes mellitus with diabetic neuropathy, unspecified (principal); E27.8 Other specified disorders of adrenal gland
CPT/HCPCS: 36415; 82533

== ENCOUNTER → 2024-03-31 08:44 | Outpatient (BNVA) | payer OTHER, SELFPAY | PROVIDERS: PCP Emergency Medicine Emergency Medical Services; Visit Provider Internal Medicine | DX: E27.9 Disorder of adrenal gland, unspecified (principal); E27.8 Other specified disorders of adrenal gland; I10 Essential (primary) hypertension; C61 Malignant neoplasm of prostate; Z92.3 Personal history of irradiation | CPT/HCPCS: 99214 ==

== ENCOUNTER → 2024-04-18 09:18 | Outpatient (BNVA) | payer OTHER, SELFPAY | PROVIDERS: PCP Emergency Medicine Emergency Medical Services; Visit Provider Anesthesiology Pain Medicine | DX: M79.18 Myalgia, other site (principal); C61 Malignant neoplasm of prostate; M48.062 Spinal stenosis, lumbar region with neurogenic claudication; M47.816 Spondylosis without myelopathy or radiculopathy, lumbar region; M48.02 Spinal stenosis, cervical region; M47.812 Spondylosis without myelopathy or radiculopathy, cervical region | CPT/HCPCS: 20553; 99215; J1010; J3490 ==

== ENCOUNTER 2024-06-30 00:08 | Emergency (ER) | payer OTHER, MEDICARE, SELFPAY ==
[2024-06-30 00:09] VITALS: BP 129/98; PULSE 78; RESP 18; TEMP 38; O2SAT 95; BMI 46.3
--- NOTE | 2024-06-30 00:11 | XRR_ITS ---
PROCEDURE INFORMATION: Exam: XR Chest Exam date and time: 06/30/2024 12:45 AM Age: 74 years old Clinical indication: Shortness of breath TECHNIQUE: Imaging protocol: Radiologic exam of the chest. Views: 1 view. COMPARISON: CR XR chest 1V portable [id number] 02/09/2022 3:09 PM FINDINGS: Lungs: Unremarkable. No consolidation. Pleural spaces: Unremarkable. No pleural effusion. No pneumothorax. Heart/Mediastinum: Cardiomegaly. Diaphragm: Likely eventration of the right hemidiaphragm. Bones/joints: Post ACDF of the lower cervical spine. Moderate degenerative disease of bilateral glenohumeral joints. XR/XR chest 1V portable [id number] IMPRESSION: No acute cardiopulmonary process.
--- NOTE | 2024-06-30 00:15 | ECG_ITS ---
[facility] Test Date: 2024-06-30 Pat Name: Khoa Fallon Department: Room: Gender: Male Conference Services Director: : 1950 Requested By: Michael Knapp Order Number: [id number] Laura MD: Juice Garcia M.D. Measurements Intervals [place] Rate: 72 P: 0 ND: 185 QRS: -47 QRSD: 80 T: 63 QT: 354 QTc: 389 Interpretive Statements SINUS RHYTHM LOW QRS VOLTAGE IN PRECORDIAL LEADS [QRS DEFLECTION < 1.0 mV IN CHEST LEADS] INFERIOR MYOCARDIAL INFARCTION , PROBABLY OLD [40+ ms Q WAVE AND/OR ST/T ABNORMALITY IN II/aVF] ANTEROSEPTAL MYOCARDIAL INFARCTION , OF INDETERMINATE AGE [40+ ms Q WAVE IN V1-V4] Compared to ECG 01/31/2022 22:31:58 No significant changes Electronically Signed On 06-30-2024 11:28:54 CDT by Juice Garcia M.D. [email or web address]
--- NOTE | 2024-06-30 00:22 | ED_ITS ---
HPI - SOB/Dyspnea 2 General: Chief Complaint: Shortness of Breath/Dyspnea Stated Complaint: Gen Weakness, SOB Time Seen by Provider: 06/30/24 00:10 History of Present Illness: HPI Narrative: Who presents to the ER via [facility] for shortness of breath. Patient is has COVID. Tonight he was trying to get up and go to the bathroom because he became short of breath. He began to fall and lowered himself down to the ground. And he had did not have the strength to get up. Patient is normally on oxygen. When EMS got there his saturations was in the high 80s, they think he kinked his hose when he sat down on the ground. They unkinked it now he is in the mid 90s. Related Data Home Medications Medication Instructions Recorded Confirmed acetaminophen 500 mg tablet 500 - 1,000 mg PO QID PRN Pain 01/09/20 04/18/24 (Tylenol Extra Strength) aspirin 81 mg tablet,delayed 81 mg PO QAM 01/09/20 04/18/24 release (Adult Aspirin Regimen) ferrous sulfate 325 mg (65 mg 325 mg PO QAM 01/09/20 04/18/24 iron) tablet,delayed release gabapentin 600 mg tablet 600 mg PO TID 01/09/20 04/18/24 hydrochlorothiazide 25 mg tablet 50 mg PO QAM 01/09/20 04/18/24 metformin 500 mg tablet 500 mg PO BID 01/09/20 04/18/24 omeprazole 20 mg capsule,delayed 20 mg PO QAM 01/09/20 04/18/24 release sertraline 100 mg tablet 100 mg PO QAM 01/09/20 04/18/24 simvastatin 40 mg tablet 40 mg PO BEDTIME 01/09/20 04/18/24 nadolol 40 mg tablet 40 mg PO QAM 01/30/20 04/18/24 alprazolam 0.5 mg tablet (Xanax) 0.25 - 0.5 mg PO TID PRN Anxiety 11/10/21 04/18/24 cholecalciferol (vitamin D3) 125 125 mcg PO QAM 11/10/21 04/18/24 mcg (5,000 unit) tablet (Vitamin D3) losartan 50 mg tablet 50 mg PO QAM 11/10/21 04/18/24 multivitamin 1 tab PO QAM 11/10/21 04/18/24 lidocaine 5 % topical ointment 1 applic topical BEDTIME 02/09/22 04/18/24 prazosin 2 mg capsule 4 mg PO BEDTIME 02/09/22 04/18/24 dicyclomine 10 mg capsule 20 mg PO TID 10/28/22 04/18/24 Previous Rx's Medication Instructions Recorded methylprednisolone 4 mg tablets in See Rx Instructions PO PER PKG DIR 07/19/23 a dose pack #21 ea ondansetron 4 mg disintegrating 4 mg PO Q6H PRN nausea and 09/13/23 tablet vomiting #14 tabs dexamethasone 1 mg tablet 1 mg PO DAILY #1 tab 03/20/24 oxycodone-acetaminophen 5 mg-325 1 tab PO TID PRN pain 7 days #21 04/18/24 mg tablet tabs Allergies Allergy/AdvReac Type Severity Reaction Status Date / Time Sulfa (Sulfonamide Allergy Intermediate Unknown Verified 03/31/24 09:11 Antibiotics) pregabalin Allergy unknown Verified 03/31/24 09:11 Review of Systems 2 General: Reports: 10 or more systems reviewed and unremarkable except in HPI and below PFSH ED 2 PFSH: Medical History Hypoxia, sleep related Anemia Hiatal hernia Diverticulitis Esophagitis Gastritis Dyslipidemia Hypertension, benign Bilateral carpal tunnel syndrome Peripheral neuropathy Diabetes mellitus Cervical disc disorder with myelopathy of mid-cervical region Surgical History H/O esophagogastroduodenoscopy (03/25/22) Status post laparoscopic cholecystectomy H/O esophagogastroduodenoscopy Status post colonoscopy (03/25/22) Hx of cholecystectomy S/P hemilaminotomy (05/01/03) Left L4-L5 hemilaminotomy with microdiscectomy ;[place], [place] Family History Father Cancer Mother Diabetes CAD (coronary artery disease) Stroke Congestive heart failure (CHF) Other Hypertension Social History Smoking and tobacco/nicotine status: never used tobacco/nicotine Alcohol intake: former Year of sobriety/quit date alcohol: 1976 Substance/Drug Use: never Lives independently: Yes Household members: spouse Marital status: Current occupational status: retired Physical Exam 2 Const: COMMON NORMALS: no acute distress, average body habitus, patient oriented x3, no limitations, healthy appearing, alert and well nourished HENMT: COMMON NORMALS: normocephalic, atraumatic, hearing grossly normal bilaterally, external ears normal, Normal external nose present and moist oral mucous membranes HEAD & SCALP: normocephalic and atraumatic NOSE: Normal external nose present EXTERNAL EAR: Yes external ears normal Neck/C-Spine: COMMON NORMALS: no JVD Chest: COMMONS NORMALS: normal inspection of the chest and normal palpation of entire chest wall Resp: COMMON NORMALS: normal respiratory effort, No retractions, No use of accessory muscles and clear to auscultation bilaterally AUSCULTATION: clear to auscultation bilaterally Cardio: COMMON NORMALS: no JVD, regular rate, regular rhythm, S1 normal heart sound present, S2 normal heart sound present, No gallops present (Cardio), No clicks present (Cardio), No murmurs present (Cardio) and No rub (Cardio) R ATE: regular rate RHYTHM: regular rhythm HEART SOUNDS: S1 normal heart sound present and S2 normal heart sound present GI: COMMON NORMALS: Normal to inspection, nondistended, normoactive bowel sounds present, Soft to palpation, non-tender, No hepatosplenomegaly present and no masses PALPATION: Yes Soft to palpation and Yes No hepatosplenomegaly present Neuro: COMMON NORMALS: patient oriented x3 SENSORIUM/ORIENTATION: Yes alert Course 2 Vital Signs: Vital signs: Vital Signs Temperature 100.4 F H 06/30/24 00:09 Pulse Rate 78 06/30/24 00:09 Respiratory Rate 18 06/30/24 00:09 Blood Pressure 129/98 06/30/24 00:09 Pulse Oximetry 95 06/30/24 00:09 Oxygen Delivery Me thod Nasal Cannula 06/30/24 00:09 Oxygen Flow Rate 4 06/30/24 00:09 MDM - SOB/Dyspnea Medical Decision Making Lab work was reviewed which is essentially unremarkable, lactic acid was mildly elevated at 2.7 patient had his oxygen titrated back down to his home dose at 2.5 L in the His saturation about 96% or above. All this was discussed with the patient and patient will be discharged home. Patient is aware that if he needs to he can turn his oxygen up to approximately 4 L/min. Medical Records I reviewed the patient's medical records. Lab Data I reviewed the patient's lab results. 06/30/24 00:32 06/30/24 00:32 Labs/Radiology: Radiology Impressions Chest X-Ray 06/30/24 00:11 IMPRESSION: No acute cardiopulmonary process. Laboratory Results WBC 8.12 10^3/uL (3.29-11.43) 06/30/24 00:32 RBC 4.40 10^6/uL (3.85-5.65) 06/30/24 00:32 Hgb 13.10 g/dL (11.27-16.99) 06/30/24 00:32 Hct 39.8 % (37-53) 06/30/24 00:32 MCV 90.5 fl (82-101) 06/30/24 00:32 MCH 29.8 pg (27-33) 06/30/24 00:32 MCHC 32.9 g/dL (30-55) 06/30/24 00:32 RDW 12.8 % (12.1-15.1) 06/30/24 00:32 Plt Count 163 10^3/cmm (157-399) 06/30/24 00:32 MPV 9.7 fL (7.4-10.4) 06/30/24 00:32 Neut % (Auto) 86.9 % 06/30/24 00:32 Lymph % (Auto) 5.2 % 06/30/24 00:32 [place] % (Auto) 4.6 % 06/30/24 00:32 Eos % (Auto) 2.3 % 06/30/24 00:32 Baso % (Auto) 0.5 % 06/30/24 00:32 Neut # (Auto) 7.06 10^3/uL (1.8-7.7) 06/30/24 00:32 Lymph # (Auto) 0.4 10^3/uL (0.8-4.8) L 06/30/24 00:32 [place] # (Auto) 0.4 10^3/uL (0.2-0.9) 06/30/24 00:32 Eos # (Auto) 0.2 10^3/uL (0.0-0.8) 06/30/24 00:32 Baso # (Auto) 0.0 10^3/uL (0.0-0.1) 06/30/24 00:32 Nucleated RBC % (auto) 0 % 06/30/24 00:32 Nucleated RBCs # 0.0 /100WBC 06/30/24 00:32 Sodium 141 mmol/L (136-145) 06/30/24 00:32 Potassium 4.6 mmol/L (3.5-5.1) 06/30/24 00:32 Chloride 99 mmol/L (98-107) 06/30/24 00:32 Anion Gap 15.6 (5-19) 06/30/24 00:32 BUN 14 mg/dL (8-23) 06/30/24 00:32 Creatinine 1.2 mg/dL (0.7-1.2) 06/30/24 00:32 GFR Calculation Not Reportable 06/30/24 00:32 Lactic Acid 2.7 mmol/L (0.5-2.2) H 06/30/24 00:32 Calcium 8.9 mg/dL (8.5-10.5) 06/30/24 00:32 Total Bilirubin 0.5 mg/dL (0.15-1.2) 06/30/24 00:32 AST 20 U/L (0-40) 06/30/24 00:32 ALT 12 U/L (0-41) 06/30/24 00:32 Alkaline Phosphatase 65 U/L (40-130) 06/30/24 00:32 Total Protein 6.7 g/dL (6.6-8.7) 06/30/24 00:32 Albumin 4.0 g/dL (3.5-5.2) 06/30/24 00:32 Globulin 2.7 g/dL (1.3-4.6) 06/30/24 00:32 Procalcitonin 0.15 ng/mL (0-0.5) 06/30/24 00:32 TSH 1.33 uIU/mL (0.27-4.20) 06/30/24 00:32 Influenza Type A Ag Negative (Negative) 06/30/24 00:22 Influenza Type B Ag Negative (Negative) 06/30/24 00:22 SARS-CoV-2 Ag (Rapid) positive (Negative) H 06/30/24 00:22 All radiology interpretation(s) finalized by discharge Discharge Plan Discharge Patient Disposition: Home Clinical Impression: COVID Fever Qualifiers: Fever type: unspecified Qualified Code(s): R50.9 - Fever, unspecified Condition: Stable Prescriptions: No Action sertraline 100 mg tablet 100 mg PO QAM acetaminophen [Tylenol Extra Strength] 500 mg tablet 500 - 1,000 mg PO QID PRN (Reason: Pain) ferrous sulfate 325 mg (65 mg iron) tablet,delayed release (DR/EC) 325 mg PO QAM aspirin [Adult Aspirin Regimen] 81 mg tablet,delayed release (DR/EC) 81 mg PO QAM omeprazole 20 mg capsule,delayed release(DR/EC) 20 mg PO QAM hydrochlorothiazide 25 mg tablet 50 mg PO QAM gabapentin 600 mg tablet 600 mg PO TID simvastatin 40 mg tablet 40 mg PO BEDTIME metformin 500 mg tablet 500 mg PO BID nadolol 40 mg tablet 40 mg PO QAM dicyclomine 10 mg capsule 20 mg PO TID methylprednisolone 4 mg tablets,dose pack See Rx Instructions PO PER PKG DIR Qty: 21 0RF Rx Instructions: PO PER PKG DIR oxycodone-acetaminophen 5-325 mg tablet 1 tab PO TID PRN (Reason: pain) 7 Days Qty: 21 0RF Rx Instructions: not to be taken with other opioids, benzodiazepines or alcohol. dexamethasone 1 mg tablet 1 mg PO DAILY Qty: 1 0RF Rx Instructions: take tab at 11:00pm multivitamin Tablet 1 tab PO QAM losartan 50 mg tablet 50 mg PO QAM alprazolam [Xanax] 0.5 mg tablet 0.25 - 0.5 mg PO TID PRN (Reason: Anxiety) cholecalciferol (vitamin D3) [Vitamin D3] 125 mcg (5,000 unit) Tablet 125 mcg PO QAM ondansetron 4 mg tablet,disintegrating 4 mg PO Q6H PRN (Reason: nausea and vomiting) Qty: 14 0RF prazosin 2 mg Capsule 4 mg PO BEDTIME lidocaine 5 % Ointment 1 applic topical BEDTIME Rx Instructions: apply to feet and legs at bedtime Discharge Orders: Discharge ED (Routine); Ordered 06/30/24 Ordered By: Michael Knapp Referrals: Barbara Lyon MD [Primary Care Provider] - 1 week Patient Instructions: COVID-19 (Coronavirus Disease 2019) (ED), Fever - Adult Activity Restrictions/Additional Instructions: You are diagnosed with COVID in the ER. Treatment of this is treatment of the symptoms. Please continue to take Tylenol [id number] as needed as directed for fever control. Please continue to use your home oxygen at your normal settings, please feel free to raise it up to 4 L/min if needed. If you need to go above 4 L/min you may need to be reevaluated in the ER. Otherwise follow-up with your family practice doctor in the next 7 to 10 days for further evaluation and treatment. Coding Level of Care Code ED Sand Screener for Nia Pinedo
[2024-06-30 00:40] LABS: Basophils % 0.5 %; Eosinophils # 0.2 10^3/uL (0.0-0.8); Eosinophils % 2.3 %; Hematocrit 39.8 % (37-53); Lymphocytes # 0.4 10^3/uL (0.8-4.8); Lymphocytes % 5.2 %; Mean Corpuscular HGB Conc 32.9 g/dL (30-55); Mean Corpuscular Hemoglobin 29.8 pg (27-33); Mean Corpuscular Volume 90.5 fl (82-101); Mean Platelet Volume 9.7 fL (7.4-10.4); Monocytes # 0.4 10^3/uL (0.2-0.9); Monocytes % 4.6 %; Neutrophils # 7.06 10^3/uL (1.8-7.7); Neutrophils % 86.9 %; Nucleated Red Blood Cells % 0 %; Platelet Count 163 10^3/cmm (157-399); Red Cell Distribution Width 12.8 % (12.1-15.1); White Blood Count 8.12 10^3/uL (3.29-11.43)
[2024-06-30 01:01] LABS: Lactic Sepsis W/Reflex 2.7 mmol/L (0.5-2.2)
[2024-06-30 01:09] LABS: Influenza A by IFA Negative (Negative)
[2024-06-30 01:10] LABS: Influenza B by IFA Negative (Negative)
[2024-06-30 01:11] LABS: SARS Covid-2 Antigen positive (Negative)
[2024-06-30 01:12] LABS: Procalcitonin 0.15 ng/mL (0-0.5); Thyroid Stimulating Hormone 1.33 uIU/mL (0.27-4.20)
[2024-06-30 01:23] LABS: Alanine Aminotransferase 12 U/L (0-41); Alkaline Phosphatase 65 U/L (40-130); Anion Gap 15.6 (5-19); Aspartate Amino Transferase 20 U/L (0-40); Blood Urea Nitrogen 14 mg/dL (8-23); Calcium 8.9 mg/dL (8.5-10.5); Carbon Dioxide 31 mmol/L (22-29); Chloride 99 mmol/L (98-107); Creatinine Clr Calc Pharmacy 71.3914; Globulin 2.7 g/dL (1.3-4.6); Glucose 158 mg/dL (65-115); Osmolality Calculated 296 mOsm/kg (285-295); Potassium 4.6 mmol/L (3.5-5.1); Sodium 141 mmol/L (136-145); Total Bilirubin 0.5 mg/dL (0.15-1.2); Total Protein 6.7 g/dL (6.6-8.7)
[2024-06-30] MEDS: acetaminophen 500 mg Tablet 1000 MG PO (01:31)
[2024-06-30 02:26] LABS: Reflex Lactate Order REFLEX LACTIC ORDERD
== END 2024-06-30 02:22 | disposition home or self-care (01) ==
PROVIDERS: Emergency Provider Emergency Medicine; PCP Family Medicine
DX: U07.1 COVID-19 (principal); R50.9 Fever, unspecified; Z79.82 Long term (current) use of aspirin; E78.5 Hyperlipidemia, unspecified; I10 Essential (primary) hypertension; E11.42 Type 2 diabetes mellitus with diabetic polyneuropathy
CPT/HCPCS: 36415; 71045; 80053; 83605; 84145; 84443; 85025; 87426; 87804; 93005; 99285

== ENCOUNTER 2024-08-04 09:27 | Outpatient (CLI) | payer OTHER, SELFPAY ==
[2024-08-04 10:15] LABS: Prostate Specific Antigen 0.625 ng/mL (0-4)
== END 2024-08-04 09:28 | disposition home or self-care (01) ==
LOC: LAB 09:29
PROVIDERS: PCP Family Medicine; Visit Provider Urology
DX: C61 Malignant neoplasm of prostate (principal)
CPT/HCPCS: 36415; 84153

== ENCOUNTER 2024-09-08 08:06 | Oncology outpatient (recurring) (ONCR) | payer OTHER, SELFPAY ==
--- OUTSIDE RECORDS SUMMARY | 2024-09-08 08:08 | XMS_ITS ---
Author Name Unknown Organization [facility] Address [address] [place] [address] Care Team Providers Care Vacuum Kettle Cook Name Role Phone [facility] Ag MCFADDEN Primary Care Provider Un available Ricky Krishnan Unavailable [phone] [place], [place] Unavailable Unavailable REASON FOR VISIT Appt needed Encounters Encounter Location Date Provider Diagnosis [facility] [address] [facility] [address] [place] [address] 07/27/2024 Ricky Krishnan Plan Of Treatment Next Appt Details Provider Name:Ghada Gunn, 09/11/2024 08:30:00 AM, [address], [facility] [address], [place], [address], Progress Notes * Khoa ROCK IDOB:1950 (74 yo M)Acc No.[id number]:07/27/2024 Patient:?Khoa ROCK I :1950???Age:74 Y???Sex:Male Address:[address] [place] [address] [place] [address] * true * Date:? Generated for Akilah avendano/Alcon/eTransmitting on:?09/08/2024 08:08 AM CDT
--- OUTSIDE RECORDS SUMMARY | 2024-09-08 08:08 | XMS_ITS ---
Author Name Unknown Organization [facility] Address [address] [place] [address] Care Team Providers Care Dialysis Social Worker Name Role Phone [facility] Ag MCFADDEN Primary Care Provider Un available Ricky Krishnan Unavailable [phone] [place], [place] Unavailable Unavailable Allergies Allergen (clinical drug ingredient) Drug/Non Drug Allergy documented on EMR Reaction Allergy Type Onset Date Status Substance with sulfonamide structure and antibacterial mechanism of action (substance) Sulfa Antibiotics Unknown Drug Allergy Active REASON FOR VISIT f/u for history of malignant neoplasm of prostate Medications Medication SIG (Take, Route, Frequency, Duration) Notes Start Date End Date Status Sertraline HCl 100 MG 1 tablet Orally Once a day Active Prazosin HCl 2 MG 2 capsules at bedtime Orally Once a day Active Omeprazole 20 MG 1 capsule 30 minutes before morning meal Orally Once a day Active Tamsulosin HCl 0.4 MG 1 capsule Orally Once a day Active Simvastatin 40 MG 1 tablet in the evening Orally Once a day Active Nadolol 40 MG 1 tablet Orally Once a day Active Multi Complete - as directed Orally KEVIN Active metFORMIN HCl 500 MG 1 tablet with a meal Orally Twice a day Active Losartan Potassium 50 MG 1 tablet Orally Once a day Active Lidocaine 5 % 1 application as needed Externally Twice a day Active Gabapentin 300 MG 1 capsule Orally Three times a day Active ferrous sulfate 325 MG Oral Tablet ORAL *Reorder from [facility] for eRx and Interaction Alerts* 08/18/2023 Active Docusate Sodium 100 MG 1 capsule as needed Orally Three times a day Active Iron 325 (65 Fe) MG 1 tablet Orally Once a day Active hydroCHLOROthiazide 25 MG 1 tablet in e morning Orally Twice a day Active Dicyclomine HCl 10 MG 2 capsules Orally Four times a day Active cholecalciferol 0.125 MG Oral Tablet ORAL *Reorder from [employer] for eRx and Interaction Alerts* 08/18/2023 Active Calcium Polycarbophil 625 MG 2 tablets as needed Orally PRN Active Aspirin 81 81 MG Oral 08/18/2023 Ac tive Aspir-81 Active ALPRAZolam 0.5 MG 1 tablet Orally Three times a day Active Problems Problem Type SNOMED Code ICD Code Onset Dates Problem Status W/U Status Risk Notes Problem Adenocarcinoma of prostate (872074122) Adenocarcinoma of prostate (C61) Active confirmed Problem Kidney stone (40095588) Left nephrolithiasis (N20.0) Active confirmed Vital Signs Temperature 97.6 degrees Fahrenheit 08/01/20 Blood pressure systolic 149 mm Hg 08/01/20 Blood pressure diastolic 96 mm Hg 024 Heart Rate 51 /min 08/01/2024 Height 60.00 in 08/01/2024 Weight 306.4 lbs 08/01/2024 BMI 59.83 kg/m2 08/01/2024 Height-cm 152.40 cm 08/01/2024 Weight-kg 138.98 kg 08/01/2024 Encounters Encounter Location Date Provider Diagnosis [facility] [address] [place] [address] [address] 08/01/2024 Ricky Krishnan Adenocarcinoma of prostate C61 ; Left nephrolithiasis N20.0 ; Adrenal neoplasm D49.7 and Pelvic pain R10.2 Assessments Encounter Date Diagnosis (ICD Code) Assessment Notes Treat ment Notes Treatment Clinical Notes 08/01/2024 Adenocarcinoma of prostate (ICD-10 - C61) 08/01/2024 Left nephrolithiasis (ICD-10 - N20.0) 08/01/2024 Adrenal neoplasm (ICD-10 - D49.7) 08/01/2024 Pelvic pain (ICD-10 - R10.2) 08/01/2024 Other Next available with nurse practitioner psa in 1-[address] abd/pelvis without iv contrast for pelvic pain and nephrolithiasis. endocrinology is following his right adrenal lesion. patient did not give us a urine sample. a cup was given but he brought it out of the bathroom empty per nursing. check UA next visit Plan Of Treatment Treatment Notes Assessment Notes Other Next available with nurse practitioner psa in 1-[address] abd/pelvis without iv contrast for pelvic pain and nephrolithiasis. endocrinology is following his right adrenal lesion. patient did not give us a urine sample. a cup was given but he brought it out of the bathroom empty per nursing. check UA next visit Next Appt Details Provider Name:Ghada Gunn, 09/11/2024 08:30:00 AM, [address] , [place] [address], [place], [address], Progress Notes * Khao ROCK IDOB:1950 (74 yo M)Acc No.[id number]:08/01/2024 Progress Notes Patient:?Khoa ROCK I Provider:?Ricky Krishnan MD :1950???Age:74 Y???Sex:Male Moises e:08/01/2024 Address:[address] [place], [place] [id number] [facility] Check In:03:24 PM CSTCheck O ut:04:05 PM MELON PACKER Subjective: * Chief Complaints: * ???1. F/u for history of mal ignant neoplasm of prostate. * HPI: ???::?Chief complaint is prostate cancer, left nephrolithiasis, and right adrenal nodule.. He was referred to radiation oncology in [place]. He has been followed by Endocrinology For adrenal nodule. He has an MRI scheduled in September at [facility] for this. ?Alin Chaparro endocrinology is following this. ?He completed EBRT 12/20/23. ?He has not seen anyone since then. ?He is having problems voiding. ?He is taking tamsulosin. ?He has pain in his scrotum. ?No swelling or redness. ?He has pelvic and bone pain per his daughter. ?This has been occurring for months. ?He is having lower back pain. . ? he is having multi complaints since having covid one month month. * ROS:?General - Multi System:?Constitutional?Denies, fever, chills,.? * Medical History:?Diabetes me llitus, Hernia, Hypertension, Hypotension, Hemorrhoids, Anxiety, Colonic polyps, COPD, GERD, Chronic pancreatitis, Sleep apnea, Depression, Adrenal mass, Small bowel obstruction, COVID. * Surgical History:?cholecyste ctomy , back surgery , neck fusion . * Hospitalization/Major Diagno stic Procedure:?Constricted bowel [facility] 2021. * Family History:?Father: dece ased 73 yrs, cancer.?Mother: 80 yrs, CHF.?Siblings: , 45, 73, 84, 78, 77.? * Social History:?Tobacco - Daily dipper Alcohol - none for 40 years Caffeine - daily coffee 2 cups. * Medications:?Taking ALPRAZol am 0.5 MG Tablet 1 tablet Orally Three times a day , Taking Aspir-81 , Taking Aspirin 81 81 MG Tablet Delayed Release Oral , Taking Calcium Polycarbophil 625 MG Tablet 2 tablets as needed Orally PRN , Taking cholecalciferol 0.125 MG Oral Tablet ORAL , Notes to Pharmacist: *Reorder from [facility] for eRx and Interaction Alerts*, Taking Dicyclomine HCl 10 MG Capsule 2 capsules Orally Four times a day , Taking Docusate Sodium 100 MG Capsule 1 capsule as needed Orally Three times a day , Taking ferrous sulfate 325 MG Oral Tablet ORAL , Notes to Pharmacist: *Reorder from [facility] for eRx and Interaction Alerts*, Taking Gabapentin 300 MG Capsule 1 capsule Orally Three times a day , Taking hydroCHLOROthiazide 25 MG Tablet 1 tablet in the morning Orally Twice a day , Taking Iron 325 (65 Fe) MG Tablet 1 tablet Orally Once a day , Taking Lidocaine 5 % Ointment 1 application as needed Externally Twice a day , Taking Losartan Potassium 50 MG Tablet 1 tablet Orally Once a day , Taking metFORMIN HCl 500 MG Tablet 1 tablet with a meal Orally Twice a day , Taking Multi Complete - Capsule as directed Orally KEVIN , Taking Nadolol 40 MG Tablet 1 tablet Orally Once a day , Taking Omeprazole 20 MG Capsule Delayed Release 1 capsule 30 minutes before morning meal Orally Once a day , Taking Prazosin HCl 2 MG Capsule 2 capsules at bedtime Orally Once a day , Taking Sertraline HCl 100 MG Tablet 1 tablet Orally Once a day , Taking Simvastatin 40 MG Tablet 1 tablet in the evening Orally Once a day , Taking Tamsulosin HCl 0.4 MG Capsule 1 capsule Orally Once a day , Medication List reviewed and reconciled with the patient * Allergies:?Sulfa Antibiotics . Objective: * Vitals:?Ht: 60.00 in, Wt:306 .4lbs, Wt-k.98 kg, BMI:59.83Index, Temp:97.6F, BP:149/96mm Hg, HR:51/min, Ht-cm: 152.40 cm. * Examination: ???General Examination: ?GENERAL APPEARANCE:?pleasant, in no acute distress.?HEAD:?normocephalic.?LUNGS:?normal respiratory effort..?PSYCH:?alert, oriented, affect normal..?Genitourinary - Male: ?GENERAL APPEARANCE:?Penis: Normal.? No lesions or plaques on glans or shaft.? Meatus is normal ?Scrotum: Skin is normal.Testes: Descended bilateral symmetric without masses.Epididymis: Normal bilaterally without masses..? Assessment: * Assessment: 1.?Adenocarcinoma of prostat e - C61 (Primary)???2.?Left nephrolithiasis - N20.0???3.?Adrenal neoplasm - D49.7???4.?Pelvic pain - R10.2??? Plan: * Treatment: * Billing Information: * Visit Code:? 60231 Office Visit, Est Pt., Level 4. * Procedure Codes:? * Sign off status: Completed true * Provider:?Ricky Krishnan MD Date:?07/10 Generated for Akilah avendano/Alcon/Alexisitting on:?09/08/2024 08:08 AM CDT History and Physical Notes * Examination Category Sub-Category Detail Notes Genitourinary - Male GENERAL APPEARANCE: Penis: Normal. No lesions or plaques on glans or shaft. Meatus is normal Scrotum: Skin is normal.Testes: Descended bilateral symmetric without masses.Epididymis: Normal bilaterally without masses. General Examination GENERAL APPEARANCE: pleasant , in no acute distress HEAD: normocephalic LUNGS: normal respiratory e ffort. PSYCH: alert, oriented, aff ect normal.
--- OUTSIDE RECORDS SUMMARY | 2024-09-08 08:08 | XMS_ITS ---
Author Name Unknown Organization [facility] Address [address] [place] [address] Care Team Providers Care Dictaphone Technician Name Role Phone [facility] Ag MCFADDEN Primary Care Provider Un available Ricky Krishnan Unavailable [phone] [place], [place] Unavailable Unavailable Results Component Value Reference Range Notes CT Abdomen, Pelvis w/o Contr [id number] Reviewed date:08/06/2024 09:36:00 AM Interpretation: Performing Lab: Notes/Report: [id number] [id number] &org=iSit e Encounters Encounter Location Date Provider Diagnosis [facility] [address] [facility] [address] [place] [address] 08/01/2024 Ricky Krishnan Left nephrolithiasis N20.0 ; Pelvic pain R10.2 and Malignant neoplasm of prostate C61 Assessments Encounter Date Diagnosis (ICD Code) Assessment Notes Treat ment Notes Treatment Clinical Notes 08/01/2024 Left nephrolithiasis (ICD-10 - N20.0) 08/01/2024 Pelvic pain (ICD-10 - R10.2) 08/01/2024 Malignant neoplasm o f prostate (ICD-10 - C61) Plan Of Treatment Pending Test Test Name Order Date PSA Diagnostic--[id number] 08/01/2024 Next Appt Details Provider Name:Ghada Gunn, 09/11/2024 08:30:00 AM, [address], [place], [address], Progress Notes * Khoa ROCK IDOB:1950 (74 yo M)Acc No.[id number]:08/01/2024 Patient:?Khoa ROCK I :1950???Age:74 Y???Sex:Male Address:[address] [place] [address] [place] [address] Subjective: * Chief Complaints: * ??? * Medical History:? * Surgical History:? * Hospitalization/Major Diagno stic Procedure:? * Medications:? Objective: * Vitals:? * Physical Examination:? Assessment: * Assessment: 1.?Left nephrolithiasis - N2 0.0???2.?Pelvic pain - R10.2???3.?Malignant neoplasm of prostate - C61??? Plan: * Treatment: 2.?Pelvic pain?Imaging: CT Abdomen, Pelvis w/o Contrast-[id number]* Malika Doe 08/01/2024 04 :04:12 PM CDT > To be completed no later than 10/05/2024. Thank you! 3.?Malignant neoplasm of prostate?LAB: PSA Diagnostic--[id number]* Malika Doe 08/01/2024 04 :05:13 PM CDT > To be completed in 1-2 weeks. * Procedure Codes:? * true * Date:? Generated for Akilah avendano/Alcon/eTransmitting on:?09/08/2024 08:08 AM CDT
--- OUTSIDE RECORDS SUMMARY | 2024-09-08 08:09 | XMS_ITS | Patient Health Record ---
Author Name Unknown Organization [facility] Address [address] [place] [address] Care Team Providers Care Commission Sales Associate Name Role Phone [facility] Ag MCFADDEN Primary Care Provider Un available Ricky Krishnan Unavailable [phone] [place], [place] Unavailable Unavailable Migration, Provider Unavailable Unavailable Allergies Allergen (clinical drug ingredient) Drug/Non Drug Allergy documented on EMR Reaction Allergy Type Onset Date Status Substance with sulfonamide structure and antibacterial mechanism of action (substance) Sulfa Antibiotics Unknown Drug Allergy Active Results Component Value Reference Range Notes CT Abdomen, Pelvis w/o Contr [id number] Reviewed date:08/06/2024 09:36:00 AM Interpretation: Performing Lab: Notes/Report: [id number]=[id number]&org=iSite tss=[id number]&org=iSite CT Abdomen, Pelvis w/o Contr [id number] Reviewed date:08/10/2024 02:13:32 PM Interpretation: Performing Lab: Notes/Report: See Below For Report CT Abdomen, Pelvis w/o Contrast Diagnosis Description: Calculus of kidney Read See Below For Report Reason For Referral Reason history of malignant neoplasm of prostate Referring Provider [facility] Referring Provider Last Name [place] Referring Provider [facility] Referred Organization [facility] Referred Provider Ricky Krishnan Referred Address [address],[place],[address], Referred Provider Specialty Urology Referral Priority Routine Medications Medication SIG (Take, Route, Frequency, Duration) Notes Start Date End Date Status Gabapentin 300 MG 1 capsule Orally Three times a day Active ferrous sulfate 325 MG Oral Tablet ORAL *Reorder from [facility] for eRx and Interaction Alerts* 08/18/2023 Active Sertraline HCl 100 MG 1 tablet Orally Once a day Active Docusate Sodium 100 MG 1 capsule as needed Orally Three times a day Active Prazosin HCl 2 MG 2 capsules at bedtime Orally Once a day Active Dicyclomine HCl 10 MG 2 capsules Orally Four times a day Active Omeprazole 20 MG 1 capsule 30 minutes before morning meal Orally Once a day Active cholecalciferol 0.125 MG Oral Tablet ORAL *Reorder from [facility] for eRx and Interaction Alerts* 08/18/2023 Active Nadolol 40 MG 1 tablet Orally Once a day Active Calcium Polycarbophil 625 MG 2 tablets as needed Orally PRN Active Multi Complete - as directed Orally KEVIN Active Aspirin 81 81 MG Oral 08/18/2023 Ac tive metFORMIN HCl 500 MG 1 tablet with a meal Orally Twice a day Active Aspir-81 Active Losartan Potassium 50 MG 1 tablet Orally Once a day Active ALPRAZolam 0.5 MG 1 tablet Orally Three times a day Active Lidocaine 5 % 1 application as needed Externally Twice a day Active Iron 325 (65 Fe) MG 1 tablet Orally Once a day Active hydroCHLOROthiazide 25 MG 1 tablet in th e morning Orally Twice a day Active Tamsulosin HCl 0.4 MG 1 capsule Orally Once a day Active Simvastatin 40 MG 1 tablet in the evening Orally Once a day Active Problems Problem Type SNOMED Code ICD Code Onset Dates Problem Status W/U Status Risk Notes Problem 59708681 Constipation, unspecified constipation type (K59.00) Active confirmed Problem 78388586 Chronic obstructive pulmonary disease, unspecified COPD type (J44.9) Active confirmed Problem Adenocarcinoma of prostate (598412682) Adenocarcinoma of prostate (C61) Active confirmed Problem 412150491 Obesity, Class III, BMI 40-49.9 (morbid obesity) (E66.01) Active confirmed Problem Kidney stone (00982462) Left nephrolithiasis (N20.0) Active confirmed Problem Malignant tumor of prostate (427655755) Malignant neoplasm of prostate (C61) 10/21/20 23 Active confirmed Vital Signs Heart Rate 51 /min 08/01/2024 Temperature 97.6 degrees Fahrenheit 08/01/2024 Blood pressure diastolic 96 mm Hg 08/01/2024 Height-cm 152.40 cm 08/01/2024 Weight-kg 138.98 kg 08/01/2024 Height 60.00 in 08/01/2024 Blood pressure systolic 149 mm Hg 08/01/2024 Weight 306.4 lbs 08/01/2024 BMI 59.83 kg/m2 08/01/2024 Encounters Encounter Location Date Provider Diagnosis Migrated_Facility 0 0 04/29/2024 Provider Migration Migrated_Facility 0 0 04/30/2024 Provider Migration [facility] [address] [place] [address] 07/05/2024 [facility] [address] [place] [address] 07/27/2024 Ricky Moreirasay [facility] [address] [place] [address] [address] [place] [address] 08/01/2024 Ricky Krishnan Left nephrolithiasis N20.0 ; Pelvic pain R10.2 and Malignant neoplasm of prostate C61 [facility] [address] [place] [address] 08/01/2024 Ricky Krishnan Adenocarcinoma of prostate C61 ; Left nephrolithiasis N20.0 ; Adrenal neoplasm D49.7 and Pelvic pain R10.2 Migrated_Facility 0 0 09/21/2023 Provider Migration Migrated_Facility 0 0 09/28/2023 Provider Migration Migrated_Facility 0 0 10/19/2023 Provider Migration Assessments Encounter Date Diagnosis (ICD Code) Assessment Notes Treat ment Notes Treatment Clinical Notes 08/01/2024 Adenocarcinoma of prostate (ICD-10 - C61) 08/01/2024 Left nephrolithiasis (ICD-10 - N20.0) 08/01/2024 Left nephrolithiasis (ICD-10 - N20.0) 08/01/2024 Pelvic pain (ICD-10 - R10.2) 08/01/2024 Adrenal neoplasm (ICD-10 - D49.7) 08/01/2024 Malignant neoplasm o f prostate (ICD-10 - C61) 08/01/2024 Pelvic pain (ICD-10 - R10.2) 08/01/2024 [...] check UA next visit Plan Of Treatment Pending Test Test Name Order Date PSA Diagnostic--[id number] 08/01/2024 Next Appt Details Provider Name:Ghada Gunn, 09/11/2024 08:30:00 AM, [address] , [facility] [address], [place], [address], Insurance Providers Payer Name Payer Address Payer Phone Subscriber Number Group Number Insured Name Patient Relationship to Insured Coverage Start Date Coverage End Date [employer] [address] [place] [address] [id number] Khoa Fallon Self - patient is the insured Medical (General) History Medical History History ICD Code diabetes mellitus hernia hypertension hypotension hemorrhoids anxiety colonic polyps COPD GERD chronic pancreatitis sleep apnea depression Adrenal mass Small bowel obstruction COVID Surgical History Surgery Date(Month/Year) neck fusion back surgery cholecystectomy Hospitalization History Reason Date(Month/Year) Constricted bowel [facility] 2021
--- OUTSIDE RECORDS SUMMARY | 2024-09-08 08:09 | XMS_ITS | Patient Health Record ---
Author Name Unknown Organization [facility] Address [address] [place], [place] [id number] Care Team Providers Care Search Engine Optimization Strategist Name Role Phone Graham PIT RECORDER, Eleanor Primary Care Provider Hailee Wray MD, Ag Unavailable [phone] [place], [place] Unavailable Unavailable Allergies Allergen (clinical drug ingredient) Drug/Non Drug Allergy documented on EMR Reaction Allergy Type Onset Date Status sulfa drugs (uncoded) Unknown Allergy Active Reason For Referral No Information Medications Medication SIG (Take, Route, Frequency, Duration) [...] orally once a day (at bedtime) Active Social History Tobacco Use: Social History Observation Description Date Details (start date - stop date) Former Smoker NA - NA alcohol Question Answer Notes Did you have a drink containing alcohol in the p ast year? No Points 0 Interpretation Negative Tobacco use: Question Answer Notes Additional Findings: Tobacco User Chews tobacco 1 can per day : former smoker How long has it been since you last smoked? 1-5 years Problems Problem Type SNOMED Code ICD Code Onset Dates Problem Status W/U Status Risk Notes Problem Anxiety disorder (845753892) Other specified anxiety disorders (F41.8) Active confirmed Problem Obstructive sleep apnea syndrome (53808405) Obstructive sleep apnea (adult) (pediatric) (G47.33) Active confirmed Problem Spinal stenosis in cervical region (01832539) Spinal stenosis, cervical region (M48.02) Active confirmed Problem Cervical radiculopathy (05525788) Cervical disc disorder with radiculopathy, 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) Active confirmed Problem Cervicalgia (70485148) Cervicalgia (M54.2) Active confirmed Problem Long-term current use of drug therapy (020461938) Other alf (current) drug therapy (Z79.899) Active confirmed Plan Of Treatment No Information Insurance Providers Payer Name Payer Address Payer Phone Subscriber Number Group Number Insured Name Patient Relationship to Insured Coverage Start Date Coverage End Date [employer] [address] [place] [id number] Khoa Fallon Self - patient is the insured Medical (General) History Medical History History ICD Code Neck pain [...] Surgical History Surgery Date(Month/Year) Cholecystectomy, performed at [facility], 1999 Lumbar surgery, performed at [facility] in [place], [place], 2002 Removal of right 1st toenail, performed by ANDRIY Ayala, 03/14/21
--- NOTE | 2024-09-08 08:30 | CT_ITS ---
WS: [id number] CT adrenals with and without contrast. HISTORY: adrenal nodule Noncontrast 5 mm imaging is performed through the abdomen with attention to the adrenal glands. Addit ional 1 minute and 15 minute delayed images are then performed through the adrenal glands. CONTRAST: Omnipaque 350; 95 mL IV. DLP: 2293.[address] scans at [facility] use at least one of these dose optimization techniques: automated e xposure control; mA and/or kV adjustment per patient size (includes targeted exams where dose is matc hed to clinical indication); or iterative reconstruction. COMPARISON: 09/13/2023, 05/31/2023, 02/01/2018 Lower thorax: Lung bases are clear. Normal size heart. Mild increased pericardial fat. Small hiatal h ernia. Liver: Normal. No intrahepatic dilatation. Gallbladder: Prior cholecystectomy. Pancreas: Normal. Spleen: Normal. ADRENAL GLANDS. RIGHT: Normal. Long-term stability RIGHT adrenal mass measures 3.1 x 3.0 x 5.1 cm. Hounsfield units a re low on the noncontrast exam. Absolute washout value of 65%. Findings are consistent with an adenom a. There are no focal areas of increased vascularity within the nodule. LEFT: There is a very small nodule at the LEFT adrenal gland which is too small to characterize. This nodule is 8 mm Right kidney: Mild cortical thinning throughout the kidney. No obstruction or mass. Left kidney: Mild cortical thinning throughout the kidney with no obstruction or mass. Aorta: Mild atherosclerosis aorta. There is a very tiny amount of soft plaque proximal LEFT SMA. GI tract: As visualized through the abdomen no obstruction or colitis. No adenopathy or free fluid. Abdominal wall: Mild haziness within the ventral abdominal wall fat may be due to cellulitis. Visualized osseous structures: Degenerative disc disease. No lumbar spine fracture. CT/CT abdomen wo/w con [id number] IMPRESSION: 1. RIGHT adrenal adenoma with long-term stability. 2. Prior cholecystectomy. 3. No ascites or adenopathy. 4. Mild ventral abdominal wall fat stranding, consider cellulitis.
[2024-09-08] MEDS: iohexol 350 mg/mL 500 mL Btl (per mL) IV (08:50)
== END 2024-10-07 23:59 | disposition home or self-care (01) ==
LOC: ONCMED 08:07 → RAD 08:08 → ONCMED 09:26
PROVIDERS: PCP Family Medicine; Visit Provider Internal Medicine
DX: E27.9 Disorder of adrenal gland, unspecified (principal); E27.8 Other specified disorders of adrenal gland; D35.01 Benign neoplasm of right adrenal gland; Z90.49 Acquired absence of other specified parts of digestive tract; Q79.59 Other congenital malformations of abdominal wall
CPT/HCPCS: 74170

== ENCOUNTER 2024-10-09 08:37 | Outpatient (CLI) | payer OTHER, SELFPAY ==
[2024-10-09 10:02] LABS: Alanine Aminotransferase 10 U/L (0-41); Albumin Level 3.9 g/dL (3.5-5.2); Alkaline Phosphatase 82 U/L (40-130); Anion Gap 9.8 (5-19); Aspartate Amino Transferase 19 U/L (0-40); Blood Urea Nitrogen 14 mg/dL (8-23); Calcium 9.1 mg/dL (8.5-10.5); Carbon Dioxide 35 mmol/L (22-29); Chloride 99 mmol/L (98-107); Globulin 2.9 g/dL (1.3-4.6); Glucose 115 mg/dL (65-115); Osmolality Calculated 291 mOsm/kg (285-295); Potassium 3.8 mmol/L (3.5-5.1); Sodium 140 mmol/L (136-145); Total Bilirubin 0.4 mg/dL (0.15-1.2); Total Protein 6.8 g/dL (6.6-8.7)
[2024-10-09 10:14] LABS: Prostate Specific Antigen 0.522 ng/mL (0-4)
[2024-10-12 11:14] LABS: Adrenocorticotropic Hormone 7 pg/mL (6-50)
== END 2024-10-09 08:38 | disposition home or self-care (01) ==
PROVIDERS: Absent Provider Internal Medicine; PCP Family Medicine; Visit Provider Urology
DX: C61 Malignant neoplasm of prostate (principal); E27.9 Disorder of adrenal gland, unspecified; E27.8 Other specified disorders of adrenal gland
CPT/HCPCS: 36415; 80053; 82024; 84153

== ENCOUNTER → 2024-10-23 08:12 | Outpatient (BNVA) | payer OTHER, SELFPAY | PROVIDERS: PCP Family Medicine; Visit Provider Internal Medicine | DX: E27.9 Disorder of adrenal gland, unspecified (principal); E27.8 Other specified disorders of adrenal gland; I10 Essential (primary) hypertension; C61 Malignant neoplasm of prostate | CPT/HCPCS: 99214 ==

== ENCOUNTER → 2024-12-11 09:27 | Outpatient (BNVA) | payer OTHER, MEDICARE, SELFPAY | PROVIDERS: PCP Family Medicine; Visit Provider Anesthesiology Pain Medicine | DX: M79.18 Myalgia, other site (principal); M25.551 Pain in right hip; M25.552 Pain in left hip; M48.062 Spinal stenosis, lumbar region with neurogenic claudication; M54.2 Cervicalgia; M47.816 Spondylosis without myelopathy or radiculopathy, lumbar region; C61 Malignant neoplasm of prostate | CPT/HCPCS: 20553; 73522; 99214; J1010; J3490 ==

== ENCOUNTER → 2024-12-25 08:23 | Outpatient (BNVA) | payer OTHER, SELFPAY | PROVIDERS: PCP Family Medicine; Visit Provider Anesthesiology Pain Medicine | DX: M48.062 Spinal stenosis, lumbar region with neurogenic claudication (principal); M54.2 Cervicalgia; M47.816 Spondylosis without myelopathy or radiculopathy, lumbar region; C61 Malignant neoplasm of prostate | CPT/HCPCS: 99214 ==

== ENCOUNTER 2025-02-20 09:34 | Outpatient (CLI) | payer OTHER, SELFPAY | END 2025-02-20 09:35 | disposition home or self-care (01) | PROVIDERS: PCP Family Medicine; Visit Provider Urology | DX: M79.18 Myalgia, other site (principal); M48.062 Spinal stenosis, lumbar region with neurogenic claudication; M54.2 Cervicalgia; M47.816 Spondylosis without myelopathy or radiculopathy, lumbar region; C61 Malignant neoplasm of prostate; Z87.891 Personal history of nicotine dependence | CPT/HCPCS: 20553; 84153; 99214; J1010; J3490 ==

== ENCOUNTER 2025-03-13 06:01 | Outpatient (CLI) | payer OTHER, SELFPAY ==
--- NOTE | 2025-03-13 06:17 | USCV_ITS ---
VasylKhoa Age: 74 Gender: M : 1950 Exam Date: 03/13/2025 06:33 Ordering Phys: Sravani Reich APRN Technologist: Exam Location: [facility] [place] Indication: Cp, SoB BP: 130 / 67 HR: 50 Rhythm: Sinus Technical Quality: Adequate MEASUREMENTS (Male / Female) Normal Values 2D ECHO LV Diastolic Diameter PLAX 4.5 cm 4.2 - 5.9 / 3.9 - 5.3 cm IVS Diastolic Thickness 1.4 cm 0.6 - 1.0 / 0.6 - 0.9 cm IVS Systolic Thickness 1.9 cm LVPW Diastolic Thickness 1.3 cm 0.6 - 1.0 / 0.6 - 0.9 cm LVPW Systolic Thickness 1.8 cm LVOT Diameter 2.0 cm LV Ejection Fraction 2D Teich 60.3 % LV Ejection Fraction MOD 4C 60.0 % LV Ejection Fraction MOD 2C 64.6 % LV Ejection Fraction 2C AL 64.7 % LA Diameter 4.0 cm RA Systolic Volume 4C AL 92.2 ml RA Systolic Volume 4C MOD 83.9 ml Aorta at Sinotubular Diameter 3.3 cm M-MODE LA Ao Ratio MM 1.5 AV Cusp Separation MM 2.3 cm DOPPLER AV Peak Velocity 107.0 cm/s LVOT Peak Velocity 124.0 cm/s AV Area Cont Eq vti 4.3 cm squared AV Area Cont Eq pk 3.7 cm squared MV Peak Velocity 104.0 cm/s MV Area PHT 2.5 cm squared Mitral E to A Ratio 0.9 TR Peak Velocity 140.0 cm/s TR Peak Gradient 7.8 mmHg TV Peak E Velocity 82.0 cm/s PV Peak Velocity 117.0 cm/s FINDINGS Left Ventricle Normal left ventricular size and systolic function, EF 60%. Mild left ventricular hypertrophy. No regional wall motion abnormalities. Grade I/IV diastolic dysfunction (abnormal relaxation filling pattern), normal to mildly elevated filling pressures. Right Ventricle The right ventricle is normal in size and function. Right Atrium The right atrium is normal in size. Left Atrium The left atrium is normal in size. Mitral Valve Trace to mild mitral valve regurgitation. Aortic Valve No gross abnormalities noted Tricuspid Valve Trace to mild tricuspid valve regurgitation. Pulmonic Valve No gross abnormalities noted Pericardium No pericardial effusion. Aorta Normal ascending aorta dimension. IVC The inferior vena cava appears normal. CONCLUSIONS Normal left ventricular size and systolic function, EF 60%. Mild left ventricular hypertrophy. No regional wall motion abnormalities. Grade I/IV diastolic dysfunction (abnormal relaxation filling pattern), normal to mildly elevated filling pressures. Trace to mild mitral valve regurgitation. Trace to mild tricuspid valve regurgitation. There is no pericardial effusion. There are no intracardiac masses. Compared to the study from 11/10/2021, there may not be a significant change Dr Timothy Kirk MD FACC (Electronically Signed) Final Date: 16 Mar 2025 10:27 S
== END 2025-03-13 06:02 | disposition home or self-care (01) ==
PROVIDERS: PCP Nurse Practitioner Family; Visit Provider Nurse Practitioner Family
DX: R07.9 Chest pain, unspecified (principal); R06.02 Shortness of breath; R93.1 Abnormal findings on diagnostic imaging of heart and coronary circulation; I34.0 Nonrheumatic mitral (valve) insufficiency; I07.1 Rheumatic tricuspid insufficiency
CPT/HCPCS: 93306

== ENCOUNTER 2025-05-27 05:39 | Emergency (ER) | payer OTHER, MEDICARE, SELFPAY ==
--- OUTSIDE RECORDS SUMMARY | 2024-09-12 03:30 | XMS_ITS | Encounter Summary ---
Author Name [facility] [place] [facility] [place] [facility] [facility] [place] Address [address] [place] [address] Care Team Providers Care Fire Control Technician G Name Role Phone SAÚL HAN Primary Care Provider Unavailabl e Insurance Providers: All historical and current Section Date Range: From patient's date of to the date document was created. This section includes the names of all active insurance providers for the patient. Insurance Provider Type of Coverage Plan Name Start of Policy Coverage End of Policy Coverage Group Number Member ID Insurance Provider's Telephone Number Policy Srivastava's Name Patient's Relationship to Policy Srivastava [facility] ([facility]) MEDICARE ADVANTAGE [facility] ([facility]) Nov 08, 2023 [id number] [phone] [place],R AY PATIENT [facility] ([facility]) MEDICARE ADVANTAGE [facility] ([facility]) Nov 08, 2019 [id number] [place],R AY PATIENT MEDICARE ([facility]) MEDICARE ([place]) PART A Jul 09, 2006 PART A [id number] [phone] [place],R AY PATIENT MEDICARE ([facility]) MEDICARE ([place]) PART B Jul 09, 2006 PART B [id number] [phone] [place],R AY PATIENT [facility] ([facility]) MEDICARE ADVANTAGE [facility] ([facility]) Nov 08, 2019 [id number] [phone] [place] PATIENT Selected Encounter This section includes the information on record at [place] for the Encounter. Date/Time Encounter Type Encounter Description Reason Provider Source Sep 12, 2024 08:30 AM OFF/OP EST MARCH X REQ PHY/QHP PRIMARY CARE/MEDICINE ICD-10-CM J44.9 Chronic obstructive pulmonary disease, unspecified LEX TORRES [facility] Encounter Template Text not used by [place] Assessments - Encounter Diagnoses This section includes the primary and secondary diagnoses documented for the Encounter. Date/Time Primary/Secondary Diagnosis Diagnosis Name Provider Source Sep 12, 2024 10:12 AM PRIMARY Chronic obstructive pulmonary disease, unspecified LEX TORRES [facility] Plan of Treatment: Future Appointments (+ 6 months) and Future Tests (+/- 45 days) The Plan of Treatment section includes future care activities for the patient from all [place] treatmentfacilities. This section includes future appointments and future orders which are active, pending or scheduled. Future Appointments This section includes appointments that were scheduled to occur 6 months from the date of the Encounter, up to a maximum of 20 appointments. The data comes from all [place] treatment facilities. Appointment Date/Time Appointment Type Appointme nt Facility Name Oct 23, 2024 09:00 AM [facility] Oct 31, 2024 09:20 AM [facility] Nov 15, 2024 09:00 AM AMBULATORY - MEDICINE [facility] Dec 11, 2024 09:00 AM [facility] Jan 09, 2025 08:30 AM AMBULATORY - MEDICINE [facility] Feb 21, 2025 08:30 AM [facility] Social History: Smoking Status (Most current) and Tobacco Use (All prior to encounter date) This section includes the most current, and the historical, smoking and tobacco- related health factors from the [place] facility where the Encounter took place. Current Smoking Status This section includes the most current smoking, or tobacco-related health factor, from the [place] facility where the Encounter took place. Date/Time Current Smoking Status Comment Facil ity Jul 12, 2024 08:30 AM VA-TOBACCO USER EVERY DAY [facility] Tobacco Use History This section includes a history of the smoking, or tobacco-related health factors, that were collected on or before the date of the Encounter. The data comes from the [place] facility where the Encounter took place. Date/Time Smoking Status/Tobacco Use Comment F acility Jul 12, 2024 08:30 AM VA-TOBACCO USE ADVICE [facility] Jul 12, 2024 08:30 AM VA-TOBACCO USE PRODUCTION SUPPORT SPECIALIST [place] [facility] Jul 12, 2024 08:30 AM VA-TOBACCO USE MED [place] [facility] Jul 12, 2024 08:30 AM VA-TOBACCO USE WI 30 MIN OF WAKEUP [facility] Jul 12, 2024 08:30 AM VA-TOBACCO USER EVERY DAY [facility] Jul 02, 2023 08:30 AM VA-TOBACCO DOESNT USE WI 30 MIN WAKEUP [facility] Jul 02, 2023 08:30 AM VA-TOBACCO USE 30 YEARS OR MORE [facility] Jul 02, 2023 08:30 AM VA-TOBACCO USE ADVICE [facility] Jul 02, 2023 08:30 AM VA-TOBACCO USE PRODUCTION SUPPORT SPECIALIST [place] [facility] Jul 02, 2023 08:30 AM VA-TOBACCO USE MED NO [facility] Jul 02, 2023 08:30 AM VA-TOBACCO USER EVERY DAY [facility] Apr 09, 2022 08:30 AM VA-TOBACCO DOESNT USE WI 30 MIN WAKEUP [facility] Apr 09, 2022 08:30 AM VA-TOBACCO USE 30 YEARS OR MORE [facility] Apr 09, 2022 08:30 AM VA-TOBACCO USE ADVICE [facility] Apr 09, 2022 08:30 AM VA-TOBACCO USE PRODUCTION SUPPORT SPECIALIST [place] [facility] Apr 09, 2022 08:30 AM VA-TOBACCO USE MED NO [facility] Apr 09, 2022 08:30 AM VA-TOBACCO USER EVERY DAY [facility] Apr 09, 2021 08:30 AM VA-TOBACCO FORMER USER [facility] Apr 09, 2021 08:30 AM VA-TOBACCO QUIT 1 TO < 5 YRS [facility] Oct 04, 2018 08:57 AM VA-TOBACCO FORMER USER [facility] Oct 04, 2018 08:57 AM VA-TOBACCO QUIT 15 YRS OR MORE [facility] Oct 04, 2018 08:33 AM CURRENT TOBACCO USER [facility] Oct 04, 2018 08:33 AM CURRENT TOBACCO US ER (NOT READY TO QUIT) [facility] Oct 04, 2018 08:33 AM SMOKELESS TOBACCO AMOUNT/LENGTH V15 5 cans per week [facility] Oct 04, 2018 08:33 AM TOBACCO CESSATION REFERRAL DECLINED [facility] Oct 04, 2018 08:33 AM TOBACCO MEDS OFFER ED BUT DECLINED [facility] Oct 04, 2018 08:33 AM TOBACCO USER OFFERED MEDS [facility] Apr 12, 2018 08:41 AM CURRENT TOBACCO USER [place] [facility] Apr 12, 2018 08:41 AM CURRENT TOBACCO US ER (NOT READY TO QUIT) [facility] Apr 12, 2018 08:41 AM SMOKELESS TOBACCO AMOUNT/LENGTH V15 1972/ snuff [place] [facility] Apr 12, 2018 08:41 AM TOBACCO CESSATION REFERRAL DECLINED [facility] Apr 12, 2018 08:41 AM TOBACCO MEDS OFFER ED BUT DECLINED [facility] Apr 12, 2018 08:41 AM TOBACCO USER OFFERED MEDS [facility] Feb 08, 2018 02:23 PM CURRENT TOBACCO USER [facility] Feb 08, 2018 02:23 PM CURRENT TOBACCO US ER (NOT READY TO QUIT) [facility] Feb 08, 2018 02:23 PM SMOKELESS TOBACCO AMOUNT/LENGTH V15 1972 [facility] Feb 08, 2018 02:23 PM TOBACCO CESSATION REFERRAL DECLINED [facility] Feb 08, 2018 02:23 PM TOBACCO MEDS OFFER ED BUT DECLINED [facility] Feb 08, 2018 02:23 PM TOBACCO USER OFFERED MEDS [facility] Oct 18, 2017 09:15 AM CURRENT TOBACCO USER [facility] Oct 18, 2017 09:15 AM CURRENT TOBACCO US ER (NOT READY TO QUIT) [facility] Oct 18, 2017 09:15 AM SMOKELESS TOBACCO AMOUNT/LENGTH V15 1972 [facility] Oct 18, 2017 09:15 AM TOBACCO CESSATION REFERRAL DECLINED [facility] Oct 18, 2017 09:15 AM TOBACCO MEDS OFFER ED BUT DECLINED [facility] Oct 18, 2017 09:15 AM TOBACCO USER OFFERED MEDS [facility] Apr 22, 2010 09:10 AM TOBACCO MEDS OFFER ED BUT DECLINED [facility] Apr 22, 2010 09:10 AM TOBACCO OFFERED PT MEDS (PROVIDER) [facility] Apr 22, 2010 09:[address] [facility] Sep 13, 2009 08:15 AM TOBACCO MEDS OFFER ED BUT DECLINED [facility] Sep 13, 2009 08:15 AM TOBACCO OFFERED PT MEDS (PROVIDER) do not want [facility] Sep 13, 2009 08:[address] [facility] Apr 23, 2009 08:14 AM TOBACCO MEDS OFFER ED BUT DECLINED [facility] Apr 23, 2009 08:14 AM TOBACCO OFFERED PT MEDS (PROVIDER) [facility] not want [facility] Apr 23, 2009 08:[address] [facility] Sep 11, 2008 09:36 AM QUIT TOBACCO >7 YEARS AGO [facility] Jan 18, 2008 11:30 AM CURRENT TOBACCO USER [facility] Jan 18, 2008 11:[address] [facility] Jul 05, 2007 08:11 AM CURRENT TOBACCO USER [facility] Jul 05, 2007 08:11 AM TOBACCO MEDS OFFER ED BUT DECLINED [facility] Oct 29, 2005 08:32 AM CURRENT TOBACCO USER [facility] Apr 27, 2005 01:30 PM CURRENT [place]BACCO USER [facility] Oct 22, 2004 11:05 AM CURRENT TOBACCO USER [id number] Advance Directives: All historical and current Section Date Range: From patient's date of to the date document was created. This section includes ALL of a patient's completed or amended [place] Advance and Rescinded Directives. The entries below indicate that a directive exists for the patient, but an actual copy is not included with this document. The data comes from all [place] facilities. Date Advance Directives Provider Source Jul 13, 2013 ADVANCE DIRECTIVE DISCUSSION ZACHERY KOENIG [facility] Encounter Notes: All associated encounter notes This section contains the clinical notes associated to the Encounter. Date/Time Encounter Note(s) Provider Source Sep 12, 2024 09:27 AM NURSING PROGRESS N OTE: LOCAL TITLE: NURSING NOTE PB STANDARD TITLE: NURSING PROGRESS NOTE DATE OF NOTE: SEP 12, 2024@09:27 ENTRY DATE: SEP 12, 2024@09:27:39 AUTHOR: LEX TORRES EXP COSIGNER: URGENCY: STATUS: COMPLETED NURSING NOTE PB Has ADDENDA [place] reports to clinic for O2 recertification. Room air at rest 91%. Room air with ambulation of 120 feet 82%. Resting on 2L NC 95%. Ambulation 120feet on 2L NC 92%. [place] [facility] O2 consult placed. [place] has a portable O2 conserver already. All questions and concerns addressed at this time. /shayne/ [facility] Signed: 09/12/2024 10:11 09/12/2024 ADDENDUM STATUS: COMPLETED Per [facility] Directive 1605.06, wristband documentation: Patient wristband was removed and destroyed by (staff name) Lex Torres and placed in the designated Provigented-It bin. /shayne/ [facility] Signed: 09/12/2024 10:12 LEX TORRES [facility]
--- OUTSIDE RECORDS SUMMARY | 2024-11-15 04:00 | XMS_ITS ---
Author Name [facility] [place] [facility] [place] Address [address] [place] [address] Care Team Providers Care Health Services Coordinator Name Role Phone SAÚL HAN Primary Care [...] Srivastava's Name Patient's Relationship to Policy Srivastava [facility] ([facility]) MEDICARE ADVANTAGE [facility] ([facility]) Nov 08, 2023 [id number] [place],R AY PATIENT [facility] ([facility]) MEDICARE ADVANTAGE [facility] ([facility]) Nov 08, 2019 [id number] [phone] [place],R AY PATIENT MEDICARE ([facility]) MEDICARE (M) PART A Jul 09, 2006 PART A [id number] [place],R A[place] PATIENT MEDICARE ([facility]) MEDICARE (M) PART B Jul 09, 2006 PART B [id number] [place],R AY PATIENT [facility] ([facility]) MEDICARE ADVANTAGE [facility] ([facility]) Nov 08, 2019 [id number] [phone] [place] PATIENT Selected Encounter This section includes the information on record at [place] for the Encounter. Date/Time Encounter Type Encounter Description Reason Provider Source Nov 15, 2024 09:00 AM OFF/OP EST MARCH X REQ PHY/QHP PRIMARY CARE/MEDICINE ICD-10-CM Z23 Encounter for immunization CELINE BRANDT IHE Encounter Template Text not used by [place] Assessments - Encounter Diagnoses This section includes the primary and secondary diagnoses documented for the Encounter. Date/Time Primary/Secondary Diagnosis Diagnosis Name Provider Source Nov 15, 2024 01:21 PM PRIMARY Encounter for immunization TABITHA,SERGIO [facility] Plan of Treatment: Future Appointments (+ 6 months) and Future Tests (+/- 45 days) The Plan of Treatment section includes [facility] care activities for the [facility] [place] [facility] This section includes future appointments and future orders which are active, pending or scheduled. Future Appointments This section includes appointments that were scheduled to occur 6 months from the date of the Encounter, up to a maximum of 20 appointments. The data comes from all [place] treatment facilities. Appointment Date/Time Appointment Type Appointme nt Facility Name Dec 11, 2024 09:00 AM AMBULATORY - MEDICINE [facility] Jan 09, 2025 08:30 AM AMBULATORY - MEDICINE [facility] Feb 21, 2025 08:30 AM AMBULATORY - MEDICINE [facility] March 13, 2025 06:15 AM AMBULATORY - MEDICINE [facility] March 14, 2025 08:00 AM AMBULATORY - MEDICINE [facility] April 04, 2025 08:30 AM AMBULATORY - MEDICINE [facility] Immunizations: All administered on the encounter date This section contains immunizations associated to the Encounter. Immunization Series Date Issued Administered By Site Reaction Lot Number CVX Code Drug Lead Process Engineer Comment(s) Source ZOSTER RECOMBINANT Nov 15, 2024 CELINE BRANDT RIGHT DELTO ID [id number] Social History: Smoking Status (Most current) and Tobacco Use (All prior to encounter date) This section includes the most current, and the historical, smoking and tobacco- related health factors from the [place] facility where the Encounter took place. Current Smoking Status This section includes the most current smoking, or tobacco-related health factor, from the [place] facility where the Encounter took place. Date/Time Current Smoking Status Comment Facil ity Jul 12, 2024 08:30 AM VA-TOBACCO USER EVERY DAY [facility] Tobacco Use History This section includes a history of the smoking, or tobacco-related health factors, that were collected on or before the date of the Encounter. The data comes from the [place] facility where the Encounter took place. Date/Time Smoking Status/Tobacco Use Comment F acility Jul 12, 2024 08:30 AM VA-TOBACCO USE ADVICE [facility] Jul 12, 2024 08:30 AM VA-TOBACCO USE CORE CLEANER NO [facility] Jul 12, 2024 08:30 AM VA-TOBACCO USE MED NO [facility] Jul 12, 2024 08:30 AM VA-TOBACCO USE WI 30 MIN OF WAKEUP [facility] Jul 12, 2024 08:30 AM VA-TOBACCO USER EVERY DAY [facility] Jul 02, 2023 08:30 AM VA-TOBACCO DOESNT USE WI 30 MIN WAKEUP [facility] Jul 02, 2023 08:30 AM VA-TOBACCO USE 30 YEARS OR MORE [facility] Jul 02, 2023 08:30 AM VA-TOBACCO USE ADVICE [facility] Jul 02, 2023 08:30 AM VA-TOBACCO USE CORE CLEANER NO [facility] Jul 02, 2023 08:30 AM VA-TOBACCO USE MED NO [facility] Jul 02, 2023 08:30 AM VA-TOBACCO USER EVERY DAY [facility] Apr 09, 2022 08:30 AM VA-TOBACCO DOESNT USE WI 30 MIN WAKEUP [facility] Apr 09, 2022 08:30 AM VA-TOBACCO USE 30 YEARS OR MORE [facility] Apr 09, 2022 08:30 AM VA-TOBACCO USE ADVICE [facility] Apr 09, 2022 08:30 AM VA-TOBACCO USE CORE CLEANER NO [facility] Apr 09, 2022 08:30 AM VA-TOBACCO USE MED NO [facility] Apr 09, 2022 08:30 AM VA-TOBACCO USER EVERY DAY [facility] Apr 09, 2021 08:30 AM VA-TOBACCO FORMER USER [facility] Apr 09, 2021 08:30 AM VA-TOBACCO QUIT 1 TO < 5 YRS [facility] Oct 04, 2018 08:57 AM VA-TOBACCO FORMER USER [facility] Oct 04, 2018 08:57 AM VA-TOBACCO QUIT 15 YRS OR MORE [facility] Oct 04, 2018 08:33 AM CURRENT TOBACCO USER [facility] Oct 04, 2018 08:33 AM CURRENT TOBACCO US ER (NOT READY TO QUIT) [facility] Oct 04, 2018 08:33 AM SMOKELESS TOBACCO AMOUNT/LENGTH V15 5 cans per week [facility] Oct 04, 2018 08:33 AM TOBACCO CESSATION REFERRAL DECLINED [facility] Oct 04, 2018 08:33 AM TOBACCO MEDS OFFER ED BUT DECLINED [facility] Oct 04, 2018 08:33 AM TOBACCO USER OFFERED MEDS [facility] Apr 12, 2018 08:41 AM CURRENT TOBACCO USER [facility] Apr 12, 2018 08:41 AM CURRENT TOBACCO US ER (NOT READY TO QUIT) [facility] Apr 12, 2018 08:41 AM SMOKELESS TOBACCO AMOUNT/LENGTH V15 1972/ snuff [facility] Apr 12, 2018 08:41 AM TOBACCO CESSATION REFERRAL DECLINED [facility] Apr 12, 2018 08:41 AM TOBACCO MEDS OFFER ED BUT DECLINED [facility] Apr 12, 2018 08:41 AM TOBACCO USER OFFERED MEDS [facility] Feb 08, 2018 02:23 PM CURRENT TOBACCO USER [facility] Feb 08, 2018 02:23 PM CURRENT TOBACCO US ER (NOT READY TO QUIT) [facility] Feb 08, 2018 02:23 PM SMOKELESS TOBACCO AMOUNT/LENGTH V15 1972 [facility] Feb 08, 2018 02:23 PM TOBACCO CESSATION REFERRAL DECLINED [facility] Feb 08, 2018 02:23 PM TOBACCO MEDS OFFER ED BUT DECLINED [facility] Feb 08, 2018 02:23 PM TOBACCO USER OFFERED MEDS [facility] Oct 18, 2017 09:15 AM CURRENT TOBACCO USER [facility] Oct 18, 2017 09:15 AM CURRENT TOBACCO US ER (NOT READY TO QUIT) [facility] Oct 18, 2017 09:15 AM SMOKELESS TOBACCO AMOUNT/LENGTH V15 1972 [facility] Oct 18, 2017 09:15 AM TOBACCO CESSATION REFERRAL DECLINED [facility] Oct 18, 2017 09:15 AM TOBACCO MEDS OFFER ED BUT DECLINED [facility] Oct 18, 2017 09:15 AM TOBACCO USER OFFERED MEDS [facility] Apr 22, 2010 09:10 AM TOBACCO MEDS OFFER ED BUT DECLINED [facility] Apr 22, 2010 09:10 AM TOBACCO OFFERED PT MEDS (PROVIDER) [facility] Apr 22, 2010 09:[address] [facility]MO[facility] Sep 13, 2009 08:15 AM TOBACCO MEDS OFFER ED BUT DECLINED [facility] Sep 13, 2009 08:15 AM [...] AM QUIT TOBACCO >7 YEARS AGO [facility] Jan 18, 2008 11:30 AM CURRENT TOBACCO USER [facility] Jan 18, 2008 11:[address] [facility] Jul 05, 2007 08:11 AM CURRENT TOBACCO USER [facility] Jul 05, 2007 08:11 AM TOBACCO MEDS OFFER ED BUT DECLINED [facility] Oct 29, 2005 08:32 AM CURRENT TOBACCO USER [facility] Apr 27, 2005 01:30 PM CURRENT TOBACCO USER [facility] Oct 22, 2004 11:05 AM CURRENT TOBACCO USER [facility] Advance Directives: All historical and current Section Date Range: From patient's date of to the date document was created. This section includes ALL of a patient's completed or amended VA Advance and Rescinded Directives. The entries below indicate that a directive exists for the patient, but an actual copy is not included with this document. The data comes from all [place] facilities. Date Advance Directives Provider Source Jul 13, 2013 ADVANCE DIRECTIVE DISCUSSION [facility] Encounter Notes: All associated encounter notes This section contains the clinical notes associated to the Encounter. Date/Time Encounter Note(s) Provider Source Nov 15, 2024 09:06 AM NURSING PROGRESS N OTE: LOCAL TITLE: NURSING NOTE PB STANDARD TITLE: NURSING PROGRESS NOTE DATE OF NOTE: NOV 15, 2024@09:06 ENTRY DATE: NOV 15, 2024@09:06:42 AUTHOR: JOSUE BRANDT EXP COSIGNER: URGENCY: STATUS: COMPLETED This is a 74 year old MALE with known Allergies as noted: PREGABALIN, SULFA DRUGS The presented to the clinic for his second singles vaccine. The ambulated to the room with the assistance of a 4 point cane, is slow and unsteady. Asked the if he had a rollator. the reports that he does and that his gait is his base line. Encouraged the to use the rollator to help prevent falls. Herpes Zoster (Shingles) Vaccine - L,N,P,PH,U: Administered: ZOSTER RECOMBINANT Date Administered: Nov 15, 2024 09:00 Lead Process Engineer: Prescient Lot: [id number] Exp Date: Feb 22, 2026 [facility]: [phone] Admin Route/Site: INTRAMUSCULAR/RIGHT DELTOID Dosage: 0.5mL Vaccine Information Statement(s): RECOMBINANT ZOSTER VACCINE VIS Dec 12, 2021 ([facility]I) Order By: Policy Administered By: Josue Brandt Vaccine Information Sheet (VIS) was given to the patient/caregiver, education regarding adverse reactions was discussed, as well as barriers to learning, if any, were acknowledged. The made his way to the exit in satisfactory manner. /shayne/ Josue Brandt RN,BSN [facility] Signed: 11/15/2024 09:10 Receipt Acknowledged By: 11/15/2024 09:18 /shayne/ Barbara Lyon MD [facility]RET[facility] Primary Care JOSUE BRANDT CB
--- OUTSIDE RECORDS SUMMARY | 2025-01-09 03:30 | XMS_ITS | Encounter Summary ---
Author Name [facility] [place] [facility] [place] [facility] [place] [facility] [place] Address [address] [place] [address] Care Team Providers Care Collateral Analyst Name Role Phone SRAVANI REICH Primary Care Provider Unavailabl e Insurance Providers: [...] Srivastava's Name Patient's Relationship to Policy Srivastava [facility] ([facility]) MEDICARE ADVANTAGE MCR ([facility]) Nov 08, 2023 [id number] ROCK,R AY PATIENT [facility] ([facility]) MEDICARE ADVANTAGE [facility] ([facility]) Nov 08, 2019 [id number] [phone] [place],R AY PATIENT MEDICARE ([facility]) MEDICARE (M) PART A Jul 09, 2006 PART A [id number] [place],R AY PATIENT MEDICARE ([facility]) MEDICARE (M) PART B Jul 09, 2006 PART B [id number] [place],R AY PATIENT [facility] ([facility]) MEDICARE ADVANTAGE [facility] ([facility]) Nov 08, 2019 [id number] [phone] [place] PATIENT Selected Encounter This section includes the information on record at [place] for the Encounter. Date/Time Encounter Type Encounter Description Reason Provider Source Jan 09, 2025 08:30 AM OFFICE O/P EST MOD 30 MIN PRIMARY CARE/MEDICINE ICD-10-CM Z00.01 Encounter for general adult medical exam w abnormal findings SRAVANI REICH IHAdria Encounter Template Text not used by [facility] Assessments - Encounter Diagnoses This section includes the primary and secondary diagnoses documented for the Encounter. Date/Time Primary/Secondary Diagnosis Diagnosis Name Provider Source Jan 09, 2025 02:10 PM PRIMARY Encounter for general adult medical exam w abnormal findings SRAVANI REICH [facility] Jan 09, 2025 02:10 PM SECONDARY Benign prostatic hyperplasia without lower urinry tract symp SRAVANI REICH [facility] Jan 09, 2025 02:10 PM SECONDARY Chronic obstructive pulmonary disease, unspecified SRAVANI REICH [facility] Jan 09, 2025 02:10 PM SECONDARY Edema, unspecified SRAVANI REICH [facility] Jan 09, 2025 02:10 PM SECONDARY Essential (primary) hypertension SRAVANI REICH [facility] Jan 09, 2025 02:10 PM SECONDARY Gastro-esophageal reflux disease without esophagitis SRAVANI REICH [facility] Jan 09, 2025 02:10 PM SECONDARY Hyperlipidemia, unspecified SRAVANI REICH [facility] Jan 09, 2025 02:10 PM SECONDARY Pain in unspecified hip SRAVANI REICH [facility] Jan 09, 2025 02:10 PM SECONDARY Shortness of breath SRAVANI REICH [facility] Jan 09, 2025 02:10 PM SECONDARY Sleep apnea, unspecified SRAVANI REICH [facility] Jan 09, 2025 02:10 PM SECONDARY Type 2 diabetes mellitus with diabetic neuropathy, unsp SRAVANI REICH [facility] Jan 09, 2025 02:10 PM SECONDARY Type 2 diabetes mellitus with unspecified complications SRAVANI REICH [facility] Jan 09, 2025 02:10 PM SECONDARY Weakness SRAVANI REICH [facility] Plan of Treatment: Future Appointments (+ 6 months) and Future Tests (+/- 45 days) The Plan of Treatment section includes future care activities for the patient from all [facility] This section includes future appointments and future orders which are active, pending or scheduled. Future Appointments This section includes appointments that were scheduled to occur 6 months from the date of the Encounter, up to a maximum of 20 appointments. The data comes from all [place] treatment facilities. Appointment Date/Time Appointment Type Appointme nt Facility Name Feb 21, 2025 08:30 AM [facility] [facility] March 13, 2025 06:15 AM [facility] [place] [facility] March 14, 2025 08:00 AM [facility] [place] [facility] April 04, 2025 08:30 AM AMBULATORY - MEDICINE [place] [facility] Jul 12, 2025 09:30 AM AMBULATORY - MEDICINE [facility] Active, Pending, and Scheduled Orders This section includes a listing of several types of active, pending, and scheduled orders, including clinic medications orders, diagnostic test orders, procedure orders and consult orders; where the start date of the order is 45 days before the date of the Encounter or 45 days after the date of theEncounter. The data comes from all [place] treatment [facility]. Test Date/Time Test Type Test Details Facility Name Jan 11, 2025 01:18 PM Consult Order [facility] TESTING-[id number] Cons Grounds Maintenance Supervisor's Choice [facility] Feb 07, 2025 02:46 PM Consult Order [facility]UR[facility]Y PB [id number] [facility] Grounds Maintenance Supervisor's [facility] Lab Results: +/- 30 days of the encounter This section includes the Chemistry and Hematology Lab Results on record with PA for the patient. Radiology Reports and Pathology Reports are provided separately, in subsequent sections. Lab Results This section contains the Chemistry/Hematology Results that were resulted 30 days before or 30 daysafter the date of the Encounter. Date/Time Source Result Type Result - Unit Interpretation Reference Range Specimen Type Comment Jan 09, 2025 09:55 AM [facility] CYSTATIN C EGFR PANELS (STL-PB-MA) PLASMA Spec imen Type: PLASMA Comment: Choice of which of the reported eGFR values to use depends on the clinical situation. For example, for patients with severe muscle wasting or reduced muscle mass, eGFR calculated using the 2012 cystatin equation may be preferred. Ordering Provider: SRAVANI REICH Report Released Date/Time: Jan 09, 2025 09:40 AM Reporting Lab: [facility] [address] [facility] [address] Performing Lab: [facility] [address] [facility] [address] CYSTATIN C 1.89 mg/L H 0.57-1.80 CKD-EPI CYSTATIN C (2011) 31.3 >60 CKD-EPI CREAT-CYSC (2020) 45.2 >60 CREATININE (STL) 1.14 mg/dL 0.7-1.3 Jan 09, 2025 09:55 AM [facility] B12 SERUM Specimen Type: SERUM No comment entered. Ordering Provider: SRAVANI REICH Report Released Date/Time: Jan 09, 2025 09:49 AM Reporting Lab: [place] [facility] [address] [place] [address] Performing Lab: [place] [facility] [address] [place] [address] B12 699 pg/mL 213-816 Jan 09, 2025 09:55 AM [facility] TSH (MA-PB) SERUM Specimen Typ e: SERUM No comment entered. Ordering Provider: SRAVANI REICH Report Released Date/Time: Jan 09, 2025 09:40 AM Reporting Lab: [place] [facility] [address] [place] [address] Performing Lab: [place] [facility] [address] [place] [address] TSH 1.257 u[IU]/mL 0.47-5 Jan 09, 2025 09:55 AM [facility] [place] [facility] VITAMIN D, 25-HYDROXY SERUM Specimen Type: SE RUM No comment entered. Ordering Provider: SRAVANI REICH Report Released Date/Time: Jan 09, 2025 09:40 AM Reporting Lab: [place] [facility] [address] [place] [address] Performing Lab: [place] [facility] [address] [place] [address] VITAMIN D, 25-HYDROXY 51.5 ng/mL 30-96 Jan 09, 2025 09:55 AM [facility] MAGNESIUM PLASMA Specimen Typ e: PLASMA No comment entered. Ordering Provider: SRAVANI REICH Report Released Date/Time: Jan 09, 2025 09:40 AM Reporting Lab: [place] [facility] [address] [place] [address] Performing Lab: [place] [facility] [address] [place] [address] MAGNESIUM 1.33 mg/dL L 1.6-2.6 Jan 09, 2025 09:55 AM [facility] FOLATE (PB) SERUM Specimen Typ e: SERUM No comment entered. Ordering Provider: SRAVANI REICH Report Released Date/Time: Jan 09, 2025 09:40 AM Reporting Lab: [place] [facility] [address] [place] [address] Performing Lab: [place] [facility] [address] [place] [address] FOLATE (PB) 16.9 ng/mL 7-20 Jan 09, 2025 09:55 AM [facility] FERRITIN SERUM Specimen Type: SERUM No comment entered. Ordering Provider: SRAVANI REICH Report Released Date/Time: Jan 09, 2025 09:40 AM Reporting Lab: [place] [facility] [address] [place] [address] Performing Lab: [place] [facility] [address] [place] [address] FERRITIN 118 ng/mL 22-275 Jan 09, 2025 09:55 AM [facility] IRON/TIBC PROFILE SERUM Specimen Type: SERUM No comment entered. Ordering Provider: SRAVANI REICH Report Released Date/Time: Jan 09, 2025 09:40 AM Reporting Lab: [place] [facility] [address] [place] [address] Performing Lab: [place] [facility] [address] [place] [address] TIBC 345 ug/dL TRANSFERRIN 276 mg/dL 163-344 IRON SATURATION 19 L 20-50 IRON 65 ug/dL 65-175 Jan 09, 2025 09:55 AM [facility] BRAIN NATRIURETIC PEPTIDE PLASMA Specimen Type : PLASMA No comment entered. Ordering Provider: SRAVANI REICH Report Released Date/Time: Jan 09, 2025 09:40 AM Reporting Lab: [place] [facility] [address] [place] [address] Performing Lab: [place] [facility] [address] [place] [address] BRAIN NATRIURETIC PEPTIDE 14 pg/mL 0-100 Jan 09, 2025 09:55 AM [facility] CHOLESTEROL PANEL (PB) PLASMA Specimen Type: P LASMA No comment entered. Ordering Provider: SRAVANI REICH Report Released Date/Time: Jan 09, 2025 09:40 AM Reporting Lab: [place] [facility] [address] [place] [address] Performing Lab: [place] [facility] [address] [place] [address] CHOLESTEROL 134 mg/dL 0-200 TRIGLYCERIDE 222 mg/dL H 0-150 CALCULATED LDL 44.6 mg/dL HDL(New) 45.0 mg/dL H >40 HDL % OF TOTAL CHOLESTEROL (PB) 33.6 >25 Jan 09, 2025 09:55 AM [facility] COMPREHENSIVE METABOLIC PANEL PLASMA Specimen Type: PLASMA No comment entered. Ordering Provider: SRAVANI REICH Report Released Date/Time: Jan 09, 2025 09:40 AM Reporting Lab: [place] [facility] [address] [place] [address] Performing Lab: [place] [facility] [address] [place] [address] CREATININE 1.14 mg/dL 0.7-1.3 UREA NITROGEN 15 mg/dL 9-25 GLUCOSE 101 mg/dL H 72-99 SODIUM 142 meq/L 136-145 POTASSIUM 3.5 meq/L 3.5-5 CHLORIDE 101 meq/L 98-107 CARBON DIOXIDE 31 meq/L 22-31 CALCIUM 9.0 mg/dL 8.4-10.4 PROTEIN 7.0 g/dL 6-8.6 ALBUMIN 4.2 g/dL 3.4-5 TOTAL BILIRUBIN 0.3 mg/dL 0.2-1.2 ALKALINE PHOSPHATASE 77 U/L 40-150 AST/SGOT 25 U/L 5-34 ALT/SGPT 15 U/L 8-40 EGFR (CKD-EPI 2020) 67 Jan 09, 2025 09:55 AM [facility] CBC BLOOD Specimen Type: BLOOD No comment entered. Ordering Provider: SRAVANI REICH Report Released Date/Time: Jan 09, 2025 09:40 AM Reporting Lab: [place] [facility] [address] [place] [address] Performing Lab: [place] [facility] [address] [place] [address] WBC 6.9 10*3/uL 3.6-11.2 RBC 4.94 10*6/uL 4.10-5.70 HGB 13.8 g/dL 13.1-16.8 HCT 43.4 38.2-48.4 MCV 87.9 fL 80.0-100.0 MCH 27.9 pg 27.0-34.0 MCHC 31.8 g/dL L 33.0-36.0 PLT 215 10*3/uL 150-400 MPV 10.5 fL 7.5-11.2 RDW 13.5 11.8-15.1 LYMPHOCYTES, AUTO % 14.0 MONOCYTES, AUTO % 3.9 NEUTROPHILS, AUTO % 77.2 EOSINOPHILS, AUTO % 3.6 BASOPHILS, AUTO % 0.9 LYMPHOCYTES, ABSOLUTE 0.96 10*3/uL 0.77- 4.50 MONOCYTES, ABSOLUTE 0.27 10*3/uL 0.19-0. 8 NEUTROPHILS, ABSOLUTE 5.28 10*3/uL 2.10- 8.00 EOSINOPHILS, ABSOLUTE 0.25 10*3/uL 0.00- 0.60 BASOPHILS, ABSOLUTE 0.06 10*3/uL 0.00-0. 20 IMMATURE GRANS, AUTO % 0.4 IMMATURE GRANS, AUTO ABS 0.03 10*3/uL 0. 00-0.05 Jan 09, 2025 09:55 AM [facility] HGA1C BLOOD Specimen Type: BLOOD No comment entered. Ordering Provider: SRAVANI REICH Report Released Date/Time: Jan 09, 2025 01:49 PM Reporting Lab: [place] [facility] [address] [place] [address] Performing Lab: [place] [facility] [address] [address] HGA1C 6.7 H 4.0-6.0 Vital Signs: All taken on the encounter date This section contains inpatient and outpatient Vital Signs collected on the date of the Encounter. Date/Time Temperature Pulse Blood Pressure Respiratory Rate SP02 Pain Height Weight Body Mass Index Source Jan 09, 2025 08:45 AM 98.1 76 125/80 20 93 6 302.0 43 [facility] Social History: Smoking Status (Most current) and [...] 2024 08:30 AM VA-TOBACCO USER EVERY DAY [facility] Tobacco Use History This section includes a history of the smoking, or tobacco-related health factors, that were collected on or before the date of the Encounter. The data comes from the [place] facility where the Encounter took place. Date/Time Smoking Status/Tobacco Use Comment F acility Jul 12, 2024 08:30 AM VA-TOBACCO USE ADVICE [facility] Jul 12, 2024 08:30 AM VA-TOBACCO USE GLOBAL COMMODITY MANAGER NO [facility] Jul 12, 2024 08:30 AM VA-TOBACCO USE MED NO [facility] Jul 12, 2024 08:30 AM VA-TOBACCO USE WI 30 MIN OF WAKEUP [facility] Jul 12, 2024 08:30 AM VA-TOBACCO USER EVERY DAY [facility] Jul 02, 2023 08:30 AM VA-TOBACCO DOESNT USE WI 30 MIN WAKEUP [facility] Jul 02, 2023 08:30 AM VA-TOBACCO USE 30 YEARS OR MORE [facility] Jul 02, 2023 08:30 AM VA-TOBACCO USE ADVICE [facility] Jul 02, 2023 08:30 AM VA-TOBACCO USE GLOBAL COMMODITY MANAGER NO [facility] Jul 02, 2023 08:30 AM VA-TOBACCO USE MED NO [facility] Jul 02, 2023 08:30 AM VA-TOBACCO USER EVERY DAY [facility] Apr 09, 2022 08:30 AM VA-TOBACCO DOESNT USE WI 30 MIN WAKEUP [facility] Apr 09, 2022 08:30 AM VA-TOBACCO USE 30 YEARS OR MORE [facility] Apr 09, 2022 08:30 AM VA-TOBACCO USE ADVICE [facility] Apr 09, 2022 08:30 AM VA-TOBACCO USE GLOBAL COMMODITY MANAGER NO [facility] Apr 09, 2022 08:30 AM VA-TOBACCO USE MED NO [facility] Apr 09, 2022 08:30 AM VA-TOBACCO USER EVERY DAY [facility] Apr 09, 2021 08:30 AM VA-TOBACCO FORMER USER [facility] Apr 09, 2021 08:30 AM VA-TOBACCO QUIT 1 TO < 5 YRS [facility] Oct 04, 2018 08:57 AM VA-TOBACCO FORMER USER [facility] Oct 04, 2018 08:57 AM VA-TOBACCO QUIT 15 YRS OR MORE [facility] Oct 04, 2018 08:33 AM CURRENT TOBACCO USER [facility] Oct 04, 2018 08:33 AM CURRENT TOBACCO US ER (NOT READY TO QUIT) [facility] Oct 04, 2018 08:33 AM SMOKELESS TOBACCO AMOUNT/LENGTH V15 5 cans per week [facility] Oct 04, 2018 08:33 AM TOBACCO CESSATION REFERRAL DECLINED [facility] Oct 04, 2018 08:33 AM TOBACCO MEDS OFFER ED BUT DECLINED [facility] Oct 04, 2018 08:33 AM TOBACCO USER OFFERED MEDS [facility] Apr 12, 2018 08:41 AM CURRENT TOBACCO USER [facility] Apr 12, 2018 08:41 AM CURRENT TOBACCO US ER (NOT READY TO QUIT) [facility] Apr 12, 2018 08:41 AM SMOKELESS TOBACCO AMOUNT/LENGTH V15 1972/ snuff [facility] Apr 12, 2018 08:41 AM TOBACCO CESSATION REFERRAL DECLINED [facility] Apr 12, 2018 08:41 AM TOBACCO MEDS OFFER ED BUT DECLINED [facility] Apr 12, 2018 08:41 AM TOBACCO USER OFFERED MEDS [facility] Feb 08, 2018 02:23 PM CURRENT TOBACCO USER [facility] Feb 08, 2018 02:23 PM CURRENT TOBACCO US ER (NOT READY TO QUIT) [facility] Feb 08, 2018 02:23 PM SMOKELESS TOBACCO AMOUNT/LENGTH V15 1972 [facility] Feb 08, 2018 02:23 PM TOBACCO CESSATION REFERRAL DECLINED [facility] Feb 08, 2018 02:23 PM TOBACCO MEDS OFFER ED BUT DECLINED [facility] Feb 08, 2018 02:23 PM TOBACCO USER OFFERED MEDS [facility] Oct 18, 2017 09:15 AM CURRENT TOBACCO USER [facility] Oct 18, 2017 09:15 AM CURRENT TOBACCO US ER (NOT READY TO QUIT) [facility] Oct 18, 2017 09:15 AM SMOKELESS TOBACCO AMOUNT/LENGTH V15 1972 [facility] Oct 18, 2017 09:15 AM TOBACCO CESSATION REFERRAL DECLINED [facility] Oct 18, 2017 09:15 AM TOBACCO MEDS OFFER ED BUT DECLINED [facility] Oct 18, 2017 09:15 AM TOBACCO USER OFFERED MEDS [facility] Apr 22, 2010 09:10 AM TOBACCO MEDS OFFER ED BUT DECLINED [facility] Apr 22, 2010 09:10 AM TOBACCO OFFERED PT MEDS (PROVIDER) [facility] Apr 22, 2010 09:[address] [facility] Sep 13, 2009 08:15 AM TOBACCO MEDS OFFER ED BUT DECLINED [facility] Sep 13, 2009 08:15 AM TOBACCO OFFERED PT MEDS (PROVIDER) do not want [facility] Sep 13, 2009 08:[address] [facility] do not want [facility] Apr 23, 2009 08:14 AM TOBACCO MEDS OFFER ED BUT DECLINED [facility] Apr 23, 2009 08:14 AM TOBACCO OFFERED PT MEDS (PROVIDER) do not want [facility] Apr 23, 2009 08:[address] [facility] do not want [facility] Sep 11, 2008 09:36 AM QUIT TOBACCO >7 YEARS AGO [facility] Jan 18, 2008 11:30 AM CURRENT TOBACCO USER [facility] Jan 18, 2008 11:[address] [facility] Jul 05, 2007 08:11 AM CURRENT TOBACCO USER [facility] Jul 05, 2007 08:11 AM TOBACCO MEDS OFFER ED BUT DECLINED [facility] Oct 29, 2005 08:32 AM CURRENT TOBACCO USER [facility] Apr 27, 2005 01:30 PM CURRENT TOBACCO USER [facility] Oct 22, 2004 11:05 AM CURRENT TOBACCO USER [facility] Advance Directives: All historical and current Section Date Range: From patient's date of to the date document was created. This section includes ALL of a patient's completed or amended PA Advance and Rescinded Directives. The entries below indicate that a directive exists for the patient, but an actual copy is not included with this document. The data comes from all PA facilities. Date Advance Directives Provider Source Jul 13, 2013 ADVANCE DIRECTIVE DISCUSSION ZACHERY KOENIG [facility] Radiology Reports: +/- 30 days of the encounter Radiology Reports For cases when an order for radiology services may have been completed prior to the date of the Encounter, the report list includes the Radiology Reports that were completed up to 30 days before dateof the Encounter. For cases when an order for radiology services may have been completed after the date of the Encounter, the report list also includes the Radiology Reports that were completed up to30 days after date of the Encounter. The data comes from all [place] treatment facilities. Date/Time Radiology Report Provider Source Jan 09, 2025 09:40 AM CHEST X-RAY, 2 VIE WS: ROCKKHOA SELVIN [id number] -[id number] M Exm Date: JAN 09, 2025@09:40 Req Phys: SRAVANI REICH Pat Loc: PB-TAJ PACT ORELLANA BARREL SCRAPER (Req'g Lo Img Loc: PB-XRAY [place] Service: [place] [address] (Case [id number] COMPLETE) CHEST X-RAY, 2 VIEWS (RAD Detailed) CPT:35456 Reason for Study: Cardiac consult Clinical History: increased weakness and SOB Report Status: Verified Date Reported: JAN 09, 2025 Date Verified: JAN 09, 2025 Utility Tractor Operator E-Sig: Report: Chest 2 views. Lungs hyperinflated with emphysematous changes. Bilateral pleural thickening. Probable scarring left lung base similar previous studies. There is atelectasis right lung base. Mild associated pneumonia cannot be ruled out. No effusions. Heart is enlarged. Plaque thoracic aorta. Degenerative changes thoracic spine. Mild anterior wedging approximately T9 vertebral body. Exact age uncertain. Narrowing several the disc spaces. Impression: 1. COPD with bilateral pleural thickening 2. Cardiomegaly 3. Probable scarring left lung base similar previous studies 4. Right basilar atelectasis. Mild associated pneumonia cannot be ruled out 5. Mild anterior wedging T9 vertebral body. Exact age uncertain 6. Recommend follow-up PA and lateral views the chest in 7-10 days or sooner if clinically indicated Primary Interpreting Staff: CARLOS BOWERS, RADIOLOGIST (Utility Tractor Operator, no e-sig) /CARLOS Hallman [facility] Encounter Notes: All associated encounter notes This section contains the clinical notes associated to the Encounter. Date/Time Encounter Note(s) Provider Source Jan 10, 2025 11:43 AM TELEPHONE ENCOUNTER NOTE: LOCAL TITLE: TELEPHONE NOTE STANDARD TITLE: TELEPHONE ENCOUNTER NOTE DATE OF NOTE: JAN 10, 2025@11:43 ENTRY DATE: JAN 10, 2025@11:51:30 AUTHOR: LEX TORRES COSIGNER: URGENCY: STATUS: COMPLETED Contacted [place] regarding the following test results and Provider recommendations: == KHOA ROCK [address], [place] [address] Dear Khoa Rock, I would like to update you on your recent test results. LIPID PROFILE - High cholesterol and triglycerides (lipids) are risk factors for heart disease. Your cholesterol should fall between 140 and 200, and your triglycerides levels should be less than or equal to 150. HDL is the good cholesterol and should ideally be greater than 40. LDL is the bad cholesterol and optimal levels should be less than 100 (near optimal is between 100 and 129). TRIGLYCERIDE 222 H mg/dL 01/09/2025 09:55 CHOLESTEROL 134 mg/dL 01/09/2025 09:55 HDL(New) 45.0 H mg/dL 01/09/2025 09:55 CALCULATED LDL 44.6 mg/dL 01/09/2025 09:55 HDL % OF TOTAL CHOLESTEROL (PB) 33.6 % 01/09/2025 09:55 No DIRECT LDL EO data found These results are abnormal. Slightly elevated GLUCOSE - Your blood sugar or glucose level result GLUCOSE GLUCOSE 101 H mg/dL 01/09/2025:55 These readings are within normal limits. HEMOGLOBIN A1C - Gives us information about your diabetes (sugar or glucose) control over the past 3 months. Your target is to keep your A1C below 6 %. HGA1C 6.7 H % 01/09/2025 09:55 These results are abnormal. Slightly elevated MICROALBUMIN - The microalbumin to creatinine ratio test is most commonly used to screen for kidney problems. MICROALBUMIN No MICRAL/CREAT RATIO (STL) data found These readings are within normal limits. CBC - A complete blood count (CBC) gives important information about the kinds and numbers of cells in the blood, especially red blood cells, white blood cells, and platelets. HGB 13.8 g/dL 01/09/2025 09: HEMATOCRIT 43.4 % (01/09/25:) PLT 215 10*3/uL 01/09/2025: WHITE BLOOD COUNT 6.9 10*3/uL (01/09/25 09:) These readings are within normal limits. BRAIN NATRIURETIC PEPTIDE 14 pg/mL 0 - 100 IRON STUDIES - Test to show iron deficiency. IRON 65 ug/dL 01/09/2025: TIBC 345 ug/dL 01/09/2025 09:55 IRON SATURATION 19 L % 01/09/2025: FERRITIN 118 ng/mL 01/09/2025:55 These results are abnormal. Saturated iron slightly low by 1 point B12 - Helps maintain healthy nerve cells, red blood cells, and is also needed to make DNA. B12 699 pg/mL 01/09/2025:55 These readings are within normal limits. CHEM 7 - This is important information about the current status of your kidneys, liver, and electrolyte and acid/base balance as well as of your blood sugar and blood proteins. SODIUM 142 mEq/L 01/09/2025 09:55 POTASSIUM 3.5 mEq/L 01/09/2025 09:55 CHLORIDE 101 mEq/L 01/09/2025 09:55 UREA NITROGEN 15 mg/dL 01/09/2025 09:55 CREATININE 1.14 mg/dL 01/09/2025 09:55 CALCIUM 9.0 mg/dL 01/09/2025 09:55 CARBON DIOXIDE 31 mEq/L 01/09/2025 09:55 GLUCOSE 101 H mg/dL 01/09/2025 09:55 EGFR (CKD-EPI 2020) 67 01/09/2025 09:55 These readings are within normal limits. LIVER FUNCTION PANEL - These are tests for liver function: PROTEIN 7.0 g/dL 01/09/2025 09:55 ALBUMIN 4.2 g/dL 01/09/2025 09:55 TOTAL BILIRUBIN 0.3 mg/dL 01/09/2025 09:55 ALKALINE PHOSPHATASE 77 U/L 01/09/2025 09:55 AST/SGOT 25 U/L 01/09/2025 09:55 ALT/SGPT 15 U/L 01/09/2025 09:55 These readings are within normal limits. TSH - Thyroid-stimulating hormone (also known as TSH or thyrotropin) is a peptide hormone synthesized and secreted by thyrotrope cells in the anterior pituitary gland, which regulates the endocrine function of the thyroid gland. TSH TSH 1.257 uIU/mL 01/09/2025 09:55 These readings are within normal limits. VITAMIN D - Helps promote the proper utilization of calcium and phosphorus, thereby producing proper bone maintenance. VITAMIN D, 25-HYDROXY 51.5 ng/mL 01/09/2025 09:55 These readings are within normal limits. OTHER TEST RESULTS RADIOLOGY (NON-INVASIVE TEST RESULTS): chest x-ray Report: Chest 2 views. Lungs hyperinflated with emphysematous changes. Bilateral pleural thickening. Probable scarring left lung base similar previous studies. There is atelectasis right lung base. Mild associated pneumonia cannot be ruled out. No effusions. Heart is enlarged. Plaque thoracic aorta. Degenerative changes thoracic spine. Mild anterior wedging approximately T9 vertebral body. Exact age uncertain. Narrowing several the disc spaces. Impression: 1. COPD with bilateral pleural thickening 2. Cardiomegaly 3. Probable scarring left lung base similar previous studies 4. Right basilar atelectasis. Mild associated pneumonia cannot be ruled out 5. Mild anterior wedging T9 vertebral body. Exact age uncertain 6. Recommend follow-up PA and lateral views the chest in 7-10 days or sooner if clinically indicated PLAN Please continue your treatment as we discussed during your visit. If you have any questions please call your field case manager. I look forward to seeing you at your next clinic appointment. Thank you for choosing the [facility] for your healthcare. FUTURE APPOINTMENTS: 01/11/2025 08:30 [facility] PACT ORELLANA BARREL SCRAPER Mr. Rock, I got all of your labs back and everything actually looks really good your cholesterol was 222 your last year's cholesterol was 297 so it is improving. Your iron your saturated iron was slightly low at 19 the cutoff is 20 so you are just barely anemic and nothing showing in your other iron levels we did nor is anything showing with your hemoglobin and hematocrit those are all within normal limits. Your hemoglobin A1c is 6.7 it was 6.6 last year so around the same. I do want to know how you are feeling I did get your chest x-ray back as well course it is showing some COPD but may be some scarring in the lower left lower lobe possibly could be a little atelectasis or pneumonia. If you are still short of breath I can go ahead and treat you with some antibiotics if you would like if you are feeling a little better if you have gotten that Lasix and it is helping a little bit just let him know when they call you. And we can go from there. Sincerely, Sravani Reich, ANDRIY, MSN, Latoya Dumas [facility] Reviewed above with Isabel. states he only picked up the Ketorolac and did not get the Lasix and potassium. 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 Advised [place] these were ready for pick and to take as directed. Advised to contact us to let us know if he is feeling better after 2 days of taking new medications. Advised [place] that Provider would still like for to see cardiology related to his symptoms and his EKG results. states he does not want to see cardiology and that he will not see them. Advised [place] on the need for this and what was noted on the EKG by cardiology and stated he would not see cardiology. Advised if changed his mind to contact PACT team. voiced understanding of the above and all questions and concerns addressed at this time. /shayne/ Lex Torres RN BSN LATOYA DUMAS [facility] Signed: 01/10/2025 12:53 LEX TORRES [facility] Jan 10, 2025 11:04 AM PHYSICIAN LETTERS: LOCAL TITLE: TEST RESULT GENERAL LETTER STL STANDARD TITLE: PHYSICIAN LETTERS DATE OF NOTE: JAN 10, 2025@11:04 ENTRY DATE: JAN 10, 2025@11:04:57 AUTHOR: SRAVANI REICH EXP COSIGNER: URGENCY: STATUS: COMPLETED [facility] [address] [place] [address] JAN 10, 2025 KHOA ROCK [address], [place] [address] Dear Khoa Rock, I would like to update you on your recent test results. LIPID PROFILE - High cholesterol and triglycerides (lipids) are risk factors for heart disease. Your cholesterol should fall between 140 and 200, and your triglycerides levels should be less than or equal to 150. HDL is the good cholesterol and should ideally be greater than 40. LDL is the bad cholesterol and optimal levels should be less than 100 (near optimal is between 100 and 129). TRIGLYCERIDE 222 H mg/dL 01/09/2025 09:55 CHOLESTEROL 134 mg/dL 01/09/2025 09:55 HDL(New) 45.0 H mg/dL 01/09/2025 09:55 CALCULATED LDL 44.6 mg/dL 01/09/2025 09:55 HDL % OF TOTAL CHOLESTEROL (PB) 33.6 % 01/09/2025 09:55 No DIRECT LDL EO data found These results are abnormal. Slightly elevated GLUCOSE - Your blood sugar or glucose level result GLUCOSE GLUCOSE 101 H mg/dL 01/09/2025 09:55 These readings are within normal limits. HEMOGLOBIN A1C - Gives us information about your diabetes (sugar or glucose) control over the past 3 months. Your target is to keep your A1C below 6 %. HGA1C 6.7 H % 01/09/2025 09:55 These results are abnormal. Slightly elevated MICROALBUMIN - The microalbumin to creatinine ratio test is most commonly used to screen for kidney problems. MICROALBUMIN No MICRAL/CREAT RATIO (STL) data found These readings are within normal limits. CBC - A complete blood count (CBC) gives important information about the kinds and numbers of cells in the blood, especially red blood cells, white blood cells, and platelets. HGB 13.8 g/dL 01/09/2025 09:55 HEMATOCRIT 43.4 % (01/09/25 09:55) PLT 215 10*3/uL 01/09/2025 09:55 WHITE BLOOD COUNT 6.9 10*3/uL (01/09/25 09:55) These readings are within normal limits. BRAIN NATRIURETIC PEPTIDE 14 pg/mL 0 - 100 IRON STUDIES - Test to show iron deficiency. IRON 65 ug/dL 01/09/2025 09:55 TIBC 345 ug/dL 01/09/2025 09:55 IRON SATURATION 19 L % 01/09/2025 09:55 FERRITIN 118 ng/mL 01/09/2025 09:55 These results are abnormal. Saturated iron slightly low by 1 point B12 - Helps maintain healthy nerve cells, red blood cells, and is also needed to make DNA. B12 699 pg/mL 01/09/2025 09:55 These readings are within normal limits. CHEM 7 - This is important information about the current status of your kidneys, liver, and electrolyte and acid/base balance as well as of your blood sugar and blood proteins. SODIUM 142 mEq/L 01/09/2025 09:55 POTASSIUM 3.5 mEq/L 01/09/2025 09:55 CHLORIDE 101 mEq/L 01/09/2025 09:55 UREA NITROGEN 15 mg/dL 01/09/2025 09:55 CREATININE 1.14 mg/dL 01/09/2025 09:55 CALCIUM 9.0 mg/dL 01/09/2025 09:55 CARBON DIOXIDE 31 mEq/L 01/09/2025 09:55 GLUCOSE 101 H mg/dL 01/09/2025 09:55 EGFR (CKD-EPI 2020) 67 01/09/2025 09:55 These readings are within normal limits. LIVER FUNCTION PANEL - These are tests for liver function: PROTEIN 7.0 g/dL 01/09/2025 09:55 ALBUMIN 4.2 g/dL 01/09/2025 09:55 TOTAL BILIRUBIN 0.3 mg/dL 01/09/2025 09:55 ALKALINE PHOSPHATASE 77 U/L 01/09/2025 09:55 AST/SGOT 25 U/L 01/09/2025 09:55 ALT/SGPT 15 U/L 01/09/2025 09:55 These readings are within normal limits. TSH - Thyroid-stimulating hormone (also known as TSH or thyrotropin) is a peptide hormone synthesized and secreted by thyrotrope cells in the anterior pituitary gland, which regulates the endocrine function of the thyroid gland. TSH TSH 1.257 uIU/mL 01/09/2025 09:55 These readings are within normal limits. VITAMIN D - Helps promote the proper utilization of calcium and phosphorus, thereby producing proper bone maintenance. VITAMIN D, 25-HYDROXY 51.5 ng/mL 01/09/2025 09:55 These readings are within normal limits. OTHER TEST RESULTS RADIOLOGY (NON-INVASIVE TEST RESULTS): chest x-ray Report: Chest 2 views. Lungs hyperinflated with emphysematous changes. Bilateral pleural thickening. Probable scarring left lung base similar previous studies. There is atelectasis right lung base. Mild associated pneumonia cannot be ruled out. No effusions. Heart is enlarged. Plaque thoracic aorta. Degenerative changes thoracic spine. Mild anterior wedging approximately T9 vertebral body. Exact age uncertain. Narrowing several the disc spaces. Impression: 1. COPD with bilateral pleural thickening 2. Cardiomegaly 3. Probable scarring left lung base similar previous studies 4. Right basilar atelectasis. Mild associated pneumonia cannot be ruled out 5. Mild anterior wedging T9 vertebral body. Exact age uncertain 6. Recommend follow-up PA and lateral views the chest in 7-10 days or sooner if clinically indicated PLAN Please continue your treatment as we discussed during your visit. If you have any questions please call your field case manager. I look forward to seeing you at your next clinic appointment. Thank you for choosing the [facility] for your healthcare. FUTURE APPOINTMENTS: 01/11/2025 08:30 [facility] PACT ORELLANA BARREL SCRAPER Mr. Rock, I got all of your labs back and everything actually looks really good your cholesterol was 222 your last year's cholesterol was 297 so it is improving. Your iron your saturated iron was slightly low at 19 the cutoff is 20 so you are just barely anemic and nothing showing in your other iron levels we did nor is anything showing with your hemoglobin and hematocrit those are all within normal limits. Your hemoglobin A1c is 6.7 it was 6.6 last year so around the same. I do want to know how you are feeling I did get your chest x-ray back as well course it is showing some COPD but may be some scarring in the lower left lower lobe possibly could be a little atelectasis or pneumonia. If you are still short of breath I can go ahead and treat you with some antibiotics if you would like if you are feeling a little better if you have gotten that Lasix and it is helping a little bit just let him know when they call you. And we can go from there. Sincerely, Sravani Reich, ANDRIY, MSN, Latoya Pittshing [facility] KHOA ROCKSRAVANI FIORE [facility] Jan 09, 2025 09:05 AM PRIMARY CARE PROGRESS NOTE: LOCAL TITLE: PRIMARY CARE CLINIC PROGRESS NOTE PB STANDARD TITLE: PRIMARY CARE PROGRESS NOTE DATE OF NOTE: JAN 09, 2025@09:05 ENTRY DATE: JAN 09, 2025@09:05:13 AUTHOR: SRAVANI REICH EXP COSIGNER: URGENCY: STATUS: COMPLETED This is a 74 year old MALE DS - Disabilities Eligibility: SERVICE CONNECTED 50% to 100% VERIFIED Total S/C %: 100 PARALYSIS OF EXTERNAL POPLITEAL NERVE 10% S/C DIABETES MELLITUS 20% S/C PARALYSIS OF EXTERNAL POPLITEAL NERVE 10% S/C DYSTHYMIC DISORDER 30% S/C HYPERTENSIVE VASCULAR DISEASE 0% S/C NEOPLASM, MALIGNANT, GENITOURINARY 100% S/C PARALYSIS OF MEDIAN NERVE 20% S/C PARALYSIS OF SCIATIC NERVE 40% S/C PARALYSIS OF ANTERIOR CRURAL NERVE 10% S/C PARALYSIS OF SCIATIC NERVE 40% S/C PARALYSIS OF MEDIAN NERVE 30% S/C PARALYSIS OF ANTERIOR CRURAL NERVE 10% S/C Chief Complaint (Reason for today's visit): 6 month follow-up /annual History of Present Illness (Subjective): Isabel presented today for a scheduled 6-month follow-up and stated that it was time for his annual will do labs today and address some of his pertinent information has a history of hypertension, hyperlipidemia, diabetes, depression, GERD, thigh and diabetic neuropathy. [place] states that he is more short of breath and has increasing weakness that has worsened over the last month or so. states that he still weak he just does not feel like moving will order EKG and chest x-ray today requested Xanax I explained to him that I would not be giving him Xanax but I will order an up-to-date sleep study as well as an echo to see if he has progressive cardiac disease. [place] on exam has noted 2+ pitting edema to bilateral lower extremities will order furosemide and potassium to be sent to [facility] as well as mail to . states that his hip pain is severe and I told him that I could x-ray his hips and he refused stating that Dr. Schneider at the pain clinic just x-rayed him and just did steroid injections on his back he did state some noted relief of hip pain after his injections but stated that it could be coming from his back. Instructed that that was coming from his back probably and that he needed to use heat and ice and get up and move more. very lethargic he states that he has fallen several times at home when discussed having home health come in and help him situate things better he refused. He also refused physical therapy cardiac referral as well as any additional offerings that I had refused to go to PT he states that it is he has had it done before and nothing helps out offered chiropractor he refused that Allergies: PREGABALIN, SULFA DRUGS REVIEW OF SYSTEMS: HEENT: No visual or auditory symptoms. RESPIRATORY: No shortness of breath, cough or sputum. CARDIOVASCULAR: No chest pain or palpitation. GI: No abdominal pain, nausea, vomiting or bowel changes. MUSCULOSKELETAL: Muscle aches , Joint pain SKIN: No new rashes, no unhealing lesions, no moles. : No urinary symptoms. PSYCH: Denies being depressed or anxious. VITALS: Temperature: 98.1 F [36.7 C] (01/09/2025 08:45) Respiratory Rate: 20 (01/09/2025 08:45) Pulse Rate: 76 (01/09/2025 08:45) Blood Pressure: 125/80 (01/09/2025 08:45) HT: 70 in [177.8 cm] (04/04/2019 08:41) WT: 302.0 lb [136.98 kg] (01/09/2025 08:45) BMI: 43.4 93% (01/09/2025 08:45) PHYSICAL EXAM: General: NAD noted, A&Ox3, pleasant, appears stated age HEENT: NCAT, TM's clear, nares and oropharynx clear Neck: Supple with normal active ROM, without any lymphadenopathy Heart: RRR, no murmur, clicks, or rub. Resp: Lungs on auscultation diminished throughout, respirations even and unlabored. Abdomen: Soft, non-distended, non-tender Ext: No clubbing, cyanosis, edema or obvious deformity Neuro: Grossly intact Psych: Affect normal, answers questions appropriately throughout visit DIAGNOSTIC STUDIES: Labs Performed/Reviewed at Today's Visit: Annual labs Radiology/Imaging Performed/Reviewed at Today's Visit: EKG and chest x-ray Reason for studies: Shortness of breath and weakness On the following Active Medications: Active Outpatient Medications (including Supplies): Active Outpatient Medications Status 1) BRIEF,PROTECTIVE SUPER ABS XLG ATTENDS USE 1 BRIEF TO ACTIVE AFFECTED AREA(S) THREE TIMES A DAY NEEDED Indication: FOR INCONTINENCE 2) CALCIUM POLYCARBOPHIL 625MG TAB TAKE TWO TABLETS BY MOUTH ACTIVE (S) ONCE A DAY FOR FIBER 3) CHOLECALCIF 50MCG (D3-2,000UNIT) TAB TAKE ONE TABLET BY ACTIVE (S) MOUTH ONCE A DAY Indication: FOR VITAMIN D DEFICIENCY 4) FERROUS SULFATE 324MG EC TAB TAKE ONE TABLET BY MOUTH EVERY ACTIVE (S) MORNING Indication: FOR IRON SUPPLEMENTATION 5) FLUTICASONE PROP 50MCG 120D NASAL INHL INSTILL 2 SPRAYS IN ACTIVE (S) NOSTRIL(S) ONCE A DAY (MUST BE USED DIRECTED FOR MINIMUM OF 21 DAYS TO PROVIDE ADEQUATE BENEFITS) Indication: FOR RHINITIS 6) GABAPENTIN 300MG CAP TAKE TWO CAPSULES BY MOUTH THREE TIMES ACTIVE (S) A DAY Indication: FOR NERVE PAIN 7) HYDROCHLOROTHIAZIDE 50MG TAB TAKE ONE TABLET BY MOUTH ONCE A ACTIVE (S) DAY Indication: FOR HIGH BLOOD PRESSURE 8) LIDOCAINE 5% OINT APPLY LIBERALLY TO AFFECTED AREA(S) TWICE ACTIVE (S) A DAY *REPLACES LIDOCAINE CREAM* 9) METFORMIN HCL 1000MG TAB TAKE ONE-HALF TABLET BY MOUTH EVERY ACTIVE (S) MORNING TAKE WITH FOOD. AVOID ALCOHOL. DISCONTINUE BEFORE GETTING XRAY DYE. Indication: FOR DIABETES 10) METOPROLOL SUCCINATE 50MG SA TAB TAKE ONE-HALF TABLET BY ACTIVE (S) MOUTH EVERY MORNING SWALLOW WHOLE, DO NOT CRUSH OR CHEW (TABLETS MAY BE CUT IN HALF). Indication: FOR HIGH BLOOD PRESSURE 11) MULTIVITAMIN CAP/TAB TAKE 2 TABLETS BY MOUTH ONCE A DAY ACTIVE (S) Indication: FOR NUTRITION/DIETARY SUPPLEMENTATION 12) OMEPRAZOLE 20MG EC CAP TAKE ONE CAPSULE BY MOUTH EVERY ACTIVE (S) MORNING BEFORE A MEAL TAKE 30 MINUTES PRIOR TO FOOD. Indication: FOR GASTROESOPHAGEAL REFLUX DISEASE 13) PRAZOSIN HCL 2MG CAP TAKE TWO CAPSULES BY MOUTH AT BEDTIME ACTIVE (S) TAKE TOWARDS BEDTIME; FOR NIGHTMARES MAY CAUSE DROWSINESS DO NOT TAKE WITH SILDENAFIL 14) SERTRALINE HCL 100MG TAB TAKE ONE TABLET BY MOUTH EVERY ACTIVE (S) MORNING Indication: FOR DEPRESSION 15) SILDENAFIL CITRATE 100MG TAB TAKE ONE-HALF TABLET BY MOUTH ACTIVE (S) EVERY WEEK NEEDED FOR ERECTILE DYSFUNCTION (TAKE 60 MINUTES PRIOR TO SEXUAL ACTIVITY) - LIMIT 6 DOSES PER 30 DAYS CUT TABLET IN HALF FOR YOUR DOSE 16) SIMVASTATIN 80MG TAB TAKE ONE-HALF TABLET BY MOUTH EVERY ACTIVE (S) EVENING Indication: FOR HIGH CHOLESTEROL 17) TAMSULOSIN HCL 0.4MG CAP TAKE ONE CAPSULE BY MOUTH EVERY ACTIVE EVENING APPROXIMATELY 30 MINUTES AFTER THE SAME MEAL EACH DAY (FOR PROSTATE) 18) VALSARTAN 160MG TAB TAKE ONE TABLET BY MOUTH ONCE A DAY ACTIVE (S) Indication: FOR HIGH BLOOD PRESSURE Active Non-VA Medications Status 1) Non-VA CHOLECALCIF 50MCG (D3-2,000UNIT) TAB 50MCG BY MOUTH ACTIVE ONCE A DAY 2) Non-VA FERROUS SULFATE 325MG TAB 325MG BY MOUTH ONCE A DAY ACTIVE 3) Non-VA GABAPENTIN 300MG CAP 600MG BY MOUTH THREE TIMES A DAY ACTIVE 4) Non-VA HYDROCHLOROTHIAZIDE 50MG TAB 50MG BY MOUTH EVERY ACTIVE MORNING 5) Non-VA METFORMIN HCL 1000MG TAB 500MG BY MOUTH TWICE A DAY ACTIVE WITH MEALS 6) Non-VA MULTIVITAMIN CAP/TAB 1 TABLET BY MOUTH ONCE A DAY ACTIVE 7) Non-VA NADOLOL 40MG TAB 40MG BY MOUTH ONCE A DAY ACTIVE 8) Non-VA OMEPRAZOLE 20MG EC CAP 40MG BY MOUTH EVERY MORNING ACTIVE 9) Non-VA SERTRALINE HCL 100MG TAB 50MG BY MOUTH EVERY MORNING ACTIVE 10) Non-VA SIMVASTATIN 80MG TAB 40MG BY MOUTH EVERY EVENING ACTIVE 11) Non-VA VALSARTAN 160MG TAB 160MG BY MOUTH ONCE A DAY ACTIVE 29 Total Medications 1) Gastro-esophageal reflux disease without esophagitis (SNOMED CT 996443044) 2) Primary hypertension (SNOMED CT 53211387) 3) Chronic post-traumatic stress disorder following combat (SNOMED CT 541332774) 4) Generalized social phobia (SNOMED CT 28875491) 5) Depression (SNOMED CT 78650060) 6) Hyperlipidemia (SNOMED CT 06695800) 7) CVA - cerebrovascular accident due to cerebral artery occlusion 8) Diabetic peripheral neuropathy 9) Chronic obstructive lung disease (SNOMED CT 83121408) 10) Diabetes mellitus 11) GERD - Gastro-Esophageal Reflux Disease (SCT 159700632) 12) Solitary pulmonary nodule 13) Adrenal mass 14) Sleep Apnea (SCT 13746978) 15) Elevated PSA 16) AAA - Abdominal aortic aneurysm 17) SBO - Small bowel obstruction 18) Chronic back pain 19) Exposure to potentially hazardous chemical 20) Exposure to potentially hazardous substance 21) Carcinoma in situ of prostate 22) Left knee pain = MEDICATION RECONCILIATION: ACTIVE/ OUTPATIENT MEDICATIONS: MRT1 - Med Reconciliation INCLUDED IN THIS LIST: Alphabetical list of active outpatient prescriptions dispensed from this [facility] (local) and dispensed from another VA or [facility] facility (remote) as well as inpatient orders (local pending and active), local clinic medications, locally documented non-VA medications, and local prescriptions that have or been discontinued in the past 90 days. Non-VA Meds Last Documented On: Sep 14, 2022 NOTE The display of VA prescriptions dispensed from another PA or [facility] facility (remote) is limited to active outpatient prescription entries matched to National Drug File at the originating site and may not include some items such as investigational drugs, compounds, etc. NOT INCLUDED IN THIS LIST: Medications self-entered by the patient into personal health records (i.e. Speak With Me) are NOT included in this list. Non-VA medications documented outside this PA, remote inpatient orders (regardless of status) and remote clinic medications are NOT included in this list. The patient and provider must always discuss medications the patient is taking, regardless of where the medication was dispensed or obtained. OUTPT CALCIUM POLYCARBOPHIL 625MG TAB (Status = Active/Suspended) TAKE TWO TABLETS BY MOUTH ONCE A DAY FOR FIBER Rx# [id number] Last Released: 10/23/24 Qty/Days Supply: 180 Rx Expiration Date: 05/02/25 Refills Remainin Non-VA CHOLECALCIF 50MCG (D3-2,000UNIT) TAB TAKE ONE TABLET BY MOUTH ONCE A DAY Patient wants to buy from Non-VA pharmacy. OUTPT CHOLECALCIF 50MCG (D3-2,000UNIT) TAB (Status = Active/Suspended) TAKE ONE TABLET BY MOUTH ONCE A DAY FOR VITAMIN D DEFICIENCY Rx# [id number] Last Released: 12/16/24 Qty/Days Supply: 100 Rx Expiration Date: 07/13/25 Refills Remainin Indication: FOR VITAMIN D DEFICIENCY OUTPT FERROUS SULFATE 324MG EC TAB (Status = Active/Suspended) TAKE ONE TABLET BY MOUTH EVERY MORNING FOR IRON SUPPLEMENTATION Rx# [id number] Last Released: 12/22/24 Qty/Days Supply: 100/ Rx Expiration Date: 07/13/25 Refills Remainin Indication: FOR IRON SUPPLEMENTATION Non-VA FERROUS SULFATE 325MG TAB TAKE ONE TABLET BY MOUTH ONCE A DAY Patient wants to buy from Non-PA pharmacy. OUTPT FLUTICASONE PROP 50MCG 120D NASAL INHL (Status = Active/Suspended) INSTILL 2 SPRAYS IN NOSTRIL(S) ONCE A DAY FOR RHINITIS (MUST BE USED DIRECTED FOR MINIMUM OF 21 DAYS TO PROVIDE ADEQUATE BENEFITS) Rx# [id number] Last Released: 12/22/24 Qty/Days Supply: Rx Expiration Date: 07/13/25 Refills Remainin Indication: FOR RHINITIS Non-VA GABAPENTIN 300MG CAP TAKE 2 CAPSULES BY MOUTH THREE TIMES A DAY Patient wants to buy from Non-PA pharmacy. OUTPT GABAPENTIN 300MG CAP (Status = Active/Suspended) TAKE TWO CAPSULES BY MOUTH THREE TIMES A DAY FOR NERVE PAIN Rx# [id number] Last Released: 12/22/24 Qty/Days Supply: Rx Expiration Date: 07/13/25 Refills Remainin Indication: FOR NERVE PAIN Non-VA HYDROCHLOROTHIAZIDE 50MG TAB TAKE ONE TABLET BY MOUTH EVERY MORNING Patient wants to buy from Non-PA pharmacy. Medication prescribed by Non-PA provider. OUTPT HYDROCHLOROTHIAZIDE 50MG TAB (Status = Active/Suspended) TAKE ONE TABLET BY MOUTH ONCE A DAY FOR HIGH BLOOD PRESSURE Rx# [id number] Last Released: 12/22/24 Qty/Days Supply: 90 Rx Expiration Date: 07/13/25 Refills Remainin Indication: FOR HIGH BLOOD PRESSURE OUTPT LIDOCAINE 5% OINT (Status = Active/Suspended) APPLY LIBERALLY TO AFFECTED AREA(S) TWICE A DAY *REPLACES LIDOCAINE CREAM* Rx# [id number] Last Released: 12/13/24 Qty/Days Supply: 350/ Rx Expiration Date: 05/02/25 Refills Remainin Non-VA METFORMIN HCL 1000MG TAB TAKE ONE-HALF TABLET BY MOUTH TWICE A DAY WITH MEALS Medication prescribed by Non-VA provider. OUTPT METFORMIN HCL 1000MG TAB (Status = Active/Suspended) TAKE ONE-HALF TABLET BY MOUTH EVERY MORNING FOR DIABETES TAKE WITH FOOD. AVOID ALCOHOL. DISCONTINUE BEFORE GETTING XRAY DYE. Rx# [id number] Last Released: 12/22/24 Qty/Days Supply: 45 Rx Expiration Date: 07/13/25 Refills Remainin Indication: FOR DIABETES OUTPT METOPROLOL SUCCINATE 50MG SA TAB (Status = Active/Suspended) TAKE ONE-HALF TABLET BY MOUTH EVERY MORNING FOR HIGH BLOOD PRESSURE SWALLOW WHOLE, DO NOT CRUSH OR CHEW (TABLETS MAY BE CUT IN HALF). Rx# [id number] Last Released: 12/22/24 Qty/Days Supply: 45/ Rx Expiration Date: 07/13/25 Refills Remainin Indication: FOR HIGH BLOOD PRESSURE Non-VA MULTIVITAMIN CAP/TAB TAKE ONE TABLET BY MOUTH ONCE A DAY Patient wants to buy from Non-VA pharmacy. OUTPT MULTIVITAMIN CAP/TAB (Status = Active/Suspended) TAKE 2 TABLETS BY MOUTH ONCE A DAY FOR NUTRITION/DIETARY SUPPLEMENTATION Rx# [id number] Last Released: 12/22/24 Qty/Days Supply: 200/90 Rx Expiration Date: 07/13/25 Refills Remainin Indication: FOR NUTRITION/DIETARY SUPPLEMENTATION Non-VA NADOLOL 40MG TAB TAKE ONE TABLET BY MOUTH ONCE A DAY Patient wants to buy from Non-PA pharmacy. Medication prescribed by Non-VA provider. Non-VA OMEPRAZOLE 20MG EC CAP TAKE 2 CAPSULES BY MOUTH EVERY MORNING Medication prescribed by Non-VA provider. OUTPT OMEPRAZOLE 20MG EC CAP (Status = Active/Suspended) TAKE ONE CAPSULE BY MOUTH EVERY MORNING BEFORE A MEAL FOR GASTROESOPHAGEAL REFLUX DISEASE TAKE 30 MINUTES PRIOR TO FOOD. Rx# [id number] Last Released: 12/16/24 Qty/Days Supply: 90 Rx Expiration Date: 07/13/25 Refills Remainin Indication: FOR GASTROESOPHAGEAL REFLUX DISEASE OUTPT PRAZOSIN HCL 2MG CAP (Status = Active/Suspended) TAKE TWO CAPSULES BY MOUTH AT BEDTIME TAKE TOWARDS BEDTIME; FOR NIGHTMARES MAY CAUSE DROWSINESS DO NOT TAKE WITH SILDENAFIL Rx# [id number] Last Released: 12/13/24 Qty/Days Supply: 180/90 Rx Expiration Date: 05/02/25 Refills Remainin Non-VA SERTRALINE HCL 100MG TAB TAKE ONE-HALF TABLET BY MOUTH EVERY MORNING Medication prescribed by Non-VA provider. OUTPT SERTRALINE HCL 100MG TAB (Status = Active/Suspended) TAKE ONE TABLET BY MOUTH EVERY MORNING FOR DEPRESSION Rx# [id number] Last Released: 12/18/24 Qty/Days Supply: 90/ Rx Expiration Date: 07/13/25 Refills Remainin Indication: FOR DEPRESSION OUTPT SILDENAFIL CITRATE 100MG TAB (Status = Active/Suspended) TAKE ONE-HALF TABLET BY MOUTH EVERY WEEK NEEDED FOR ERECTILE DYSFUNCTION (TAKE 60 MINUTES PRIOR TO SEXUAL ACTIVITY) - LIMIT 6 DOSES PER 30 DAYS CUT TABLET IN HALF FOR YOUR DOSE Rx# [id number] Last Released: 10/21/24 Qty/Days Supply: Rx Expiration Date: 05/02/25 Refills Remainin Non-VA SIMVASTATIN 80MG TAB TAKE ONE-HALF TABLET BY MOUTH EVERY EVENING Medication prescribed by Non-VA provider. OUTPT SIMVASTATIN 80MG TAB (Status = Active/Suspended) TAKE ONE-HALF TABLET BY MOUTH EVERY EVENING FOR HIGH CHOLESTEROL Rx# [id number] Last Released: 12/22/24 Qty/Days Supply: Rx Expiration Date: 07/13/25 Refills Remainin Indication: FOR HIGH CHOLESTEROL OUTPT TAMSULOSIN HCL 0.4MG CAP (Status = Active) TAKE ONE CAPSULE BY MOUTH EVERY EVENING APPROXIMATELY 30 MINUTES AFTER THE SAME MEAL EACH DAY (FOR PROSTATE) Rx# [id number] Last Released: 01/04/25 Qty/Days Supply: Rx Expiration Date: 05/02/25 Refills Remainin Non-VA VALSARTAN 160MG TAB TAKE ONE TABLET BY MOUTH ONCE A DAY Medication prescribed by Non-VA provider. OUTPT VALSARTAN 160MG TAB (Status = Active/Suspended) TAKE ONE TABLET BY MOUTH ONCE A DAY FOR HIGH BLOOD PRESSURE Rx# [id number] Last Released: 12/19/24 Qty/Days Supply: Rx Expiration Date: 07/13/25 Refills Remainin Indication: FOR HIGH BLOOD PRESSURE SUPPLIES OUTPT BRIEF,PROTECTIVE SUPER ABS XLG ATTENDS (Status = Active) USE 1 BRIEF TO AFFECTED AREA(S) THREE TIMES A DAY NEEDED FOR INCONTINENCE Rx# [id number] Last Released: 12/19/24 Qty/Days Supply: Rx Expiration Date: 01/25/25 Refills Remainin Indication: FOR INCONTINENCE PHARMACY TERMS AND POSSIBLE PATIENT ACTIONS INPT = PA inpatient order IV = PA intravenous medication OUTPT = PA outpatient prescription PHARMACY POSSIBLE PATIENT TERMS EXPLANATION ACTIONS -------- -- ACTIVE A prescription that can be If you have refills, filled at the local PA pharmacy. you may request a refill of this prescription from your VA pharmacy. CLINIC A medication you received during If you have questions a visit to a PA clinic or about this medication emergency department. contact your VA healthcare team. DISCONTINUED A prescription your provider has Contact your VA stopped. It is no longer healthcare team if you available to be sent to you or need more of this picked up at the PA pharmacy medication. window. A prescription which is too old Contact your VA to fill. This does not refer to healthcare team if you the expiration date of the need more of this medication in the container. medication. NON-VA A medication that came from If this medication someplace other than a VA information is pharmacy. This may be a incorrect or out of prescription from either the VA date, please tell your or non-VA providers that was VA healthcare team. filled outside the VA. Or, it may be an hpvk-cgp-tasbion (OTC), herbal, dietary supplements or sample medication. ON HOLD An active prescription that will Contact your VA not be filled until pharmacy pharmacy when you need resolves the issue. more of this medication. PARKED An active prescription that will Contact your VA not be filled until the patient pharmacy when you need requests it. this medication. PENDING This prescription order has been If you have been sent to the pharmacy for review instructed to start and is not ready yet. this medication now, contact your VA pharmacy. SUSPENDED An active prescription that is Contact your VA not scheduled to be filled yet. pharmacy if you need You should receive it before this medication now. you run out. ====== DISCONTINUED: none ADDED/CHANGES: none NON-VA MEDICATIONS NOT LISTED ABOVE (List, including Herbals and OTC): Reviewed with patient/family members. Copy given to patient. Patient verbalized understanding? yes = ASSESSMENT/IMPRESSION: 6 month follow-up -current bilateral hip pain -current SOB and weakness -current BPH -current COPD -current Hypertension -current Hyperlipidemia -current Diabetes type 2 -current Diabetic neuropathy -current Lower extremity edema -current PLAN OF CARE: 6month follow-up plan EKG today and annual labs today bilateral hip pain plan to increase gabapentin and Toradol injection SOB and weakness plan EKG and CXR, labs BPH plan to continue tamsulosin will draw labs today COPD plan to continue current inhalers Hypertension plan to continue metoprolol, HCTZ and valsartan ( states that he is taking losartan is not on his med list is supposed to call and verify what medication he has) Diabetic neuropathy plan to increase gabapentin Diabetes type 2 plan to continue current regimen Hyperlipidemia plan to continue simvastatin Lower extremity edema plan to add furosemide and [facility] and called furosemide 10 and potassium 10 mEq to [facility] in [place]. Follow-up: _6_months and/or as needed and keep regularly scheduled appointment. Discussed diet and exercise as relevant to patient conditions. Patient is advised this primary care clinic has open access and he can make a same day appointment anytime a problem/concern arises. Patient further advised he can be seen on a walk-in basis as needed. Patient is provided clinic contact information. Treatment plan as noted above and the After Visit Summary was reviewed with [place]; opportunity provided to report concerns and ask question regarding aspects of care or treatment or services; concurrence reached and verbalized understanding. Discussed with patient that in the event of community imaging/testing being ordered in the future, once the imaging testing has been completed, please notify PACT of within 1 week by a PA PACT member; this is due to intermittent lapses in notification of imaging completion within [facility]. All questions answered; agrees to plan of care. Follow up as listed above, annually, and as needed. Keep all completion at outside facility if not called with results appointments. Medications Reconciled. Time spent 30 minutes. Sravani ASHRAF[facility] APR Float Cystatin C with eGFR Screen - N,P,PH: The patient has a condition that may benefit from obtaining a Cystatin C test for accurate assessment of renal function. Cystatin C w/eGFR ordered for renal assessment. /shayne/ ANDRIY Wiggins, MSN, Latoya Dumas [facility] Signed: 01/09/2025 14:16 [facility] Jan 09, 2025 08:26 AM PRIMARY CARE NURSING NOTE: LOCAL TITLE: PRIMARY CARE NURSING PROGRESS NOTE (TEXT) NURSING P STANDARD TITLE: PRIMARY CARE NURSING NOTE DATE OF NOTE: JAN 09, 2025@08:26 ENTRY DATE: JAN 09, 2025@08:26:45 AUTHOR: BRYAN ALBERTS COSIGNER: URGENCY: STATUS: COMPLETED Established Patient KHOA ROCK IS A 74 YEAR OLD MALE BEING SEEN IN CLINIC JAN 09, 2025. REASON FOR VISIT: 6 month follow up Are you receiving care any where other than the [facility]? Yes, List: PCP: [facility] H[facility]: Bilateral catarct surgery Dr. Alfred Degroot,scheduled for blepharoplasty. Does patient report using home oxygen? Yes; Current Oxygen Flow Rate: 2L prn CURRENT ACTIVE MEDICATIONS FOR REVIEW: Allergies/ADRs (Tool #5) FACILITY ALLERGY/ADR -------- No Remote Allergy/ADR Data available for this patient [facility] Med. Reconciliation (Tool #1) INCLUDED IN THIS LIST: Alphabetical list of active outpatient prescriptions dispensed from this PA (local) and dispensed from another PA or [facility] facility (remote) as well as inpatient orders (local pending and active), local clinic medications, locally documented non-VA medications, and local prescriptions that have or been discontinued in the past 90 days. Non-VA Meds Last Documented On: Sep 14, 2022 NOTE The display of VA prescriptions dispensed from another PA or [facility] facility (remote) is limited to active outpatient prescription entries matched to National Drug File at the originating site and may not include some items such as investigational drugs, compounds, etc. NOT INCLUDED IN THIS LIST: Medications self-entered by the patient into personal health records (i.e. Speak With Me) are NOT included in this list. Non-VA medications documented outside this PA, remote inpatient orders (regardless of status) and remote clinic medications are NOT included in this list. The patient and provider must always discuss medications the patient is taking, regardless of where the medication was dispensed or obtained. OUTPT CALCIUM POLYCARBOPHIL 625MG TAB (Status = Active/Suspended) TAKE TWO TABLETS BY MOUTH ONCE A DAY FOR FIBER Rx# [id number] Last Released: 10/23/24 Qty/Days Supply: 180/90 Rx Expiration Date: 05/02/25 Refills Remainin Non-VA CHOLECALCIF 50MCG (D3-2,000UNIT) TAB TAKE ONE TABLET BY MOUTH ONCE A DAY Patient wants to buy from Non-VA pharmacy. OUTPT CHOLECALCIF 50MCG (D3-2,000UNIT) TAB (Status = Active/Suspended) TAKE ONE TABLET BY MOUTH ONCE A DAY FOR VITAMIN D DEFICIENCY Rx# [id number] Last Released: 12/16/24 Qty/Days Supply: 100 Rx Expiration Date: 07/13/25 Refills Remainin Indication: FOR VITAMIN D DEFICIENCY OUTPT FERROUS SULFATE 324MG EC TAB (Status = Active/Suspended) TAKE ONE TABLET BY MOUTH EVERY MORNING FOR IRON SUPPLEMENTATION Rx# [id number] Last Released: 12/22/24 Qty/Days Supply: 100 Rx Expiration Date: 07/13/25 Refills Remainin Indication: FOR IRON SUPPLEMENTATION Non-VA FERROUS SULFATE 325MG TAB TAKE ONE TABLET BY MOUTH ONCE A DAY Patient wants to buy from Non-PA pharmacy. OUTPT FLUTICASONE PROP 50MCG 120D NASAL INHL (Status = Active/Suspended) INSTILL 2 SPRAYS IN NOSTRIL(S) ONCE A DAY FOR RHINITIS (MUST BE USED DIRECTED FOR MINIMUM OF 21 DAYS TO PROVIDE ADEQUATE BENEFITS) Rx# [id number] Last Released: 12/22/24 Qty/Days Supply: Rx Expiration Date: 07/13/25 Refills Remainin Indication: FOR RHINITIS Non-VA GABAPENTIN 300MG CAP TAKE 2 CAPSULES BY MOUTH THREE TIMES A DAY Patient wants to buy from Non-VA pharmacy. OUTPT GABAPENTIN 300MG CAP (Status = Active/Suspended) TAKE TWO CAPSULES BY MOUTH THREE TIMES A DAY FOR NERVE PAIN Rx# [id number] Last Released: 12/22/24 Qty/Days Supply: 540/ Rx Expiration Date: 07/13/25 Refills Remainin Indication: FOR NERVE PAIN Non-VA HYDROCHLOROTHIAZIDE 50MG TAB TAKE ONE TABLET BY MOUTH EVERY MORNING Patient wants to buy from Non-VA pharmacy. Medication prescribed by Non-VA provider. OUTPT HYDROCHLOROTHIAZIDE 50MG TAB (Status = Active/Suspended) TAKE ONE TABLET BY MOUTH ONCE A DAY FOR HIGH BLOOD PRESSURE Rx# [id number] Last Released: 12/22/24 Qty/Days Supply: 90/ Rx Expiration Date: 07/13/25 Refills Remainin Indication: FOR HIGH BLOOD PRESSURE OUTPT LIDOCAINE 5% OINT (Status = Active/Suspended) APPLY LIBERALLY TO AFFECTED AREA(S) TWICE A DAY *REPLACES LIDOCAINE CREAM* Rx# [id number] Last Released: 12/13/24 Qty/Days Supply: 350/90 Rx Expiration Date: 05/02/25 Refills Remainin Non-VA METFORMIN HCL 1000MG TAB TAKE ONE-HALF TABLET BY MOUTH TWICE A DAY WITH MEALS Medication prescribed by Non-VA provider. OUTPT METFORMIN HCL 1000MG TAB (Status = Active/Suspended) TAKE ONE-HALF TABLET BY MOUTH EVERY MORNING FOR DIABETES TAKE WITH FOOD. AVOID ALCOHOL. DISCONTINUE BEFORE GETTING XRAY DYE. Rx# [id number] Last Released: 12/22/24 Qty/Days Supply: 45/ Rx Expiration Date: 07/13/25 Refills Remainin Indication: FOR DIABETES OUTPT METOPROLOL SUCCINATE 50MG SA TAB (Status = Active/Suspended) TAKE ONE-HALF TABLET BY MOUTH EVERY MORNING FOR HIGH BLOOD PRESSURE SWALLOW WHOLE, DO NOT CRUSH OR CHEW (TABLETS MAY BE CUT IN HALF). Rx# [id number] Last Released: 12/22/24 Qty/Days Supply: 45 Rx Expiration Date: 07/13/25 Refills Remainin Indication: FOR HIGH BLOOD PRESSURE Non-VA MULTIVITAMIN CAP/TAB TAKE ONE TABLET BY MOUTH ONCE A DAY Patient wants to buy from Non-PA pharmacy. OUTPT MULTIVITAMIN CAP/TAB (Status = Active/Suspended) TAKE 2 TABLETS BY MOUTH ONCE A DAY FOR NUTRITION/DIETARY SUPPLEMENTATION Rx# [id number] Last Released: 12/22/24 Qty/Days Supply: 200/90 Rx Expiration Date: 07/13/25 Refills Remainin Indication: FOR NUTRITION/DIETARY SUPPLEMENTATION Non-VA NADOLOL 40MG TAB TAKE ONE TABLET BY MOUTH ONCE A DAY Patient wants to buy from Non-PA pharmacy. Medication prescribed by Non-VA provider. Non-VA OMEPRAZOLE 20MG EC CAP TAKE 2 CAPSULES BY MOUTH EVERY MORNING Medication prescribed by Non-VA provider. OUTPT OMEPRAZOLE 20MG EC CAP (Status = Active/Suspended) TAKE ONE CAPSULE BY MOUTH EVERY MORNING BEFORE A MEAL FOR GASTROESOPHAGEAL REFLUX DISEASE TAKE 30 MINUTES PRIOR TO FOOD. Rx# [id number] Last Released: 12/16/24 Qty/Days Supply: 90/ Rx Expiration Date: 07/13/25 Refills Remainin Indication: FOR GASTROESOPHAGEAL REFLUX DISEASE OUTPT PRAZOSIN HCL 2MG CAP (Status = Active/Suspended) TAKE TWO CAPSULES BY MOUTH AT BEDTIME TAKE TOWARDS BEDTIME; FOR NIGHTMARES MAY CAUSE DROWSINESS DO NOT TAKE WITH SILDENAFIL Rx# [id number] Last Released: 12/13/24 Qty/Days Supply: Rx Expiration Date: 05/02/25 Refills Remainin Non-VA SERTRALINE HCL 100MG TAB TAKE ONE-HALF TABLET BY MOUTH EVERY MORNING Medication prescribed by Non-VA provider. OUTPT SERTRALINE HCL 100MG TAB (Status = Active/Suspended) TAKE ONE TABLET BY MOUTH EVERY MORNING FOR DEPRESSION Rx# [id number] Last Released: 12/18/24 Qty/Days Supply: Rx Expiration Date: 07/13/25 Refills Remainin Indication: FOR DEPRESSION OUTPT SILDENAFIL CITRATE 100MG TAB (Status = Active/Suspended) TAKE ONE-HALF TABLET BY MOUTH EVERY WEEK NEEDED FOR ERECTILE DYSFUNCTION (TAKE 60 MINUTES PRIOR TO SEXUAL ACTIVITY) - LIMIT 6 DOSES PER 30 DAYS CUT TABLET IN HALF FOR YOUR DOSE Rx# [id number] Last Released: 10/21/24 Qty/Days Supply: Rx Expiration Date: 05/02/25 Refills Remainin Non-VA SIMVASTATIN 80MG TAB TAKE ONE-HALF TABLET BY MOUTH EVERY EVENING Medication prescribed by Non-VA provider. OUTPT SIMVASTATIN 80MG TAB (Status = Active/Suspended) TAKE ONE-HALF TABLET BY MOUTH EVERY EVENING FOR HIGH CHOLESTEROL Rx# [id number] Last Released: 12/22/24 Qty/Days Supply: Rx Expiration Date: 07/13/25 Refills Remainin Indication: FOR HIGH CHOLESTEROL OUTPT TAMSULOSIN HCL 0.4MG CAP (Status = Active) TAKE ONE CAPSULE BY MOUTH EVERY EVENING APPROXIMATELY 30 MINUTES AFTER THE SAME MEAL EACH DAY (FOR PROSTATE) Rx# [id number] Last Released: 01/04/25 Qty/Days Supply: Rx Expiration Date: 05/02/25 Refills Remainin Non-VA VALSARTAN 160MG TAB TAKE ONE TABLET BY MOUTH ONCE A DAY Medication prescribed by Non-VA provider. OUTPT VALSARTAN 160MG TAB (Status = Active/Suspended) TAKE ONE TABLET BY MOUTH ONCE A DAY FOR HIGH BLOOD PRESSURE Rx# [id number] Last Released: 12/19/24 Qty/Days Supply: 90 Rx Expiration Date: 07/13/25 Refills Remainin Indication: FOR HIGH BLOOD PRESSURE SUPPLIES OUTPT BRIEF,PROTECTIVE SUPER ABS XLG ATTENDS (Status = Active) USE 1 BRIEF TO AFFECTED AREA(S) THREE TIMES A DAY NEEDED FOR INCONTINENCE Rx# [id number] Last Released: 12/19/24 Qty/Days Supply: Rx Expiration Date: 01/25/25 Refills Remainin Indication: FOR INCONTINENCE PHARMACY TERMS AND POSSIBLE PATIENT ACTIONS INPT = PA inpatient order IV = PA intravenous medication OUTPT = PA outpatient prescription PHARMACY POSSIBLE PATIENT TERMS EXPLANATION ACTIONS -------- -- ACTIVE A prescription that can be If you have refills, filled at the local PA pharmacy. you may request a refill of this prescription from your PA pharmacy. CLINIC A medication you received during If you have questions a visit to a PA clinic or about this medication emergency department. contact your PA healthcare team. DISCONTINUED A prescription your provider has Contact your VA stopped. It is no longer healthcare team if you available to be sent to you or need more of this picked up at the PA pharmacy medication. window. A prescription which is too old Contact your VA to fill. This does not refer to healthcare team if you the expiration date of the need more of this medication in the container. medication. NON-VA A medication that came from If this medication someplace other than a VA information is pharmacy. This may be a incorrect or out of prescription from either the VA date, please tell your or non VA providers that was VA healthcare team. filled outside the VA. Or, it may be an pytc-cmc-psyunox (OTC), herbal, dietary supplements or sample medication. ON HOLD An active prescription that will Contact your VA not be filled until pharmacy pharmacy when you need resolves the issue. more of this medication. PARKED An active prescription that will Contact your VA not be filled until the patient pharmacy when you need requests it. this medication. PENDING This prescription order has been If you have been sent to the pharmacy for review instructed to start and is not ready yet. this medication now, contact your VA pharmacy. SUSPENDED An active prescription that is Contact your PA not scheduled to be filled yet. pharmacy if you need You should receive it before this medication now. you run out. ====== Medication list reviewed with Patient Patient/Caregiver reports taking medications as ordered. IS PATIENT TAKING ANY OVER THE COUNTER MEDICATIONS, SUCH VITAMINS OR HERBAL SUPPLEMENTS, INCLUDING ANY MEDICATIONS PRESCRIBED BY ANOTHER PHYSICIAN? Yes, List: aleeve prn, aspirin 81mg daily Does patient have any new allergies to report since last visit? NO VITALS: TEMPERATURE: 98.1 F [36.7 C] (08/08/2024 09:39) BP: 126/81 (08/08/2024 09:39) RESP: 20 (08/08/2024 09:39) PULSE: 59 (08/08/2024 09:39) HT: 70 in [177.8 cm] (04/04/2019 08:41) WT: 303.0 lb [137.44 kg] (08/08/2024 09:39) BMI: 43.6 PAIN ASSESSMENT: (Most Recent Pain Score in Vitals Package: 8 (07/26/2024 11:32) ) The patient indicated that they and their close contacts have not traveled outside of the [place] in the past 21 days. The patient reports the following symptoms: No symptoms present The patient is immunocompromised. Comment: Prostate cancer, had radiation treatment last year. The patient does not report having a history of Multi Drug Resistant Organism (MDRO) within the last five years. The patient does not report having been exposed to measles, chickenpox, or zoster in last 30 days. STRESS: Thank you for your service. Now let us serve you. At the [facility], we strive to provide you with exceptional health care that improves your health and well-being. Are you feeling sad, empty, or depressed? No Do you need to talk about things in your life that worry you or cause you stress? No Do you need to talk about personal problems, family problems, alcohol use, drug use, or mental or emotional illness? No SUICIDE SCREENING: The patient was asked, Over the past two weeks, how often have you been bothered by thoughts that you would be better off or of hurting yourself in some way? Not At All SPIRITUAL ASSESSMENT: Are there rastafari practices or spiritual concerns you want the sample box maker, your physician, and other health care team members to immediately know about? No Patient advised to call the clinic for any concerns, questions, or symptoms. Patient and/or caregiver verbalized understanding of plan of care. Per [facility] Directive 1605.06, wristband documentation: Patient wristband was removed and destroyed by (staff name) Bryan Alberts and placed in the designated [employer] bin. COVID-19 Immunization - L,N,P,PH,U: Refused Moderna Monovalent COVID-19 vaccine Immunization: COVID-19 (MODERNA), MRNA, LNP-S, PF, 50 MCG/0.5 ML (AGES 12+ YEARS) Refusal Reason: PATIENT DECISION Patient refuses all immunization(s) in the COVID-19 group Date Documented: 01/09/25 08:47 Influenza Immunization - L,N,P,PH,U: Deferral / Refusal The patient declines to receive the recommended dose of seasonal influenza vaccine. Immunization: INFLUENZA, UNSPECIFIED FORMULATION Refusal Reason: PATIENT DECISION Patient refuses all immunization(s) in the FLU group Date Documented: 01/09/25 08:47 FALL RISK OP PB: [place] FALL RISK ASSESSMENT Have you experienced any falls within the last 12 months: 10 = Yes Secondary Dx: 5 = Yes Secondary Dx Ambulatory Aid: 5 = Crutches/Walker/Cane Gait/Transferrin = Weak Mental status: 0 = Oriented to own ability Medications: 0 = No high risk meds TOTAL SCORE: 25 Score <30 - patient IS NOT at risk for falls. No action at this time. Reassess annually or if needed. 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 Fall Documentation Yes - Patient experienced a fall within the last year. Type of fall that occurred: Two or more falls Patient identified at risk for fall. Will refer to provider. Pain Assessment: - PAIN ASSESSMENT: .. This patient's last pain assessment score was: 6 (01/09/2025 08:45). A detailed pain assessment showed the following: Pain characteristics (per patient's own words) Constant, Aching Location of current pain Leg, Low Back Patient's self identified pain goal: 6 VVC DIGITAL DIVIDE CAPABILITY REMINDER: Patient is not interested in VVC at this time. 'S RIGHT TO DECLINE STATEMENT understands they have the right to decline the use of [employer] at any time without adverse affects on their continued access to healthcare. Patient/Nurse Interview: * * Patient stated that adequate information was received regarding the condition and/or treatment. [facility] PHP MAP: PERSONAL HEALTH PLAN INVENTORY & MAP [place]'s Response: Family Cigarette Pack Year History: The patient previously used cigarettes and quit smoking greater than or equal to 15 years ago. Eye Care At-Risk Screen - L,N,PH,U: Patient identified to be at risk for the following eye condition(s): DIABETIC RETINOPATHY: Diabetes Diagnosis Information: Encounter Diagnosis: 08/08/2024@09:30 E11.40 (ICD-10-CM) Type 2 Diabetes Mellitus with Diabetic Neuropathy, unspecified rank: SECONDARY Prov. Narr. - Diabetic peripheral neuropathy ([facility] [id number]) - Type 2 diabetes mellitus with diabetic neuropathy, unspecified (ICD-10-CM E11.40) Action: Patient has a future eye care appointment scheduled within the next 90 days. Date of Appointment: January 16, 2025 /shayne/ BRYAN ALBERTS LPN [place] [facility] Signed: 01/09/2025 08:56 BRYAN ALBERTS [facility]
--- OUTSIDE RECORDS SUMMARY | 2025-05-27 00:56 | XMS_ITS | Continuity of Care Document ---
Author Name [facility] Organization [facility] Care Team Providers Care Court Reporter Name Role Phone [facility] Unavailable Unavailable Problems Combined list of problems from Department of Defense and Veterans Affairs facilities. It does not include entries that were removed or entered in error. Problem Status Onset Date Problem Type Date of Resolution Comments Source AAA - Abdominal aortic aneurysm Active Condition Nov 12, 2021 Entered By: JASWINDER HUMPHREY Comment: 3.2cm zia. Nov 2021.Apr 14, 2023 Entered By: JASWINDER HUMPHREY Comment: 2.9cm on US 04/2023. [place] [facility] Adrenal mass Active Condition Nov 12, 2021 Entered By: JASWINDER HUMPHREY Comment: Stable on repeat CT Nov 2021.Jul 02, 2023 Entered By: JASWINDER HUMPHREY Comment: Due to size of 5.5cm , March/2023, Radiologist advises surgical referral.Jul 02, 2023 Entered By: JASWINDER HUMPHREY Comment: Referred to Endocrinology for same. [place] [facility] Carcinoma in situ of prostate Active Condition [place] [facility] Chronic back pain Active Condition 2022 Entered By: JASWINDER HUMPHREY Comment: MRI 04/2023 shows DJD, and several nimisha of nerve root and/or Thecal sac impingement, both T- and L-spine. [place] [facility] Chronic obstructive lung disease (SNOMED CT 80870960) Active Condition [place] [facility] Chronic post-traumatic stress disorder following combat (SNOMED CT 963842716) Active Condition [place] [facility] CVA - cerebrovascular accident due to cerebral artery occlusion Active Condition Oct 11, 2023 Entered By: JASWINDER HUMPHREY Comment: 2009. [place] [facility] Depression (SNOMED CT 87533423) Active Condition [place] [facility] Diabetes mellitus Active Condition [place] [facility] Diabetic peripheral neuropathy Active Condition [place] [facility] Elevated PSA Active Condition Mar 06, 2021 Entered By: JASWINDER HUMPHREY Comment: 5.77 on February,. [place] [facility] Exposure to potentially hazardous chemical Active Condition [place] [facility] Exposure to potentially hazardous substance Active Condition [facility] Gastro-esophageal reflux disease without esophagitis (SNOMED CT 045694956) Active Condition [place] [facility] Generalized social phobia (SNOMED CT 68454100) Active Condition [place] [facility] GERD - Gastro-Esophageal Reflux Disease (SCT 287168670) Active Condition Jun 19, 2019 Entered By: JASWINDER HUMPHREY Comment: By EGD, 06/12/19. [place] [facility] Hyperlipidemia (SNOMED CT 21149318) Active Condition [place] [facility] Left knee pain Active Condition [facility] Primary hypertension (SNOMED CT 85231724) Active Condition [place] [facility] SBO - Small bowel obstruction Active Condition Nov 12, 2021 Entered By: JASWINDER HUMPHREY Comment: Pt. went AMA Nov 2021. [place] [facility] Sleep Apnea (SCT 34659130) Active Condition Jun 19, 2020 Entered By: JASWINDER HUMPHREY Comment: Pt. refuses to wear CPAP mask. [place] [facility] Solitary pulmonary nodule Active Condition [place] [facility] Dizziness and giddiness (ICD-9-CM 780.4) Inactive Condition 10/11/2023 [place] [facility] Laboratory Procedures (ICD-9-CM V72.6) Inactive Condition 06/19/2019 [facility] Obesity, Morbid Inactive Condition 10/11/2023 [place] [facility] Other General Medical Examination for Administrative Purposes Inactive Condition 08/09/2019 [place] [facility] Routine General Medical Examination at a Health Care Facility * (ICD-9-CM V70.0) Inactive Condition 06/19/2019 [facility] Tobacco Use Disorder * (ICD-9-CM 305.1) Inactive Condition 10/11/2023 [place] [facility] Unresolved Inactive Condition 06/19/2019 [place] [facility] Diagnosis: ICD-10-CM G47.33 Obstructive sleep apnea (adult) (pediatric) Active Diagnosis [place] [facility] Diagnosis: ICD-10-CM Z00.01 Encounter for general adult medical exam w abnormal findings Active Diagnosis [facility] Diagnosis: ICD-10-CM Z23 Encounter for immunization Active Diagnosis [facility] Diagnosis: ICD-10-CM J44.9 Chronic obstructive pulmonary disease, unspecified Active Diagnosis [facility] Diagnosis: ICD-10-CM Z09 Encntr for f/u exam aft trtmt for cond oth than malig neoplm Active Diagnosis [facility] Diagnosis: ICD-10-CM Z71.9 Counseling, unspecified Active Diagnosis [facility] Diagnosis: ICD-10-CM M79.661 Pain in right lower leg Active Diagnosis [facility] Diagnosis: ICD-10-CM M79.604 Pain in right leg Active Diagnosis [facility] Diagnosis: ICD-10-CM J18.1 Lobar pneumonia, unspecified organism Active Diagnosis [facility] Medications Combined list of outpatient medications from Department of Defense and Veterans Affairs facilities.Medications provided include 1) outpatient medications from the last 15 months, and 2) patient-reported medications. Medication Details Route Status Patient Instructions Prescription Expires Prescription Number Last Dispense Date Ordering Provider Order Date Order Qty Source CALCIUM POLYCARBOPH [place] 625MG TAB TAKE TWO TABLETS BY MOUTH ONCE A DAY FOR FIBER ORAL 05/02/2025 [id number] 5 JESSICA HAN ISTEL G 2023 180 [facility] CHOLECALCIF LYNETTE 50MCG (2,000UNIT) TAB TAKE ONE TABLET BY MOUTH ONCE A DAY FOR VITAMIN D DEFICIEN CY ORAL ACTIVE 07/13/2025 [id number] 5 JESSICA HAN ISTEL G 2023 100 [facility] CHOLECALCIF LYNETTE 50MCG (2,000UNIT) TAB TAKE ONE TABLET BY MOUTH ONCE A DAY ORAL ACTIVE VITALY HUMPHREY 2021 [facility] FERROUS SO4 324MG TAB,EC TAKE ONE TABLET BY MOUTH EVERY MORNING FOR IRON SUPPLEME NTATION ORAL ACTIVE 07/13/2025 [id number] 5 JESSICA HAN ISTEL G 2023 100 [facility] FERROUS SO4 325MG TAB TAKE ONE TABLET BY MOUTH ONCE A DAY ORAL ACTIVE VITALY HUMPHREY 2018 [facility] FLUTICASONE PROPIONATE 50MCG/SPRAY SOLN,NASAL, 16GM INSTILL 2 SPRAYS IN NOSTRIL( S) ONCE A DAY FOR RHINITIS (MUST BE USED DIRECTED FOR MINIMUM OF 21 DAYS TO PROVIDE ADEQUATE BENEFITS ) NASAL ACTIVE 01/10/2026 [id number] 5 JESSICA HAN ISTEL G 2024 3 [facility] FLUTICASONE PROPIONATE 50MCG/SPRAY SOLN,NASAL, 16GM INSTILL 2 SPRAYS IN NOSTRIL( S) ONCE A DAY FOR RHINITIS (MUST BE USED DIRECTED FOR MINIMUM OF 21 DAYS TO PROVIDE ADEQUATE BENEFITS ) NASAL DISCONT INUED 07/13/2025 [id number] 5 JESSICA HAN ISTEL G 2023 2 [facility] GABAPENTIN 300MG CAP TAKE THREE CAPSULES BY MOUTH TWICE A DAY FOR NERVE PAIN ORAL ACTIVE 01/10/2026 [id number] 5 JESSICA HAN ISTEL G 2024 540 [facility] GABAPENTIN 300MG CAP TAKE TWO CAPSULES BY MOUTH THREE TIMES A DAY FOR NERVE PAIN ORAL DISCONT INUED (EDIT) 07/13/2025 [id number] 5 JESSICA HAN ISTEL G 2023 540 [facility] HYDROCHLORO THIAZIDE 50MG TAB TAKE ONE TABLET BY MOUTH ONCE A DAY FOR HIGH BLOOD PRESSURE ORAL ACTIVE 07/13/2025 [id number] 5 JESSICA HAN ISTEL G 2023 90 [facility] HYDROCHLORO THIAZIDE 50MG TAB TAKE ONE TABLET BY MOUTH EVERY MORNING ORAL ACTIVE VITALY HUMPHREY 2021 [facility] LIDOCAINE 5% OINT,TOP APPLY LIBERALL Y TO AFFECTED AREA(S) TWICE A DAY *REPLACE S LIDOCAIN E CREAM* TOPICA L ACTIVE 01/10/2026 [id number] 5 JESSICA HAN ISTEHannah G 2024 700 [facility] LIDOCAINE 5% OINT,TOP APPLY LIBERALL Y TO AFFECTED AREA(S) TWICE A DAY *REPLACE S LIDOCAIN E CREAM* TOPICA L DISCONT INUED 05/02/2025 [id number] 5 EMELYJESSICA ISTEL G 2023 350 [facility] LIDOCAINE 5% OINT,TOP APPLY LIBERALL Y TO AFFECTED AREA(S) TWICE A DAY *REPLACE S LIDOCAIN E CREAM* TOPICA L DISCONT INUED 2024 [id number] VITALY HUMPHREY 2022 350 [facility] METFORMIN HCL 1000MG TAB TAKE ONE-HALF TABLET BY MOUTH TWICE A DAY FOR DIABETES TAKE WITH FOOD. AVOID ALCOHOL. DISCONTI NUE BEFORE GETTING XRAY DYE. ORAL ACTIVE 01/10/2026 [id number] 5 JESSICA HAN ISTEL G 2024 90 [facility] METFORMIN HCL 1000MG TAB TAKE ONE-HALF TABLET BY MOUTH EVERY MORNING FOR DIABETES TAKE WITH FOOD. AVOID ALCOHOL. DISCONTI NUE BEFORE GETTING XRAY DYE. ORAL DISCONT INUED (EDIT) 07/13/2025 [id number] 5 JESSICA HAN ISTEL G 2023 45 [facility] METFORMIN HCL 1000MG TAB TAKE ONE-HALF TABLET BY MOUTH TWICE A DAY WITH MEALS ORAL ACTIVE LEONIDAS MCKENZIE BROCK 2013 [facility] METOPROLOL SUCCINATE 50MG TAB,SA TAKE ONE-HALF TABLET BY MOUTH EVERY MORNING FOR HIGH BLOOD PRESSURE SWALLOW WHOLE, DO NOT CRUSH OR CHEW (TABLETS MAY BE CUT IN HALF). ORAL ACTIVE 07/13/2025 [id number] 5 JESSICA HAN ISTEL G 2023 45 [facility] MULTIVITAMI NS CAP/TAB TAKE 2 TABLETS BY MOUTH ONCE A DAY FOR NUTRITIO N/DIETAR Y SUPPLEME NTATION ORAL ACTIVE 07/13/2025 [id number] 5 JESSICA HAN ISTEL G 2023 200 [facility] MULTIVITAMI NS CAP/TAB TAKE ONE TABLET BY MOUTH ONCE A DAY ORAL ACTIVE VITALY HUMPHREY Angela 2021 [facility] NADOLOL 40MG TAB TAKE ONE TABLET BY MOUTH ONCE A DAY ORAL ACTIVE JONAH,LEONIDAS BROCK 2014 [facility] OMEPRAZOLE 20MG CAP,EC TAKE ONE CAPSULE BY MOUTH EVERY MORNING BEFORE A MEAL FOR GASTROES OPHAGEAL REFLUX DISEASE TAKE 30 MINUTES PRIOR TO FOOD. ORAL ACTIVE 07/13/2025 [id number] 5 JESSICA HANTEHannah G 2023 90 [facility] OMEPRAZOLE 20MG CAP,EC TAKE 2 CAPSULES BY MOUTH EVERY MORNING ORAL ACTIVE JONAH,LEONIDAS BROCK 2013 [facility] PRAZOSIN HCL 2MG CAP TAKE TWO CAPSULES BY MOUTH AT BEDTIME TAKE TOWARDS BEDTIME; FOR NIGHTMAR ES MAY CAUSE DROWSINE SS DO NOT TAKE WITH SILDENAF IL ORAL DISCONT INUED 2024 [id number] 4 VITALY HUMPHREY Angela 2022 180 [facility] PRAZOSIN HCL 2MG CAP TAKE TWO CAPSULES BY MOUTH AT BEDTIME TAKE TOWARDS BEDTIME; FOR NIGHTMAR ES MAY CAUSE DROWSINE SS DO NOT TAKE WITH SILDENAF IL ORAL 05/02/2025 [id number] 5 JESSICA HAN G 2023 180 [facility] SERTRALINE HCL 100MG TAB TAKE ONE TABLET BY MOUTH EVERY MORNING FOR DEPRESSI ON ORAL ACTIVE 07/13/2025 [id number] 5 JESSICA HANTEHannah G 2023 90 [facility] SERTRALINE HCL 100MG TAB TAKE ONE-HALF TABLET BY MOUTH EVERY MORNING ORAL ACTIVE JONAH,LEONIDAS BROCK 2013 [facility] SILDENAFIL CITRATE 100MG TAB TAKE ONE-HALF TABLET BY MOUTH EVERY WEEK NEEDED FOR ERECTILE DYSFUNCT ION (TAKE 60 MINUTES PRIOR TO SEXUAL ACTIVITY ) - LIMIT 6 DOSES PER 30 DAYS CUT TABLET IN HALF FOR YOUR DOSE ORAL 05/02/2025 [id number] 5 JESSICA HANTEHannah Linares 2023 9 [facility] SIMVASTATIN 80MG TAB TAKE ONE-HALF TABLET BY MOUTH EVERY EVENING FOR HIGH CHOLESTE ROL ORAL ACTIVE 07/13/2025 [id number] 5 JESSICA HAN ISTEL G 2023 45 [facility] SIMVASTATIN 80MG TAB TAKE ONE-HALF TABLET BY MOUTH EVERY EVENING ORAL ACTIVE JONAH,LEONIDAS BROCK 2013 [facility] TAMSULOSIN HCL 0.4MG CAP TAKE ONE CAPSULE BY MOUTH EVERY EVENING APPROXIM ATELY 30 MINUTES AFTER THE SAME MEAL EACH DAY (FOR PROSTATE ) ORAL 05/02/2025 [id number] 5 JESSICA HAN ISTEL G 2023 90 [facility] VALSARTAN 160MG TAB TAKE ONE TABLET BY MOUTH ONCE A DAY FOR HIGH BLOOD PRESSURE ORAL ACTIVE 07/13/2025 [id number] 5 JESSICA HAN ISTEL G 2023 90 [facility] VALSARTAN 160MG TAB TAKE ONE TABLET BY MOUTH ONCE A DAY ORAL ACTIVE JONAH,LEONIDAS BROCK 2014 [facility] Allergies, Adverse Reactions, Alerts Combined list of allergies from Department [facility] and Veterans Affairs facilities. It does not include entries that were removed or entered in error. Substance Category Reaction Severity Reaction type Status Date Reported Comments Source PREGABALIN Propensity to adverse reactions to drug (finding) active 7 [facility] SULFA DRUGS Propensity to adverse reactions to drug (finding) active 4 [facility] Immunizations Combined list of available immunizations from the Department [facility] and [facility] Affairs facilities. Immunization Series Date Given Administered By Site Reaction Lot Number CVX Code Drug Machinist Bench Status Comments Source ZOSTER RECOMBINANT [address] R RIGHT DELTO ID [id number] 187 complet ed ADMINISTE RED AT [facility] ZOSTER RECOMBINANT 2023 GERRY MURRY R LEFT DELTO ID [id number] 187 complet ed Partially Complete Series, [place]MIN[facility] [place] AT [place], instructe d to return 2-6 months for 2nd dose,. [facility] COVID-19 (MODERNA), MRNA, LNP-S, PF, 100 MCG/0.5ML DOSE OR 50 MCG/0.25ML DOSE 3 2020 207 complet ed HISTORICA L INFORMATI ON - FROM OTHER REGISTRY, [facility] COVID-19 (MODERNA), MRNA, LNP-S, PF, 100 MCG/0.5ML DOSE OR 50 MCG/0.25ML DOSE 2 2020 207 complet ed HISTORICA L INFORMATI ON - FROM OTHER REGISTRY, [facility] COVID-19 (MODERNA), MRNA, LNP-S, PF, 100 MCG/0.5ML DOSE OR 50 MCG/0.25ML DOSE 1 2020 207 complet ed HISTORICA L INFORMATI ON - FROM OTHER REGISTRY, [facility] PNEUMOCOCCAL POLYSACCHARID E [id number] 2016 33 complet ed [facility] TDAP 2015 115 complet ed [facility] PNEUMOCOCCAL CONJUGATE PCV 13 2015 133 complet ed [facility] ZOSTER LIVE 2015 121 complet ed [facility] INFLUENZA, UNSPECIFIED FORMULATION 2008 88 complet ed [facility] INFLUENZA, UNSPECIFIED FORMULATION 2007 88 complet ed [facility] INFLUENZA (HISTORICAL) 2006 88 complet ed [facility] Results Combined list of recent chemistry, hematology and other laboratory results from Department of Defense and Veterans Affairs, ranging from 15 months to all on record, depending upon the facility. Order Name Results Value Reference Range Date Interpretation Specimen Comments Source CYSTATIN C EGFR PANELS [facility] CYSTATIN C [MASS/VOLUME ] IN SERUM OR PLASMA 1.89 mg/L 0.57 - 1.80 01/09 H Specimen Type: PLASMA Comment: Choice of which of the reported eGFR values to use depends on the clinical situation. For example, for patients with severe muscle wasting or reduced muscle mass, eGFR calculated using the 2012 cystatin equation may be preferred. Ordering Provider: PAU HAN Report Released Date/Time: Jan 09, 2025 09:40 AM Reporting Lab: [facility] [address] [facility] [address] Performing Lab: [facility] [place] [address] [facility] CYSTATIN C EGFR PANELS ([facility] ) CKD-EPI CYSTATIN C (2011) 31.3 60 01/09 Specimen Type: PLASMA Comment: Choice of which of the reported eGFR values to use depends on the clinical situation. For example, for patients with severe muscle wasting or reduced muscle mass, eGFR calculated using the 2011 cystatin equation may be preferred. Ordering Provider: PAU HAN Report Released Date/Time: Jan 09, 2025 09:40 AM Reporting Lab: [place] [address] Performing Lab: [address] CYSTATIN C EGFR PANELS ([facility] CKD-EPI CREAT-CYSC (2020) 45.2 60 01/09 Specimen Type: PLASMA Comment: Choice of which of the reported eGFR values to use depends on the clinical situation. For example, for patients with severe muscle wasting or reduced muscle mass, eGFR calculated using the 2011 cystatin equation may be preferred. Ordering Provider: PAU HAN Report Released Date/Time: Jan 09, 2025 09:40 AM Reporting Lab: [place] [address] Performing Lab: [address] CYSTATIN C EGFR PANELS ([facility] ) CREATININE [MASS/VOLUME ] IN SERUM OR PLASMA 1.14 mg/dL 0.7 - 1.3 01/09 Specimen Type: PLASMA Comment: Choice of which of the reported eGFR values to use depends on the clinical situation. For example, for patients with severe muscle wasting or reduced muscle mass, eGFR calculated using the 2011 cystatin equation may be preferred. Ordering Provider: PAU HAN Report Released Date/Time: Jan 09, 2025 09:40 AM Reporting Lab: [place] [address] Performing Lab: [facility] [address] [place] [address] [facility] MAGNESIUM MAGNESIUM [MASS/VOLUME ] IN SERUM OR PLASMA 1.33 mg/dL 1.6 - 2.6 01/09 L Specimen Type: PLASMA No comment entered. Ordering Provider: PAU HAN Report Released Date/Time: Jan 09, 2025 09:40 AM Reporting Lab: [place] [facility] [address] [place] [address] Performing Lab: [place] [facility] [address] [place] [address] [facility] FOLATE (PB) FOLATE [MASS/VOLUME ] IN SERUM OR PLASMA 16.9 ng/mL 7 - 20 01/09 Specimen Type: SERUM No comment entered. Ordering Provider: PAU HAN Report Released Date/Time: Jan 09, 2025 09:40 AM Reporting Lab: [place] [facility] [address] [place] [address] Performing Lab: [place] [facility] [address] [place] [address] [facility] IRON/TIBC PROFILE IRON BINDING CAPACITY [MASS/VOLUME ] IN SERUM OR PLASMA 345 ug/dL 01/09 Specimen Type: SERUM No comment entered. Ordering Provider: PAU HAN Report Released Date/Time: Jan 09, 2025 09:40 AM Reporting Lab: [place] [facility] [address] [place] [address] Performing Lab: [place] [facility] [address] [place] [address] [facility] IRON/TIBC PROFILE TRANSFERRIN [MASS/VOLUME ] IN SERUM OR PLASMA 276 mg/dL 163 - 344 01/09 Specimen Type: SERUM No comment entered. Ordering Provider: PAU HAN Report Released Date/Time: Jan 09, 2025 09:40 AM Reporting Lab: [place] [facility] [address] [place] [address] Performing Lab: [place] [facility] [address] [place] [address] [facility] IRON/TIBC PROFILE IRON SATURATION [MASS FRACTION] IN SERUM OR PLASMA 19 20 - 50 01/09 L Specimen Type: SERUM No comment entered. Ordering Provider: PAU HAN Report Released Date/Time: Jan 09, 2025 09:40 AM Reporting Lab: [place] [facility] [address] [place] [address] Performing Lab: [place] [facility] [address] [place] [address] [facility] IRON/TIBC PROFILE IRON [MASS/VOLUME ] IN SERUM OR PLASMA 65 ug/dL 65 - 175 01/09 Specimen Type: SERUM No comment entered. Ordering Provider: PAU HAN Report Released Date/Time: Jan 09, 2025 09:40 AM Reporting Lab: [place] [facility] [address] [place] [address] Performing Lab: [place] [facility] [address] [place] [address] [facility] FERRITIN FERRITIN [MASS/VOLUME ] IN SERUM OR PLASMA 118 ng/mL 22 - 275 01/09 Specimen Type: SERUM No comment entered. Ordering Provider: PAU HAN Report Released Date/Time: Jan 09, 2025 09:40 AM Reporting Lab: [place] [facility] [address] [place] [address] Performing Lab: [place] [facility] [address] [place] [address] [facility] CHOLESTERO L PANEL (PB) CHOLESTEROL [MASS/VOLUME ] IN SERUM OR PLASMA 134 mg/dL 0 - 200 01/09 Specimen Type: PLASMA No comment entered. Ordering Provider: PAU HAN Report Released Date/Time: Jan 09, 2025 09:40 AM Reporting Lab: [place] [facility] [address] [place] [address] Performing Lab: [place] [facility] [address] [place] [address] [facility] CHOLESTERO L PANEL (PB) TRIGLYCERIDE [MASS/VOLUME ] IN SERUM OR PLASMA 222 mg/dL 0 - 150 01/09 H Specimen Type: PLASMA No comment entered. Ordering Provider: PAU HAN Report Released Date/Time: Jan 09, 2025 09:40 AM Reporting Lab: [place] [facility] [address] [place] [address] Performing Lab: [place] [facility] [address] [place] [address] [facility] CHOLESTERO L PANEL (PB) CHOLESTEROL IN LDL [MASS/VOLUME ] IN SERUM OR PLASMA BY CALCULATION 44.6 mg/dL 01/09 Specimen Type: PLASMA No comment entered. Ordering Provider: PAU HAN Report Released Date/Time: Jan 09, 2025 09:40 AM Reporting Lab: [place] [facility] [address] [place] [address] Performing Lab: [place] [facility] [address] [place] [phone] [facility] CHOLESTERO L PANEL (PB) CHOLESTEROL IN HDL [MASS/VOLUME ] IN SERUM OR PLASMA 45.0 mg/dL 40 01/09 H Specimen Type: PLASMA No comment entered. Ordering Provider: PAU HAN Report Released Date/Time: Jan 09, 2025 09:40 AM Reporting Lab: [place] [facility] [address] [place] [address] Performing Lab: [place] [facility] [address] [place] [address] [facility] CHOLESTERO L PANEL (PB) CHOLESTEROL IN HDL/CHOLESTE ROL.TOTAL [MASS RATIO] IN SERUM OR PLASMA 33.6 25 01/09 Specimen Type: PLASMA No comment entered. Ordering Provider: PAU HAN Report Released Date/Time: Jan 09, 2025 09:40 AM Reporting Lab: [place] [facility] [address] [place] [address] Performing Lab: [place] [facility] [address] [place] [address] [facility] COMPREHENS KRISTEN METABOLIC PANEL CREATININE [MASS/VOLUME ] IN SERUM OR PLASMA 1.14 mg/dL 0.7 - 1.3 01/09 Specimen Type: PLASMA No comment entered. Ordering Provider: PAU HAN G Report Released Date/Time: Jan 09, 2025 09:40 AM Reporting Lab: [place] [facility] [address] [place] [address] Performing Lab: [place] [facility] [address] [place] [address] [facility] COMPREHENS KRISTEN METABOLIC PANEL UREA NITROGEN [MASS/VOLUME ] IN SERUM OR PLASMA 15 mg/dL 9 - 25 01/09 Specimen Type: PLASMA No comment entered. Ordering Provider: PAU HAN G Report Released Date/Time: Jan 09, 2025 09:40 AM Reporting Lab: [place] [facility] [address] [place] [address] Performing Lab: [place] [facility] [address] [place] [address] [facility] COMPREHENS KRISTEN METABOLIC PANEL GLUCOSE [MASS/VOLUME ] IN SERUM OR PLASMA 101 mg/dL 72 - 99 01/09 H Specimen Type: PLASMA No comment entered. Ordering Provider: PAU HAN Report Released Date/Time: Jan 09, 2025 09:40 AM Reporting Lab: [place] [facility] [address] [place] [address] Performing Lab: [place] [facility] [address] [place] [address] [facility] COMPREHENS KRISTEN METABOLIC PANEL SODIUM [MOLES/VOLUM E] IN SERUM OR PLASMA 142 meq/L 136 - 145 01/09 Specimen Type: PLASMA No comment entered. Ordering Provider: PAU HAN G Report Released Date/Time: Jan 09, 2025 09:40 AM Reporting Lab: [place] [facility] [address] [place] [id number] Performing Lab: [place] [facility] [address] [place] [id number] [facility] COMPREHENS KRISTEN METABOLIC PANEL POTASSIUM [MOLES/VOLUM E] IN SERUM OR PLASMA 3.5 meq/L 3.5 - 5 01/09 Specimen Type: PLASMA No comment entered. Ordering Provider: PAU HAN G Report Released Date/Time: Jan 09, 2025 09:40 AM Reporting Lab: [place] [facility] [address] [place] [address] Performing Lab: [place] [facility] [address] [place] [address] [facility] COMPREHENS KRISTEN METABOLIC PANEL CHLORIDE [MOLES/VOLUM E] IN SERUM OR PLASMA 101 meq/L 98 - 107 01/09 Specimen Type: PLASMA No comment entered. Ordering Provider: PAU HAN G Report Released Date/Time: Jan 09, 2025 09:40 AM Reporting Lab: [place] [facility] [address] [place] [address] Performing Lab: [place] [facility] [address] [place] [address] [facility] COMPREHENS KRISTEN METABOLIC PANEL CARBON DIOXIDE, TOTAL [MOLES/VOLUM E] IN SERUM OR PLASMA 31 meq/L 22 - 31 01/09 Specimen Type: PLASMA No comment entered. Ordering Provider: PAU HAN G Report Released Date/Time: Jan 09, 2025 09:40 AM Reporting Lab: [place] [facility] [address] [place] [address] Performing Lab: [place] [facility] [address] [place] [address] [facility] COMPREHENS KRISTEN METABOLIC PANEL CALCIUM [MASS/VOLUME ] IN SERUM OR PLASMA 9.0 mg/dL 8.4 - 10.4 01/09 Specimen Type: PLASMA No comment entered. Ordering Provider: PAU HAN G Report Released Date/Time: Jan 09, 2025 09:40 AM Reporting Lab: [place] [facility] [address] [place] [address] Performing Lab: [place] [facility] [address] [place] [address] [facility] COMPREHENS KRISTEN METABOLIC PANEL PROTEIN [MASS/VOLUME ] IN SERUM OR PLASMA 7.0 g/dL 6 - 8.6 01/09 Specimen Type: PLASMA No comment entered. Ordering Provider: PAU HAN G Report Released Date/Time: Jan 09, 2025 09:40 AM Reporting Lab: [place] [facility] [address] [place] [address] Performing Lab: [place] [facility] [address] [place] [address] [facility] COMPREHENS KRISTEN METABOLIC PANEL ALBUMIN [MASS/VOLUME ] IN SERUM OR PLASMA 4.2 g/dL 3.4 - 5 01/09 Specimen Type: PLASMA No comment entered. Ordering Provider: PAU HAN G Report Released Date/Time: Jan 09, 2025 09:40 AM Reporting Lab: [place] [facility] [address] [place] [address] Performing Lab: [place] [facility] [address] [place] [address] [facility] COMPREHENS KRISTEN METABOLIC PANEL BILIRUBIN.TO RADHA [MASS/VOLUME ] IN SERUM OR PLASMA 0.3 mg/dL 0.2 - 1.2 01/09 Specimen Type: PLASMA No comment entered. Ordering Provider: PAU HAN G Report Released Date/Time: Jan 09, 2025 09:40 AM Reporting Lab: [place] [facility] [address] [place] [address] Performing Lab: [place] [facility] [address] [place] [address] [facility] COMPREHENS KRISTEN METABOLIC PANEL ALKALINE PHOSPHATASE [ENZYMATIC ACTIVITY/VOL UME] IN SERUM OR PLASMA 77 U/L 40 - 150 01/09 Specimen Type: PLASMA No comment entered. Ordering Provider: PAU HAN G Report Released Date/Time: Jan 09, 2025 09:40 AM Reporting Lab: [place] [facility] [address] [place] [address] Performing Lab: [place] [facility] [address] [place] [address] [facility] COMPREHENS KRISTEN METABOLIC PANEL ASPARTATE AMINOTRANSFE RASE [ENZYMATIC ACTIVITY/VOL UME] IN SERUM OR PLASMA 25 U/L 5 - 34 01/09 Specimen Type: PLASMA No comment entered. Ordering Provider: PAU HAN Report Released Date/Time: Jan 09, 2025 09:40 AM Reporting Lab: [place] [facility] [address] [place] [address] Performing Lab: [place] [facility] [address] [place] [address] [facility] COMPREHENS KRISTEN METABOLIC PANEL ALANINE AMINOTRANSFE RASE [ENZYMATIC ACTIVITY/VOL UME] IN SERUM OR PLASMA 15 U/L 8 - 40 01/09 Specimen Type: PLASMA No comment entered. Ordering Provider: PAU HAN Report Released Date/Time: Jan 09, 2025 09:40 AM Reporting Lab: [place] [facility] [address] [place] [address] Performing Lab: [place] [facility] [address] [place] [address] [facility] COMPREHENS KRISTEN METABOLIC PANEL GLOMERULAR FILTRATION RATE/1.73 SQ M.PREDICTED [VOLUME RATE/AREA] IN SERUM, PLASMA OR BLOOD BY CREATININE-B ASED FORMULA (CKD-EPI 2020) 67 01/09 Specimen Type: PLASMA No comment entered. Ordering Provider: PAU HAN Report Released Date/Time: Jan 09, 2025 09:40 AM Reporting Lab: [place] [facility] [address] [place] [address] Performing Lab: [place] [facility] [address] [place] [address] [facility] BRAIN NATRIURETI C PEPTIDE NATRIURETIC PEPTIDE B [MASS/VOLUME ] IN SERUM OR PLASMA 14 pg/mL 0 - 100 01/09 Specimen Type: PLASMA No comment entered. Ordering Provider: PAU HAN Report Released Date/Time: Jan 09, 2025 09:40 AM Reporting Lab: [place] [facility] [address] [place] [address] Performing Lab: [place] [facility] [address] [place] [address] [facility] CBC LEUKOCYTES [#/VOLUME] IN BLOOD BY AUTOMATED COUNT 6.9 10*3/u L 3.6 - 11.2 01/09 Specimen Type: BLOOD No comment entered. Ordering Provider: PAU HNA Report Released Date/Time: Jan 09, 2025 09:40 AM Reporting Lab: [place] [facility] [address] [place] [address] Performing Lab: [place] [facility] [address] [place] [address] [facility] CBC ERYTHROCYTES [#/VOLUME] IN BLOOD BY AUTOMATED COUNT 4.94 10*6/u L 4.10 - 5.70 01/09 Specimen Type: BLOOD No comment entered. Ordering Provider: PAU HAN Report Released Date/Time: Jan 09, 2025 09:40 AM Reporting Lab: [place] [facility] [address] [place] [address] Performing Lab: [place] [facility] [address] [place] [address] [facility] CBC HEMOGLOBIN [MASS/VOLUME ] IN BLOOD 13.8 g/dL 13.1 - 16.8 01/09 Specimen Type: BLOOD No comment entered. Ordering Provider: PAU HAN Report Released Date/Time: Jan 09, 2025 09:40 AM Reporting Lab: [place] [facility] [address] [place] [address] Performing Lab: [place] [facility] [address] [place] [address] [facility] CBC HEMATOCRIT [VOLUME FRACTION] OF BLOOD 43.4 38.2 - 48.4 01/09 Specimen Type: BLOOD No comment entered. Ordering Provider: PAU HAN Report Released Date/Time: Jan 09, 2025 09:40 AM Reporting Lab: [place] [facility] [address] [place] [address] Performing Lab: [place] [facility] [address] [place] [address] [facility] CBC MCV [ENTITIC VOLUME] BY AUTOMATED COUNT 87.9 fL 80.0 - 100.0 01/09 Specimen Type: BLOOD No comment entered. Ordering Provider: PAU HAN G Report Released Date/Time: Jan 09, 2025 09:40 AM Reporting Lab: [place] [facility] [address] [place] [address] Performing Lab: [place] [facility] [address] [place] [address] [facility] CBC MCH [ENTITIC MASS] BY AUTOMATED COUNT 27.9 pg 27.0 - 34.0 01/09 Specimen Type: BLOOD No comment entered. Ordering Provider: PAU HAN Report Released Date/Time: Jan 09, 2025 09:40 AM Reporting Lab: [place] [facility] [address] [place] [address] Performing Lab: [place] [facility] [address] [place] [address] [facility] CBC MCHC [MASS/VOLUME ] BY AUTOMATED COUNT 31.8 g/dL 33.0 - 36.0 01/09 L Specimen Type: BLOOD No comment entered. Ordering Provider: PAU HAN Report Released Date/Time: Jan 09, 2025 09:40 AM Reporting Lab: [place] [facility] [address] [place] [address] Performing Lab: [place] [facility] [address] [place] [address] [facility] CBC PLATELETS [#/VOLUME] IN BLOOD BY AUTOMATED COUNT 215 10*3/u L 150 - 400 01/09 Specimen Type: BLOOD No comment entered. Ordering Provider: PAU HAN Report Released Date/Time: Jan 09, 2025 09:40 AM Reporting Lab: [place] [facility] [address] [place] [address] Performing Lab: [place] [facility] [address] [place] [address] [facility] CBC PLATELET MEAN VOLUME [ENTITIC VOLUME] IN BLOOD BY AUTOMATED COUNT 10.5 fL 7.5 - 11.2 01/09 Specimen Type: BLOOD No comment entered. Ordering Provider: PAU HAN Report Released Date/Time: Jan 09, 2025 09:40 AM Reporting Lab: [place] [facility] [address] [place] [address] Performing Lab: [place] [facility] [address] [place] [address] [facility] CBC ERYTHROCYTE DISTRIBUTION WIDTH [RATIO] BY AUTOMATED COUNT 13.5 11.8 - 15.1 01/09 Specimen Type: BLOOD No comment entered. Ordering Provider: PAU HAN Report Released Date/Time: Jan 09, 2025 09:40 AM Reporting Lab: [place] [facility] [address] [place] [address] Performing Lab: [place] [facility] [address] [place] [address] [facility] CBC LYMPHOCYTES/ 100 LEUKOCYTES IN BLOOD BY AUTOMATED COUNT 14.0 01/09 Specimen Type: BLOOD No comment entered. Ordering Provider: PAU HAN Report Released Date/Time: Jan 09, 2025 09:40 AM Reporting Lab: [place] [facility] [address] [place] [address] Performing Lab: [place] [facility] [address] [place] [address] [facility] CBC MONOCYTES/10 0 LEUKOCYTES IN BLOOD BY AUTOMATED COUNT 3.9 01/09 Specimen Type: BLOOD No comment entered. Ordering Provider: PAU HAN Report Released Date/Time: Jan 09, 2025 09:40 AM Reporting Lab: [place] [facility] [address] [place] [address] Performing Lab: [place] [facility] [address] [place] [address] [facility] CBC NEUTROPHILS/ 100 LEUKOCYTES IN BLOOD BY AUTOMATED COUNT 77.2 01/09 Specimen Type: BLOOD No comment entered. Ordering Provider: PAU HAN Report Released Date/Time: Jan 09, 2025 09:40 AM Reporting Lab: [place] [facility] [address] [place] [address] Performing Lab: [place] [facility] [address] [place] [address] [facility] CBC EOSINOPHILS/ 100 LEUKOCYTES IN BLOOD BY AUTOMATED COUNT 3.6 01/09 Specimen Type: BLOOD No comment entered. Ordering Provider: PAU HAN Report Released Date/Time: Jan 09, 2025 09:40 AM Reporting Lab: [place] [facility] [address] [place] [address] Performing Lab: [place] [facility] [address] [place] [address] [facility] CBC BASOPHILS/10 0 LEUKOCYTES IN BLOOD BY AUTOMATED COUNT 0.9 01/09 Specimen Type: BLOOD No comment entered. Ordering Provider: PAU HAN Report Released Date/Time: Jan 09, 2025 09:40 AM Reporting Lab: [place] [facility] [address] [place] [address] Performing Lab: [place] [facility] [address] [place] [address] [facility] CBC LYMPHOCYTES [#/VOLUME] IN BLOOD BY AUTOMATED COUNT 0.96 10*3/u L 0.77 - 4.50 01/09 Specimen Type: BLOOD No comment entered. Ordering Provider: PAU HAN Report Released Date/Time: Jan 09, 2025 09:40 AM Reporting Lab: [place] [facility] [address] [place] [address] Performing Lab: [place] [facility] [address] [place] [address] [facility] CBC MONOCYTES [#/VOLUME] IN BLOOD BY AUTOMATED COUNT 0.27 10*3/u L 0.19 - 0.8 01/09 Specimen Type: BLOOD No comment entered. Ordering Provider: PAU HAN Report Released Date/Time: Jan 09, 2025 09:40 AM Reporting Lab: [place] [facility] [address] [place] [address] Performing Lab: [place] [facility] [address] [place] [address] [facility] CBC NEUTROPHILS [#/VOLUME] IN BLOOD BY AUTOMATED COUNT 5.28 10*3/u L 2.10 - 8.00 01/09 Specimen Type: BLOOD No comment entered. Ordering Provider: PAU HAN G Report Released Date/Time: Jan 09, 2025 09:40 AM Reporting Lab: [place] [facility] [address] [place] [address] Performing Lab: [place] [facility] [address] [place] [address] [facility] CBC EOSINOPHILS [#/VOLUME] IN BLOOD BY AUTOMATED COUNT 0.25 10*3/u L 0.00 - 0.60 01/09 Specimen Type: BLOOD No comment entered. Ordering Provider: PAU HAN G Report Released Date/Time: Jan 09, 2025 09:40 AM Reporting Lab: [place] [facility] [address] [place] [address] [place] [address] Performing Lab: [place] [facility] [address] [place] [address] [facility] CBC BASOPHILS [#/VOLUME] IN BLOOD BY AUTOMATED COUNT 0.06 10*3/u L 0.00 - 0.20 01/09 Specimen Type: BLOOD No comment entered. Ordering Provider: PAU HAN Report Released Date/Time: Jan 09, 2025 09:40 AM Reporting Lab: [place] [facility] [address] [place] [address] Performing Lab: [place] [facility] [address] [place] [address] [facility] CBC IMMATURE GRANULOCYTES /100 LEUKOCYTES IN BLOOD BY AUTOMATED COUNT 0.4 01/09 Specimen Type: BLOOD No comment entered. Ordering Provider: PAU HAN G Report Released Date/Time: Jan 09, 2025 09:40 AM Reporting Lab: [place] [facility] [address] [place] [address] Performing Lab: [place] [facility] [address] [place] [address] [facility] CBC IMMATURE GRANULOCYTES [#/VOLUME] IN BLOOD BY AUTOMATED COUNT 0.03 10*3/u L 0.00 - 0.05 01/09 Specimen Type: BLOOD No comment entered. Ordering Provider: PAU HAN G Report Released Date/Time: Jan 09, 2025 09:40 AM Reporting Lab: [place] [facility] [address] [place] [address] Performing Lab: [place] [facility] [address] [place] [address] [facility] TSH (MA-PB) THYROTROPIN [UNITS/VOLUM E] IN SERUM OR PLASMA 1.257 u[IU]/ mL 0.47 - 5 01/09 Specimen Type: SERUM No comment entered. Ordering Provider: PAU HAN TEL G Report Released Date/Time: Jan 09, 2025 09:40 AM Reporting Lab: [place] [facility] [address] [place] [address] Performing Lab: [place] [facility] [address] [place] [address] [facility] Vital Signs Combined list of inpatient and outpatient Vital Signs from Department of Defense and Veterans Affairs, ranging from 12 months to all on record, depending upon the facility. Vital Sign Value Date Comments Source SYSTOLIC BLOOD PRESSURE 125 01/09/2025 08:45:00 [facility] DIASTOLIC BLOOD PRESSURE 80 01/09/2025 08:45:00 [facility] PULSE OXIMETRY 93 01/09/2025 08:45:00 [facility] WEIGHT 302.0 01/09/2025 08:45:00 [facility] BMI 43 kg/m2 01/09/2025 08:45:00 [place] [facility] PAIN 6 01/09/2025 08:45:00 [facility] TEMPERATURE 98.1 01/09/2025 08:45:00 [place] [facility] PULSE 76 01/09/2025 08:45:00 [place] [facility] RESPIRATION 20 01/09/2025 08:45:00 [facility] SYSTOLIC BLOOD PRESSURE 126 08/08/2024 09:39:00 [place] [facility] DIASTOLIC BLOOD PRESSURE 81 08/08/2024 09:39:00 [facility] PULSE OXIMETRY 97 08/08/2024 09:39:00 [facility] WEIGHT 303.0 08/08/2024 09:39:00 [place] [facility] BMI 44 kg/m2 08/08/2024 09:39:00 [place] [place] [facility] TEMPERATURE 98.1 08/08/2024 09:39:00 [place] [facility] PULSE 59 08/08/2024 09:39:00 [place] [place] [facility] RESPIRATION 20 08/08/2024 09:39:00 [place] [facility] SYSTOLIC BLOOD PRESSURE 123 07/26/2024 11:32:14 [place] [place] [facility] DIASTOLIC BLOOD PRESSURE 70 07/26/2024 11:32:14 [place] [facility] PULSE OXIMETRY 96 07/26/2024 11:32:14 [facility] WEIGHT 302 07/26/2024 11:32:14 [facility] BMI 43 kg/m2 07/26/2024 11:32:14 [facility] PAIN 8 07/26/2024 11:32:14 [facility] TEMPERATURE 98 07/26/2024 11:32:14 [facility] PULSE 63 07/26/2024 11:32:14 [facility] RESPIRATION 18 07/26/2024 11:32:14 [facility] SYSTOLIC BLOOD PRESSURE 132 07/12/2024 08:49:01 [facility] DIASTOLIC BLOOD PRESSURE 82 07/12/2024 08:49:01 [facility] PULSE OXIMETRY 94 07/12/2024 08:49:01 [facility] WEIGHT 298.3 07/12/2024 08:49:01 [facility] BMI 43 kg/m2 07/12/2024 08:49:01 [facility] PAIN 6 07/12/2024 08:49:01 [facility] TEMPERATURE 98 07/12/2024 08[facility]49:01 [facility] PULSE 54 07/12/2024 08:49:01 [facility] RESPIRATION 22 07/12/2024 08:49:01 [facility] Encounters Combined list of: 1) Encounters from Department of Veterans Affairs facilities going backup to the last 18 months, not all VA inpatient encounters are included; 2) Encounters from the Department of Defense facilities going backup to 280 months. Location Location Details Encounter Type Encounter Number Reason For Visit Attending Provider ADM Date DC Date Status Disposition Source [facility] Outpatient Encounter [id number] 12/23 [facility] Outpatient Encounter [id number] MARCOS PADILLA 01/12 [facility] Outpatient Encounter [id number] 01/24 [facility] Outpatient Encounter [id number] 02/27 [facility] Outpatient Encounter [id number] 03/01 [facility] Outpatient Encounter [id number] 03/31 [facility] Outpatient Encounter [id number] 04/18 [facility] Outpatient Encounter [id number] 05/01 [facility] Outpatient Encounter [id number] GRADY CELESTE 07/02 [facility] Outpatient Encounter [id number] Diagnos is: ICD-10- CM Z71.9 Portable Router Operator ing, unspeci fied MARCOS PADILLA 07/04 [facility] Outpatient Encounter [id number] 07/12 [facility] Outpatient Encounter [id number] 07/12 [facility] Outpatient Encounter [id number] VIRI HAN 07/12 [facility] OFFICE O/P EST HI 40 MIN [id number] Diagnos is: ICD-10- CM Z00.01 Encount er for general adult medical exam w abnorma hannah finding s VIRI HAN 07/12 [facility] PHONE CALL [facility]-10 MIN [id number] Diagnos is: ICD-10- CM J44.9 Chronic obstruc tive pulmona ry disease , unspeci fied NICOLE SALDIVAR 07/18 [facility] Outpatient Encounter [id number] 07/18 [facility] Outpatient Encounter [id number] Diagnos is: ICD-10- CM J18.1 Lobar pneumon ia, unspeci fied organis VIRI Hardy 07/20 [facility] Outpatient Encounter [id number] 07/26 [facility] OFF/OP EST MARCH X REQ PHY/QHP [id number] Diagnos is: ICD-10- CM M79.604 Pain in right leg Brenda MATHIS 07/26 [facility] OFFICE O/P EST HI 40 MIN [id number] Diagnos is: ICD-10- CM M79.661 Pain in right lower leg VIRI HAN 07/26 [facility] [id number] GRADY CELESTE L 07/28 [facility] Outpatient Encounter [id number] Diagnos is: ICD-10- CM Z71.9 Portable Router Operator ing, unspeci fiMARCOS Lawler A 07/31 [facility] Outpatient Encounter [id number] 08/01 [facility] Outpatient Encounter [id number] 08/01 [facility] OFFICE O/P EST MOD 30 MIN [id number] Diagnos is: ICD-10- CM Z09 Encntr for f/u exam aft trtmt for cond oth than malig neoplm VIRI HAN G 08/08 [facility] En[facility] [id number] 08/11 [facility] Outpatient Encounter [id number] 08/11 [facility] Outpatient Encounter [id number] 09/11 [facility] OFF/OP EST MAY X REQ PHY/QHP [id number] Diagnos is: ICD-10- CM J44.9 Chronic obstruc tive pulmona ry disease , unspeci ficasi ANGELICA REESA D 09/12 [facility] Outpatient Encounter [id number] 09/26 [facility] Outpatient Encounter [id number] 09/28 [facility] Outpatient Encounter [id number] 09/28 [facility] Outpatient Encounter [id number] 10/20 [facility] Outpatient Encounter [id number] 10/23 [facility] Outpatient Encounter [id number] 10/24 [facility] Outpatient Encounter [id number] 10/31 [facility] Outpatient Encounter [id number] 11/15 [facility] OFF/OP EST MARCH X REQ PHY/QHP [id number] Diagnos is: ICD-10- CM Z23 Encount er for immuniz BONNIE Gaspar 11/15 [facility] Outpatient Encounter [id number] 11/28 [facility] Outpatient Encounter [id number] 12/01 [facility] Outpatient Encounter [id number] 12/05 [facility] Outpatient Encounter [id number] 12/06 [facility] Outpatient Encounter [id number] 12/25 [facility] Outpatient Encounter [id number] 01/09 [facility] OFFICE O/P EST MOD 30 MIN [id number] Diagnos is: ICD-10- CM Z00.01 Encount er for general adult medical exam w abnorma l finding s VIRI HAN G 01/09 [facility] En[facility] [id number] 01/09 [facility] Outpatient Encounter [id number] 01/09 [facility] Outpatient Encounter [id number] VIRI HAN G 01/11 [facility] Encounter [id number] IVA ROSS 02/06 [facility] Outpatient Encounter [id number] 02/06 [facility] Outpatient Encounter [id number] 02/08 [facility] Outpatient Encounter [id number] 02/20 [facility] POS AIRWAY PRESSURE CPAP [id number] Diagnos is: ICD-10- CM G47.33 Obstruc tive sleep apnea (adult) ([facility] price) JONO KELLEY 02/21 [facility] Outpatient Encounter [id number] [id number] 03/13 [facility] [id number] 03/14 [facility] Outpatient Encounter [id number] 04/03 [facility] PH1 ASSMT&MGMT NQHP 11-20 [id number] Diagnos is: ICD-10- CM G47.33 Obstruc tive sleep apnea (adult) ([facility] price) J[facility]O KELLEY [facility] Social History Combined list of available smoking, tobacco, and other social history from Department of Defense and Veterans Affairs facilities. Social History Type Response Date Comment Sourc e Tobacco smoking status NHIS VA-TOBACCO USER EVERY DAY 07/12/2024 [facility] History of tobacco use VA-TOBACCO USE WI 30 MIN OF WAKEUP 07/12/2024 [facility] History of tobacco use VA-TOBACCO DOESNT USE WI 30 MIN WAKEUP 07/02/2023 [facility] History of tobacco use VA-TOBACCO USER EVERY DAY 04/09/2022 [facility] History of tobacco use VA-TOBACCO QUIT 1 TO < 5 YRS 04/09/2021 [facility] History of tobacco use VA-TOBACCO QUIT 15 YRS OR MORE 10/04/2018 [facility] History of tobacco use CURRENT TOBACCO USER 10/04/2018 [facility] History of tobacco use CURRENT TOBACCO USER 04/12/2018 [facility] History of tobacco use CURRENT TOBACCO USER 02/08/2018 [facility] History of tobacco use TOBACCO USER OFFERED MEDS 10/18/2017 [facility] History of tobacco use TOBACCO OFFERED PT MEDS (PROVIDER) 04/22/2010 [facility] History of tobacco use TOBACCO OFFERED PT MEDS (PROVIDER) 09/13/2009 do not want [facility] History of tobacco use TOBACCO OFFERED PT MEDS (PROVIDER) 04/23/2009 do not want [facility] History of tobacco use QUIT TOBACCO >7 YEARS AGO 09/11/2008 [facility] History of tobacco use TOBACCO OFFERED ST[facility] 01/18/2008 [facility] History of tobacco use CURRENT TOBACCO USER 07/05/2007 [facility] History of tobacco use CURRENT TOBACCO USER 10/29/2005 [facility] History of tobacco use CURRENT TOBACCO USER 04/27/2005 [facility] History of tobacco use CURRENT TOBACCO USER 10/22/2004 [facility] Plan of Care List of future care activities from Department [facility] facilities. Additional future care activities may be listed in the Assessment and Plan section. Date/Time Care Activity Care Activity Detail Facili ty 07/12/2025 AMBULATORY - MEDICINE AMBULATORY - MEDICI [facility] Advance Directives List of completed, amended, or rescinded Advance Directives on record at [facility] facilities. An actual copy of the Directive is not included. Date Advance Directive Provider Source 07/13/2013 ADVANCE DIRECTIVE DISCUSSION ZACHERY KOENIG [facility]
[2025-05-27 05:41] VITALS: BP 138/73; PULSE 66; RESP 22; TEMP 36.7; O2SAT 94; BMI 46.6
--- NOTE | 2025-05-27 05:48 | XRR_ITS ---
PROCEDURE INFORMATION: Exam: XR Right Hand Exam date and time: 05/27/2025 5:49 AM Age: 75 years old Clinical indication: Right; C/O persistent RT hand pain since a fall two weeks ago. ; Additional info: Right hand swelling/injury TECHNIQUE: Imaging protocol: Radiologic exam of the right hand. Views: 3 or more views. COMPARISON: No relevant prior studies available. FINDINGS: Bones/joints: Normal. No acute osseous, joint, or soft tissue abnormality. No fracture or dislocation. Soft tissues: Normal. XR/XR hand RT min 3V* [id number] IMPRESSION: No acute findings.
--- OUTSIDE RECORDS SUMMARY | 2025-05-27 05:57 | XMS_ITS | Patient Health Record ---
Author Organization [facility] Address [address] [place], [place] [id number] Care Team Providers Care Master Machinist Name Role Phone Graham ASSISTANT DISTRICT ATTORNEY, Eleanor Primary Care Provider Hailee Wray MD, Ag Unavailable [phone] [place], [place] Unavailable Unavailable Allergies Allergen (clinical drug ingredient) [...] W/U Status Risk Notes Problem Anxiety disorder (894372218) Other specified anxiety disorders (F41.8) Active confirmed Problem Obstructive sleep apnea syndrome (28595502) Obstructive sleep apnea (adult) (pediatric) (G47.33) Active confirmed Problem Spinal stenosis in cervical region (35198708) Spinal stenosis, cervical region (M48.02) Active confirmed Problem Cervical radiculopathy (71643561) Cervical disc disorder with radiculopathy, 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) Active confirmed Problem Cervicalgia (67656622) Cervicalgia (M54.2) Active confirmed Problem Long-term current use of drug therapy (273948515) 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
--- OUTSIDE RECORDS SUMMARY | 2025-05-27 05:57 | XMS_ITS | Patient Health Record ---
Author Organization [facility] Address [address] [place] [address] Care Team Providers Care Machine Lead Burner Name Role Phone [facility] Ag MCFADDEN Primary Care Provider Un available Ricky Krishnan Unavailable [phone] [place], [place] Unavailable Unavailable Ghada Soriano Unavailable Allergies Allergen (clinical drug ingredient) Drug/Non Drug Allergy documented on EMR Reaction Allergy Type Onset Date Status Substance with sulfonamide structure and antibacterial mechanism of action (substance) Sulfa Antibiotics Unknown Drug Allergy Active Results Component Value Reference Range Notes CT Abdomen, Pelvis w/o Contr [id number] Reviewed date:08/10/2024 02:13:32 PM Interpretation: Performing Lab: Notes/Report: See Below For Report CT Abdomen, Pelvis w/o Contrast Diagnosis Description: Calculus of kidney Read See Below For Report U[place] Without [place], [place] - [id number] Reviewed date:03/14/2025 08:27:24 AM Interpretation: Performing Lab: Notes/Report: Glucose 0 Bili 1+ Ketones 0 Sp [place] 1.020 Blood 0 pH 6.0 Protein +- Urobili 0 Nitrites [address] Abdomen, Pelvis w/o Contr [id number] Reviewed date:08/06/2024 09:36:00 AM Interpretation: Performing Lab: Notes/Report: [id number] Reason For Referral Reason Personal History of Prostate Cancer Referring Provider First Name Estancia Kalen ff Referring Provider Last Name [place] [facility] Referred Organization [facility] Referred Provider Ricky Krishnan Referred Address [address],[place], [place],[address],[place] Referred Provider Specialty Urology Referral Priority Routine Reason Personal hx of prost ate cancer Diagnosis 1 Personal history of malignant neoplasm of prostate (Z85.46) Referring Provider First Name Alon kahn Referring Provider Last Name [place] Referring Provider Speciality [facility] Referred Provider Ricky Krishnan Referred Address [address],[place], [place],[address], Referred Provider Specialty Urology Referral Priority Routine Medications Medication SIG (Take, Route, Frequency, Duration) Notes Start Date End Date Status Omeprazole 20 MG Capsule Delayed Release 1 capsule 30 minutes before morning meal Orally Once a day Active Iron 325 (65 Fe) MG Tablet 1 tablet Orally Once a day Active ALPRAZolam 0.5 MG Tablet 1 tablet Orally Three times a day Active Lidocaine 5 % Ointment 1 application as needed Externally Twice a day Active Aspir-81 Active Losartan Potassium 50 MG Tablet 1 tablet Orally Once a day Active Aspirin 81 81 MG Tablet Delayed Release Oral 08/18/2023 Active metFORMIN HCl 500 MG Tablet 1 tablet with a meal Orally Twice a day Active Docusate Sodium 100 MG Capsule 1 capsule as needed Orally Three times a day Active Prazosin HCl 2 MG Capsule 2 capsules at bedtime Orally Once a day Active ferrous sulfate 325 MG Oral Tablet ORAL *Reorder from Project Manager for eRx and Interaction Alerts* 08/18/2023 Active Sertraline HCl 100 MG Tablet 1 tablet Orally Once a day Active Gabapentin 300 MG Capsule 1 capsule Oral ly Three times a day Active Simvastatin 40 MG Tablet 1 tablet in the evening Orally Once a day Active hydroCHLOROthiazide 25 MG Tablet 1 tablet in the morning Orally Twice a day Active Tamsulosin HCl 0.4 MG Capsule 1 capsule Orally Once a day Active Calcium Polycarbophil 625 MG Tablet 2 tablets as needed Orally PRN Active Multi Complete - Capsule as directed Orally KEVIN Active cholecalciferol 0.125 MG Oral Tablet ORAL *Reorder from Project Manager for eRx and Interaction Alerts* 08/18/2023 Active Nadolol 40 MG Tablet 1 tablet Orally Once a day Active Dicyclomine HCl 10 MG Capsule 2 capsules Orally Four times a day Active Social History Social History Additional Details Category Social Info Options Details Migrated Social History Migrated Social History Smoking Status : Former tobacco user , History of tobacco use : Section Notes: Tobacco - Daily dipper Alcohol - none for 40 years Caffeine - daily coffee 2 cups Tobacco - Daily dipper Alcohol - none for 40 years Caffeine - daily coffee 2 cups Tobacco - Daily dipper Alcohol - none for 40 years Caffeine - daily coffee 2 cups Tobacco - Daily dipper Alcohol - none for 40 years Caffeine - daily coffee 2 cups Problems Problem Type SNOMED Code ICD Code Onset Dates Problem Status W/U Status Risk Notes Problem History of malignant neoplasm of prostate (001322117) Personal history of malignant neoplasm of prostate (Z85.46) Active confirmed Problem Constipation (38904516) Constipation, unspecified constipation type (K59.00) Active confirmed Problem COPD - Chronic obstructive pulmonary disease (82053038) Chronic obstructive pulmonary disease, unspecified COPD type (J44.9) Active confirmed Problem Adenocarcinoma of prostate (962040002) Adenocarcinoma of prostate (C61) Active confirmed Problem Morbid obesity (135043274) Obesity, Class III, BMI 40-49.9 (morbid obesity) (E66.01) Active confirmed Problem Kidney stone (55396616) Left nephrolithiasis (N20.0) Active confirmed Problem Adrenal neoplasm (D49.7) Active confirmed Problem Malignant neoplasm of prostate (348586997) Malignant neoplasm of prostate (C61) 10/21/20 23 Active confirmed Vital Signs Heart Rate 52 /min 03/14/2025 Temperature 97.0 degrees Fahrenheit 03/14/2025 Height-cm 152.40 cm 03/14/2025 Blood pressure diastolic 96 mm Hg 03/14/2025 Weight-kg 140.52 kg 03/14/2025 Height 60.00 in 03/14/2025 Blood pressure systolic 152 mm Hg 03/14/2025 Weight 309.8 lbs 03/14/2025 BMI 60.5 kg/m2 03/14/2025 Procedures Procedure Date Ordered Date Performed Result Body Sit e PVR (Post Void Residual) 03/14/2025 03/14/2025 N/A Encounters Encounter Location Date Provider Diagnosis [facility] [address] [place], [place] [address] [address] 08/01/2024 Ricky Asify Adenocarcinoma of prostate C61 ; Left nephrolithiasis N20.0 ; Adrenal neoplasm D49.7 and Pelvic pain R10.2 [facility] [address] [place], [place] [address] [address] 09/11/2024 Ghada Soriano Left nephrolithiasis N20.0 ; Adenocarcinoma of prostate C61 and Adrenal neoplasm D49.7 [facility] [address] [place] [address] [address] [place] [address] 03/14/2025 Ghada Soriano Malignant neoplasm of prostate C61 ; Adrenal neoplasm D49.7 and Left nephrolithiasis N20.0 [facility] [address] [place] [address] [address] [place] [address] 07/05/2024 Ricky Krishnan [facility] [address] [place] [address] [address] [place] [address] 07/27/2024 Ricky Krishnan [facility] [address] [place] [address] [address] [place] [address] 08/01/2024 Ricky Krishnan Left nephrolithiasis N20.0 ; Pelvic pain R10.2 and Malignant neoplasm of prostate C61 [facility] [address] [place] [address] [address] [place] [address] 09/11/2024 Ricky Krishnan Malignant neoplasm o f prostate C61 [facility] [address] [place] [address] [address] [place] [address] 03/13/2025 Ricky Krishnan [facility] [address] [place] [address] [address] [place] [address] 03/14/2025 Ricky Krishnan Malignant neoplasm o f prostate C61 [facility] [address] [place] [address] [address] [place] [address] 03/14/2025 Ricky Krishnan [facility] [address] [place] [address] [address] [place] [address] 03/14/2025 Ricky Krishnan Assessments Encounter Date Diagnosis (ICD Code) Assessment Notes Treatment Notes Treatment Clinical Notes Section Notes 08/01/2024 Adenocarcinoma of prostate (ICD-10 - C61) 08/01/2024 Left nephrolithiasis (ICD-10 - N20.0) 08/01/2024 Left nephrolithiasis (ICD-10 - N20.0) 09/11/2024 Left nephrolithiasis (ICD-10 - N20.0) None seen on imaging *Kidney stones Symptoms Severe pain in the side and back, below the ribs. Pain that radiates to the lower abdomen and groin. Pain during urination [place], red, or brown urine. Nausea and Vomiting Frequent urination or persistent urge to urinate. Causes and Risk Factors Dehydration: Not drinking enough water can lead to concentrated urine, increasing the risk of stone formation. Diet: High intake of salt, protein, and sugar can increase the risk. Family History: A family history of kidney stones can increase the likelihood of developing them. Medical Conditions: Conditions like hyperparathyroidi sm, gout, and certain urinary tract infections can contribute to stone formation. Treatment Options Hydration: Encourage patients to drink plenty of water to help pass the stone. Pain Management: Mxqy-sbf-vewaecv pain relievers like ibuprofen or acetaminophen. Medications: Alpha blockers can help relax the muscles in the ureter to facilitate stone passage. Medical Procedures: Extracorporeal Shock Wave Lithotripsy (ESWL): Uses sound waves to break stones into smaller pieces. Ureteroscopy: A thin scope is inserted through the urethra and bladder to remove or break up the stone. Percutaneous Nephrolithotomy: Surgical removal of large stones through a small incision in the back. Prevention Tips Hydration: Drink at least 2-3 liters of water daily. Dietary Changes: Reduce salt, protein, and oxalate-rich foods (e.g., spinach, nuts). Medications: For those with recurrent stones, medications may be prescribed to prevent new stones from forming. Regular Monitoring: Follow-up with healthcare providers for regular check-ups and urine tests. When to Seek Immediate Medical Attention Severe pain that makes it difficult to sit still or find a comfortable position. Pain accompanied by nausea and vomiting. Fever and chills, which may indicate an infection. 09/11/2024 Adenocarcinoma of prostate (ICD-10 - C61) Education about PSA Notes: When educating patients about PSA (Prostate-Specifi c Antigen) testing, it's important to cover several zazueta points: What is PSA? PSA is a protein produced by both normal and malignant cells of the prostate gland. The PSA test measures the level of PSA in a man's blood. Purpose of the PSA Test: The PSA test is primarily used to screen for prostate cancer. It can also help monitor patients who have been diagnosed with prostate cancer to assess the effectiveness of treatment or check for recurrence. Interpreting PSA Levels: Elevated PSA levels can indicate prostate cancer, but they can also be caused by other conditions such as benign prostatic hyperplasia (BPH) or prostatitis. Therefore, a high PSA level does not necessarily mean cancer. Benefits of PSA Testing: Early detection of prostate cancer, which can lead to early treatment and potentially better outcomes. Monitoring the progression of prostate cancer in patients who have already been diagnosed. Risks and Limitations: False positives: Elevated PSA levels can lead to unnecessary anxiety and additional tests, such as biopsies, which have their own risks. False negatives: Normal PSA levels do not completely rule out prostate cancer. Overdiagnosis and overtreatment: Some prostate cancers detected by PSA testing may be slow-growing and not life-threatening, leading to treatments that may not be necessary and can have significant side effects. Who Should Get Tested: Men aged 50 and older are generally considered for PSA testing, but those with higher risk factors (e.g., family history of prostate cancer, men) may start earlier, around age 40-45. Shared Decision-Making: Encourage patients to discuss the potential benefits and risks of PSA testing with their healthcare provider to make an informed decision based on their individual risk factors and preferences. By providing comprehensive information, patients can better understand the role of PSA testing in prostate cancer screening and management. 09/11/2024 Malignant neoplasm of prostate (ICD-10 - C61) 03/14/2025 Malignant neoplasm of prostate (ICD-10 - C61) 03/14/2025 Adrenal neoplasm (ICD-10 - D49.7) 03/14/2025 Malignant neoplasm of prostate (ICD-10 - C61) 03/14/2025 Left nephrolithiasis (ICD-10 - N20.0) 09/11/2024 Adrenal neoplasm (ICD-10 - D49.7) Sees Dr. Ogden in [place] Adrenal Adenoma: Patient Information Overview: An adrenal adenoma is a benign (non-cancerous) tumor that forms in the adrenal glands, which are located above the kidneys. These glands produce hormones that regulate various bodily functions. Adrenal adenomas can be either non-secreting (not producing hormones) or functional (producing excess hormones). Symptoms: Non-Secreting Adenomas: Often asymptomatic and discovered incidentally during imaging for other conditions. Functional Adenomas: Symptoms depend on the type of hormone produced: Cortisol: Weight gain, high blood pressure, diabetes, muscle weakness, and easy bruising (Lev's syndrome). Aldosterone: High blood pressure, low potassium levels, muscle cramps, and weakness (Conn's syndrome or primary hyperaldosteronis m). Androgens/Estroge ns: Changes in secondary sexual characteristics, such as increased hair growth or breast development. Causes: The exact cause of adrenal adenomas is unknown. They are more common in older adults and may be associated with genetic factors. Diagnosis: Imaging Tests: CT scan or MRI to detect the presence and size of the adenoma. Blood and Urine Tests: To measure hormone levels and determine if the adenoma is functional. Adrenal Venous Sampling: A specialized test to measure hormone levels directly from the adrenal veins. Treatment: Observation: Non-secreting adenomas that are small and asymptomatic may only require regular monitoring. Medications: To manage symptoms and hormone levels in functional adenomas. Surgery: Adrenalectomy (removal of the adrenal gland) may be recommended for larger adenomas, functional adenomas, or if there is a suspicion of malignancy. Prevention: There are no specific measures to prevent adrenal adenomas, but regular check-ups and monitoring can help detect and manage them early. Patient Education: Understanding the Condition: Educate patients about the nature of adrenal adenomas and the importance of monitoring. Lifestyle Modifications: Encourage a healthy diet, regular exercise, and managing stress to support overall health. Medication Adherence: Emphasize the importance of taking prescribed medications and following up with healthcare providers. When to Seek Medical Attention: Sudden onset of symptoms such as severe headache, high blood pressure, or unexplained weight gain. Signs of hormonal imbalance, such as changes in hair growth, muscle weakness, or menstrual irregularities. Any new or worsening symptoms that may indicate complications. 08/01/2024 Pelvic pain (ICD-10 - R10.2) 08/01/2024 Adrenal neoplasm (ICD-10 - D49.7) 08/01/2024 Pelvic pain (ICD-10 - R10.2) 08/01/2024 Malignant neoplasm of prostate (ICD-10 - C61) 08/01/2024 Other Next available with nurse practitioner [...] Pending Test Test Name Order Date PSA Diagnostic--[id number] 08/01/2024 Future Test Test Name Order Date PSA Diagnostic--[id number] 12/09/2024 PSA Diagnostic--[id number] 03/08/2025 PSA Diagnostic--[id number] 06/08/2025 PSA Diagnostic--[id number] 08/08/2025 Next Appt Details Provider Name:Ghada Gunn, 09/10/2025 08:10:00 AM, [address], [place], [address], Insurance Providers Payer Name Payer Address Payer Phone Subscriber Number Group Number Insured Name Patient Relationship to Insured Coverage Start Date Coverage End Date [employer] [address] [place] [address] [id number] Khoa Fallon Self - patient is the insured Medical (General) History Medical History History ICD Code diabetes mellitus hernia hypertension hypotension hemorrhoids anxiety colonic polyps COPD GERD chronic pancreatitis sleep apnea depression Adrenal mass Small bowel obstruction COVID Surgical History Surgery Date(Month/Year) cataract surgery back surgery neck fusion cholecystectomy Hospitalization History Reason Date(Month/Year) Constricted bowel [facility] 2021
--- OUTSIDE RECORDS SUMMARY | 2025-05-27 05:58 | XMS_ITS | Encounter Summary ---
Author Organization [employer] [facility] Address [address] [place] [address] Care Team Providers Care Printing Manager Name Role Phone Beto Jo MD Primary Care Provider [phone] Encounter Details Date Type Department Care Team (Late st Contact Info) Description 05/01/2003 Outpatient Historical [facility] Yair Tripp MD [address] [place] [address] LUMBAR DISC DISPLACEMENT (Primary Dx) Social History Tobacco Use Types Packs/Day Years Used Date Smoking Tobacco: Never Assessed Sex and Gender Information Value Date Recorded Sex Assigned at Not on file Legal 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
--- OUTSIDE RECORDS SUMMARY | 2025-05-27 05:58 | XMS_ITS ---
Author Organization [facility] Care Team Providers Care Anglesmith Name Role Phone Genna Foote Unavailable Unavailable Care Team Name Role Address Phone Organization Dates Genna Foote PCP [address] [place], [address], [facility] (Office): [facility] 01/06/2022 - 01/13/2022 Problems Problem # Description Date of onset Resolved Date Code CodeSystem Concern Status 1 OTHER CHRONIC PAIN 11/21/[address] active 2 PAIN IN LEFT SHOULDER 11/21/[address] active Reason for Referral No Reasons for Referral Entered Social History Social History Observation Description Start Date End Date Code Code System Current Smoking Status Tobacco smoking consumption unknown 228197329 SNOMED CT Sex Assigned At Male 1950 [address]4 [facility] Gender Identity
--- OUTSIDE RECORDS SUMMARY | 2025-05-27 05:58 | XMS_ITS | Clinical Summary ---
Author Organization Only [facility] Address [address] 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
--- OUTSIDE RECORDS SUMMARY | 2025-05-27 05:58 | XMS_ITS | Encounter Summary ---
Author Organization [facility] Address [address] [place] [address] Care Team Providers Care Soil Science Technical Officer Name Role Phone Beto Jo MD Primary Care Provider [phone] Encounter Details Date Type Department Care Team (Latest Contact Info) Description 04/25/2003 Outpatient Historical [facility] [address] [place] [id number] Yair Tripp MD [address] [place], [place] [address] PREOP CARDIOVASC EXAM (Primary Dx) Social History Tobacco Use Types Packs/Day Years Used Date Smoking Tobacco: Never Assessed Sex and Gender Information Value Date Recorded Sex Assigned at Not on file 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
--- OUTSIDE RECORDS SUMMARY | 2025-05-27 05:58 | XMS_ITS | Clinical Summary ---
Author Organization [facility] Address 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
--- NOTE | 2025-05-27 06:35 | W.ED.EXTPRO ---
HPI - Extremity Problem General: Chief complaint: Extremity Injury, Upper Stated complaint: R Hand feels broken Time Seen by Provider: 05/27/25 06:06 History of Present Illness: This patient is a 75 year old presenting with right hand pain. 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 He was holding a coffee cup with the handle hooked over his thumb. He has continued to have pain in the thumb area and it is now radiating up into his forearm. He has aleve for pain, and also something that he rubs on to the skin. Neither is helping. He has other medical history including DM2, prostate cancer, femoral nerve damage (these per patient report). He is also on home oxygen. He denies other injury. He denies any change in his chronic medical complaints. Related Data Home Medications ?Medication ?Instructions ?Recorded ?Confirmed aspirin 81 mg tablet,delayed 81 mg PO QAM 01/09/20 02/20/25 release (Adult Aspirin Regimen) ferrous sulfate 325 mg (65 mg 325 mg PO QAM 01/09/20 02/20/25 iron) tablet,delayed release gabapentin 600 mg tablet 600 mg PO TID 01/09/20 02/20/25 hydrochlorothiazide 25 mg tablet 50 mg PO QAM 01/09/20 02/20/25 metformin 500 mg tablet 500 mg PO BID 01/09/20 02/20/25 omeprazole 20 mg capsule,delayed 20 mg PO QAM 01/09/20 02/20/25 release sertraline 100 mg tablet 100 mg PO QAM 01/09/20 02/20/25 simvastatin 40 mg tablet 40 mg PO BEDTIME 01/09/20 02/20/25 nadolol 40 mg tablet 40 mg PO QAM 01/30/20 02/20/25 alprazolam 0.5 mg tablet (Xanax) 0.25 - 0.5 mg PO TID PRN Anxiety 11/10/21 02/20/25 cholecalciferol (vitamin D3) 125 125 mcg PO QAM 11/10/21 02/20/25 mcg (5,000 unit) tablet (Vitamin D3) losartan 50 mg tablet 50 mg PO QAM 11/10/21 02/20/25 multivitamin 1 tab PO QAM 11/10/21 02/20/25 lidocaine 5 % topical ointment 1 applic topical BEDTIME 02/09/22 02/20/25 prazosin 2 mg capsule 4 mg PO BEDTIME 02/09/22 02/20/25 dorzolamide 22.3 mg-timolol 6.8 ophthalmic (eye) 12/11/24 02/20/25 mg/mL eye drops fluticasone propionate 50 intranasal 12/11/24 02/20/25 mcg/actuation nasal spray,suspension naproxen sodium 220 mg tablet 220 mg PO BID PRN 12/11/24 02/20/25 (Aleve) Previous Rx's ?Medication ?Instructions ?Recorded baclofen 5 mg tablet 5 mg PO BID #60 tabs 12/25/24 diclofenac sodium 1 % topical gel 2 g topical QID #50 grams 05/27/25 (Arthritis Pain (diclofenac)) Allergies Allergy/AdvReac Type Severity Reaction Status Date / Time Sulfa (Sulfonamide Allergy Intermediate Unknown Verified 05/27/25 05:51 Antibiotics) pregabalin Allergy unknown Verified 05/27/25 05:51 PFSH ED PFSH: Medical History (Updated 05/27/25 @ 06:53 by Margarita Gonzalez MD) Hypoxia, sleep related Anemia Hiatal hernia Diverticulitis Esophagitis Gastritis Dyslipidemia Hypertension, benign Bilateral carpal tunnel syndrome Peripheral neuropathy Diabetes mellitus Cervical disc disorder with myelopathy of mid-cervical region Surgical History H/O esophagogastroduodenoscopy (03/25/22) Status post laparoscopic cholecystectomy H/O esophagogastroduodenoscopy Status post colonoscopy (03/25/22) Hx of cholecystectomy S/P hemilaminotomy (05/01/03) Left L4-L5 hemilaminotomy with microdiscectomy ;[place], [place] Family History Father Cancer Mother Diabetes CAD (coronary artery disease) Stroke Congestive heart failure (CHF) Other Hypertension Social History Smoking and tobacco/nicotine status: former use of tobacco/nicotine Alcohol intake: former Year of sobriety/quit date alcohol: 1976 Substance/Drug Use: never Lives independently: Yes Household members: spouse Marital status: Current occupational status: retired Physical Exam Const: COMMON NORMALS: no acute distress, patient oriented x3, no limitations and alert GENERAL APPEARANCE: cooperative and comfortable Eye: GENERAL EYE: appearance normal, both eyes and all related structures Resp: COMMON NORMALS: normal respiratory effort, No use of accessory muscles and clear to auscultation bilaterally AUSCULTATION: clear to auscultation bilaterally Cardio: COMMON NORMALS: regular rate, regular rhythm and No murmurs present (Cardio) RATE: regular rate RHYTHM: regular rhythm Extremity: NARRATIVE EXTREMITY EXAM: Right hand with tenderness at the MCP joint of the thumb - some pain with stressing of the joint but not really any laxity noted. Nursing notes report redness and swelling which I do not appreciate on my exam. There is a scar on the palmar sign of the joint which the patient says is an old war injury - no surgery. There is no snuffbox tenderness. Normal pulses, sensation and motor in the hand and forearm. Neuro: COMMON NORMALS: patient oriented x3, moves all extremities, no focal motor deficits and no sensory deficits noted SENSORIUM/ORIENTATION: Yes alert Psych: COMMON NORMALS: mental status grossly normal, cooperative and normal affect Course Vital Signs: Vital signs: Vital Signs Temperature 98.0 F 05/27/25 05:41 Pulse Rate 51 L 05/27/25 07:02 Respiratory Rate 22 H 05/27/25 05:41 Blood Pressure 138/73 05/27/25 05:41 Pulse Oximetry 93 05/27/25 07:02 Oxygen Delivery Me thod Nasal Cannula 05/27/25 07:02 Fraction of Inspir ed Oxygen 2 05/27/25 05:41 MDM - Extremity (Nontraumatic) Medical Decision Making Fall two weeks ago with thumb and forearm pain. No snuff box tenderness. I suspect ligamentous injury to the MCP joint possibly combined with arthritis. Xrays read as negative for acute injury by radiology. Increasing pain and radiation could be a sign for complex regional pain syndrome but I don't see any skin changes and there is no hyperasthesia. Lab Data Radiology Impressions Hand X-Ray 05/27/25 05:48 IMPRESSION: No acute findings. ADDENDUM: 05/27/25 0633 Addendum: A small corticated bony density projected at the base of the 1st metacarpal appears corticated and does not appear to represent an acute injury. All radiology interpretation(s) finalized by discharge Discharge Plan Discharge Patient Disposition: Home Clinical Impression: Sprain of ulnar collateral ligament of metacarpophalangeal (MCP) joint of finger Condition: Stable Prescriptions: New diclofenac sodium [Arthritis Pain (diclofenac)] 1 % gel 2 g topical QID Qty: 50 0RF Rx Instructions: apply to single elbow, wrist or hand; for hand includes palm/fingers/back of hand No Action sertraline 100 mg tablet 100 mg PO QAM ferrous sulfate 325 mg (65 mg iron) tablet,delayed release (DR/EC) 325 mg PO QAM aspirin [Adult Aspirin Regimen] 81 mg tablet,delayed release (DR/EC) 81 mg PO QAM omeprazole 20 mg capsule,delayed release(DR/EC) 20 mg PO QAM hydrochlorothiazide 25 mg tablet 50 mg PO QAM gabapentin 600 mg tablet 600 mg PO TID simvastatin 40 mg tablet 40 mg PO BEDTIME metformin 500 mg tablet 500 mg PO BID nadolol 40 mg tablet 40 mg PO QAM naproxen sodium [Aleve] 220 mg tablet 220 mg PO BID PRN dorzolamide-timolol 22.3-6.8 mg/mL drops ophthalmic (eye) fluticasone propionate 50 mcg/actuation spray,suspension intranasal baclofen 5 mg tablet 5 mg PO BID Qty: 60 1RF multivitamin Tablet 1 tab PO QAM losartan 50 mg tablet 50 mg PO QAM alprazolam [Xanax] 0.5 mg tablet 0.25 - 0.5 mg PO TID PRN (Reason: Anxiety) cholecalciferol (vitamin D3) [Vitamin D3] 125 mcg (5,000 unit) Tablet 125 mcg PO QAM prazosin 2 mg Capsule 4 mg PO BEDTIME lidocaine 5 % Ointment 1 applic topical BEDTIME Rx Instructions: apply to feet and legs at bedtime Discharge Orders: Discharge ED (Routine); Ordered 05/27/25 Ordered By: Margarita Gonzalez Referrals: Sravani Reich APRN [Primary Care Provider, Family Practice] Genna Foote MD [Physician, Orthopedics] - 7-10 days Referral Note: Pain right MCP first finger Patient Instructions: Opioid Safety, Pain Management, Patient Portal & Evon Instructions Activity Restrictions/Additional Instructions: Use the splint for a week. Apply the topical medicine 2 - 4 times daily. You can take two of the Aleve tablets, twice a day, for NO MORE THAN 5 days in a row. Print Language: Telugu Coding Level of Care Code ED Bag Adjuster for Nia Pinedo
[2025-05-27 07:02] VITALS: PULSE 51; O2SAT 93
== END 2025-05-27 07:17 | disposition home or self-care (01) ==
PROVIDERS: Emergency Provider Emergency Medicine; PCP Nurse Practitioner Family
DX: S63.641A Sprain of metacarpophalangeal joint of right thumb, initial encounter (principal); W31.89XA Contact with other specified machinery, initial encounter
CPT/HCPCS: 73130; 99283; J9999

== ENCOUNTER → 2025-06-04 09:35 | Outpatient (BNVA) | payer OTHER, SELFPAY | PROVIDERS: PCP Nurse Practitioner Family; Visit Provider Nurse Practitioner | DX: M18.11 Unilateral primary osteoarthritis of first carpometacarpal joint, right hand (principal); M19.041 Primary osteoarthritis, right hand; S63.641A Sprain of metacarpophalangeal joint of right thumb, initial encounter; X58.XXXA Exposure to other specified factors, initial encounter | CPT/HCPCS: 20600; 73130; 99204; J3301; J9999 ==

== ENCOUNTER 2025-06-04 11:34 | Outpatient (CLI) | payer OTHER, SELFPAY | END 2025-06-04 11:35 | disposition home or self-care (01) | LOC: SPT 11:41 | PROVIDERS: PCP Nurse Practitioner Family; Visit Provider Nurse Practitioner | DX: Z46.89 Encounter for fitting and adjustment of other specified devices (principal); M25.541 Pain in joints of right hand | CPT/HCPCS: L3924 ==

== ENCOUNTER 2025-07-23 08:09 | Outpatient (CLI) | payer OTHER, SELFPAY ==
[2025-07-23 09:44] LABS: Prostate Specific Antigen 0.205 ng/mL (0-4)
== END 2025-07-23 08:10 | disposition home or self-care (01) ==
PROVIDERS: PCP Nurse Practitioner Family; Visit Provider Nurse Practitioner Family
DX: C61 Malignant neoplasm of prostate (principal)
CPT/HCPCS: 36415; 84153

== ENCOUNTER → 2025-08-14 07:44 | Outpatient (BNVA) | payer OTHER, SELFPAY | PROVIDERS: PCP Family Medicine Geriatric Medicine; Visit Provider Podiatrist Foot & Ankle Surgery | DX: E11.40 Type 2 diabetes mellitus with diabetic neuropathy, unspecified (principal); L60.3 Nail dystrophy; L84 Corns and callosities; Z79.84 Long term (current) use of oral hypoglycemic drugs | CPT/HCPCS: 11056; 11721; 99213 ==

== ENCOUNTER → 2025-08-29 08:48 | Outpatient (BNVA) | payer OTHER, SELFPAY | PROVIDERS: PCP Family Medicine Geriatric Medicine; Visit Provider Surgery | DX: R10.32 Left lower quadrant pain (principal) | CPT/HCPCS: 99204 ==

== ENCOUNTER 2025-09-03 09:04 | Outpatient (CLI) | payer OTHER, SELFPAY ==
[2025-09-03 10:11] LABS: Prostate Specific Antigen 0.196 ng/mL (0-4)
== END 2025-09-03 09:05 | disposition home or self-care (01) ==
PROVIDERS: PCP Family Medicine Geriatric Medicine; Visit Provider Urology
DX: C61 Malignant neoplasm of prostate (principal)
CPT/HCPCS: 20553; 36415; 84153; J1010; J3490

== ENCOUNTER → 2025-09-10 10:14 | Outpatient (BNVA) | payer OTHER, SELFPAY | PROVIDERS: PCP Family Medicine Geriatric Medicine; Visit Provider Nurse Practitioner | DX: S63.641A Sprain of metacarpophalangeal joint of right thumb, initial encounter (principal); M18.11 Unilateral primary osteoarthritis of first carpometacarpal joint, right hand; X58.XXXA Exposure to other specified factors, initial encounter; M19.041 Primary osteoarthritis, right hand; Z71.89 Other specified counseling | CPT/HCPCS: 20600; J3301; J9999 ==

== ENCOUNTER → 2025-09-11 12:36 | Outpatient (BNVA) | payer OTHER, SELFPAY | PROVIDERS: PCP Family Medicine Geriatric Medicine; Visit Provider Anesthesiology Pain Medicine | DX: M54.16 Radiculopathy, lumbar region (principal); E11.9 Type 2 diabetes mellitus without complications | CPT/HCPCS: 36416; 64483; 64484; 82962; J1100; J3490; J9999 ==

== ENCOUNTER → 2025-09-25 13:09 | Outpatient (BNVA) | payer OTHER, SELFPAY | PROVIDERS: PCP Family Medicine Geriatric Medicine; Visit Provider Anesthesiology Pain Medicine | DX: M54.16 Radiculopathy, lumbar region (principal); E11.9 Type 2 diabetes mellitus without complications | CPT/HCPCS: 36416; 64483; 64484; 82962; J1100; J3490; J9999 ==

== ENCOUNTER → 2025-10-09 08:25 | Outpatient (BNVA) | payer OTHER, SELFPAY | PROVIDERS: PCP Family Medicine Geriatric Medicine; Visit Provider Anesthesiology Pain Medicine | DX: M54.16 Radiculopathy, lumbar region (principal); M48.062 Spinal stenosis, lumbar region with neurogenic claudication; M47.816 Spondylosis without myelopathy or radiculopathy, lumbar region; M54.2 Cervicalgia | CPT/HCPCS: 99214 ==

== ENCOUNTER → 2025-10-18 07:29 | Outpatient (BNVA) | payer OTHER, SELFPAY | PROVIDERS: PCP Family Medicine Geriatric Medicine; Visit Provider Podiatrist Foot & Ankle Surgery | DX: E11.8 Type 2 diabetes mellitus with unspecified complications (principal); L60.3 Nail dystrophy; E11.40 Type 2 diabetes mellitus with diabetic neuropathy, unspecified; L84 Corns and callosities; Z79.84 Long term (current) use of oral hypoglycemic drugs | CPT/HCPCS: 11721 ==

== ENCOUNTER 2025-10-19 07:22 | Outpatient (CLI) | payer OTHER, SELFPAY ==
--- NOTE | 2025-10-19 07:15 | MRR_ITS ---
PROCEDURE INFORMATION: Exam: MR Lumbar Spine Without Contrast Exam date and time: 10/19/2025 7:43 AM Age: 75 years old Clinical indication: Prior surgery; Surgery date: 6+ months; Surgery type: History of c-spine and l-spine surgery; Chronic mid to low back pain. Getting esis with no relief. ; Additional info: M54.16 - radiculopathy, lumbar region TECHNIQUE: Imaging protocol: Magnetic resonance imaging of the lumbar spine without contrast. COMPARISON: MR lumbar spine wo con* [id number] 04/14/2023 7:50 AM FINDINGS: Bones/joints: No acute compression fracture. Focal fatty infiltration in the L1 vertebral body. Alignment is normal. Spinal cord: Conus terminates normally at L1. L1-L2: Mild bulge and mild facet hypertrophy. L2-L3: Bulging disc with underlying osteophyte. Bilateral facet and ligamentum flavum hypertrophy. Inferiorly migrated right paracentral extrusion with sequestered fragment posterior to the L3 vertebral body which was not present on the prior study. Moderate stenosis at this level. Mild bilateral neural foraminal narrowing. L3-L4: Bulging disc. Bilateral facet hypertrophy. Mild stenosis. Mild bilateral neural foraminal narrowing. L4-L5: Bulging disc with underlying osteophyte. Bilateral facet and ligamentum flavum hypertrophy. Mild stenosis. Severe left and moderate right-sided neural foraminal narrowing. L5-S1: Bulging disc with underlying osteophyte. Severe left and moderate right-sided neural foraminal narrowing. Soft tissues: Unremarkable. MR/MR lumbar spine wo con* [id number] IMPRESSION: 1. Diffuse degenerative disc disease and facet arthropathy. Progression of abnormality L2-L3 now with right paracentral extrusion with inferiorly migrated fragment sequestered posterior L3 and moderate stenosis. 2. Otherwise unchanged, with mild stenosis at L3-L4 and L4-L5 and severe left-sided neural foraminal narrowing at L4-L5 and L5-S1.
== END 2025-10-19 07:23 | disposition home or self-care (01) ==
LOC: RAD 07:23
PROVIDERS: PCP Family Medicine Geriatric Medicine; Visit Provider Anesthesiology Pain Medicine
DX: M51.16 Intervertebral disc disorders with radiculopathy, lumbar region (principal); D65 Disseminated intravascular coagulation [defibrination syndrome]; M47.896 Other spondylosis, lumbar region; M48.061 Spinal stenosis, lumbar region without neurogenic claudication; M48.07 Spinal stenosis, lumbosacral region
CPT/HCPCS: 72148